=== PATIENT | female | born 1945 | race Hispanic/Latino ===

== ENCOUNTER 2018-03-10 10:43 | Emergency (ER) | payer OTHER ==
[2018-03-10] MEDS ORDERED: LEVALBUTEROL 1.25 MG/3 ML NEB ONE (11:30)
[2018-03-10] MEDS ORDERED: OSELTAMIVIR 75 MG CAP ONE (11:30)
[2018-03-10] MEDS ORDERED: IPRATROPIUM BROM 0.5MG/2.5ML ONE (11:30)
[2018-03-10] MEDS ORDERED: NA CHLORIDE 0.9% 1,000 ML ONE (11:30)
[2018-03-10] MEDS ORDERED: CEFTRIAXONE/SWI 1gm 1 GM/10 ML SYR ONE (11:30)
[2018-03-10] MEDS ORDERED: AZITHROMYCIN IV 500 MG in NA CHLORIDE 0.9% 250 ML IVPB ONE (12:00)
[2018-03-10 12:09] LABS: Absolute Lymphocytes (CBC) 0.9 K/uL (0.7-4.9); Absolute Monocytes 0.3 K/uL (0.1-1.3); Basophils % 0.4 % (0-1.3); Eosinophils % 5.6 % (0-4.4); Hematocrit 38.5 % (36.0-45.0); Lymphocytes % 26.4 % (15.3-44.8); MCH 29.8 pg (27.0-35.0); MCV 87.9 fL (80-100); MPV 8.7 fL (7.6-11.3); RBC Red Blood Cell Count 4.38 M/uL (3.86-4.86)
--- NOTE | 2018-03-10 12:24 | ER ---
Nurse's Notes [facility] Name: Eliane Flores Age: 72 yrs Sex: Female : 1945 Arrival Date: 03/10/2018 Time: 10:45 Bed 16 Private MD: Diagnosis: Acute upper respiratory infection, unspecified;Cough;Cystitis Presentation: 03/10 10:50 Presenting complaint: Patient states: Cough, congestion, SOB since sunday. Transition la1 of care: patient was not received from another setting of care. Onset of symptoms was March 10, 2018. Initial Sepsis Screen: Does the patient meet any 2 criteria? No. Patient's initial sepsis screen is negative. Does the patient have a suspected source of infection? No. Patient's initial sepsis screen is negative. Care prior to arrival: None. 10:50 Method Of Arrival: Ambulatory la1 10:50 Acuity: CRISTINA 3 la1 Historical: - Allergies: 10:51 PENICILLINS; la1 - PMHx: 10:51 BRADYCARDIA; Hypertension; Hypothyroidism; problem with heart-unknown; la1 - Immunization history:: Adult Immunizations up to date. - Social history:: Smoking status: Patient/guardian denies using tobacco. - Family history:: not pertinent. Screenin:21 Abuse screen: Denies threats or abuse. Denies injuries from another. Nutritional ph screening: No deficits noted. Tuberculosis screening: No symptoms or risk factors identified. Fall Risk None identified. Assessment: 11:30 General: Appears in no apparent distress. uncomfortable, well groomed, Behavior is ph calm, cooperative, appropriate for age, Reports chills for fever for. Pain: Denies pain. Neuro: Level of Consciousness is awake, alert, obeys commands, Oriented to person, place, time, situation. Cardiovascular: Capillary refill < 3 seconds in bilateral fingers Patient's skin is warm and dry. Respiratory: Reports shortness of breath on exertion cough that is productive, Airway is patent Respiratory effort is even, unlabored, Respiratory pattern is regular, symmetrical, Breath sounds are coarse in left posterior lower lobe, right posterior middle lobe and right posterior lower lobe Denies pain with respiration, pain with cough. GI: Patient currently denies diarrhea, nausea, vomiting. EENT: Reports nasal congestion nasal discharge. Derm: Skin is intact, is healthy with good turgor, Skin is pink, warm \T\ dry. Musculoskeletal: Circulation, motion, and sensation intact. Range of motion: intact in all extremities. 12:45 Reassessment: Discharge pending due to antibiotics infusing. rb1 14:00 Reassessment: Patient appears in no apparent distress at this time. Patient and/or ph family updated on plan of care and expected duration. Pain level reassessed. Patient is alert, oriented x 3, equal unlabored respirations, skin warm/dry/pink. Pt discharged home with family. Vital Signs: 10:51 BP 162 / 75; Pulse 67; Resp 19; Temp 97.8; Pulse Ox 100% on R/A; Weight 67.59 kg; la1 12:25 BP 178 / 69; Pulse 61; Resp 20; Pulse Ox 100% ; ph 13:45 BP 167 / 72; Pulse 64; Resp 18; Temp 97.8; Pulse Ox 98% on R/A; ph ED Course: 10:45 Patient arrived in ED. as 10:50 Triage completed. la1 10:51 Arm band placed on left wrist. la1 11:02 Caden Palencia MD is Attending Physician. svetlana 11:04 Babita Phoenix, JEREMY is Primary Nurse. ph 11:20 Initial lab(s) drawn, by me, sent to lab. Inserted saline lock: 20 gauge in left ph antecubital area, using aseptic technique. Blood collected. 11:42 Urine collected: clean catch specimen, cloudy, carissa colored, EKG done, by ED staff, jb1 reviewed by Caden Palencia MD. 12:05 XRAY Chest (1 view) In Process Unspecified. EDMS 12:21 Patient has correct armband on for positive identification. Placed in gown. Bed in low ph position. Call light in reach. Side rails up X 1. Pulse ox on. NIBP on. Warm blanket given. 14:01 No provider procedures requiring assistance completed. IV discontinued, bleeding ph controlled, No redness/swelling at site. Pressure dressing applied. Administered Medications: 11:50 Drug: Tamiflu 75 mg Route: PO; ph 13:00 Follow up: Response: No adverse reaction ph 11:55 Drug: NS 0.9% 500 ml Route: IV; Rate: bolus; Site: left antecubital; ph 12:30 Follow up: Response: No adverse reaction; IV Status: Completed infusion ph 11:55 Drug: Rocephin - (cefTRIAXone) 1 grams Route: IVPB; Infused Over: 30 mins; Site: left ph antecubital; 13:00 Follow up: Response: No adverse reaction; IV Status: Completed infusion ph 11:55 Drug: Xopenex 1.25 mg Route: Inhalation; ph 13:00 Follow up: Response: No adverse reaction ph 11:55 Drug: AtroVENT Aerosol 0.5 mg Route: Inhalation; ph 13:00 Follow up: Response: No adverse reaction ph 12:44 Drug: NS 0.9% 1000 ml Route: IV; Rate: 125 ml/hr; Site: left antecubital; rb1 13:30 Follow up: Response: No adverse reaction; IV Status: Completed infusion ph 12:44 Drug: Zithromax 500 mg Route: IVPB; Infused Over: 1 hrs; Site: left antecubital; rb1 14:00 Follow up: Response: No adverse reaction; IV Status: Completed infusion ph Outcome: 12:24 Discharge ordered by . svetlana 14:01 Patient left the ED. ph 14:01 Discharged to home ambulatory, with family. ph 14:01 Condition: good 14:01 Discharge instructions given to patient, Instructed on discharge instructions, follow up and referral plans. medication usage, Demonstrated understanding of instructions, follow-up care, medications, Prescriptions given X 5 Signatures: Dispatcher [employer] EDEliazar Duff jb1 Caden Palencia MD MD cha Martinez, Amelia as Attema, Lee, RN RN la1 Babita Phoenix RN RN Amrita Mistry, JEREMY RN rb1 Corrections: (The following items were deleted from the chart) 10:52 10:51 Pulse 67bpm; Resp 19bpm; Pulse Ox 100% RA; Temp 97.8F; 67.59 kg; la1 la1
--- NOTE | 2018-03-10 12:25 | EDPHYS ---
Physician Documentation [facility] Name: Eliane Flores Age: 72 yrs Sex: Female : 1945 Arrival Date: 03/10/2018 Time: 10:45 Bed 16 Private MD: ED Physician Caden Palencia HPI: 03/10 11:22 This 72 yrs old Female presents to ER via Ambulatory with complaints of Cold svetlana Symptoms. 11:22 fever , cough, congestion, malaie. The patient or guardian reports airway noise, cough. svetlana Onset: The symptoms/episode began/occurred 2 day(s) ago. Severity of symptoms: At their worst the symptoms were mild, in the emergency department the symptoms are unchanged. The patient reports fever, that was measured at 100 degrees Fahrenheit. Historical: - Allergies: 10:51 PENICILLINS; la1 - PMHx: 10:51 BRADYCARDIA; Hypertension; Hypothyroidism; problem with heart-unknown; la1 - Immunization history:: Adult Immunizations up to date. - Social history:: Smoking status: Patient/guardian denies using tobacco. - Family history:: not pertinent. ROS: 11:22 Constitutional: Negative for fever, chills, and weight loss, Eyes: Negative for injury, svetlana pain, redness, and discharge, ENT: Negative for injury, pain, and discharge, Neck: Negative for injury, pain, and swelling, Cardiovascular: Negative for chest pain, palpitations, and edema, Abdomen/GI: Negative for abdominal pain, nausea, vomiting, diarrhea, and constipation, Back: Negative for injury and pain, : Negative for injury, bleeding, discharge, and swelling, MS/Extremity: Negative for injury and deformity, Skin: Negative for injury, rash, and discoloration, Neuro: Negative for headache, weakness, numbness, tingling, and seizure, Psych: Negative for depression, anxiety, suicide ideation, homicidal ideation, and hallucinations, Allergy/Immunology: Negative for hives, rash, and allergies, Endocrine: Negative for neck swelling, polydipsia, polyuria, polyphagia, and marked weight changes, Hematologic/Lymphatic: Negative for swollen nodes, abnormal bleeding, and unusual bruising. 11:22 Respiratory: Positive for cough, shortness of breath, on exertion. Exam: 11:22 Constitutional: This is a well developed, well nourished patient who is awake, alert, svetlana and in no acute distress. Head/Face: Normocephalic, atraumatic. Eyes: Pupils equal round and reactive to light, extra-ocular motions intact. Lids and lashes normal. Conjunctiva and sclera are non-icteric and not injected. Cornea within normal limits. Periorbital areas with no swelling, redness, or edema. ENT: Nares patent. No nasal discharge, no septal abnormalities noted. Tympanic membranes are normal and external auditory canals are clear. Oropharynx with no redness, swelling, or masses, exudates, or evidence of obstruction, uvula midline. Mucous membranes moist. Neck: Trachea midline, no thyromegaly or masses palpated, and no cervical lymphadenopathy. Supple, full range of motion without nuchal rigidity, or vertebral point tenderness. No Meningismus. Chest/axilla: Normal chest wall appearance and motion. Nontender with no deformity. No lesions are appreciated. Cardiovascular: Regular rate and rhythm with a normal S1 and S2. No gallops, murmurs, or rubs. Normal PMI, no JVD. No pulse deficits. Abdomen/GI: Soft, non-tender, with normal bowel sounds. No distension or tympany. No guarding or rebound. No evidence of tenderness throughout. Back: No spinal tenderness. No costovertebral tenderness. Full range of motion. Female : Normal external genitalia. Skin: Warm, dry with normal turgor. Normal color with no rashes, no lesions, and no evidence of cellulitis. MS/ Extremity: Pulses equal, no cyanosis. Neurovascular intact. Full, normal range of motion. Neuro: Awake and alert, GCS 15, oriented to person, place, time, and situation. Cranial nerves II-XII grossly intact. Motor strength 5/5 in all extremities. Sensory grossly intact. Cerebellar exam normal. Normal gait. Psych: Awake, alert, with orientation to person, place and time. Behavior, mood, and affect are within normal limits. 11:22 Respiratory: the patient does not display signs of respiratory distress, Respirations: normal, Breath sounds: decreased breath sounds, rhonchi, that are mild, are located in both bases. Vital Signs: 10:51 BP 162 / 75; Pulse 67; Resp 19; Temp 97.8; Pulse Ox 100% on R/A; Weight 67.59 kg; la1 12:25 BP 178 / 69; Pulse 61; Resp 20; Pulse Ox 100% ; ph 13:45 BP 167 / 72; Pulse 64; Resp 18; Temp 97.8; Pulse Ox 98% on R/A; ph MDM: 11:02 Patient medically screened. [facility] 11:24 Data reviewed: vital signs, nurses notes, lab test result(s), EKG, radiologic studies, svetlana plain films. 03/10 11:22 Order name: Basic Metabolic Panel; Complete Time: 12:41 [facility] 03/10 11:22 Order name: BNP [facility] 03/10 11:22 Order name: CBC with Diff; Complete Time: 12:22 [facility] 03/10 11:22 Order name: Ckmb; Complete Time: 12:41 [facility] 03/10 11:22 Order name: CPK; Complete Time: 12:41 [facility] 03/10 11:22 Order name: LFT's; Complete Time: 12:41 [facility] 03/10 11:22 Order name: Magnesium; Complete Time: 12:41 [facility] 03/10 11:22 Order name: Troponin (emerg Dept Use Only); Complete Time: 12:41 [facility] 03/10 11:22 Order name: XRAY Chest (1 view); Complete Time: 12:41 [facility] 03/10 11:22 Order name: Blood Culture Adult (2) [facility] 03/10 11:22 Order name: Influenza Screen (a \T\ B); Complete Time: 12:22 [facility] 03/10 11:45 Order name: Urine Culture jb1 03/10 11:48 Order name: Urine Dipstick--Ancillary (enter results); Complete Time: 12:30 03/10 11:22 Order name: EKG; Complete Time: 11:22 [facility] 03/10 11:22 Order name: Cardiac monitoring; Complete Time: 11:27 [facility] 03/10 11:22 Order name: EKG - Nurse/Tech; Complete Time: 11:43 [facility] 03/10 11:22 Order name: IV Saline Lock; Complete Time: 12:20 [facility] 03/10 11:22 Order name: Labs collected and sent; Complete Time: 12:20 [facility] 03/10 11:22 Order name: O2 Per Protocol; Complete Time: 11:27 [facility] 03/10 11:22 Order name: O2 Sat Monitoring; Complete Time: 11:27 [facility] 03/10 11:22 Order name: Urine Dipstick-Ancillary (obtain specimen); Complete Time: 11:43 svetlana Administered Medications: 11:50 Drug: Tamiflu 75 mg Route: PO; ph 13:00 Follow up: Response: No adverse reaction ph 11:55 Drug: NS 0.9% 500 ml Route: IV; Rate: bolus; Site: left antecubital; ph 12:30 Follow up: Response: No adverse reaction; IV Status: Completed infusion ph 11:55 Drug: Rocephin - (cefTRIAXone) 1 grams Route: IVPB; Infused Over: 30 mins; Site: left ph antecubital; 13:00 Follow up: Response: No adverse reaction; IV Status: Completed infusion ph 11:55 Drug: Xopenex 1.25 mg Route: Inhalation; ph 13:00 Follow up: Response: No adverse reaction ph 11:55 Drug: AtroVENT Aerosol 0.5 mg Route: Inhalation; ph 13:00 Follow up: Response: No adverse reaction ph 12:44 Drug: NS 0.9% 1000 ml Route: IV; Rate: 125 ml/hr; Site: left antecubital; rb1 13:30 Follow up: Response: No adverse reaction; IV Status: Completed infusion ph 12:44 Drug: Zithromax 500 mg Route: IVPB; Infused Over: 1 hrs; Site: left antecubital; rb1 14:00 Follow up: Response: No adverse reaction; IV Status: Completed infusion ph Disposition: 03/10/18 12:24 Discharged to Home. Impression: Acute upper respiratory infection, unspecified, Cough, Cystitis. - Condition is Stable. - Discharge Instructions: Dysuria, Upper Respiratory Infection, Adult, Cool Mist Vaporizers, Cough, Adult, [id number], Cough, Adult. - Prescriptions for Cheratussin AC 10- 100 mg/5 mL Oral liquid - take 5 milliliter by ORAL route every 4 hours; 120 milliliter. Albuterol Sulfate 90 mcg/actuation - inhale 1-2 puff by INHALATION route every 4-6 hours; 1 Inhaler. Tamiflu 75 mg Oral Capsule - take 1 tablet by ORAL route every 12 hours for 5 days; 10 tablet. Zithromax 500 mg Oral Tablet - take 1 tablet by ORAL route once daily for 5 days; 5 tablet. Bactrim DS 800- 160 mg Oral Tablet - take 1 tablet by ORAL route every 12 hours for 5 days; 10 tablet. - Medication Reconciliation Form, Thank You Letter, Antibiotic Education, Prescription Opioid Use form. - SBAR form (03/10/18 18:34). ph - Follow up: Private Physician; When: 2 - 3 days; Reason: Recheck today's complaints, Continuance of care, Re-evaluation by your physician. - Problem is new. - Symptoms have improved. Signatures: Dispatcher [employer] EDCaden Weems MD MD cha Attema, Lee, RN RN la1 Babita Phoenix, RN RN ph Amrita Mistry, RN RN rb1
[2018-03-10 12:26] LABS: Bicarbonate 30 mEq/L (21-31); Glucose Level 98 mg/dL (65-120); Potassium 3.7 mEq/L (3.6-5.0); Sodium Level 137 mEq/L (135-145)
[2018-03-10 12:28] LABS: Urine Blood NEGATIVE (NEG); Urine Glucose NEGATIVE (NEG); Urine Protein NEGATIVE (NEG); Urine Specific Gravity 1.015 (1.005-1.030); Urine pH 7.5 (5.0-7.0)
[2018-03-10 12:33] LABS: ALT/SGPT 18 IU/L (10-60); AST/SGOT 24 IU/L (10-42); Albumin 4.1 g/dL (3.2-5.5); Alkaline Phosphatase 88 IU/L (42-121); BUN Blood Urea Nitrogen 14 mg/dL (6-20); Bilirubin Direct < 0.1 mg/dL (0-0.2); Bilirubin Total 0.7 mg/dL (0.3-1.2); Creatine Phosphokinase 233 IU/L (22-269); Magnesium 1.9 mg/dL (1.8-2.5); Protein, Total 7.5 g/dL (6.0-8.3)
--- NOTE | 2018-03-10 12:33 | RAD REPORT ---
EXAM DESCRIPTION: RAD - Chest Single View - 03/10/2018 12:05 pm CLINICAL HISTORY: Cough and congestion COMPARISON: 08/22/2017 FINDINGS: Portable technique limits examination quality. The lungs are grossly clear. The heart is normal in size. No displaced fractures. IMPRESSION: No acute intrathoracic process suspected.
[2018-03-10 12:37] LABS: CKMB Creatine Kinase MB 3.7 ng/ml (0.3-4.0)
[2018-03-10 14:06] VITALS: TEMP 97.8; O2SAT 100
[2018-03-10 14:07] VITALS: BP 178/69
--- NOTE | 2018-03-11 07:06 | EKG ---
Test Date: 2018-03-10 Test Time: 11:36:49 Audiometric Technician: INGA MEASUREMENT RESULTS: Intervals: Rate: 50 OK: 172 QRSD: 90 QT: 442 QTc: 402 [place]: P: 49 OK: 172 QRS: 11 T: 33 INTERPRETIVE STATEMENTS: Sinus bradycardia Otherwise normal ECG Compared to ECG 08/22/2017 10:12:26 No significant changes Electronically Signed On 03-11-18 07:05:46 CDT by Robert Bustaamnte
== END 2018-03-10 14:01 | disposition home or self-care (01) ==
LOC: ER 10:43
DX: J06.9 Acute upper respiratory infection, unspecified (principal); N30.90 Cystitis, unspecified without hematuria; I10 Essential (primary) hypertension; Z88.0 Allergy status to penicillin
CPT/HCPCS: 36415; 71045; 80048; 80076; 81003; 82550; 82553; 83735; 83880; 84484; 85025; 87040 ×2; 87086; 87088; 87804 ×2; 93005; 96365; 99284; J0456; J0696; J7030; 96361; 96368

== ENCOUNTER 2023-04-27 08:57 | Observation (INO) | payer OTHER ==
--- OUTSIDE RECORDS SUMMARY | 2023-04-27 09:10 | XMS REPORT | Continuity of Care Document ---
:1945 Author Organization [facility] t Address [address] 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 [id number] 2021 NON-CONTRACT 00:00:00 GENERIC Problems Condition Condition Condition Status Onset Resolution Last Treating Co mments Source Name Details Category Date Date Treatment Clinician Date Well adult Well adult Disease Active K kindra exam exam 03-21 Seybold 00:00: - 00 Externa l Prediabete Prediabete Disease Active K kindra s s 03-21 Seybold 00:00: - 00 Externa l Hypertensi Hypertensi Disease Active K kindra on on 02-21 Seybold 00:00: - 00 Externa l Hypothyroi Hypothyroi Disease Active K kindra dism dism 02-21 Seybold (acquired) (acquired) 00:00: - 00 Externa l 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 Allergies, Adverse Reactions, Alerts Allergy Allergy Status Severity Reaction(s) Onset Inactive Treating Comm ents Source Name Type Date Date Clinician Penicill Propensi Active Kita ins ty to 4-04 Seybold adverse 00:00: - reaction 00 Externa s l Penicill Propensi Active ins - ty to 8-16 CLASS adverse 00:00: reaction 00 to drug Codeine Propensi Active Kita ty to 8-16 Seybold adverse 00:00: - reaction 00 Externa s l Penicill Propensi Active ins ty to 3-18 adverse 00:00: reaction 00 to drug Penicill Propensi Active Hives Univer s ins ty to 8-14 ity of adverse 00:00: [place] reaction [facility] PENICILL Drug Active Hives Univers INS Class 8-14 ity of 00:00: [place] [facility] Social History Social Habit Start Date Stop Date Quantity Comments Source Gender identity Kita poole - External Sexual orientation Kita Montes - External Alcohol intake 2023-03-21 2023-03-21 Lifetime Kita rocha - 00:00:00 00:00:00 non-drinker External (finding) Education 2023-02-21 2023-02-21 3 Kita Montes - 00:00:00 00:00:00 External Tobacco use and 2023-02-20 2023-02-20 Smokeless Kita poole - exposure 00:00:00 00:00:00 tobacco non-user External History of Social 2023-02-20 2023-02-20 Kita Montes - function 00:00:00 00:00:00 External Exposure to 2022-08-12 2022-08-22 Not sure [facility]-CoV-2 (event) 00:00:00 12:07:00 [facility] Sex Assigned At [birth year] Kita Velez ybold - 00:00:00 00:00:00 External Smoking Status Start Date Stop Date Source Never smoked tobacco Kita Seyb old - External Medications Ordered Filled Start Stop Current Ordering Indication Dosage Frequency Signature Comments Components Source Medication Medication Date Date Medication? Clinician (SIG) Name Name Cholecalcif Yes 400U Take 1 Courtney ey sandhya 5-03 tablet Seybold (VITAMIN 14:22: (400 units - D-3) 10 MCG 23 total) by Ext abigail (400 UNIT) mouth l oral Tablet daily [place]-3 Yes 1{capsu Take 1 Kelse y Fatty Acids 5-03 le} capsule by joeykvng (Fish Oil) 14:22: mouth - 1200 MG 23 daily Externa oral l Capsule Levothyroxi Yes [id number] 50ug Take 1 Kita ne Sodium 4-27 tablet (50 Seyb old 50 MCG oral 00:00: mcg total) - Tablet 00 by mouth Externa daily l Lisinopril 2022- No 10mg Take 1 Courtney ey 10 MG oral 4-05 04-05 tablet (10 Se ybold Tablet 14:17: 00:00 mg total) - 57 :00 by mouth Externa daily l Levothyroxi 0 2022- No 50ug Take 1 Joseluis sey ne Sodium 4-05 04-05 tablet (50 Sey bold 50 MCG oral 14:17: 00:00 mcg total) - Tablet 57 :00 by mouth Externa daily l Pantoprazol 2022- No 20mg Take 1 Joseluis sey e Sodium 20 4-05 04-05 tablet (20 S eybold MG oral 14:17: 00:00 mg total) - Tablet 57 :00 by mouth Externa Delayed daily l Response Zinc 2022- No Take by Kita Sulfate 4-05 04-05 mouth Seybold (ZINC 15 14:17: 00:00 - OR) 57 :00 Externa l [place]-3 Yes 1{capsu Take 1 Kelse y Fatty Acids 4-05 le} capsule by Se ybold (Fish Oil) 14:05: mouth - 1200 MG 49 daily Externa oral l Capsule Cholecalcif 0 Yes 400U Take 1 Courtney ey sandhya 4-05 tablet Seybold (VITAMIN 13:58: (400 units - D-3) 10 MCG 27 total) by Ext abigail (400 UNIT) mouth l oral Tablet daily Pantoprazol 2022-0 Yes [id number] 20mg QD Take 1 Kita e Sodium 20 4-05 tablet (20 Se ybold MG oral 00:00: mg total) - Tablet 00 by mouth Externa Delayed daily as l Response needed Lisinopril 0 Yes [id number] 10mg Take 1 K elsey 10 MG oral 4-05 tablet (10 Sey bold Tablet 00:00: mg total) - 00 by mouth Externa daily l Levothyroxi 0 Yes [id number] 50ug Take 1 Kita ne Sodium 4-05 tablet (50 Seyb old 50 MCG oral 00:00: mcg total) - Tablet 00 by mouth Externa daily l Zinc 2022-0 Yes 1{tbl} Take 1 Kita Sulfate 4-05 tablet by Seybold (Zinc 15) 00:00: mouth - 66 MG oral 00 daily Externa Tablet l Pantoprazol 0 Yes [id number] 20mg QD Take 1 Kita e Sodium 20 4-05 tablet (20 Se ybold MG oral 00:00: mg total) - Tablet 00 by mouth Externa Delayed daily as l Response needed Lisinopril 0 Yes [id number] 10mg Take 1 K elsey 10 MG oral 4-05 tablet (10 Sey bold Tablet 00:00: mg total) - 00 by mouth Externa daily l Zinc 2022-0 Yes 1{tbl} Take 1 Kita Sulfate 4-05 tablet by Seybold (Zinc 15) 00:00: mouth - 66 MG oral 00 daily Externa Tablet l ibuprofen 2021-11- No 400mg 400 mg, Uni vers (IBU) 0-04 10-04 Oral, ity of tablet 400 17:00: 16:51 ONCE, 1 Matt as mg 00 :00 dose, On [employer] [facility] 08/22/22 at 1200, JUANCARLOS Dose 2021-0 No Unknown 6- 00:00: 00 Dose 2022-0 No Unknown 6- 00:00: 00 Dose 2022-0 No Unknown 6- 00:00: 00 Dose 2022-0 No Unknown 6 00:00: 00 Dose 2022-0 No Unknown 6 00:00: 00 Dose 2022-0 No Unknown 6 00:00: 00 Zoloft 50 2022-0 No 1mg mg tablet 05-11 00:00: 00 Dose 2022-0 No Unknown 6 00:00: 00 Zoloft 50 2022-0 No 1mg mg tablet 05-11 00:00: 00 Dose 2022-0 No Unknown 6 00:00: 00 Zoloft 50 2022-0 No 1mg mg tablet 05-11 00:00: 00 Dose 2022-0 No Unknown 05-11 00:00: 00 Zoloft 50 2022-0 No 1mg mg tablet 05-11 00:00: 00 Dose 2022-0 No Unknown 6 00:00: 00 Zoloft 50 2022-0 No 1mg mg tablet 05-11 00:00: 00 Dose 2022-0 No Unknown 6 00:00: 00 Zoloft 50 2022-0 No 1mg mg tablet 05-11 00:00: 00 Dose 2022-0 No Unknown 6 00:00: 00 Dose 2022-0 No Unknown 5-30 00:00: 00 Dose 2022-0 No Unknown 5-30 00:00: 00 Dose 2022-0 No Unknown 5-30 00:00: 00 Dose 2022-0 No Unknown 5-30 00:00: 00 Dose 2022-0 No Unknown 5-30 00:00: 00 Dose 2022-0 No Unknown 5-30 00:00: 00 Dose 2022-0 No Unknown 5-30 00:00: 00 Dose 2022-0 No Unknown 5-30 00:00: 00 Dose 2022-0 No Unknown 5-30 00:00: 00 Dose 2022-0 No Unknown 5-30 00:00: 00 Dose 2022-0 No Unknown 5-30 00:00: 00 Dose 2022-0 No Unknown 5-30 00:00: 00 mupirocin 2 2022-0 No 1% % topical 5-28 ointment 00:00: 00 terbinafine 2022-0 No 1mg HCl 250 mg 5-28 tablet 00:00: 00 ibuprofen 2022-0 No 1mg 800 mg 5-28 tablet 00:00: 00 doxycycline 2022-0 No 1mg monohydrate 5-28 50 mg 00:00: capsule 00 Dose 2022-0 No Unknown 5-28 00:00: 00 mupirocin 2 2022-0 No 1% % topical 5-28 ointment 00:00: 00 terbinafine 2022-0 No 1mg HCl 250 mg 5-28 tablet 00:00: 00 ibuprofen 2022-0 No 1mg 800 mg 5-28 tablet 00:00: 00 doxycycline 2022-0 No 1mg monohydrate 5-28 50 mg 00:00: capsule 00 Dose 2022-0 No Unknown 5-28 00:00: 00 mupirocin 2 2022-0 No 1% % topical 5-28 ointment 00:00: 00 terbinafine 2022-0 No 1mg HCl 250 mg 5-28 tablet 00:00: 00 ibuprofen 2022-0 No 1mg 800 mg 5-28 tablet 00:00: 00 doxycycline 2022-0 No 1mg monohydrate 5-28 50 mg 00:00: capsule 00 Dose 2022-0 No Unknown 5-28 00:00: 00 mupirocin 2 2022-0 No 1% % topical 5-28 ointment 00:00: 00 terbinafine 2022-0 No 1mg HCl 250 mg 5-28 tablet 00:00: 00 ibuprofen 2022-0 No 1mg 800 mg 5-28 tablet 00:00: 00 doxycycline 2022-0 No 1mg monohydrate 5-28 50 mg 00:00: capsule 00 Dose 2022-0 No Unknown 5-28 00:00: 00 mupirocin 2 2022-0 No 1% % topical 5-28 ointment 00:00: 00 terbinafine 2022-0 No 1mg HCl 250 mg 5-28 tablet 00:00: 00 ibuprofen 2022-0 No 1mg 800 mg 5-28 tablet 00:00: 00 doxycycline 2022-0 No 1mg monohydrate 5-28 50 mg 00:00: capsule 00 Dose 2022-0 No Unknown 5-28 00:00: 00 mupirocin 2 2022-0 No 1% % topical 5-28 ointment 00:00: 00 terbinafine 2022-0 No 1mg HCl 250 mg 5-28 tablet 00:00: 00 ibuprofen 2022-0 No 1mg 800 mg 5-28 tablet 00:00: 00 doxycycline 2022-0 No 1mg monohydrate 5-28 50 mg 00:00: capsule 00 Dose 2022-0 No Unknown 5-28 00:00: 00 sulfamethox 2022-0 No 1mg azole 800 5-24 mg-trimetho 00:00: prim 160 mg 00 tablet diclofenac 2022-0 No 1mg sodium 75 5-24 mg 00:00: tablet,yolis 00 yed release gabapentin 2022-0 No 1mg 300 mg 5-24 capsule 00:00: 00 sulfamethox 2022-0 No 1mg azole 800 5-24 mg-trimetho 00:00: prim 160 mg 00 tablet diclofenac 2-0 No 1mg sodium 75 5-24 mg 00:00: tablet,yolis 00 yed release gabapentin 2022-0 No 1mg 300 mg 5-24 capsule 00:00: 00 sulfamethox 2022-0 No 1mg azole 800 5-24 mg-trimetho 00:00: prim 160 mg 00 tablet diclofenac 2-0 No 1mg sodium 75 5-24 mg 00:00: tablet,yolis 00 yed release gabapentin 2022-0 No 1mg 300 mg 5-24 capsule 00:00: 00 sulfamethox 2022-0 No 1mg azole 800 5-24 mg-trimetho 00:00: prim 160 mg 00 tablet diclofenac 2-0 No 1mg sodium 75 5-24 mg 00:00: tablet,yolis 00 yed release gabapentin 2022-0 No 1mg 300 mg 5-24 capsule 00:00: 00 sulfamethox 2022-0 No 1mg azole 800 5-24 mg-trimetho 00:00: prim 160 mg 00 tablet diclofenac 2022-0 No 1mg sodium 75 5-24 mg 00:00: tablet,yolis 00 yed release gabapentin 2022-0 No 1mg 300 mg 5-24 capsule 00:00: 00 sulfamethox 2022-0 No 1mg azole 800 5-24 mg-trimetho 00:00: prim 160 mg 00 tablet diclofenac 2-0 No 1mg sodium 75 5-24 mg 00:00: tablet,yolis 00 yed release gabapentin 2-0 No 1mg 300 mg 5-24 capsule 00:00: 00 Dose 2022-0 No Unknown 5-10 00:00: 00 Dose 2022-0 No Unknown 5-10 00:00: 00 lisinopril 2022-0 No 1mg 10 mg 5-10 tablet 00:00: 00 Dose 2022-0 No Unknown 5-10 00:00: 00 Dose 2022-0 No Unknown 5-10 00:00: 00 lisinopril 2022-0 No 1mg 10 mg 5-10 tablet 00:00: 00 Dose 2022-0 No Unknown 3-27 00:00: 00 Dose 2022-0 No Unknown 3-27 00:00: 00 Dose 2022-0 No Unknown 3-27 00:00: 00 Dose 2022-0 No Unknown 3-27 00:00: 00 Dose 2022-0 No Unknown 3-27 00:00: 00 Dose 2022-0 No Unknown 3-27 00:00: 00 Dose 2022-0 No Unknown 3-27 00:00: 00 Dose 2022-0 No Unknown 3-27 00:00: 00 Dose 2022-0 No Unknown 3-27 00:00: 00 Dose 2022-0 No Unknown 3-27 00:00: 00 Dose 2022-0 No Unknown 3-27 00:00: 00 Dose 2022-0 No Unknown 3-27 00:00: 00 Dose 2022-0 No Unknown 3-27 00:00: 00 Dose 2022-0 No Unknown 3-27 00:00: 00 Dose 2022-0 No Unknown 3-27 00:00: 00 Dose 2022-0 No Unknown 3-27 00:00: 00 Dose 2022-0 No Unknown 3-27 00:00: 00 Dose 2022-0 No Unknown 3-27 00:00: 00 Dose 2022-0 No Unknown 3-27 00:00: 00 Dose 2022-0 No Unknown 3-27 00:00: 00 Dose 2022-0 No Unknown 3-27 00:00: 00 Dose 2022-0 No Unknown 3-27 00:00: 00 Dose 2022-0 No Unknown 3-27 00:00: 00 Dose 2022-0 No Unknown 3-27 00:00: 00 Dose 2022-0 No Unknown 3-27 00:00: 00 Dose 2022-0 No Unknown 3-27 00:00: 00 Dose 2022-0 No Unknown 3-27 00:00: 00 Dose 2022-0 No Unknown 3-27 00:00: 00 Dose 2022-0 No Unknown 3-27 00:00: 00 Dose 2-0 No Unknown 3-27 00:00: 00 Dose 2022-0 No Unknown 3-27 00:00: 00 Dose 2-0 No Unknown 3-27 00:00: 00 Dose 2022-0 No Unknown 3- 00:00: 00 Dose 2-0 No Unknown 3- 00:00: 00 Dose 2-0 No Unknown 3- 00:00: 00 Dose 2-0 No Unknown 3- 00:00: 00 sertraline 2-0 No 1mg 25 mg 3-23 tablet 00:00: 00 azithromyci 2-0 No mg n 250 mg 3-23 tablet 00:00: 00 Dose 2-0 No Unknown 3-23 00:00: 00 Dose 2-0 No Unknown 3-23 00:00: 00 Dose 2-0 No Unknown 3-23 00:00: 00 Dose 2-0 No Unknown 3-23 00:00: 00 Dose 2-0 No Unknown 3-23 00:00: 00 Restasis 2-0 No 1% MultiDose 3-23 0.05 % eye 00:00: drops 00 diclofenac 2-0 No 1% 3 % topical 3-23 gel 00:00: 00 Dose 2-0 No Unknown 3-23 00:00: 00 pentoxifyll 2-0 No 1mg ine ER 400 3-23 mg 00:00: tablet,exte 00 nded release sertraline 2-0 No 1mg 25 mg 3-23 tablet 00:00: 00 azithromyci 2-0 No mg n 250 mg 3-23 tablet 00:00: 00 Dose 2-0 No Unknown 3-23 00:00: 00 Dose 2022-0 No Unknown 3-23 00:00: 00 Dose 2-0 No Unknown 3-23 00:00: 00 Dose 2022-0 No Unknown 3-23 00:00: 00 Dose 2022-0 No Unknown 3-23 00:00: 00 Restasis 2022-0 No 1% MultiDose 3-23 0.05 % eye 00:00: drops 00 diclofenac 2022-0 No 1% 3 % topical 3-23 gel 00:00: 00 lisinopril 2022-0 No 1mg 20 mg 3-23 tablet 00:00: 00 pentoxifyll 2022-0 No 1mg ine ER 400 3-23 mg 00:00: tablet,exte 00 nded release sertraline 2-0 No 1mg 25 mg 3-23 tablet 00:00: 00 azithromyci 2022-0 No mg n 250 mg 3-23 tablet 00:00: 00 levothyroxi 2022-0 No 1mcg ne 50 mcg 3-23 tablet 00:00: 00 Dose 2022-0 No Unknown 3-23 00:00: 00 Dose 2022-0 No Unknown 3-23 00:00: 00 Dose 2022-0 No Unknown 3-23 00:00: 00 Dose 2022-0 No Unknown 3-23 00:00: 00 Restasis 2022-0 No 1% MultiDose 3-23 0.05 % eye 00:00: drops 00 diclofenac 2-0 No 1% 3 % topical 3-23 gel 00:00: 00 Dose 2022-0 No Unknown 3-23 00:00: 00 pentoxifyll 2022-0 No 1mg ine ER 400 3-23 mg 00:00: tablet,exte 00 nded release sertraline 2-0 No 1mg 25 mg 3-23 tablet 00:00: 00 azithromyci 2022-0 No mg n 250 mg 3-23 tablet 00:00: 00 Dose 2022-0 No Unknown 3-23 00:00: 00 Dose 2022-0 No Unknown 3-23 00:00: 00 Dose 2022-0 No Unknown 3-23 00:00: 00 Dose 2022-0 No Unknown 3-23 00:00: 00 Dose 2022-0 No Unknown 3-23 00:00: 00 Restasis 2022-0 No 1% MultiDose 3-23 0.05 % eye 00:00: drops 00 diclofenac 2022-0 No 1% 3 % topical 3-23 gel 00:00: 00 lisinopril 2022-0 No 1mg 20 mg 3-23 tablet 00:00: 00 pentoxifyll 2022-0 No 1mg ine ER 400 3-23 mg 00:00: tablet,exte 00 nded release sertraline 2-0 No 1mg 25 mg 3-23 tablet 00:00: 00 azithromyci 2022-0 No mg n 250 mg 3-23 tablet 00:00: 00 levothyroxi 2-0 No 1mcg ne 50 mcg 3-23 tablet 00:00: 00 Dose 2022-0 No Unknown 3-23 00:00: 00 Dose 2022-0 No Unknown 3-23 00:00: 00 Dose 2022-0 No Unknown 3-23 00:00: 00 Dose 2022-0 No Unknown 3-23 00:00: 00 Restasis 2-0 No 1% MultiDose 3-23 0.05 % eye 00:00: drops 00 diclofenac 2-0 No 1% 3 % topical 3-23 gel 00:00: 00 Dose 2022-0 No Unknown 3-23 00:00: 00 pentoxifyll 2-0 No 1mg ine ER 400 3-23 mg 00:00: tablet,exte 00 nded release sertraline 2-0 No 1mg 25 mg 3-23 tablet 00:00: 00 azithromyci 2-0 No mg n 250 mg 3-23 tablet 00:00: 00 Dose 2-0 No Unknown 3-23 00:00: 00 Dose 2022-0 No Unknown 3-23 00:00: 00 Dose 2-0 No Unknown 3-23 00:00: 00 Dose 2022-0 No Unknown 3-23 00:00: 00 Dose 2022-0 No Unknown 3-23 00:00: 00 Restasis 2-0 No 1% MultiDose 3-23 0.05 % eye 00:00: drops 00 diclofenac 2-0 No 1% 3 % topical 3-23 gel 00:00: 00 Dose 2022-0 No Unknown 3-23 00:00: 00 pentoxifyll 2022-0 No 1mg ine ER 400 3-23 mg 00:00: tablet,exte 00 nded release Dose 2-0 No Unknown 3-17 00:00: 00 Dose 2022-0 No Unknown 3-17 00:00: 00 Dose 2022-0 No Unknown 3-17 00:00: 00 Dose 2022-0 No Unknown 3-17 00:00: 00 Dose 2022-0 No Unknown 3-17 00:00: 00 Dose 2022-0 No Unknown 3-17 00:00: 00 Dose 2022-0 No Unknown 3-17 00:00: 00 Dose 2022-0 No Unknown 3-17 00:00: 00 Dose 2022-0 No Unknown 3-17 00:00: 00 Dose 2022-0 No Unknown 3-17 00:00: 00 Dose 2022-0 No Unknown 3-17 00:00: 00 Dose 2022-0 No Unknown 3-17 00:00: 00 Dose 2022-0 No Unknown 3-17 00:00: 00 Dose 2022-0 No Unknown 3-17 00:00: 00 Dose 2022-0 No Unknown 3-17 00:00: 00 Dose 2022-0 No Unknown 3-17 00:00: 00 Dose 2022-0 No Unknown 3-17 00:00: 00 Dose 2022-0 No Unknown 3-17 00:00: 00 Dose 2022-0 No Unknown 3-17 00:00: 00 Dose 2022-0 No Unknown 3-17 00:00: 00 Dose 2022-0 No Unknown 3-17 00:00: 00 Dose 2022-0 No Unknown 3-17 00:00: 00 Dose 2022-0 No Unknown 3-17 00:00: 00 Dose 2022-0 No Unknown 3-17 00:00: 00 Dose 2022-0 No Unknown 3-17 00:00: 00 Dose 2022-0 No Unknown 3-17 00:00: 00 Dose 2022-0 No Unknown 3-17 00:00: 00 Dose 2022-0 No Unknown 3-17 00:00: 00 Dose 2022-0 No Unknown 3-17 00:00: 00 Dose 2022-0 No Unknown 3-17 00:00: 00 Dose 2022-0 No Unknown 3-17 00:00: 00 Dose 2022-0 No Unknown 3-17 00:00: 00 Dose 2022-0 No Unknown 3-17 00:00: 00 Dose 2022-0 No Unknown 3-17 00:00: 00 Dose 2022-0 No Unknown 3-17 00:00: 00 Dose 2022-0 No Unknown 3-17 00:00: 00 Dose 2022-0 No Unknown 3-17 00:00: 00 Dose 2022-0 No Unknown 3-17 00:00: 00 Dose 2022-0 No Unknown 3-17 00:00: 00 Dose 2022-0 No Unknown 3-17 00:00: 00 Dose 2022-0 No Unknown 3-17 00:00: 00 Dose 2022-0 No Unknown 3-17 00:00: 00 Dose 2022-0 No Unknown 3-17 00:00: 00 Dose 2022-0 No Unknown 3-17 00:00: 00 Dose 2022-0 No Unknown 3-17 00:00: 00 Dose 2022-0 No Unknown 3-17 00:00: 00 Dose 2022-0 No Unknown 3-17 00:00: 00 Dose 2022-0 No Unknown 3-17 00:00: 00 Dose 2022-0 No Unknown 3-17 00:00: 00 Dose 2022-0 No Unknown 3-17 00:00: 00 Dose 2022-0 No Unknown 3-17 00:00: 00 Dose 2022-0 No Unknown 3-17 00:00: 00 Dose 2022-0 No Unknown 3-17 00:00: 00 Dose 2022-0 No Unknown 3-17 00:00: 00 Dose 2022-0 No Unknown 3-17 00:00: 00 Dose 2022-0 No Unknown 3-17 00:00: 00 Dose 2022-0 No Unknown 3-17 00:00: 00 Dose 2022-0 No Unknown 3-17 00:00: 00 Dose 2022-0 No Unknown 3-17 00:00: 00 Dose 2022-0 No Unknown 3-17 00:00: 00 Dose 2022-0 No Unknown 3-17 00:00: 00 Dose 2022-0 No Unknown 3-17 00:00: 00 Dose 2022-0 No Unknown 3-17 00:00: 00 Dose 2022-0 No Unknown 3-17 00:00: 00 Dose 2022-0 No Unknown 3-17 00:00: 00 Dose 2022-0 No Unknown 3-17 00:00: 00 Dose 2022-0 No Unknown 3-17 00:00: 00 Dose 2022-0 No Unknown 3-17 00:00: 00 Dose 2022-0 No Unknown 3-17 00:00: 00 Dose 2022-0 No Unknown 3-17 00:00: 00 Dose 2022-0 No Unknown 3-17 00:00: 00 Dose 2022-0 No Unknown 3-17 00:00: 00 Dose 2022-0 No Unknown 3-17 00:00: 00 Dose 2022-0 No Unknown 3-17 00:00: 00 Dose 2022-0 No Unknown 3-17 00:00: 00 Dose 2022-0 No Unknown 3-17 00:00: 00 Dose 2022-0 No Unknown 3-17 00:00: 00 Dose 2022-0 No Unknown 3-17 00:00: 00 Dose 2022-0 No Unknown 3-17 00:00: 00 Dose 2022-0 No Unknown 3-17 00:00: 00 Dose 2022-0 No Unknown 3-17 00:00: 00 Dose 2022-0 No Unknown 3-17 00:00: 00 Dose 2022-0 No Unknown 3-17 00:00: 00 Dose 2022-0 No Unknown 3-17 00:00: 00 Dose 2022-0 No Unknown 3-17 00:00: 00 Dose 2022-0 No Unknown 3-17 00:00: 00 Dose 2022-0 No Unknown 3-17 00:00: 00 Dose 2022-0 No Unknown 3-17 00:00: 00 Dose 2022-0 No Unknown 3-17 00:00: 00 Dose 2022-0 No Unknown 3-17 00:00: 00 Dose 2022-0 No Unknown 3-17 00:00: 00 Dose 2022-0 No Unknown 3-17 00:00: 00 Dose 2022-0 No Unknown 3-17 00:00: 00 Dose 2022-0 No Unknown 3-17 00:00: 00 Dose 2022-0 No Unknown 3-17 00:00: 00 Dose 2022-0 No Unknown 3-17 00:00: 00 Dose 2022-0 No Unknown 3-17 00:00: 00 Dose 2022-0 No Unknown 3-17 00:00: 00 Dose 2022-0 No Unknown 3-17 00:00: 00 Dose 2022-0 No Unknown 3-17 00:00: 00 Dose 2022-0 No Unknown 3-17 00:00: 00 Dose 2022-0 No Unknown 3-17 00:00: 00 Dose 2022-0 No Unknown 3-17 00:00: 00 Dose 2022-0 No Unknown 3-17 00:00: 00 Dose 2022-0 No Unknown 3-17 00:00: 00 Dose 2022-0 No Unknown 3-17 00:00: 00 Dose 2022-0 No Unknown 3-17 00:00: 00 Dose 2022-0 No Unknown 3-17 00:00: 00 Dose 2022-0 No Unknown 3-17 00:00: 00 Dose 2022-0 No Unknown 3-17 00:00: 00 Dose 2022-0 No Unknown 3-17 00:00: 00 Dose 2022-0 No Unknown 3-17 00:00: 00 Dose 2022-0 No Unknown 3-17 00:00: 00 Dose 2022-0 No Unknown 3-17 00:00: 00 Dose 2022-0 No Unknown 3-17 00:00: 00 Dose 2022-0 No Unknown 3-17 00:00: 00 Dose 2022-0 No Unknown 3-17 00:00: 00 Dose 2022-0 No Unknown 3-17 00:00: 00 Dose 2022-0 No Unknown 3-17 00:00: 00 Dose 2022-0 No Unknown 3-17 00:00: 00 Dose 2022-0 No Unknown 3-08 00:00: 00 Dose 2022-0 No Unknown 3-08 00:00: 00 Dose 2022-0 No Unknown 3-08 00:00: 00 Dose 2022-0 No Unknown 3-08 00:00: 00 Dose 2022-0 No Unknown 3-08 00:00: 00 Dose 2022-0 No Unknown 3-08 00:00: 00 Dose 2022-0 No Unknown 3-08 00:00: 00 Dose 2022-0 No Unknown 3-08 00:00: 00 Dose 2022-0 No Unknown 3-08 00:00: 00 Dose 2022-0 No Unknown 3-08 00:00: 00 Dose 2022-0 No Unknown 3-08 00:00: 00 Dose 2022-0 No Unknown 3-08 00:00: 00 Dose 2022-0 No Unknown 3-08 00:00: 00 Dose 2022-0 No Unknown 3-08 00:00: 00 Dose 2022-0 No Unknown 3-08 00:00: 00 Dose 2022-0 No Unknown 3-08 00:00: 00 Dose 2-0 No Unknown 3-08 00:00: 00 Dose 2-0 No Unknown 3-08 00:00: 00 Dose 2-0 No Unknown 2-22 00:00: 00 pentoxifyll 2022-0 No 1mg ine ER 400 2-22 mg 00:00: tablet,exte 00 nded release Dose 2-0 No Unknown 2-22 00:00: 00 lisinopril 2022-0 No 1mg 20 mg 2-22 tablet 00:00: 00 pentoxifyll 2022-0 No 1mg ine ER 400 2-22 mg 00:00: tablet,exte 00 nded release levothyroxi 2-0 No 1mcg ne 50 mcg 2-22 tablet 00:00: 00 lisinopril 2-0 No 1mg 20 mg 2-22 tablet 00:00: 00 pentoxifyll 2-0 No 1mg ine ER 400 2-22 mg 00:00: tablet,exte 00 nded release levothyroxi 2-0 No 1mcg ne 50 mcg 2-22 tablet 00:00: 00 Dose 2-0 No Unknown 2-22 00:00: 00 pentoxifyll 2-0 No 1mg ine ER 400 2-22 mg 00:00: tablet,exte 00 nded release Dose 2-0 No Unknown 2-22 00:00: 00 Dose 2-0 No Unknown 2-22 00:00: 00 pentoxifyll 2-0 No 1mg ine ER 400 2-22 mg 00:00: tablet,exte 00 nded release Dose 2-0 No Unknown 2-22 00:00: 00 Dose 2-0 No Unknown 2-22 00:00: 00 pentoxifyll 2-0 No 1mg ine ER 400 2-22 mg 00:00: tablet,exte 00 nded release Dose 2-0 No Unknown 2-22 00:00: 00 Dose 1-1 No Unknown 2-02 00:00: 00 Dose 2020-1 No Unknown 2-02 00:00: 00 Dose 1-1 No Unknown 2-02 00:00: 00 levothyroxi 1-1 No 1mcg ne 50 mcg 2-02 tablet 00:00: 00 Dose 2020-1 No Unknown 2-02 00:00: 00 levothyroxi 2020- No 1mcg ne 50 mcg 2-02 tablet 00:00: 00 Dose 2020- No Unknown 2-02 00:00: 00 Dose 2020- No Unknown 2-02 00:00: 00 Dose 2020- No Unknown 2-02 00:00: 00 Dose 2020- No Unknown 2-02 00:00: 00 Dose 2020- No Unknown 2-02 00:00: 00 Dose 2020- No Unknown 2-02 00:00: 00 Dose 2020-11 No Unknown 1-09 00:00: 00 levothyroxi 2020-11 No 1mcg ne 50 mcg 1-09 tablet 00:00: 00 levothyroxi 2020-11 No 1mcg ne 50 mcg -09 tablet 00:00: 00 Dose 2020-11 No Unknown 1- 00:00: 00 Dose 2020-11 No Unknown 1- 00:00: 00 Dose 2020-11 No Unknown 1- 00:00: 00 sulfamethox 1-0 No 1mg azole 800 8-10 mg-trimetho 00:00: prim 160 mg 00 tablet Dose 2020-0 No Unknown 8-10 00:00: 00 sulfamethox 1-0 No 1mg azole 800 8-10 mg-trimetho 00:00: prim 160 mg 00 tablet Dose 2020-0 No Unknown 8-10 00:00: 00 sulfamethox 1-0 No 1mg azole 800 8-10 mg-trimetho 00:00: prim 160 mg 00 tablet Dose 2020-0 No Unknown 8-10 00:00: 00 sulfamethox 1-0 No 1mg azole 800 8-10 mg-trimetho 00:00: prim 160 mg 00 tablet Dose 2020-0 No Unknown 8-10 00:00: 00 sulfamethox 1-0 No 1mg azole 800 8-10 mg-trimetho 00:00: prim 160 mg 00 tablet Dose 2020-0 No Unknown 8-10 00:00: 00 sulfamethox 1-0 No 1mg azole 800 8-10 mg-trimetho 00:00: prim 160 mg 00 tablet Dose 2020-0 No Unknown 8-10 00:00: 00 Dose 2020-0 No Unknown 8-06 00:00: 00 Dose 2021-0 No Unknown 8 00:00: 00 Dose 2021-0 No Unknown 06-24 00:00: 00 levothyroxi 2021-0 No 1mcg ne 50 mcg 8-06 tablet 00:00: 00 Dose 2021-0 No Unknown 06-24 00:00: 00 levothyroxi 2021-0 No 1mcg ne 50 mcg 8-06 tablet 00:00: 00 Dose 2021-0 No Unknown 06-24 00:00: 00 Dose 2021-0 No Unknown 8 00:00: 00 Dose 2021-0 No Unknown 06-24 00:00: 00 Dose 2021-0 No Unknown 06-24 00:00: 00 Dose 2021-0 No Unknown 06-24 00:00: 00 Dose 2021-0 No Unknown 06-24 00:00: 00 lisinopril 2021-0 No 1mg 10 mg 5-06 tablet 00:00: 00 levothyroxi 2021-0 No 1mcg ne 50 mcg 5-06 tablet 00:00: 00 lisinopril 2021-0 No 1mg 10 mg 5-06 tablet 00:00: 00 levothyroxi 2021-0 No 1mcg ne 50 mcg 5-06 tablet 00:00: 00 lisinopril 2021-0 No 1mg 10 mg 5-06 tablet 00:00: 00 levothyroxi 2021-0 No 1mcg ne 50 mcg 5-06 tablet 00:00: 00 lisinopril 2021-0 No 1mg 10 mg 5-06 tablet 00:00: 00 levothyroxi 2021-0 No 1mcg ne 50 mcg 5-06 tablet 00:00: 00 lisinopril 2021-0 No 1mg 10 mg 5-06 tablet 00:00: 00 levothyroxi 2021-0 No 1mcg ne 50 mcg 5-06 tablet 00:00: 00 lisinopril 2021-0 No 1mg 10 mg 5-06 tablet 00:00: 00 levothyroxi 2021-0 No 1mcg ne 50 mcg 5-06 tablet 00:00: 00 triamcinolo 2021-0 No 1% ne 4-06 acetonide 00:00: 0.1 % 00 topical cream triamcinolo 1-0 No 1% ne 4-06 acetonide 00:00: 0.1 % 00 topical cream triamcinolo 1-0 No 1% ne 4-06 acetonide 00:00: 0.1 % 00 topical cream triamcinolo 1-0 No 1% ne 4-06 acetonide 00:00: 0.1 % 00 topical cream triamcinolo 1-0 No 1% ne 4-06 acetonide 00:00: 0.1 % 00 topical cream triamcinolo 1-0 No 1% ne 4-06 acetonide 00:00: 0.1 % 00 topical cream triamcinolo 1-0 No 1% ne 3-30 acetonide 00:00: 0.025 % 00 topical cream triamcinolo 1-0 No 1% ne 3-30 acetonide 00:00: 0.025 % 00 topical cream triamcinolo 1-0 No 1% ne 3-30 acetonide 00:00: 0.025 % 00 topical cream triamcinolo 1-0 No 1% ne 3-30 acetonide 00:00: 0.025 % 00 topical cream triamcinolo 1-0 No 1% ne 3-30 acetonide 00:00: 0.025 % 00 topical cream triamcinolo 1-0 No 1% ne 3-30 acetonide 00:00: 0.025 % 00 topical cream lisinopril 2021-0 No 1mg 10 mg 1-20 tablet 00:00: 00 levothyroxi 2021-0 No 1mcg ne 50 mcg 1-20 tablet 00:00: 00 lisinopril 2021-0 No 1mg 10 mg 1-20 tablet 00:00: 00 levothyroxi 2021-0 No 1mcg ne 50 mcg 1-20 tablet 00:00: 00 lisinopril 2021-0 No 1mg 10 mg 1-20 tablet 00:00: 00 levothyroxi 2021-0 No 1mcg ne 50 mcg 1-20 tablet 00:00: 00 lisinopril 2021-0 No 1mg 10 mg 1-20 tablet 00:00: 00 levothyroxi 2021-0 No 1mcg ne 50 mcg 1-20 tablet 00:00: 00 lisinopril 2021-0 No 1mg 10 mg 1-20 tablet 00:00: 00 levothyroxi 1-0 No 1mcg ne 50 mcg 1-20 tablet 00:00: 00 lisinopril 1-0 No 1mg 10 mg 1-20 tablet 00:00: 00 levothyroxi 1-0 No 1mcg ne 50 mcg 1-20 tablet 00:00: 00 lisinopril 2020-1 No 1mg 10 mg 1-04 tablet 00:00: 00 ondansetron 2019-1 No 1mg 4 mg 1-04 disintegrat 00:00: ing tablet 00 levothyroxi 2019-1 No 1mcg ne 50 mcg 1-04 tablet 00:00: 00 omeprazole 2019-1 No 1mg 40 mg 1-04 capsule,del 00:00: ayed 00 release lisinopril 2019-1 No 1mg 10 mg 1-04 tablet 00:00: 00 ondansetron 2019-1 No 1mg 4 mg 1-04 disintegrat 00:00: ing tablet 00 levothyroxi 2019-1 No 1mcg ne 50 mcg 1-04 tablet 00:00: 00 omeprazole 2019-1 No 1mg 40 mg 1-04 capsule,del 00:00: ayed 00 release lisinopril 2020-1 No 1mg 10 mg 1-04 tablet 00:00: 00 ondansetron 2020-1 No 1mg 4 mg 1-04 disintegrat 00:00: ing tablet 00 levothyroxi 2019-1 No 1mcg ne 50 mcg 1-04 tablet 00:00: 00 omeprazole 2020-1 No 1mg 40 mg 1-04 capsule,del 00:00: ayed 00 release lisinopril 2019-1 No 1mg 10 mg 1-04 tablet 00:00: 00 ondansetron 2020-1 No 1mg 4 mg 1-04 disintegrat 00:00: ing tablet 00 levothyroxi 2020-1 No 1mcg ne 50 mcg 1-04 tablet 00:00: 00 omeprazole 2020-1 No 1mg 40 mg 1-04 capsule,del 00:00: ayed 00 release lisinopril 2020-1 No 1mg 10 mg 1-04 tablet 00:00: 00 ondansetron 2020-1 No 1mg 4 mg 1-04 disintegrat 00:00: ing tablet 00 levothyroxi 2020-1 No 1mcg ne 50 mcg 1-04 tablet 00:00: 00 omeprazole 2020-1 No 1mg 40 mg 1-04 capsule,del 00:00: ayed 00 release lisinopril 2020-1 No 1mg 10 mg 1-04 tablet 00:00: 00 ondansetron 2020-1 No 1mg 4 mg 1-04 disintegrat 00:00: ing tablet 00 levothyroxi 2020-1 No 1mcg ne 50 mcg 1-04 tablet 00:00: 00 omeprazole 2020-1 No 1mg 40 mg 1-04 capsule,del 00:00: ayed 00 release levothyroxi 2020-0 No 1mcg ne 50 mcg 7-27 tablet 00:00: 00 levothyroxi 2020-0 No 1mcg ne 50 mcg 7-27 tablet 00:00: 00 levothyroxi 2020-0 No 1mcg ne 50 mcg 7-27 tablet 00:00: 00 levothyroxi 2020-0 No 1mcg ne 50 mcg 7-27 tablet 00:00: 00 levothyroxi 2020-0 No 1mcg ne 50 mcg 7-27 tablet 00:00: 00 levothyroxi 2020-0 No 1mcg ne 50 mcg 7-27 tablet 00:00: 00 lisinopril 2020-0 No 1mg 10 mg 7-24 tablet 00:00: 00 lisinopril 2020-0 No 1mg 10 mg 7-24 tablet 00:00: 00 lisinopril 2020-0 No 1mg 10 mg 7-24 tablet 00:00: 00 lisinopril 2020-0 No 1mg 10 mg 7-24 tablet 00:00: 00 lisinopril 2020-0 No 1mg 10 mg 7-24 tablet 00:00: 00 lisinopril 2020-0 No 1mg 10 mg 7-24 tablet 00:00: 00 levothyroxi 2020-0 No 1mcg ne 50 mcg 7-14 tablet 00:00: 00 levothyroxi 2020-0 No 1mcg ne 50 mcg 7-14 tablet 00:00: 00 levothyroxi 2020-0 No 1mcg ne 50 mcg 7-14 tablet 00:00: 00 levothyroxi 2020-0 No 1mcg ne 50 mcg 7-14 tablet 00:00: 00 levothyroxi 2020-0 No 1mcg ne 50 mcg 7-14 tablet 00:00: 00 levothyroxi 2020-0 No 1mcg ne 50 mcg 7-14 tablet 00:00: 00 lisinopril 2020-0 No 1mg 10 mg 4-14 tablet 00:00: 00 levothyroxi 2020-0 No 1mcg ne 50 mcg 4-14 tablet 00:00: 00 omeprazole 2020-0 No 1mg 40 mg 4-14 capsule,del 00:00: ayed 00 release lisinopril 2020-0 No 1mg 10 mg 4-14 tablet 00:00: 00 levothyroxi 2020-0 No 1mcg ne 50 mcg 4-14 tablet 00:00: 00 omeprazole 2020-0 No 1mg 40 mg 4-14 capsule,del 00:00: ayed 00 release lisinopril 2020-0 No 1mg 10 mg 4-14 tablet 00:00: 00 levothyroxi 2020-0 No 1mcg ne 50 mcg 4-14 tablet 00:00: 00 omeprazole 2020-0 No 1mg 40 mg 4-14 capsule,del 00:00: ayed 00 release lisinopril 2020-0 No 1mg 10 mg 4-14 tablet 00:00: 00 levothyroxi 2020-0 No 1mcg ne 50 mcg 4-14 tablet 00:00: 00 omeprazole 2020-0 No 1mg 40 mg 4-14 capsule,del 00:00: ayed 00 release lisinopril 2020-0 No 1mg 10 mg 4-14 tablet 00:00: 00 levothyroxi 2020-0 No 1mcg ne 50 mcg 4-14 tablet 00:00: 00 omeprazole 2020-0 No 1mg 40 mg 4-14 capsule,del 00:00: ayed 00 release lisinopril 2020-0 No 1mg 10 mg 4-14 tablet 00:00: 00 levothyroxi 2020-0 No 1mcg ne 50 mcg 4-14 tablet 00:00: 00 omeprazole 2020-0 No 1mg 40 mg 4-14 capsule,del 00:00: ayed 00 release Restasis 2020-0 No 1% MultiDose 3-24 0.05 % eye 00:00: drops 00 lisinopril 2020-0 No 1mg 10 mg 3-24 tablet 00:00: 00 levothyroxi 2020-0 No 1mcg ne 50 mcg 3-24 tablet 00:00: 00 levothyroxi 2020-0 No 1mcg ne 50 mcg 3-24 tablet 00:00: 00 omeprazole 2020-0 No 1mg 40 mg 3-24 capsule,del 00:00: ayed 00 release Restasis 2020-0 No 1% MultiDose 3-24 0.05 % eye 00:00: drops 00 lisinopril 2020-0 No 1mg 10 mg 3-24 tablet 00:00: 00 levothyroxi 2020-0 No 1mcg ne 50 mcg 3-24 tablet 00:00: 00 levothyroxi 2020-0 No 1mcg ne 50 mcg 3-24 tablet 00:00: 00 omeprazole 2020-0 No 1mg 40 mg 3-24 capsule,del 00:00: ayed 00 release Restasis 2020-0 No 1% MultiDose 3-24 0.05 % eye 00:00: drops 00 lisinopril 2020-0 No 1mg 10 mg 3-24 tablet 00:00: 00 levothyroxi 2020-0 No 1mcg ne 50 mcg 3-24 tablet 00:00: 00 levothyroxi 2020-0 No 1mcg ne 50 mcg 3-24 tablet 00:00: 00 omeprazole 2020-0 No 1mg 40 mg 3-24 capsule,del 00:00: ayed 00 release Restasis 2020-0 No 1% MultiDose 3-24 0.05 % eye 00:00: drops 00 lisinopril 2020-0 No 1mg 10 mg 3-24 tablet 00:00: 00 levothyroxi 2020-0 No 1mcg ne 50 mcg 3-24 tablet 00:00: 00 levothyroxi 2020-0 No 1mcg ne 50 mcg 3-24 tablet 00:00: 00 omeprazole 2020-0 No 1mg 40 mg 3-24 capsule,del 00:00: ayed 00 release Restasis 2020-0 No 1% MultiDose 3-24 0.05 % eye 00:00: drops 00 lisinopril 2020-0 No 1mg 10 mg 3-24 tablet 00:00: 00 levothyroxi 2020-0 No 1mcg ne 50 mcg 3-24 tablet 00:00: 00 levothyroxi 2020-0 No 1mcg ne 50 mcg 3-24 tablet 00:00: 00 omeprazole 2020-0 No 1mg 40 mg 3-24 capsule,del 00:00: ayed 00 release Restasis 2020-0 No 1% MultiDose 3-24 0.05 % eye 00:00: drops 00 lisinopril 2020-0 No 1mg 10 mg 3-24 tablet 00:00: 00 levothyroxi 2020-0 No 1mcg ne 50 mcg 3-24 tablet 00:00: 00 levothyroxi 2020-0 No 1mcg ne 50 mcg 3-24 tablet 00:00: 00 omeprazole 2020-0 No 1mg 40 mg 3-24 capsule,del 00:00: ayed 00 release lisinopril 2019-1 No 1mg 10 mg 1-12 tablet 00:00: 00 lisinopril 2019-1 No 1mg 10 mg 1-12 tablet 00:00: 00 lisinopril 2019-1 No 1mg 10 mg 1-12 tablet 00:00: 00 lisinopril 2019-1 No 1mg 10 mg 1-12 tablet 00:00: 00 lisinopril 2019-1 No 1mg 10 mg 1-12 tablet 00:00: 00 lisinopril 2019-1 No 1mg 10 mg 1-12 tablet 00:00: 00 Restasis 2019-1 No 1% MultiDose 0-03 0.05 % eye 00:00: drops 00 Restasis 2019-1 No 1% MultiDose 0-03 0.05 % eye 00:00: drops 00 Restasis 2019-1 No 1% MultiDose 0-03 0.05 % eye 00:00: drops 00 Restasis 2019-1 No 1% MultiDose 0-03 0.05 % eye 00:00: drops 00 Restasis 2019-1 No 1% MultiDose 0-03 0.05 % eye 00:00: drops 00 Restasis 2019-1 No 1% MultiDose 0-03 0.05 % eye 00:00: drops 00 levothyroxi 2019-1 No 1mcg ne 50 mcg 0-01 tablet 00:00: 00 omeprazole 2019-1 No 1mg 40 mg 0-01 capsule,del 00:00: ayed 00 release pravastatin 2019-1 No 1mg 20 mg 0-01 tablet 00:00: 00 lisinopril 2019-1 No 1mg 10 mg 0-01 tablet 00:00: 00 levothyroxi 2019-1 No 1mcg ne 50 mcg 0-01 tablet 00:00: 00 omeprazole 2019-1 No 1mg 40 mg 0-01 capsule,del 00:00: ayed 00 release pravastatin 2019-1 No 1mg 20 mg 0-01 tablet 00:00: 00 lisinopril 2019-1 No 1mg 10 mg 0-01 tablet 00:00: 00 levothyroxi 2019-1 No 1mcg ne 50 mcg 0-01 tablet 00:00: 00 omeprazole 2019-1 No 1mg 40 mg 0-01 capsule,del 00:00: ayed 00 release pravastatin 2019-1 No 1mg 20 mg 0-01 tablet 00:00: 00 lisinopril 2019-1 No 1mg 10 mg 0-01 tablet 00:00: 00 levothyroxi 2019-1 No 1mcg ne 50 mcg 0-01 tablet 00:00: 00 omeprazole 2019-1 No 1mg 40 mg 0-01 capsule,del 00:00: ayed 00 release pravastatin 2019-1 No 1mg 20 mg 0-01 tablet 00:00: 00 lisinopril 2019-1 No 1mg 10 mg 0-01 tablet 00:00: 00 levothyroxi 2019-1 No 1mcg ne 50 mcg 0-01 tablet 00:00: 00 omeprazole 2019-1 No 1mg 40 mg 0-01 capsule,del 00:00: ayed 00 release pravastatin 2019-1 No 1mg 20 mg 0-01 tablet 00:00: 00 lisinopril 2019-1 No 1mg 10 mg 0-01 tablet 00:00: 00 pravastatin 2019-1 No 1mg 20 mg 0-01 tablet 00:00: 00 lisinopril 2019-1 No 1mg 10 mg 0-01 tablet 00:00: 00 levothyroxi 2019-1 No 1mcg ne 50 mcg 0-01 tablet 00:00: 00 omeprazole 2019-1 No 1mg 40 mg 0-01 capsule,del 00:00: ayed 00 release lisinopril 2019-0 No 1mg 10 mg 3-09 tablet 00:00: 00 levothyroxi 2019-0 No 1mcg ne 50 mcg 3-09 tablet 00:00: 00 lisinopril 2019-0 No 1mg 10 mg 3-09 tablet 00:00: 00 levothyroxi 2019-0 No 1mcg ne 50 mcg 3-09 tablet 00:00: 00 lisinopril 2019-0 No 1mg 10 mg 3-09 tablet 00:00: 00 levothyroxi 2018-0 No 1mcg ne 50 mcg 3-09 tablet 00:00: 00 lisinopril 2019-0 No 1mg 10 mg 3-09 tablet 00:00: 00 levothyroxi 2018-0 No 1mcg ne 50 mcg 3-09 tablet 00:00: 00 lisinopril 2019-0 No 1mg 10 mg 3-09 tablet 00:00: 00 levothyroxi 2018-0 No 1mcg ne 50 mcg 3-09 tablet 00:00: 00 lisinopril 2019-0 No 1mg 10 mg 3-09 tablet 00:00: 00 levothyroxi 2018-0 No 1mcg ne 50 mcg 3-09 tablet 00:00: 00 Restasis 2017-0 No 1% 0.05 % eye 8-11 drops in a 00:00: dropperette 00 Restasis 2017-0 No 1% 0.05 % eye 8-11 drops in a 00:00: dropperette 00 Restasis 2017-0 No 1% 0.05 % eye 8-11 drops in a 00:00: dropperette 00 Restasis 2017-0 No 1% 0.05 % eye 8-11 drops in a 00:00: dropperette 00 Restasis 2017-0 No 1% 0.05 % eye 8-11 drops in a 00:00: dropperette 00 Restasis 2017-0 No 1% 0.05 % eye 8-11 drops in a 00:00: dropperette 00 levothyroxi Yes [id number] Un debbie ne 8-09 ity of (SYNTHROID) 00:00: [place] 50 mcg 00 Medical tablet Branch amitriptyli Yes Univer s ne (ELAVIL) 7-25 ity of 10 mg 00:00: [place] tablet 00 Medical Branch lisinopril Yes [id number] Uni vers (PRINIVIL,Z 7-25 ity of ESTRIL) 20 00:00: [place] mg tablet 00 Medical Branch pravastatin Yes Univer s (PRAVACHOL) 7-25 ity of 20 mg 00:00: [place] tablet 00 Medical Branch SERTraline Yes [id number] Uni vers (ZOLOFT) 25 7-25 ity of mg tablet 00:00: [place] 00 Medical Branch HYDROcodone 0 Yes Univer s -acetaminop 7-21 ity of hen (NORCO) 00:00: [place] 7.5-325 mg 00 Medical per tablet Branch Immunizations Ordered Immunization Filled Immunization Date Status Commen ts Source Name Name Influenza Virus 2022-12-26 Completed Kita poole - Vaccine, High Dose, 00:00:00 Exter nal Age 65 And Up Pneumococcal Vaccine, 2022-12-26 Completed Joseluis Montes - Polysaccharide 00:00:00 External Shingles IM 2022-12-26 Completed Kita Em d - (Shingrix) 00:00:00 External Influenza Virus 2022-12-26 Completed Kita poole - Vaccine, 00:00:00 External Quadrivalent, High Dose, Age 65 And Up Pneumococcal Vaccine, 2022-12-26 Completed Joseluis Montes - Conjugate 20 00:00:00 External Influenza Virus 2021-10-20 Completed Kita poole - Vaccine, No Preserv, 00:00:00 Exte rnal age 6 months and up Covid-19 Vaccine 2021-10-20 Completed Kita cruz - Moderna (Spikevax), 00:00:00 Exter nal Mrna-lnp, Laurent Protein, Pf Influenza Virus 2021-10-20 Completed Kita poole - Vaccine, No Preserv, 00:00:00 Exte rnal age 6 months and up Covid-19 Vaccine 2021-10-20 Completed Kita cruz - Moderna (Spikevax), 00:00:00 Exter nal Mrna-lnp, Laurent Protein, Pf influenza, injectable 2021-10-20 Completed 00:00:00 Moderna COVID-19 2021-10-20 Completed Vaccine 00:00:00 influenza, injectable 2021-10-20 Completed 00:00:00 Moderna COVID-19 2021-10-20 Completed Vaccine 00:00:00 influenza, injectable 2021-10-20 Completed 00:00:00 Moderna COVID-19 2021-10-20 Completed Vaccine 00:00:00 influenza, injectable 2021-10-20 Completed 00:00:00 Moderna COVID-19 2021-10-20 Completed Vaccine 00:00:00 influenza, injectable 2021-10-20 Completed 00:00:00 Moderna COVID-19 2021-10-20 Completed Vaccine 00:00:00 influenza, injectable 2021-10-20 Completed 00:00:00 Moderna COVID-19 2021-10-20 Completed Vaccine 00:00:00 SARS-COV-2 COVID-19 2021-03-23 Completed Unive rsity of MODERNA 12+ YRS 00:00:00 [facility] VACCINE Branch SARS-COV-2 COVID-19 2021-02-23 Completed Unive rsity of MODERNA 12+ YRS 00:00:00 [facility] VACCINE Branch Hep A/ Hep B Combo 2018-08-06 Completed Kita Montes - 00:00:00 External Influenza Virus 2018-07-06 Completed Kita poole - Vaccine, High Dose, 00:00:00 Exter nal Age 65 And Up Hep A/ Hep B Combo 2018-07-06 Completed Kita Montes - 00:00:00 External Tdap- (Boostrix, 2017-09-08 Completed Kita cruz - Adacel) 00:00:00 External Influenza Virus 2017-08-02 Completed Kita poole - Vaccine, High Dose, 00:00:00 Exter nal Age 65 And Up Pneumococcal Vaccine, 2017-08-02 Completed Joseluis Montes - Conjugate 13 00:00:00 External Influenza Virus 2016-08-15 Completed Kita poole - Vaccine, High Dose, 00:00:00 Exter nal Age 65 And Up Shingles SQ 2016-08-15 Completed Kita Em d - (Zostavax) 00:00:00 External Influenza Virus 2015-10-25 Completed Kita poole - Vaccine, No Preserv, 00:00:00 Exte rnal age 6 months and up Influenza Virus 2015-10-25 Completed Kita poole - Vaccine, No Preserv, 00:00:00 Exte rnal age 6 months and up influenza, injectable 2015-10-25 Completed 00:00:00 influenza, injectable 2015-10-25 Completed 00:00:00 influenza, injectable 2015-10-25 Completed 00:00:00 influenza, injectable 2015-10-25 Completed 00:00:00 influenza, injectable 2015-10-25 Completed 00:00:00 influenza, injectable 2015-10-25 Completed 00:00:00 Tdap- (Boostrix, 2006-05-19 Completed Kita Danielle eybold - Adacel) 00:00:00 External Tdap- (Boostrix, 2006-05-19 Completed Kita Danielle eybold - Adacel) 00:00:00 External Td 2006-05-19 Completed [facility] 00:00:00 [facility] Vital Signs Vital Name Observation Time Observation Value Comments Source Systolic blood 2023-03-21 19:22:00 134 mm[Hg] Kita Seybold - pressure External Diastolic blood 2023-03-21 19:22:00 69 mm[Hg] Joseluisse y Seybold - pressure External Heart rate 2023-03-21 19:22:00 57 /min Kitaagatha aguilerabold - External Body temperature 2023-03-21 19:22:00 36.61 Nanda Courtney ey Seybold - External Respiratory rate 2023-03-21 19:22:00 14 /min Courtney aguilera Seybold - External Body height 2023-03-21 19:22:00 157.5 cm Kita S eybold - External Body weight 2023-03-21 19:22:00 62.687 kg Kita Lolis aguilerabold - External BMI 2023-03-21 19:22:00 25.28 kg/m2 Kitaagatha aguilerabold - External Oxygen saturation in 2023-03-21 19:22:00 97 /min Kita Montes - Arterial blood by External Pulse oximetry Systolic blood 2023-02-21 18:55:00 140 mm[Hg] Kita Seybold - pressure External Diastolic blood 2023-02-21 18:55:00 83 mm[Hg] Joseluisse y Seybold - pressure External Heart rate 2023-02-21 18:55:00 66 /min Kita Lolis eybold - External Body temperature 2023-02-21 18:55:00 36.89 Nanda Courtney ey Seybold - External Respiratory rate 2023-02-21 18:55:00 14 /min Courtney ey Seybold - External Body height 2023-02-21 18:55:00 157.5 cm Kita cruz - External Body weight 2023-02-21 18:55:00 63.504 kg Kita aguilerabohi - External BMI 2023-02-21 18:55:00 25.61 kg/m2 Kita cruz - External Oxygen saturation in 2023-02-21 18:55:00 99 /min Kita Montes - Arterial blood by External Pulse oximetry Systolic blood 2022-08-22 16:07:00 166 mm[Hg] Univer sity of pressure [facility] Diastolic blood 2022-08-22 16:07:00 73 mm[Hg] Unive rsity of [facility] Heart rate 2022-08-22 16:07:00 68 /min [facility] Body temperature 2022-08-22 16:07:00 36.44 Nanda Univ ersity of [facility] Respiratory rate 2022-08-22 16:07:00 20 /min Univ ersity [facility] Body weight 2022-08-22 16:07:00 58.968 kg Universi ty [facility] BMI 2022-08-22 16:07:00 23.03 kg/m2 Universi ty [facility] Oxygen saturation in 2022-08-22 16:07:00 99 /min [facility] of Arterial blood by [facility] Pulse oximetry Branch BP Systolic 2022-09-20 12:03:00 170 mm[Hg] BP Diastolic 2022-09-20 12:03:00 80 mm[Hg] Weight Measured 2022-09-20 12:03:00 134.00 pounds Height Measured 2022-09-20 12:03:00 63.00 inches Body Temperature 2022-09-20 12:03:00 98.10 degrees Heart Rate 2022-09-20 12:03:00 87.00 /min Respiratory Rate 2022-09-20 12:03:00 BP Systolic 2022-09-20 10:01:00 149 mm[Hg] BP Diastolic 2022-09-20 10:01:00 85 mm[Hg] Weight Measured 2022-09-20 10:01:00 Height Measured 2022-09-20 10:01:00 Body Temperature 2022-09-20 10:01:00 Heart Rate 2022-09-20 10:01:00 Respiratory Rate 2022-09-20 10:01:00 BP Systolic 2022-07-17 10:25:00 124 mm[Hg] BP Diastolic 2022-07-17 10:25:00 64 mm[Hg] Weight Measured 2022-07-17 10:25:00 136.60 pounds Height Measured 2022-07-17 10:25:00 63.00 inches Body Temperature 2022-07-17 10:25:00 97.20 degrees Heart Rate 2022-07-17 10:25:00 58.00 /min Respiratory Rate 2022-07-17 10:25:00 BP Systolic 2022-05-11 09:34:00 120 mm[Hg] BP Diastolic 2022-05-11 09:34:00 67 mm[Hg] Weight Measured 2022-05-11 09:34:00 137.20 pounds Height Measured 2022-05-11 09:34:00 63.00 inches Body Temperature 2022-05-11 09:34:00 98.30 degrees Heart Rate 2022-05-11 09:34:00 54.00 /min Respiratory Rate 2022-05-11 09:34:00 18.00 /min BP Systolic 2022-04-25 08:10:00 160 mm[Hg] BP Diastolic 2022-04-25 08:10:00 82 mm[Hg] Weight Measured 2022-04-25 08:10:00 138.60 pounds Height Measured 2022-04-25 08:10:00 63.00 inches Body Temperature 2022-04-25 08:10:00 98.00 degrees Heart Rate 2022-04-25 08:10:00 56.00 /min Respiratory Rate 2022-04-25 08:10:00 16.00 /min BP Systolic 2022-04-15 13:13:00 179 mm[Hg] BP Diastolic 2022-04-15 13:13:00 77 mm[Hg] Weight Measured 2022-04-15 13:13:00 137.60 pounds Height Measured 2022-04-15 13:13:00 63.00 inches Body Temperature 2022-04-15 13:13:00 98.00 degrees Heart Rate 2022-04-15 13:13:00 54.00 /min Respiratory Rate 2022-04-15 13:13:00 16.00 /min BP Systolic 2022-04-11 11:45:00 162 mm[Hg] BP Diastolic 2022-04-11 11:45:00 73 mm[Hg] Weight Measured 2022-04-11 11:45:00 137.60 pounds Height Measured 2022-04-11 11:45:00 63.00 inches Body Temperature 2022-04-11 11:45:00 98.40 degrees Heart Rate 2022-04-11 11:45:00 63.00 /min Respiratory Rate 2022-04-11 11:45:00 17.00 /min BP Systolic 2022-02-08 14:53:00 155 mm[Hg] BP Diastolic 2022-02-08 14:53:00 72 mm[Hg] Weight Measured 2022-02-08 14:53:00 138.60 pounds Height Measured 2022-02-08 14:53:00 63.00 inches Body Temperature 2022-02-08 14:53:00 97.40 degrees Heart Rate 2022-02-08 14:53:00 52.00 /min Respiratory Rate 2022-02-08 14:53:00 BP Systolic 2022-01-24 08:35:00 187 mm[Hg] BP Diastolic 2022-01-24 08:35:00 92 mm[Hg] Weight Measured 2022-01-24 08:35:00 139.40 pounds Height Measured 2022-01-24 08:35:00 63.00 inches Body Temperature 2022-01-24 08:35:00 98.00 degrees Heart Rate 2022-01-24 08:35:00 59.00 /min Respiratory Rate 2022-01-24 08:35:00 16.00 /min BP Systolic 2022-01-11 08:07:00 171 mm[Hg] BP Diastolic 2022-01-11 08:07:00 84 mm[Hg] Weight Measured 2022-01-11 08:07:00 138.50 pounds Height Measured 2022-01-11 08:07:00 63.00 inches Body Temperature 2022-01-11 08:07:00 99.10 degrees Heart Rate 2022-01-11 08:07:00 53.00 /min Respiratory Rate 2022-01-11 08:07:00 17.00 /min BP Systolic 2022-01-10 17:05:00 180 mm[Hg] BP Diastolic 2022-01-10 17:05:00 80 mm[Hg] Weight Measured 2022-01-10 17:05:00 138.80 pounds Height Measured 2022-01-10 17:05:00 63.00 inches Body Temperature 2022-01-10 17:05:00 98.40 degrees Heart Rate 2022-01-10 17:05:00 60.00 /min Respiratory Rate 2022-01-10 17:05:00 16.00 /min BP Systolic 2021-10-20 15:43:00 181 mm[Hg] BP Diastolic 2021-10-20 15:43:00 80 mm[Hg] Weight Measured 2021-10-20 15:43:00 137.60 pounds Height Measured 2021-10-20 15:43:00 63.00 inches Body Temperature 2021-10-20 15:43:00 98.10 degrees Heart Rate 2021-10-20 15:43:00 55.00 /min Respiratory Rate 2021-10-20 15:43:00 17.00 /min BP Systolic 2021-06-28 08:19:00 133 mm[Hg] BP Diastolic 2021-06-28 08:19:00 67 mm[Hg] Weight Measured 2021-06-28 08:19:00 134.40 pounds Height Measured 2021-06-28 08:19:00 63.00 inches Body Temperature 2021-06-28 08:19:00 98.40 degrees Heart Rate 2021-06-28 08:19:00 72.00 /min Respiratory Rate 2021-06-28 08:19:00 17.00 /min Procedures Procedure Date / Time Performed Performing Clinician Sourc e XR CHEST 1 VW 2022-08-22 17:17:00 Sandra Sanchez [facility] XR PELVIS <3 VW 2022-08-22 17:17:00 Sandra Sanchez [facility] CONSENT/REFUSAL FOR 2022-08-22 16:05:16 Doctor Unassigned, No Un [facility] DIAGNOSIS AND Name Medical Branch TREATMENT [id number] Avulsion Nail 2022-04-15 00:00:00 Plate Partial/complete Simple 1 Plan of Care Planned Activity Planned Date Details Comments Source Goal Plan of Care Note [code = 26397-7] Goal Plan of Care Note [code = 68127-0] Goal Plan of Care Note [code = 60492-5] Goal Plan of Care Note [code = 13125-7] Goal Plan of Care Note [code = 90752-5] Goal Plan of Care Note [code = 46897-0] Goal Plan of Care Note [code = 48722-5] Goal Plan of Care Note [code = 14944-4] Goal Plan of Care Note [code = 44193-0] Goal Plan of Care Note [code = 24320-5] Goal Plan of Care Note [code = 15508-9] Goal Plan of Care Note [code = 95687-0] Goal Plan of Care Note [code = 33328-2] Goal Plan of Care Note [code = 58945-2] Goal Plan of Care Note [code = 81151-8] Goal Plan of Care Note [code = 65767-2] Goal Plan of Care Note [code = 40566-3] Goal Plan of Care Note [code = 82879-3] Goal Plan of Care Note [code = 37098-2] Goal Plan of Care Note [code = 67445-8] Goal Plan of Care Note [code = 60501-7] Goal Plan of Care Note [code = 74930-0] Goal Plan of Care Note [code = 48209-9] Goal Plan of Care Note [code = 86960-4] Goal Plan of Care Note [code = 93324-7] Goal Plan of Care Note [code = 00644-0] Goal Plan of Care Note [code = 63169-8] Goal Plan of Care Note [code = 80183-2] Goal Plan of Care Note [code = 56606-9] Goal Plan of Care Note [code = 24043-8] Goal Plan of Care Note [code = 09749-3] Goal Plan of Care Note [code = 78285-1] Goal Plan of Care Note [code = 86761-1] Goal Plan of Care Note [code = 95500-1] Goal Plan of Care Note [code = 22561-2] Goal Plan of Care Note [code = 71978-9] Goal Plan of Care Note [code = 99143-7] Goal Plan of Care Note [code = 99425-1] Goal Plan of Care Note [code = 56883-9] Goal Plan of Care Note [code = 79217-7] Goal Plan of Care Note [code = 15619-0] Goal Plan of Care Note [code = 53569-1] Goal Plan of Care Note [code = 87216-7] Goal Plan of Care Note [code = 48445-4] Goal Plan of Care Note [code = 99261-7] Goal Plan of Care Note [code = 69166-3] Goal Plan of Care Note [code = 76269-4] Goal Plan of Care Note [code = 11425-2] Goal Plan of Care Note [code = 92915-6] Goal Plan of Care Note [code = 20758-2] Goal Plan of Care Note [code = 39573-9] Goal Plan of Care Note [code = 97154-2] Goal Plan of Care Note [code = 79290-7] Goal Plan of Care Note [code = 08841-8] Goal Plan of Care Note [code = 48830-8] Goal Plan of Care Note [code = 09144-1] Goal Plan of Care Note [code = 78623-1] Goal Plan of Care Note [code = 28026-3] Goal Plan of Care Note [code = 15479-2] Goal Plan of Care Note [code = 47944-6] Goal Plan of Care Note [code = 80892-7] Goal Plan of Care Note [code = 51199-3] Goal Plan of Care Note [code = 99314-6] Goal Plan of Care Note [code = 48948-7] Goal Plan of Care Note [code = 98359-0] Goal Plan of Care Note [code = 01810-7] Goal Plan of Care Note [code = 15140-8] Goal Plan of Care Note [code = 47558-0] Goal Plan of Care Note [code = 40749-8] Goal Plan of Care Note [code = 82738-0] Goal Plan of Care Note [code = 03321-2] Goal Plan of Care Note [code = 86153-4] Goal Plan of Care Note [code = 41779-2] Goal Plan of Care Note [code = 34815-2] Goal Plan of Care Note [code = 43314-4] Goal Plan of Care Note [code = 81511-2] Goal Plan of Care Note [code = 58677-0] Goal Plan of Care Note [code = 15562-1] Goal Plan of Care Note [code = 54084-3] Goal Plan of Care Note [code = 20933-0] Goal Plan of Care Note [code = 46415-5] Goal Plan of Care Note [code = 38096-7] Goal Plan of Care Note [code = 42037-9] Goal Plan of Care Note [code = 07012-9] Goal Plan of Care Note [code = 58948-3] Goal Plan of Care Note [code = 13990-5] Goal Plan of Care Note [code = 05657-2] Goal Plan of Care Note [code = 55065-8] Goal Plan of Care Note [code = 00957-2] Goal Plan of Care Note [code = 06078-5] Goal Plan of Care Note [code = 98577-7] Goal Plan of Care Note [code = 87990-6] Goal Plan of Care Note [code = 89775-6] Goal Plan of Care Note [code = 05675-0] Goal Plan of Care Note [code = 90649-1] Goal Plan of Care Note [code = 00195-2] Goal Plan of Care Note [code = 86983-8] Goal Plan of Care Note [code = 04053-8] Goal Plan of Care Note [code = 57099-4] Goal Plan of Care Note [code = 74728-3] Goal Plan of Care Note [code = 39610-9] Goal Plan of Care Note [code = 80639-4] Goal Plan of Care Note [code = 69275-8] Goal Plan of Care Note [code = 61974-6] Goal Plan of Care Note [code = 79151-0] Goal Plan of Care Note [code = 23628-7] Goal Plan of Care Note [code = 98641-2] Goal Plan of Care Note [code = 46535-4] Goal Plan of Care Note [code = 11562-4] Goal Plan of Care Note [code = 04529-8] Goal Plan of Care Note [code = 77870-4] Goal Plan of Care Note [code = 17151-8] Goal Plan of Care Note [code = 40047-3] Goal Plan of Care Note [code = 48653-8] Goal Plan of Care Note [code = 13054-7] Goal Plan of Care Note [code = 27553-0] Goal Plan of Care Note [code = 54237-3] Goal Plan of Care Note [code = 15469-1] Goal Plan of Care Note [code = 24950-6] Goal Plan of Care Note [code = 86930-3] Goal Plan of Care Note [code = 56655-8] Goal Plan of Care Note [code = 95958-5] Goal Plan of Care Note [code = 68572-6] Goal Plan of Care Note [code = 22726-6] Goal Plan of Care Note [code = 54066-8] Goal Plan of Care Note [code = 97581-8] Goal Plan of Care Note [code = 49112-5] Goal Plan of Care Note [code = 35306-2] Goal Plan of Care Note [code = 30444-5] Goal Plan of Care Note [code = 97973-5] Goal Plan of Care Note [code = 53393-3] Goal Plan of Care Note [code = 31049-4] Goal Plan of Care Note [code = 55406-6] Goal Plan of Care Note [code = 02247-2] Goal Plan of Care Note [code = 86118-7] Goal Plan of Care Note [code = 51092-6] Goal Plan of Care Note [code = 19499-2] Goal Plan of Care Note [code = 26050-2] Goal Plan of Care Note [code = 77868-7] Goal Plan of Care Note [code = 07659-3] Goal Plan of Care Note [code = 01923-5] Goal Plan of Care Note [code = 48017-2] Goal Plan of Care Note [code = 24357-9] Goal Plan of Care Note [code = 26552-7] Goal Plan of Care Note [code = 29024-4] Goal Plan of Care Note [code = 68404-6] Goal Plan of Care Note [code = 71859-0] Goal Plan of Care Note [code = 86189-0] Goal Plan of Care Note [code = 68728-0] Goal Plan of Care Note [code = 44070-2] Goal Plan of Care Note [code = 35169-7] Goal Plan of Care Note [code = 93056-9] Goal Plan of Care Note [code = 28501-2] Goal Plan of Care Note [code = 89257-5] Goal Plan of Care Note [code = 67781-8] Goal Plan of Care Note [code = 46187-7] Goal Plan of Care Note [code = 72273-4] Goal Plan of Care Note [code = 50819-9] Goal Plan of Care Note [code = 19203-8] Goal Plan of Care Note [code = 88144-5] Goal Plan of Care Note [code = 19539-2] Goal Plan of Care Note [code = 58550-6] Goal Plan of Care Note [code = 64487-4] Goal Plan of Care Note [code = 99326-5] Goal Plan of Care Note [code = 33992-4] Goal Plan of Care Note [code = 62329-4] Goal Plan of Care Note [code = 04449-4] Goal Plan of Care Note [code = 22911-0] Goal Plan of Care Note [code = 53752-3] Goal Plan of Care Note [code = 00440-2] Goal Plan of Care Note [code = 47321-8] Goal Plan of Care Note [code = 37888-2] Goal Plan of Care Note [code = 80156-2] Goal Plan of Care Note [code = 48334-6] Goal Plan of Care Note [code = 56255-1] Goal Plan of Care Note [code = 57174-7] Goal Plan of Care Note [code = 92933-7] Goal Plan of Care Note [code = 17894-6] Goal Plan of Care Note [code = 56154-7] Goal Plan of Care Note [code = 18048-0] Goal Plan of Care Note [code = 90775-9] Goal Plan of Care Note [code = 08366-9] Goal Plan of Care Note [code = 04332-0] Goal Plan of Care Note [code = 07590-8] Goal Plan of Care Note [code = 00136-6] Goal Plan of Care Note [code = 88464-1] Goal Plan of Care Note [code = 95287-5] Goal Plan of Care Note [code = 57970-9] Goal Plan of Care Note [code = 13290-7] Goal Plan of Care Note [code = 48725-0] Goal Plan of Care Note [code = 98608-0] Goal Plan of Care Note [code = 20673-9] Goal Plan of Care Note [code = 04167-9] Goal Plan of Care Note [code = 06398-1] Goal Plan of Care Note [code = 60007-5] Goal Plan of Care Note [code = 50215-2] Goal Plan of Care Note [code = 89890-6] Goal Plan of Care Note [code = 29038-0] Goal Plan of Care Note [code = 24863-9] Goal Plan of Care Note [code = 62006-3] Goal Plan of Care Note [code = 18385-8] Goal Plan of Care Note [code = 70260-7] Goal Plan of Care Note [code = 21101-6] Goal Plan of Care Note [code = 37279-5] Goal Plan of Care Note [code = 80807-7] Goal Plan of Care Note [code = 87025-8] Goal Plan of Care Note [code = 04029-8] Goal Plan of Care Note [code = 23380-4] Goal Plan of Care Note [code = 83161-7] Goal Plan of Care Note [code = 51406-4] Goal Plan of Care Note [code = 67978-9] Goal Plan of Care Note [code = 06029-5] Goal Plan of Care Note [code = 83110-7] Goal Plan of Care Note [code = 12890-9] Goal Plan of Care Note [code = 85980-6] Goal Plan of Care Note [code = 57398-8] Goal Plan of Care Note [code = 26048-7] Goal Plan of Care Note [code = 32697-6] Goal Plan of Care Note [code = 41144-0] Goal Plan of Care Note [code = 90313-6] Goal Plan of Care Note [code = 35061-5] Goal Plan of Care Note [code = 08251-0] Goal Plan of Care Note [code = 96380-4] Goal Plan of Care Note [code = 83405-6] Goal Plan of Care Note [code = 57893-4] Goal Plan of Care Note [code = 06216-0] Goal Plan of Care Note [code = 57251-4] Encounters Start End Encounter Admission Attending Care Care Encounter Source Date/Time Date/Time Type Type Clinicians Facility Department ID 2022-02-21 Outpatient [facility] [id number] [place] 10:51:39 [id number] [facility] 2023-06-21 2023-06-21 Outpatient PREZALolis KITA BURTON [id number] Kita 14:00:00 14:00:00 CHELSEY Seybol d 2023-04-27 2023-04-27 Outpatient ADILENE, KITA BURTON [id number] Kita 09:00:00 09:00:00 ATASU Seybol d 2023-04-27 2023-04-27 Outpatient TERESSA COOPER KITA [place] [id number] Kita 08:30:00 08:30:00 Seybol d 2023-04-23 2023-04-23 Outpatient PREZAS, KITA BURTON [id number] Kita 00:00:00 00:00:00 CHELSEY Seybol d 2023-03-23 2023-03-23 Outpatient PREZAS, KITA BURTON [id number] Kita 00:00:00 00:00:00 CHELSEY Seybol d 2023-03-21 2023-03-21 Outpatient LAB90 KITA BURTON [id number] Kita 15:45:00 15:45:00 Seybol d 2023-03-21 2023-03-21 Outpatient PREZAS, KITA BURTON [id number] Kita 14:45:00 14:45:00 CHELSEY Seybol d 2023-03-15 2023-03-15 Outpatient PREZAS, KITA BURTON [id number] Kita 00:00:00 00:00:00 CHELSEY Seybol d 2023-02-23 2023-02-23 Outpatient PREZAS, KITA BURTON [id number] Kita 00:00:00 00:00:00 CHELSEY Seybol d 2023-02-22 2023-02-22 Outpatient LAB90 KITA BURTON [id number] Kita 08:35:00 08:35:00 Seybol d 2023-02-21 2023-02-21 Outpatient PREZAS, KITA BURTON [id number] Kita 14:15:00 14:15:00 CHELSEY Seybol d 2022-10-19 2022-10-19 Outpatient [facility] [id number] Evgeny 13:51:15 13:51:15 12[address] Ashwin 2022-09-20 2022-09-20 Outpatient [facility] [id number] Evgeny 11:45:57 11:45:57 1102 F Ashwin 2022-09-20 2022-09-20 Outpatient [id number] [id number] 00:00:00 00:00:00 Visit 1916-4df3 916-4df3-a -m099-b49 [id number]-d70263 [id number] [id number] 2022-08-22 2022-08-22 Emergency [facility] [id number] [facility] 11:08:00 13:26:00 SANDRA lopez [facility] 2022-08-22 2022-08-22 [facility] [id number] [facility] 11:08:00 13:26:00 Sandra RAND [id number] john [facility] [id number] [facility] [id number] [address] 2022-08-16 2022-08-16 Outpatient [id number]- [id number] e3 [id number]-s 00:00:00 00:00:00 Visit bbc9-48d0 bc9-48d0-9 -3o83-94c j65-85f289 [id number] 5012e0 2022-08-14 2022-08-14 Outpatient [id number] [id number] 00:00:00 00:00:00 Visit 69z5-005q 5a9-816x-7 -7q28-s5d u24-l0lii8 hz358h2p3 86a4c9 2022-08-10 2022-08-10 Outpatient ok3k1hq5- [id number] ca 5n0qq1-z 00:00:00 00:00:00 Visit d2n9-0001 7y5-4159-2 -8398-061 398-97572a 54w6qz833 4du180 2022-07-17 2022-07-17 Outpatient [id number]- [id number] e4 475le1-l 00:00:00 00:00:00 Visit r8d9-095q 3d4-199r-2 -80ae-dd8 0ae-hj4769 [id number] h87682 2022-07-04 2022-07-04 Outpatient [id number]- [id number] 9d 28679c-s 00:00:00 00:00:00 Visit f354-9z98 484-4f82-9 -971d-ac8 71d-ac8a93 m127o8e22 7b0f06 Results Test Description Test Time Test Comments Results Result Comments Source TSH, THIRD GENERATION 2022 06:54:22 Test Item Value Reference Range Interpretation Comme nts TSH, THIRD GENERATION (test code = 2821) 1.670 UIU/ML 0.400-4.100 CBC W/AUTO DIFF WITH [id number] 06:13:08 Test Item Value Reference Range Interpretation Comments WBC (test code = 3.2 K/UL 3.5-11.0 L 1001) RBC (test code = 4.38 M/UL 3.80-5.40 1002) HEMOGLOBIN (test code 12.6 G/DL 11.5-15.5 = 1003) HEMATOCRIT (test code 37.9 % 34.0-45.0 = 1004) MCV (test code = 86.5 fL 80.0-99.0 1005) MCH (test code = 28.8 PG 25.0-33.0 1006) MCHC (test code = 33.2 G/DL 31.0-36.0 1007) RDW (test code = 13.5 % 11.5-15.0 1038) NEUTROPHILS (test 53.2 % code = 1008) LYMPHOCYTES (test 35.8 % code = 1010) MONOCYTES (test code 7.6 % = 1011) EOSINOPHILS (test 2.5 % code = 1012) BASOPHILS (test code 0.6 % = 1013) IMMATURE GRANULOCYTES 0.3 % (test code = 1036) NUCLEATED RBCS (test 0.0 /100 WBC'S See_Comment [Aut omated code = 1065) message] The sy stem which generated this result transmitted reference range : 0.0. The refere nce range was not u sed to interpret th is result as normal/abnormal . PLATELET COUNT (test 173 K/UL 130-400 code = 1015) ABSOLUTE NEUTROPHILS 1.68 K/UL 1.50-7.50 (test code = 1066) ABSOLUTE LYMPHOCYTES 1.13 K/UL 1.00-4.00 (test code = 1067) ABSOLUTE MONOCYTES 0.24 K/UL 0.20-1.00 (test code = 1068) ABSOLUTE EOSINOPHILS 0.08 K/UL 0.00-0.50 (test code = 1040) ABSOLUTE BASOPHILS 0.02 K/UL 0.00-0.20 (test code = 1069) ABS IMMATURE 0.01 K/UL 0.00-0.10 GRANULOCYTES (test code = 1020) ABS NUCLEATED RBCS 0.00 K/UL 0.00-0.11 (test code = 45780) HEMOGLOBIN [id number] 05:56:01 Test Item Value Reference Range Interpretation Comments HEMOGLOBIN A1c (test code = 27135) 5.7 % 4.2-5.6 H COMPREHENSIVE METABOLIC [id number] 03:02:06 Test Item Value Reference Range Interpretation Comments GLUCOSE (test code = 94 MG/DL 70-99 2216) BUN (test code = 17 MG/DL 8-23 2207) CREATININE (test 0.73 MG/DL 0.60-1.30 code = 2214) eGFR (2020 CKD-EPI) 84 >60 (test code = 88419) ML/MIN/1.73 CALC BUN/CREAT (test 23 RATIO 6-28 code = 2235) SODIUM (test code = 142 MEQ/L 591-512 2699) POTASSIUM (test code 4.5 MEQ/L 3.5-5.4 = 2227) CHLORIDE (test code 105 MEQ/L 95-107 = 221) CARBON DIOXIDE (test 28 MEQ/L 19-31 code = 2206) CALCIUM (test code = 9.2 MG/DL 8.5-10.5 2208) PROTEIN, TOTAL (test 7.3 G/DL 6.1-8.3 code = 2228) ALBUMIN (test code = 4.6 G/DL 3.5-5.2 2200) CALC GLOBULIN (test 2.7 G/DL 1.9-3.7 code = 2240) CALC A/G RATIO (test 1.7 RATIO 1.0-2.6 code = 2234) BILIRUBIN, TOTAL 0.5 MG/DL See_Comment [Automated message] (test code = 2207) The syste m which generated this result transmitted ref erence range: <=1.2. T he reference range was not used to int erpret this result as normal/abnormal . ALKALINE PHOSPHATASE 84 U/L 40-142 (test code = 2204) AST (test code = 27 U/L 9-40 2218) ALT (test code = 19 U/L 5-40 UNLESS OTH ERWISE 9) INDICATED, ALL TESTING PERFORM [facility], [address] [place] [address] [facility] DIRECTOR: BEN FARFAN M.D. CLIA NUMBER [id number] [facility] ACCREDITATION N O. [id number] 00:00:00 Test Item Value Reference Range Interpretation Comments TSH, THIRD GENERATION (test code 1.670 UIU/ML = 2821) [id number] 00:00:00 Test Item Value Reference Range Interpretation Comments TSH, THIRD GENERATION (test code 1.670 UIU/ML = 2821) [id number] 00:00:00 Test Item Value Reference Range Interpretation Comments TSH, THIRD GENERATION (test code 1.670 UIU/ML = 2821) [id number] 00:00:00 Test Item Value Reference Range Interpretation Comments TSH, THIRD GENERATION (test code 1.670 UIU/ML = 2821) HEMOGLOBIN [id number] 00:00:00 Test Item Value Reference Range Interpretation Comments HEMOGLOBIN A1c (test code = 50438) 5.7 % HEMOGLOBIN [id number] 00:00:00 Test Item Value Reference Range Interpretation Comments HEMOGLOBIN A1c (test code = 90861) 5.7 % HEMOGLOBIN [id number] 00:00:00 Test Item Value Reference Range Interpretation Comments HEMOGLOBIN A1c (test code = 10772) 5.7 % CBC W/AUTO [id number] 00:00:00 Test Item Value Reference Range Interpretation Comments WBC (test code = 1001) 3.2 K/UL RBC (test code = 1002) 4.38 M/UL HEMOGLOBIN (test code = 1003) 12.6 G/DL HEMATOCRIT (test code = 1004) 37.9 % MCV (test code = 1005) 86.5 fL MCH (test code = 1006) 28.8 PG MCHC (test code = 1007) 33.2 G/DL RDW (test code = 1038) 13.5 % NEUTROPHILS (test code = 1008) 53.2 % LYMPHOCYTES (test code = 1010) 35.8 % MONOCYTES (test code = 1011) 7.6 % EOSINOPHILS (test code = 1012) 2.5 % BASOPHILS (test code = 1013) 0.6 % IMMATURE GRANULOCYTES (test 0.3 % code = 1036) NUCLEATED RBCS (test code = 0.0 /100WBC'S 1065) PLATELET COUNT (test code = 173 K/UL 1015) ABSOLUTE NEUTROPHILS (test code 1.68 K/UL = 1066) ABSOLUTE LYMPHOCYTES (test code 1.13 K/UL = 1067) ABSOLUTE MONOCYTES (test code = 0.24 K/UL 1068) ABSOLUTE EOSINOPHILS (test code 0.08 K/UL = 1040) ABSOLUTE BASOPHILS (test code = 0.02 K/UL 1069) ABS IMMATURE GRANULOCYTES (test 0.01 K/UL code = 1020) ABS NUCLEATED RBCS (test code = 0.00 K/UL 21766) CBC W/AUTO [id number] 00:00:00 Test Item Value Reference Range Interpretation Comments WBC (test code = 1001) 3.2 K/UL RBC (test code = 1002) 4.38 M/UL HEMOGLOBIN (test code = 1003) 12.6 G/DL HEMATOCRIT (test code = 1004) 37.9 % MCV (test code = 1005) 86.5 fL MCH (test code = 1006) 28.8 PG MCHC (test code = 1007) 33.2 G/DL RDW (test code = 1038) 13.5 % NEUTROPHILS (test code = 1008) 53.2 % LYMPHOCYTES (test code = 1010) 35.8 % MONOCYTES (test code = 1011) 7.6 % EOSINOPHILS (test code = 1012) 2.5 % BASOPHILS (test code = 1013) 0.6 % IMMATURE GRANULOCYTES (test 0.3 % code = 1036) NUCLEATED RBCS (test code = 0.0 /100WBC'S 1065) PLATELET COUNT (test code = 173 K/UL 1015) ABSOLUTE NEUTROPHILS (test code 1.68 K/UL = 1066) ABSOLUTE LYMPHOCYTES (test code 1.13 K/UL = 1067) ABSOLUTE MONOCYTES (test code = 0.24 K/UL 1068) ABSOLUTE EOSINOPHILS (test code 0.08 K/UL = 1040) ABSOLUTE BASOPHILS (test code = 0.02 K/UL 1069) ABS IMMATURE GRANULOCYTES (test 0.01 K/UL code = 1020) ABS NUCLEATED RBCS (test code = 0.00 K/UL 72770) CBC W/AUTO [id number] 00:00:00 Test Item Value Reference Range Interpretation Comments WBC (test code = 1001) 3.2 K/UL RBC (test code = 1002) 4.38 M/UL HEMOGLOBIN (test code = 1003) 12.6 G/DL HEMATOCRIT (test code = 1004) 37.9 % MCV (test code = 1005) 86.5 fL MCH (test code = 1006) 28.8 PG MCHC (test code = 1007) 33.2 G/DL RDW (test code = 1038) 13.5 % NEUTROPHILS (test code = 1008) 53.2 % LYMPHOCYTES (test code = 1010) 35.8 % MONOCYTES (test code = 1011) 7.6 % EOSINOPHILS (test code = 1012) 2.5 % BASOPHILS (test code = 1013) 0.6 % IMMATURE GRANULOCYTES (test 0.3 % code = 1036) NUCLEATED RBCS (test code = 0.0 /100WBC'S 1065) PLATELET COUNT (test code = 173 K/UL 1015) ABSOLUTE NEUTROPHILS (test code 1.68 K/UL = 1066) ABSOLUTE LYMPHOCYTES (test code 1.13 K/UL = 1067) ABSOLUTE MONOCYTES (test code = 0.24 K/UL 1068) ABSOLUTE EOSINOPHILS (test code 0.08 K/UL = 1040) ABSOLUTE BASOPHILS (test code = 0.02 K/UL 1069) ABS IMMATURE GRANULOCYTES (test 0.01 K/UL code = 1020) ABS NUCLEATED RBCS (test code = 0.00 K/UL 98860) COMPREHENSIVE METABOLIC [id number] 00:00:00 Test Item Value Reference Range Interpretation Comments GLUCOSE (test code = 2217) 94 MG/DL BUN (test code = 2208) 17 MG/DL CREATININE (test code = 2214) 0.73 MG/DL eGFR (2020 CKD-EPI) (test code 84 ML/MIN/1.73 = 59866) CALC BUN/CREAT (test code = 23 RATIO 2235) SODIUM (test code = 2231) 142 MEQ/L POTASSIUM (test code = 2228) 4.5 MEQ/L CHLORIDE (test code = 2215) 105 MEQ/L CARBON DIOXIDE (test code = 28 MEQ/L 2206) CALCIUM (test code = 2209) 9.2 MG/DL PROTEIN, TOTAL (test code = 7.3 G/DL 2228) ALBUMIN (test code = 2201) 4.6 G/DL CALC GLOBULIN (test code = 2.7 G/DL 2240) CALC A/G RATIO (test code = 1.7 RATIO 2234) BILIRUBIN, TOTAL (test code = 0.5 MG/DL 2206) ALKALINE PHOSPHATASE (test 84 U/L code = 2204) AST (test code = 2218) 27 U/L ALT (test code = 2219) 19 U/L COMPREHENSIVE METABOLIC [id number] 00:00:00 Test Item Value Reference Range Interpretation Comments GLUCOSE (test code = 2217) 94 MG/DL BUN (test code = 2208) 17 MG/DL CREATININE (test code = 2214) 0.73 MG/DL eGFR (2020 CKD-EPI) (test code 84 ML/MIN/1.73 = 02783) CALC BUN/CREAT (test code = 23 RATIO 2235) SODIUM (test code = 2231) 142 MEQ/L POTASSIUM (test code = 2228) 4.5 MEQ/L CHLORIDE (test code = 2215) 105 MEQ/L CARBON DIOXIDE (test code = 28 MEQ/L 2205) CALCIUM (test code = 2209) 9.2 MG/DL PROTEIN, TOTAL (test code = 7.3 G/DL 2228) ALBUMIN (test code = 2201) 4.6 G/DL CALC GLOBULIN (test code = 2.7 G/DL 2240) CALC A/G RATIO (test code = 1.7 RATIO 2234) BILIRUBIN, TOTAL (test code = 0.5 MG/DL 2206) ALKALINE PHOSPHATASE (test 84 U/L code = 2204) AST (test code = 2218) 27 U/L ALT (test code = 2219) 19 U/L [id number] 00:00:00 Test Item Value Reference Range Interpretation Comments TSH, THIRD GENERATION (test code 1.670 UIU/ML = 2821) [id number] 00:00:00 Test Item Value Reference Range Interpretation Comments TSH, THIRD GENERATION (test code 1.670 UIU/ML = 2821) HEMOGLOBIN [id number] 00:00:00 Test Item Value Reference Range Interpretation Comments HEMOGLOBIN A1c (test code = 44473) 5.7 % [id number] 00:00:00 Test Item Value Reference Range Interpretation Comments TSH, THIRD GENERATION (test code 1.670 UIU/ML = 2821) [id number] 00:00:00 Test Item Value Reference Range Interpretation Comments TSH, THIRD GENERATION (test code 1.670 UIU/ML = 2821) [id number] 00:00:00 Test Item Value Reference Range Interpretation Comments TSH, THIRD GENERATION (test code 1.670 UIU/ML = 2821) HEMOGLOBIN [id number] 00:00:00 Test Item Value Reference Range Interpretation Comments HEMOGLOBIN A1c (test code = 84304) 5.7 % HEMOGLOBIN [id number] 00:00:00 Test Item Value Reference Range Interpretation Comments HEMOGLOBIN A1c (test code = 45581) 5.7 % HEMOGLOBIN [id number] 00:00:00 Test Item Value Reference Range Interpretation Comments HEMOGLOBIN A1c (test code = 46647) 5.7 % CBC W/AUTO [id number] 00:00:00 Test Item Value Reference Range Interpretation Comments WBC (test code = 1001) 3.2 K/UL RBC (test code = 1002) 4.38 M/UL HEMOGLOBIN (test code = 1003) 12.6 G/DL HEMATOCRIT (test code = 1004) 37.9 % MCV (test code = 1005) 86.5 fL MCH (test code = 1006) 28.8 PG MCHC (test code = 1007) 33.2 G/DL RDW (test code = 1038) 13.5 % NEUTROPHILS (test code = 1008) 53.2 % LYMPHOCYTES (test code = 1010) 35.8 % MONOCYTES (test code = 1011) 7.6 % EOSINOPHILS (test code = 1012) 2.5 % BASOPHILS (test code = 1013) 0.6 % IMMATURE GRANULOCYTES (test 0.3 % code = 1036) NUCLEATED RBCS (test code = 0.0 /100WBC'S 1065) PLATELET COUNT (test code = 173 K/UL 1015) ABSOLUTE NEUTROPHILS (test code 1.68 K/UL = 1066) ABSOLUTE LYMPHOCYTES (test code 1.13 K/UL = 1067) ABSOLUTE MONOCYTES (test code = 0.24 K/UL 1068) ABSOLUTE EOSINOPHILS (test code 0.08 K/UL = 1040) ABSOLUTE BASOPHILS (test code = 0.02 K/UL 1069) ABS IMMATURE GRANULOCYTES (test 0.01 K/UL code = 1020) ABS NUCLEATED RBCS (test code = 0.00 K/UL 67399) CBC W/AUTO [id number] 00:00:00 Test Item Value Reference Range Interpretation Comments WBC (test code = 1001) 3.2 K/UL RBC (test code = 1002) 4.38 M/UL HEMOGLOBIN (test code = 1003) 12.6 G/DL HEMATOCRIT (test code = 1004) 37.9 % MCV (test code = 1005) 86.5 fL MCH (test code = 1006) 28.8 PG MCHC (test code = 1007) 33.2 G/DL RDW (test code = 1038) 13.5 % NEUTROPHILS (test code = 1008) 53.2 % LYMPHOCYTES (test code = 1010) 35.8 % MONOCYTES (test code = 1011) 7.6 % EOSINOPHILS (test code = 1012) 2.5 % BASOPHILS (test code = 1013) 0.6 % IMMATURE GRANULOCYTES (test 0.3 % code = 1036) NUCLEATED RBCS (test code = 0.0 /100WBC'S 1065) PLATELET COUNT (test code = 173 K/UL 1015) ABSOLUTE NEUTROPHILS (test code 1.68 K/UL = 1066) ABSOLUTE LYMPHOCYTES (test code 1.13 K/UL = 1067) ABSOLUTE MONOCYTES (test code = 0.24 K/UL 1068) ABSOLUTE EOSINOPHILS (test code 0.08 K/UL = 1040) ABSOLUTE BASOPHILS (test code = 0.02 K/UL 1069) ABS IMMATURE GRANULOCYTES (test 0.01 K/UL code = 1020) ABS NUCLEATED RBCS (test code = 0.00 K/UL 45336) CBC W/AUTO [id number] 00:00:00 Test Item Value Reference Range Interpretation Comments WBC (test code = 1001) 3.2 K/UL RBC (test code = 1002) 4.38 M/UL HEMOGLOBIN (test code = 1003) 12.6 G/DL HEMATOCRIT (test code = 1004) 37.9 % MCV (test code = 1005) 86.5 fL MCH (test code = 1006) 28.8 PG MCHC (test code = 1007) 33.2 G/DL RDW (test code = 1038) 13.5 % NEUTROPHILS (test code = 1008) 53.2 % LYMPHOCYTES (test code = 1010) 35.8 % MONOCYTES (test code = 1011) 7.6 % EOSINOPHILS (test code = 1012) 2.5 % BASOPHILS (test code = 1013) 0.6 % IMMATURE GRANULOCYTES (test 0.3 % code = 1036) NUCLEATED RBCS (test code = 0.0 /100WBC'S 1065) PLATELET COUNT (test code = 173 K/UL 1015) ABSOLUTE NEUTROPHILS (test code 1.68 K/UL = 1066) ABSOLUTE LYMPHOCYTES (test code 1.13 K/UL = 1067) ABSOLUTE MONOCYTES (test code = 0.24 K/UL 1068) ABSOLUTE EOSINOPHILS (test code 0.08 K/UL = 1040) ABSOLUTE BASOPHILS (test code = 0.02 K/UL 1069) ABS IMMATURE GRANULOCYTES (test 0.01 K/UL code = 1020) ABS NUCLEATED RBCS (test code = 0.00 K/UL 39259) HEMOGLOBIN [id number] 00:00:00 Test Item Value Reference Range Interpretation Comments HEMOGLOBIN A1c (test code = 25329) 5.7 % COMPREHENSIVE METABOLIC [id number] 00:00:00 Test Item Value Reference Range Interpretation Comments GLUCOSE (test code = 2217) 94 MG/DL BUN (test code = 2208) 17 MG/DL CREATININE (test code = 2214) 0.73 MG/DL eGFR (2020 CKD-EPI) (test code 84 ML/MIN/1.73 = 20168) CALC BUN/CREAT (test code = 23 RATIO 2235) SODIUM (test code = 2231) 142 MEQ/L POTASSIUM (test code = 2228) 4.5 MEQ/L CHLORIDE (test code = 2215) 105 MEQ/L CARBON DIOXIDE (test code = 28 MEQ/L 2205) CALCIUM (test code = 2209) 9.2 MG/DL PROTEIN, TOTAL (test code = 7.3 G/DL 2228) ALBUMIN (test code = 2201) 4.6 G/DL CALC GLOBULIN (test code = 2.7 G/DL 2240) CALC A/G RATIO (test code = 1.7 RATIO 2234) BILIRUBIN, TOTAL (test code = 0.5 MG/DL 2206) ALKALINE PHOSPHATASE (test 84 U/L code = 2204) AST (test code = 2218) 27 U/L ALT (test code = 2219) 19 U/L COMPREHENSIVE METABOLIC [id number] 00:00:00 Test Item Value Reference Range Interpretation Comments GLUCOSE (test code = 2217) 94 MG/DL BUN (test code = 2208) 17 MG/DL CREATININE (test code = 2214) 0.73 MG/DL eGFR (2020 CKD-EPI) (test code 84 ML/MIN/1.73 = 42120) CALC BUN/CREAT (test code = 23 RATIO 2235) SODIUM (test code = 2231) 142 MEQ/L POTASSIUM (test code = 2228) 4.5 MEQ/L CHLORIDE (test code = 2215) 105 MEQ/L CARBON DIOXIDE (test code = 28 MEQ/L 2205) CALCIUM (test code = 2209) 9.2 MG/DL PROTEIN, TOTAL (test code = 7.3 G/DL 2228) ALBUMIN (test code = 2201) 4.6 G/DL CALC GLOBULIN (test code = 2.7 G/DL 2240) CALC A/G RATIO (test code = 1.7 RATIO 2234) BILIRUBIN, TOTAL (test code = 0.5 MG/DL 2206) ALKALINE PHOSPHATASE (test 84 U/L code = 2204) AST (test code = 2218) 27 U/L ALT (test code = 2219) 19 U/L HEMOGLOBIN [id number] 00:00:00 Test Item Value Reference Range Interpretation Comments HEMOGLOBIN A1c (test code = 85369) 5.7 % CBC W/AUTO [id number] 00:00:00 Test Item Value Reference Range Interpretation Comments WBC (test code = 1001) 3.2 K/UL RBC (test code = 1002) 4.38 M/UL HEMOGLOBIN (test code = 1003) 12.6 G/DL HEMATOCRIT (test code = 1004) 37.9 % MCV (test code = 1005) 86.5 fL MCH (test code = 1006) 28.8 PG MCHC (test code = 1007) 33.2 G/DL RDW (test code = 1038) 13.5 % NEUTROPHILS (test code = 1008) 53.2 % LYMPHOCYTES (test code = 1010) 35.8 % MONOCYTES (test code = 1011) 7.6 % EOSINOPHILS (test code = 1012) 2.5 % BASOPHILS (test code = 1013) 0.6 % IMMATURE GRANULOCYTES (test 0.3 % code = 1036) NUCLEATED RBCS (test code = 0.0 /100WBC'S 1065) PLATELET COUNT (test code = 173 K/UL 1015) ABSOLUTE NEUTROPHILS (test code 1.68 K/UL = 1066) ABSOLUTE LYMPHOCYTES (test code 1.13 K/UL = 1067) ABSOLUTE MONOCYTES (test code = 0.24 K/UL 1068) ABSOLUTE EOSINOPHILS (test code 0.08 K/UL = 1040) ABSOLUTE BASOPHILS (test code = 0.02 K/UL 1069) ABS IMMATURE GRANULOCYTES (test 0.01 K/UL code = 1020) ABS NUCLEATED RBCS (test code = 0.00 K/UL 07816) CBC W/AUTO [id number] 00:00:00 Test Item Value Reference Range Interpretation Comments WBC (test code = 1001) 3.2 K/UL RBC (test code = 1002) 4.38 M/UL HEMOGLOBIN (test code = 1003) 12.6 G/DL HEMATOCRIT (test code = 1004) 37.9 % MCV (test code = 1005) 86.5 fL MCH (test code = 1006) 28.8 PG MCHC (test code = 1007) 33.2 G/DL RDW (test code = 1038) 13.5 % NEUTROPHILS (test code = 1008) 53.2 % LYMPHOCYTES (test code = 1010) 35.8 % MONOCYTES (test code = 1011) 7.6 % EOSINOPHILS (test code = 1012) 2.5 % BASOPHILS (test code = 1013) 0.6 % IMMATURE GRANULOCYTES (test 0.3 % code = 1036) NUCLEATED RBCS (test code = 0.0 /100WBC'S 1065) PLATELET COUNT (test code = 173 K/UL 1015) ABSOLUTE NEUTROPHILS (test code 1.68 K/UL = 1066) ABSOLUTE LYMPHOCYTES (test code 1.13 K/UL = 1067) ABSOLUTE MONOCYTES (test code = 0.24 K/UL 1068) ABSOLUTE EOSINOPHILS (test code 0.08 K/UL = 1040) ABSOLUTE BASOPHILS (test code = 0.02 K/UL 1069) ABS IMMATURE GRANULOCYTES (test 0.01 K/UL code = 1020) ABS NUCLEATED RBCS (test code = 0.00 K/UL 42672) CBC W/AUTO [id number] 00:00:00 Test Item Value Reference Range Interpretation Comments WBC (test code = 1001) 3.2 K/UL RBC (test code = 1002) 4.38 M/UL HEMOGLOBIN (test code = 1003) 12.6 G/DL HEMATOCRIT (test code = 1004) 37.9 % MCV (test code = 1005) 86.5 fL MCH (test code = 1006) 28.8 PG MCHC (test code = 1007) 33.2 G/DL RDW (test code = 1038) 13.5 % NEUTROPHILS (test code = 1008) 53.2 % LYMPHOCYTES (test code = 1010) 35.8 % MONOCYTES (test code = 1011) 7.6 % EOSINOPHILS (test code = 1012) 2.5 % BASOPHILS (test code = 1013) 0.6 % IMMATURE GRANULOCYTES (test 0.3 % code = 1036) NUCLEATED RBCS (test code = 0.0 /100WBC'S 1065) PLATELET COUNT (test code = 173 K/UL 1015) ABSOLUTE NEUTROPHILS (test code 1.68 K/UL = 1066) ABSOLUTE LYMPHOCYTES (test code 1.13 K/UL = 1067) ABSOLUTE MONOCYTES (test code = 0.24 K/UL 1068) ABSOLUTE EOSINOPHILS (test code 0.08 K/UL = 1040) ABSOLUTE BASOPHILS (test code = 0.02 K/UL 1069) ABS IMMATURE GRANULOCYTES (test 0.01 K/UL code = 1020) ABS NUCLEATED RBCS (test code = 0.00 K/UL 17533) COMPREHENSIVE METABOLIC [id number] 00:00:00 Test Item Value Reference Range Interpretation Comments GLUCOSE (test code = 2217) 94 MG/DL BUN (test code = 2208) 17 MG/DL CREATININE (test code = 2214) 0.73 MG/DL eGFR (2020 CKD-EPI) (test code 84 ML/MIN/1.73 = 31152) CALC BUN/CREAT (test code = 23 RATIO 2235) SODIUM (test code = 2231) 142 MEQ/L POTASSIUM (test code = 2228) 4.5 MEQ/L CHLORIDE (test code = 2215) 105 MEQ/L CARBON DIOXIDE (test code = 28 MEQ/L 220) CALCIUM (test code = 2209) 9.2 MG/DL PROTEIN, TOTAL (test code = 7.3 G/DL 2228) ALBUMIN (test code = 2201) 4.6 G/DL CALC GLOBULIN (test code = 2.7 G/DL 2240) CALC A/G RATIO (test code = 1.7 RATIO 2234) BILIRUBIN, TOTAL (test code = 0.5 MG/DL 2206) ALKALINE PHOSPHATASE (test 84 U/L code = 2204) AST (test code = 2218) 27 U/L ALT (test code = 2219) 19 U/L COMPREHENSIVE METABOLIC [id number] 00:00:00 Test Item Value Reference Range Interpretation Comments GLUCOSE (test code = 2217) 94 MG/DL BUN (test code = 2208) 17 MG/DL CREATININE (test code = 2214) 0.73 MG/DL eGFR (2020 CKD-EPI) (test code 84 ML/MIN/1.73 = 64131) CALC BUN/CREAT (test code = 23 RATIO 2235) SODIUM (test code = 2231) 142 MEQ/L POTASSIUM (test code = 2228) 4.5 MEQ/L CHLORIDE (test code = 2215) 105 MEQ/L CARBON DIOXIDE (test code = 28 MEQ/L 2205) CALCIUM (test code = 2209) 9.2 MG/DL PROTEIN, TOTAL (test code = 7.3 G/DL 2228) ALBUMIN (test code = 2201) 4.6 G/DL CALC GLOBULIN (test code = 2.7 G/DL 2240) CALC A/G RATIO (test code = 1.7 RATIO 2234) BILIRUBIN, TOTAL (test code = 0.5 MG/DL 2206) ALKALINE PHOSPHATASE (test 84 U/L code = 2204) AST (test code = 2218) 27 U/L ALT (test code = 2219) 19 U/L [id number] 00:00:00 Test Item Value Reference Range Interpretation Comments TSH, THIRD GENERATION (test code 1.670 UIU/ML = 2821) [id number] 00:00:00 Test Item Value Reference Range Interpretation Comments TSH, THIRD GENERATION (test code 1.670 UIU/ML = 2821) [id number] 00:00:00 Test Item Value Reference Range Interpretation Comments TSH, THIRD GENERATION (test code 1.670 UIU/ML = 2821) HEMOGLOBIN [id number] 00:00:00 Test Item Value Reference Range Interpretation Comments HEMOGLOBIN A1c (test code = 82601) 5.7 % HEMOGLOBIN [id number] 00:00:00 Test Item Value Reference Range Interpretation Comments HEMOGLOBIN A1c (test code = 44824) 5.7 % HEMOGLOBIN [id number] 00:00:00 Test Item Value Reference Range Interpretation Comments HEMOGLOBIN A1c (test code = 97581) 5.7 % CBC W/AUTO [id number] 00:00:00 Test Item Value Reference Range Interpretation Comments WBC (test code = 1001) 3.2 K/UL RBC (test code = 1002) 4.38 M/UL HEMOGLOBIN (test code = 1003) 12.6 G/DL HEMATOCRIT (test code = 1004) 37.9 % MCV (test code = 1005) 86.5 fL MCH (test code = 1006) 28.8 PG MCHC (test code = 1007) 33.2 G/DL RDW (test code = 1038) 13.5 % NEUTROPHILS (test code = 1008) 53.2 % LYMPHOCYTES (test code = 1010) 35.8 % MONOCYTES (test code = 1011) 7.6 % EOSINOPHILS (test code = 1012) 2.5 % BASOPHILS (test code = 1013) 0.6 % IMMATURE GRANULOCYTES (test 0.3 % code = 1036) NUCLEATED RBCS (test code = 0.0 /100WBC'S 1065) PLATELET COUNT (test code = 173 K/UL 1015) ABSOLUTE NEUTROPHILS (test code 1.68 K/UL = 1066) ABSOLUTE LYMPHOCYTES (test code 1.13 K/UL = 1067) ABSOLUTE MONOCYTES (test code = 0.24 K/UL 1068) ABSOLUTE EOSINOPHILS (test code 0.08 K/UL = 1040) ABSOLUTE BASOPHILS (test code = 0.02 K/UL 1069) ABS IMMATURE GRANULOCYTES (test 0.01 K/UL code = 1020) ABS NUCLEATED RBCS (test code = 0.00 K/UL 32967) CBC W/AUTO [id number] 00:00:00 Test Item Value Reference Range Interpretation Comments WBC (test code = 1001) 3.2 K/UL RBC (test code = 1002) 4.38 M/UL HEMOGLOBIN (test code = 1003) 12.6 G/DL HEMATOCRIT (test code = 1004) 37.9 % MCV (test code = 1005) 86.5 fL MCH (test code = 1006) 28.8 PG MCHC (test code = 1007) 33.2 G/DL RDW (test code = 1038) 13.5 % NEUTROPHILS (test code = 1008) 53.2 % LYMPHOCYTES (test code = 1010) 35.8 % MONOCYTES (test code = 1011) 7.6 % EOSINOPHILS (test code = 1012) 2.5 % BASOPHILS (test code = 1013) 0.6 % IMMATURE GRANULOCYTES (test 0.3 % code = 1036) NUCLEATED RBCS (test code = 0.0 /100WBC'S 1065) PLATELET COUNT (test code = 173 K/UL 1015) ABSOLUTE NEUTROPHILS (test code 1.68 K/UL = 1066) ABSOLUTE LYMPHOCYTES (test code 1.13 K/UL = 1067) ABSOLUTE MONOCYTES (test code = 0.24 K/UL 1068) ABSOLUTE EOSINOPHILS (test code 0.08 K/UL = 1040) ABSOLUTE BASOPHILS (test code = 0.02 K/UL 1069) ABS IMMATURE GRANULOCYTES (test 0.01 K/UL code = 1020) ABS NUCLEATED RBCS (test code = 0.00 K/UL 07099) CBC W/AUTO [id number] 00:00:00 Test Item Value Reference Range Interpretation Comments WBC (test code = 1001) 3.2 K/UL RBC (test code = 1002) 4.38 M/UL HEMOGLOBIN (test code = 1003) 12.6 G/DL HEMATOCRIT (test code = 1004) 37.9 % MCV (test code = 1005) 86.5 fL MCH (test code = 1006) 28.8 PG MCHC (test code = 1007) 33.2 G/DL RDW (test code = 1038) 13.5 % NEUTROPHILS (test code = 1008) 53.2 % LYMPHOCYTES (test code = 1010) 35.8 % MONOCYTES (test code = 1011) 7.6 % EOSINOPHILS (test code = 1012) 2.5 % BASOPHILS (test code = 1013) 0.6 % IMMATURE GRANULOCYTES (test 0.3 % code = 1036) NUCLEATED RBCS (test code = 0.0 /100WBC'S 1065) PLATELET COUNT (test code = 173 K/UL 1015) ABSOLUTE NEUTROPHILS (test code 1.68 K/UL = 1066) ABSOLUTE LYMPHOCYTES (test code 1.13 K/UL = 1067) ABSOLUTE MONOCYTES (test code = 0.24 K/UL 1068) ABSOLUTE EOSINOPHILS (test code 0.08 K/UL = 1040) ABSOLUTE BASOPHILS (test code = 0.02 K/UL 1069) ABS IMMATURE GRANULOCYTES (test 0.01 K/UL code = 1020) ABS NUCLEATED RBCS (test code = 0.00 K/UL 74001) COMPREHENSIVE METABOLIC [id number] 00:00:00 Test Item Value Reference Range Interpretation Comments GLUCOSE (test code = 2217) 94 MG/DL BUN (test code = 2208) 17 MG/DL CREATININE (test code = 2214) 0.73 MG/DL eGFR (2020 CKD-EPI) (test code 84 ML/MIN/1.73 = 17752) CALC BUN/CREAT (test code = 23 RATIO 2235) SODIUM (test code = 2231) 142 MEQ/L POTASSIUM (test code = 2228) 4.5 MEQ/L CHLORIDE (test code = 2215) 105 MEQ/L CARBON DIOXIDE (test code = 28 MEQ/L 2206) CALCIUM (test code = 2209) 9.2 MG/DL PROTEIN, TOTAL (test code = 7.3 G/DL 2229) ALBUMIN (test code = 2201) 4.6 G/DL CALC GLOBULIN (test code = 2.7 G/DL 2240) CALC A/G RATIO (test code = 1.7 RATIO 2234) BILIRUBIN, TOTAL (test code = 0.5 MG/DL 2207) ALKALINE PHOSPHATASE (test 84 U/L code = 2204) AST (test code = 2218) 27 U/L ALT (test code = 2219) 19 U/L COMPREHENSIVE METABOLIC [id number] 00:00:00 Test Item Value Reference Range Interpretation Comments GLUCOSE (test code = 2217) 94 MG/DL BUN (test code = 2208) 17 MG/DL CREATININE (test code = 2214) 0.73 MG/DL eGFR (2020 CKD-EPI) (test code 84 ML/MIN/1.73 = 40819) CALC BUN/CREAT (test code = 23 RATIO 2235) SODIUM (test code = 2231) 142 MEQ/L POTASSIUM (test code = 2228) 4.5 MEQ/L CHLORIDE (test code = 2215) 105 MEQ/L CARBON DIOXIDE (test code = 28 MEQ/L 2205) CALCIUM (test code = 2209) 9.2 MG/DL PROTEIN, TOTAL (test code = 7.3 G/DL 2228) ALBUMIN (test code = 2201) 4.6 G/DL CALC GLOBULIN (test code = 2.7 G/DL 2239) CALC A/G RATIO (test code = 1.7 RATIO 2233) BILIRUBIN, TOTAL (test code = 0.5 MG/DL 2206) ALKALINE PHOSPHATASE (test 84 U/L code = 2204) AST (test code = 2218) 27 U/L ALT (test code = 2219) 19 U/L [id number] 00:00:00 Test Item Value Reference Range Interpretation Comments TSH, THIRD GENERATION (test code 1.670 UIU/ML = 2821) [id number] 00:00:00 Test Item Value Reference Range Interpretation Comments TSH, THIRD GENERATION (test code 1.670 UIU/ML = 2821) [id number] 00:00:00 Test Item Value Reference Range Interpretation Comments TSH, THIRD GENERATION (test code 1.670 UIU/ML = 2821) HEMOGLOBIN [id number] 00:00:00 Test Item Value Reference Range Interpretation Comments HEMOGLOBIN A1c (test code = 79978) 5.7 % HEMOGLOBIN [id number] 00:00:00 Test Item Value Reference Range Interpretation Comments HEMOGLOBIN A1c (test code = 10003) 5.7 % HEMOGLOBIN [id number] 00:00:00 Test Item Value Reference Range Interpretation Comments HEMOGLOBIN A1c (test code = 34401) 5.7 % CBC W/AUTO [id number] 00:00:00 Test Item Value Reference Range Interpretation Comments WBC (test code = 1001) 3.2 K/UL RBC (test code = 1002) 4.38 M/UL HEMOGLOBIN (test code = 1003) 12.6 G/DL HEMATOCRIT (test code = 1004) 37.9 % MCV (test code = 1005) 86.5 fL MCH (test code = 1006) 28.8 PG MCHC (test code = 1007) 33.2 G/DL RDW (test code = 1038) 13.5 % NEUTROPHILS (test code = 1008) 53.2 % LYMPHOCYTES (test code = 1010) 35.8 % MONOCYTES (test code = 1011) 7.6 % EOSINOPHILS (test code = 1012) 2.5 % BASOPHILS (test code = 1013) 0.6 % IMMATURE GRANULOCYTES (test 0.3 % code = 1036) NUCLEATED RBCS (test code = 0.0 /100WBC'S 1065) PLATELET COUNT (test code = 173 K/UL 1015) ABSOLUTE NEUTROPHILS (test code 1.68 K/UL = 1066) ABSOLUTE LYMPHOCYTES (test code 1.13 K/UL = 1067) ABSOLUTE MONOCYTES (test code = 0.24 K/UL 1068) ABSOLUTE EOSINOPHILS (test code 0.08 K/UL = 1040) ABSOLUTE BASOPHILS (test code = 0.02 K/UL 1069) ABS IMMATURE GRANULOCYTES (test 0.01 K/UL code = 1020) ABS NUCLEATED RBCS (test code = 0.00 K/UL 22622) CBC W/AUTO [id number] 00:00:00 Test Item Value Reference Range Interpretation Comments WBC (test code = 1001) 3.2 K/UL RBC (test code = 1002) 4.38 M/UL HEMOGLOBIN (test code = 1003) 12.6 G/DL HEMATOCRIT (test code = 1004) 37.9 % MCV (test code = 1005) 86.5 fL MCH (test code = 1006) 28.8 PG MCHC (test code = 1007) 33.2 G/DL RDW (test code = 1038) 13.5 % NEUTROPHILS (test code = 1008) 53.2 % LYMPHOCYTES (test code = 1010) 35.8 % MONOCYTES (test code = 1011) 7.6 % EOSINOPHILS (test code = 1012) 2.5 % BASOPHILS (test code = 1013) 0.6 % IMMATURE GRANULOCYTES (test 0.3 % code = 1036) NUCLEATED RBCS (test code = 0.0 /100WBC'S 1065) PLATELET COUNT (test code = 173 K/UL 1015) ABSOLUTE NEUTROPHILS (test code 1.68 K/UL = 1066) ABSOLUTE LYMPHOCYTES (test code 1.13 K/UL = 1067) ABSOLUTE MONOCYTES (test code = 0.24 K/UL 1068) ABSOLUTE EOSINOPHILS (test code 0.08 K/UL = 1040) ABSOLUTE BASOPHILS (test code = 0.02 K/UL 1069) ABS IMMATURE GRANULOCYTES (test 0.01 K/UL code = 1020) ABS NUCLEATED RBCS (test code = 0.00 K/UL 74022) CBC W/AUTO [id number] 00:00:00 Test Item Value Reference Range Interpretation Comments WBC (test code = 1001) 3.2 K/UL RBC (test code = 1002) 4.38 M/UL HEMOGLOBIN (test code = 1003) 12.6 G/DL HEMATOCRIT (test code = 1004) 37.9 % MCV (test code = 1005) 86.5 fL MCH (test code = 1006) 28.8 PG MCHC (test code = 1007) 33.2 G/DL RDW (test code = 1038) 13.5 % NEUTROPHILS (test code = 1008) 53.2 % LYMPHOCYTES (test code = 1010) 35.8 % MONOCYTES (test code = 1011) 7.6 % EOSINOPHILS (test code = 1012) 2.5 % BASOPHILS (test code = 1013) 0.6 % IMMATURE GRANULOCYTES (test 0.3 % code = 1036) NUCLEATED RBCS (test code = 0.0 /100WBC'S 1065) PLATELET COUNT (test code = 173 K/UL 1015) ABSOLUTE NEUTROPHILS (test code 1.68 K/UL = 1066) ABSOLUTE LYMPHOCYTES (test code 1.13 K/UL = 1067) ABSOLUTE MONOCYTES (test code = 0.24 K/UL 1068) ABSOLUTE EOSINOPHILS (test code 0.08 K/UL = 1040) ABSOLUTE BASOPHILS (test code = 0.02 K/UL 1069) ABS IMMATURE GRANULOCYTES (test 0.01 K/UL code = 1020) ABS NUCLEATED RBCS (test code = 0.00 K/UL 41749) COMPREHENSIVE METABOLIC [id number] 00:00:00 Test Item Value Reference Range Interpretation Comments GLUCOSE (test code = 2217) 94 MG/DL BUN (test code = 2208) 17 MG/DL CREATININE (test code = 2214) 0.73 MG/DL eGFR (2020 CKD-EPI) (test code 84 ML/MIN/1.73 = 39155) CALC BUN/CREAT (test code = 23 RATIO 2235) SODIUM (test code = 2231) 142 MEQ/L POTASSIUM (test code = 2228) 4.5 MEQ/L CHLORIDE (test code = 2215) 105 MEQ/L CARBON DIOXIDE (test code = 28 MEQ/L 2206) CALCIUM (test code = 2209) 9.2 MG/DL PROTEIN, TOTAL (test code = 7.3 G/DL 2228) ALBUMIN (test code = 2201) 4.6 G/DL CALC GLOBULIN (test code = 2.7 G/DL 2240) CALC A/G RATIO (test code = 1.7 RATIO 2234) BILIRUBIN, TOTAL (test code = 0.5 MG/DL 2206) ALKALINE PHOSPHATASE (test 84 U/L code = 2204) AST (test code = 2218) 27 U/L ALT (test code = 2219) 19 U/L COMPREHENSIVE METABOLIC [id number] 00:00:00 Test Item Value Reference Range Interpretation Comments GLUCOSE (test code = 2217) 94 MG/DL BUN (test code = 2208) 17 MG/DL CREATININE (test code = 2214) 0.73 MG/DL eGFR (2020 CKD-EPI) (test code 84 ML/MIN/1.73 = 21773) CALC BUN/CREAT (test code = 23 RATIO 2235) SODIUM (test code = 2231) 142 MEQ/L POTASSIUM (test code = 2228) 4.5 MEQ/L CHLORIDE (test code = 2215) 105 MEQ/L CARBON DIOXIDE (test code = 28 MEQ/L 2206) CALCIUM (test code = 2209) 9.2 MG/DL PROTEIN, TOTAL (test code = 7.3 G/DL 2228) ALBUMIN (test code = 2201) 4.6 G/DL CALC GLOBULIN (test code = 2.7 G/DL 2240) CALC A/G RATIO (test code = 1.7 RATIO 2234) BILIRUBIN, TOTAL (test code = 0.5 MG/DL 7) ALKALINE PHOSPHATASE (test 84 U/L code = 2204) AST (test code = 2218) 27 U/L ALT (test code = 2219) 19 U/L [id number] 00:00:00 Test Item Value Reference Range Interpretation Comments TSH, THIRD GENERATION (test code 1.670 UIU/ML = 2821) [id number] 00:00:00 Test Item Value Reference Range Interpretation Comments TSH, THIRD GENERATION (test code 1.670 UIU/ML = 2821) [id number] 00:00:00 Test Item Value Reference Range Interpretation Comments TSH, THIRD GENERATION (test code 1.670 UIU/ML = 2821) HEMOGLOBIN [id number] 00:00:00 Test Item Value Reference Range Interpretation Comments HEMOGLOBIN A1c (test code = 98514) 5.7 % HEMOGLOBIN [id number] 00:00:00 Test Item Value Reference Range Interpretation Comments HEMOGLOBIN A1c (test code = 11584) 5.7 % HEMOGLOBIN [id number] 00:00:00 Test Item Value Reference Range Interpretation Comments HEMOGLOBIN A1c (test code = 71676) 5.7 % CBC W/AUTO [id number] 00:00:00 Test Item Value Reference Range Interpretation Comments WBC (test code = 1001) 3.2 K/UL RBC (test code = 1002) 4.38 M/UL HEMOGLOBIN (test code = 1003) 12.6 G/DL HEMATOCRIT (test code = 1004) 37.9 % MCV (test code = 1005) 86.5 fL MCH (test code = 1006) 28.8 PG MCHC (test code = 1007) 33.2 G/DL RDW (test code = 1038) 13.5 % NEUTROPHILS (test code = 1008) 53.2 % LYMPHOCYTES (test code = 1010) 35.8 % MONOCYTES (test code = 1011) 7.6 % EOSINOPHILS (test code = 1012) 2.5 % BASOPHILS (test code = 1013) 0.6 % IMMATURE GRANULOCYTES (test 0.3 % code = 1036) NUCLEATED RBCS (test code = 0.0 /100WBC'S 1065) PLATELET COUNT (test code = 173 K/UL 1015) ABSOLUTE NEUTROPHILS (test code 1.68 K/UL = 1066) ABSOLUTE LYMPHOCYTES (test code 1.13 K/UL = 1067) ABSOLUTE MONOCYTES (test code = 0.24 K/UL 1068) ABSOLUTE EOSINOPHILS (test code 0.08 K/UL = 1040) ABSOLUTE BASOPHILS (test code = 0.02 K/UL 1069) ABS IMMATURE GRANULOCYTES (test 0.01 K/UL code = 1020) ABS NUCLEATED RBCS (test code = 0.00 K/UL 64904) CBC W/AUTO [id number] 00:00:00 Test Item Value Reference Range Interpretation Comments WBC (test code = 1001) 3.2 K/UL RBC (test code = 1002) 4.38 M/UL HEMOGLOBIN (test code = 1003) 12.6 G/DL HEMATOCRIT (test code = 1004) 37.9 % MCV (test code = 1005) 86.5 fL MCH (test code = 1006) 28.8 PG MCHC (test code = 1007) 33.2 G/DL RDW (test code = 1038) 13.5 % NEUTROPHILS (test code = 1008) 53.2 % LYMPHOCYTES (test code = 1010) 35.8 % MONOCYTES (test code = 1011) 7.6 % EOSINOPHILS (test code = 1012) 2.5 % BASOPHILS (test code = 1013) 0.6 % IMMATURE GRANULOCYTES (test 0.3 % code = 1036) NUCLEATED RBCS (test code = 0.0 /100WBC'S 1065) PLATELET COUNT (test code = 173 K/UL 1015) ABSOLUTE NEUTROPHILS (test code 1.68 K/UL = 1066) ABSOLUTE LYMPHOCYTES (test code 1.13 K/UL = 1067) ABSOLUTE MONOCYTES (test code = 0.24 K/UL 1068) ABSOLUTE EOSINOPHILS (test code 0.08 K/UL = 1040) ABSOLUTE BASOPHILS (test code = 0.02 K/UL 1069) ABS IMMATURE GRANULOCYTES (test 0.01 K/UL code = 1020) ABS NUCLEATED RBCS (test code = 0.00 K/UL 21699) CBC W/AUTO [id number] 00:00:00 Test Item Value Reference Range Interpretation Comments WBC (test code = 1001) 3.2 K/UL RBC (test code = 1002) 4.38 M/UL HEMOGLOBIN (test code = 1003) 12.6 G/DL HEMATOCRIT (test code = 1004) 37.9 % MCV (test code = 1005) 86.5 fL MCH (test code = 1006) 28.8 PG MCHC (test code = 1007) 33.2 G/DL RDW (test code = 1038) 13.5 % NEUTROPHILS (test code = 1008) 53.2 % LYMPHOCYTES (test code = 1010) 35.8 % MONOCYTES (test code = 1011) 7.6 % EOSINOPHILS (test code = 1012) 2.5 % BASOPHILS (test code = 1013) 0.6 % IMMATURE GRANULOCYTES (test 0.3 % code = 1036) NUCLEATED RBCS (test code = 0.0 /100WBC'S 1065) PLATELET COUNT (test code = 173 K/UL 1015) ABSOLUTE NEUTROPHILS (test code 1.68 K/UL = 1066) ABSOLUTE LYMPHOCYTES (test code 1.13 K/UL = 1067) ABSOLUTE MONOCYTES (test code = 0.24 K/UL 1068) ABSOLUTE EOSINOPHILS (test code 0.08 K/UL = 1040) ABSOLUTE BASOPHILS (test code = 0.02 K/UL 1069) ABS IMMATURE GRANULOCYTES (test 0.01 K/UL code = 1020) ABS NUCLEATED RBCS (test code = 0.00 K/UL 16160) COMPREHENSIVE METABOLIC [id number] 00:00:00 Test Item Value Reference Range Interpretation Comments GLUCOSE (test code = 2217) 94 MG/DL BUN (test code = 2208) 17 MG/DL CREATININE (test code = 2214) 0.73 MG/DL eGFR (2020 CKD-EPI) (test code 84 ML/MIN/1.73 = 86517) CALC BUN/CREAT (test code = 23 RATIO 2235) SODIUM (test code = 2231) 142 MEQ/L POTASSIUM (test code = 2228) 4.5 MEQ/L CHLORIDE (test code = 2215) 105 MEQ/L CARBON DIOXIDE (test code = 28 MEQ/L 2206) CALCIUM (test code = 2209) 9.2 MG/DL PROTEIN, TOTAL (test code = 7.3 G/DL 2228) ALBUMIN (test code = 2201) 4.6 G/DL CALC GLOBULIN (test code = 2.7 G/DL 2240) CALC A/G RATIO (test code = 1.7 RATIO 2234) BILIRUBIN, TOTAL (test code = 0.5 MG/DL 2206) ALKALINE PHOSPHATASE (test 84 U/L code = 2204) AST (test code = 2218) 27 U/L ALT (test code = 2219) 19 U/L COMPREHENSIVE METABOLIC [id number] 00:00:00 Test Item Value Reference Range Interpretation Comments GLUCOSE (test code = 2217) 94 MG/DL BUN (test code = 2208) 17 MG/DL CREATININE (test code = 2214) 0.73 MG/DL eGFR (2020 CKD-EPI) (test code 84 ML/MIN/1.73 = 46206) CALC BUN/CREAT (test code = 23 RATIO 2235) SODIUM (test code = 2231) 142 MEQ/L POTASSIUM (test code = 2228) 4.5 MEQ/L CHLORIDE (test code = 2215) 105 MEQ/L CARBON DIOXIDE (test code = 28 MEQ/L 2205) CALCIUM (test code = 2209) 9.2 MG/DL PROTEIN, TOTAL (test code = 7.3 G/DL 2228) ALBUMIN (test code = 2201) 4.6 G/DL CALC GLOBULIN (test code = 2.7 G/DL 0) CALC A/G RATIO (test code = 1.7 RATIO 2234) BILIRUBIN, TOTAL (test code = 0.5 MG/DL 2206) ALKALINE PHOSPHATASE (test 84 U/L code = 2204) AST (test code = 2218) 27 U/L ALT (test code = 2219) 19 U/L TSH, THIRD [id number] 06:51:27 Test Item Value Reference Range Interpretation Comments TSH, THIRD 1.930 UIU/ML 0.400-4.100 UNLESS OTHERWI SE GENERATION (test INDICATED, ALL TESTING code = 2821) PERFORMED [facility], [address] [place] [address] [facility] DIRECTOR: BEN FARFAN M.D. CLIA NUMBER [id number] CAP ACCREDITATION N O. [id number] COMPREHENSIVE METABOLIC [id number] 04:35:19 Test Item Value Reference Range Interpretation Comments GLUCOSE (test code = 93 MG/DL 70-99 2216) BUN (test code = 17 MG/DL -2207) CREATININE (test 0.67 MG/DL 0.60-1.30 code = 2214) eGFR (2020 CKD-EPI) 89 ML/MIN/1.73 >60 (test code = 25385) CALC BUN/CREAT (test 25 RATIO 6-28 code = 223) SODIUM (test code = 141 MEQ/L 373-267 9971) POTASSIUM (test code 4.2 MEQ/L 3.5-5.4 = 2227) CHLORIDE (test code 104 MEQ/L 95-107 = 2214) CARBON DIOXIDE (test 25 MEQ/L 19-31 code = 220) CALCIUM (test code = 9.2 MG/DL 8.5-10.5 2208) PROTEIN, TOTAL (test 7.5 G/DL 6.1-8.3 code = 222) ALBUMIN (test code = 4.6 G/DL 3.5-5.2 2200) CALC GLOBULIN (test 2.9 G/DL 1.9-3.7 code = 2239) CALC A/G RATIO (test 1.6 RATIO 1.0-2.6 code = 2233) BILIRUBIN, TOTAL 0.5 MG/DL See_Comment [Automated message] (test code = 2206) The [employer] which generated this result transmit sj reference range : <=1.2. The refe rence range was not u sed to interpret th is result as normal/abnormal . ALKALINE PHOSPHATASE 84 U/L 40-142 (test code = 2203) AST (test code = 22 U/L 9-40 2217) ALT (test code = 13 U/L 5-40 2218) COMPREHENSIVE METABOLIC [id number] 00:00:00 Test Item Value Reference Range Interpretation Comments GLUCOSE (test code = 2217) 93 MG/DL BUN (test code = 2208) 17 MG/DL CREATININE (test code = 2214) 0.67 MG/DL eGFR (2020 CKD-EPI) (test code 89 ML/MIN/1.73 = 31756) CALC BUN/CREAT (test code = 25 RATIO 2234) SODIUM (test code = 223) 141 MEQ/L POTASSIUM (test code = 2228) 4.2 MEQ/L CHLORIDE (test code = 2215) 104 MEQ/L CARBON DIOXIDE (test code = 25 MEQ/L 2205) CALCIUM (test code = 220) 9.2 MG/DL PROTEIN, TOTAL (test code = 7.5 G/DL 2228) ALBUMIN (test code = 2201) 4.6 G/DL CALC GLOBULIN (test code = 2.9 G/DL 2240) CALC A/G RATIO (test code = 1.6 RATIO 2234) BILIRUBIN, TOTAL (test code = 0.5 MG/DL 2206) ALKALINE PHOSPHATASE (test 84 U/L code = 2204) AST (test code = 2218) 22 U/L ALT (test code = 2219) 13 U/L COMPREHENSIVE METABOLIC [id number] 00:00:00 Test Item Value Reference Range Interpretation Comments GLUCOSE (test code = 2217) 93 MG/DL BUN (test code = 2208) 17 MG/DL CREATININE (test code = 2214) 0.67 MG/DL eGFR (2020 CKD-EPI) (test code 89 ML/MIN/1.73 = 37713) CALC BUN/CREAT (test code = 25 RATIO 2235) SODIUM (test code = 2231) 141 MEQ/L POTASSIUM (test code = 2228) 4.2 MEQ/L CHLORIDE (test code = 2215) 104 MEQ/L CARBON DIOXIDE (test code = 25 MEQ/L 2205) CALCIUM (test code = 2209) 9.2 MG/DL PROTEIN, TOTAL (test code = 7.5 G/DL 2228) ALBUMIN (test code = 2201) 4.6 G/DL CALC GLOBULIN (test code = 2.9 G/DL 2240) CALC A/G RATIO (test code = 1.6 RATIO 2234) BILIRUBIN, TOTAL (test code = 0.5 MG/DL 2206) ALKALINE PHOSPHATASE (test 84 U/L code = 2204) AST (test code = 2218) 22 U/L ALT (test code = 2219) 13 U/L [id number] 00:00:00 Test Item Value Reference Range Interpretation Comments TSH, THIRD GENERATION (test code 1.930 UIU/ML = 2821) COMPREHENSIVE METABOLIC [id number] 00:00:00 Test Item Value Reference Range Interpretation Comments GLUCOSE (test code = 2217) 93 MG/DL BUN (test code = 2208) 17 MG/DL CREATININE (test code = 2214) 0.67 MG/DL eGFR (2020 CKD-EPI) (test code 89 ML/MIN/1.73 = 68044) CALC BUN/CREAT (test code = 25 RATIO 2235) SODIUM (test code = 2231) 141 MEQ/L POTASSIUM (test code = 2228) 4.2 MEQ/L CHLORIDE (test code = 2215) 104 MEQ/L CARBON DIOXIDE (test code = 25 MEQ/L 2205) CALCIUM (test code = 2209) 9.2 MG/DL PROTEIN, TOTAL (test code = 7.5 G/DL 2228) ALBUMIN (test code = 2201) 4.6 G/DL CALC GLOBULIN (test code = 2.9 G/DL 2240) CALC A/G RATIO (test code = 1.6 RATIO 2234) BILIRUBIN, TOTAL (test code = 0.5 MG/DL 2206) ALKALINE PHOSPHATASE (test 84 U/L code = 2204) AST (test code = 2218) 22 U/L ALT (test code = 2219) 13 U/L [id number] 00:00:00 Test Item Value Reference Range Interpretation Comments TSH, THIRD GENERATION (test code 1.930 UIU/ML = 2821) [id number] 00:00:00 Test Item Value Reference Range Interpretation Comments TSH, THIRD GENERATION (test code 1.930 UIU/ML = 2821) COMPREHENSIVE METABOLIC [id number] 00:00:00 Test Item Value Reference Range Interpretation Comments GLUCOSE (test code = 2217) 93 MG/DL BUN (test code = 2208) 17 MG/DL CREATININE (test code = 2214) 0.67 MG/DL eGFR (2020 CKD-EPI) (test code 89 ML/MIN/1.73 = 53540) CALC BUN/CREAT (test code = 25 RATIO 2235) SODIUM (test code = 2231) 141 MEQ/L POTASSIUM (test code = 2228) 4.2 MEQ/L CHLORIDE (test code = 2215) 104 MEQ/L CARBON DIOXIDE (test code = 25 MEQ/L 2205) CALCIUM (test code = 2209) 9.2 MG/DL PROTEIN, TOTAL (test code = 7.5 G/DL 2228) ALBUMIN (test code = 2201) 4.6 G/DL CALC GLOBULIN (test code = 2.9 G/DL 2240) CALC A/G RATIO (test code = 1.6 RATIO 2234) BILIRUBIN, TOTAL (test code = 0.5 MG/DL 2206) ALKALINE PHOSPHATASE (test 84 U/L code = 2204) AST (test code = 2218) 22 U/L ALT (test code = 2219) 13 U/L [id number] 00:00:00 Test Item Value Reference Range Interpretation Comments TSH, THIRD GENERATION (test code 1.930 UIU/ML = 2821) [id number] 00:00:00 Test Item Value Reference Range Interpretation Comments TSH, THIRD GENERATION (test code 1.930 UIU/ML = 2821) COMPREHENSIVE METABOLIC [id number] 00:00:00 Test Item Value Reference Range Interpretation Comments GLUCOSE (test code = 2217) 93 MG/DL BUN (test code = 2208) 17 MG/DL CREATININE (test code = 2214) 0.67 MG/DL eGFR (2020 CKD-EPI) (test code 89 ML/MIN/1.73 = 77957) CALC BUN/CREAT (test code = 25 RATIO 2235) SODIUM (test code = 2231) 141 MEQ/L POTASSIUM (test code = 2228) 4.2 MEQ/L CHLORIDE (test code = 2215) 104 MEQ/L CARBON DIOXIDE (test code = 25 MEQ/L 6) CALCIUM (test code = 2209) 9.2 MG/DL PROTEIN, TOTAL (test code = 7.5 G/DL 2228) ALBUMIN (test code = 2201) 4.6 G/DL CALC GLOBULIN (test code = 2.9 G/DL 2240) CALC A/G RATIO (test code = 1.6 RATIO 2234) BILIRUBIN, TOTAL (test code = 0.5 MG/DL 2206) ALKALINE PHOSPHATASE (test 84 U/L code = 2204) AST (test code = 2218) 22 U/L ALT (test code = 2219) 13 U/L COMPREHENSIVE METABOLIC [id number] 00:00:00 Test Item Value Reference Range Interpretation Comments GLUCOSE (test code = 2217) 93 MG/DL BUN (test code = 2208) 17 MG/DL CREATININE (test code = 2214) 0.67 MG/DL eGFR (2020 CKD-EPI) (test code 89 ML/MIN/1.73 = 84989) CALC BUN/CREAT (test code = 25 RATIO 2235) SODIUM (test code = 2231) 141 MEQ/L POTASSIUM (test code = 2228) 4.2 MEQ/L CHLORIDE (test code = 2215) 104 MEQ/L CARBON DIOXIDE (test code = 25 MEQ/L 2205) CALCIUM (test code = 2209) 9.2 MG/DL PROTEIN, TOTAL (test code = 7.5 G/DL 2228) ALBUMIN (test code = 2201) 4.6 G/DL CALC GLOBULIN (test code = 2.9 G/DL 2239) CALC A/G RATIO (test code = 1.6 RATIO 2233) BILIRUBIN, TOTAL (test code = 0.5 MG/DL 2206) ALKALINE PHOSPHATASE (test 84 U/L code = 2204) AST (test code = 2218) 22 U/L ALT (test code = 2219) 13 U/L [id number] 00:00:00 Test Item Value Reference Range Interpretation Comments TSH, THIRD GENERATION (test code 1.930 UIU/ML = 2821) [id number] 00:00:00 Test Item Value Reference Range Interpretation Comments TSH, THIRD GENERATION (test code 1.930 UIU/ML = 2821) [id number] 00:00:00 Test Item Value Reference Range Interpretation Comments TSH, THIRD GENERATION (test code 1.930 UIU/ML = 2821) [id number] 00:00:00 Test Item Value Reference Range Interpretation Comments TSH, THIRD GENERATION (test code 1.930 UIU/ML = 2821) COMPREHENSIVE METABOLIC [id number] 00:00:00 Test Item Value Reference Range Interpretation Comments GLUCOSE (test code = 2217) 93 MG/DL BUN (test code = 2208) 17 MG/DL CREATININE (test code = 2214) 0.67 MG/DL eGFR (2020 CKD-EPI) (test code 89 ML/MIN/1.73 = 90780) CALC BUN/CREAT (test code = 25 RATIO 2234) SODIUM (test code = 2231) 141 MEQ/L POTASSIUM (test code = 2228) 4.2 MEQ/L CHLORIDE (test code = 2215) 104 MEQ/L CARBON DIOXIDE (test code = 25 MEQ/L 2205) CALCIUM (test code = 2209) 9.2 MG/DL PROTEIN, TOTAL (test code = 7.5 G/DL 2229) ALBUMIN (test code = 2201) 4.6 G/DL CALC GLOBULIN (test code = 2.9 G/DL 2240) CALC A/G RATIO (test code = 1.6 RATIO 2234) BILIRUBIN, TOTAL (test code = 0.5 MG/DL 2206) ALKALINE PHOSPHATASE (test 84 U/L code = 2204) AST (test code = 2218) 22 U/L ALT (test code = 2219) 13 U/L COMPREHENSIVE METABOLIC [id number] 00:00:00 Test Item Value Reference Range Interpretation Comments GLUCOSE (test code = 2217) 93 MG/DL BUN (test code = 2208) 17 MG/DL CREATININE (test code = 2214) 0.67 MG/DL eGFR (2020 CKD-EPI) (test code 89 ML/MIN/1.73 = 28595) CALC BUN/CREAT (test code = 25 RATIO 2235) SODIUM (test code = 2231) 141 MEQ/L POTASSIUM (test code = 2228) 4.2 MEQ/L CHLORIDE (test code = 2215) 104 MEQ/L CARBON DIOXIDE (test code = 25 MEQ/L 2205) CALCIUM (test code = 2209) 9.2 MG/DL PROTEIN, TOTAL (test code = 7.5 G/DL 2228) ALBUMIN (test code = 2201) 4.6 G/DL CALC GLOBULIN (test code = 2.9 G/DL 2240) CALC A/G RATIO (test code = 1.6 RATIO 2234) BILIRUBIN, TOTAL (test code = 0.5 MG/DL 2206) ALKALINE PHOSPHATASE (test 84 U/L code = 2204) AST (test code = 2218) 22 U/L ALT (test code = 2219) 13 U/L [id number] 00:00:00 Test Item Value Reference Range Interpretation Comments TSH, THIRD GENERATION (test code 1.930 UIU/ML = 2821) [id number] 00:00:00 Test Item Value Reference Range Interpretation Comments TSH, THIRD GENERATION (test code 1.930 UIU/ML = 2821) [id number] 00:00:00 Test Item Value Reference Range Interpretation Comments TSH, THIRD GENERATION (test code 1.930 UIU/ML = 2821) COMPREHENSIVE METABOLIC [id number] 00:00:00 Test Item Value Reference Range Interpretation Comments GLUCOSE (test code = 2217) 93 MG/DL BUN (test code = 2208) 17 MG/DL CREATININE (test code = 2214) 0.67 MG/DL eGFR (2020 CKD-EPI) (test code 89 ML/MIN/1.73 = 51581) CALC BUN/CREAT (test code = 25 RATIO 2235) SODIUM (test code = 2231) 141 MEQ/L POTASSIUM (test code = 2228) 4.2 MEQ/L CHLORIDE (test code = 2215) 104 MEQ/L CARBON DIOXIDE (test code = 25 MEQ/L 2205) CALCIUM (test code = 2209) 9.2 MG/DL PROTEIN, TOTAL (test code = 7.5 G/DL 2228) ALBUMIN (test code = 2201) 4.6 G/DL CALC GLOBULIN (test code = 2.9 G/DL 2240) CALC A/G RATIO (test code = 1.6 RATIO 2234) BILIRUBIN, TOTAL (test code = 0.5 MG/DL 2206) ALKALINE PHOSPHATASE (test 84 U/L code = 2204) AST (test code = 2218) 22 U/L ALT (test code = 2219) 13 U/L COMPREHENSIVE METABOLIC [id number] 00:00:00 Test Item Value Reference Range Interpretation Comments GLUCOSE (test code = 2217) 93 MG/DL BUN (test code = 2208) 17 MG/DL CREATININE (test code = 2214) 0.67 MG/DL eGFR (2020 CKD-EPI) (test code 89 ML/MIN/1.73 = 48982) CALC BUN/CREAT (test code = 25 RATIO 2235) SODIUM (test code = 2231) 141 MEQ/L POTASSIUM (test code = 2228) 4.2 MEQ/L CHLORIDE (test code = 2215) 104 MEQ/L CARBON DIOXIDE (test code = 25 MEQ/L 2205) CALCIUM (test code = 2209) 9.2 MG/DL PROTEIN, TOTAL (test code = 7.5 G/DL 2228) ALBUMIN (test code = 2201) 4.6 G/DL CALC GLOBULIN (test code = 2.9 G/DL 2240) CALC A/G RATIO (test code = 1.6 RATIO 2234) BILIRUBIN, TOTAL (test code = 0.5 MG/DL 2207) ALKALINE PHOSPHATASE (test 84 U/L code = 2204) AST (test code = 2218) 22 U/L ALT (test code = 2219) 13 U/L [id number] 00:00:00 Test Item Value Reference Range Interpretation Comments TSH, THIRD GENERATION (test code 1.930 UIU/ML = 2821) [id number] 00:00:00 Test Item Value Reference Range Interpretation Comments TSH, THIRD GENERATION (test code 1.930 UIU/ML = 2821) [id number] 00:00:00 Test Item Value Reference Range Interpretation Comments TSH, THIRD GENERATION (test code 1.930 UIU/ML = 2821) COMPREHENSIVE METABOLIC [id number] 00:00:00 Test Item Value Reference Range Interpretation Comments GLUCOSE (test code = 2217) 93 MG/DL BUN (test code = 2208) 17 MG/DL CREATININE (test code = 2214) 0.67 MG/DL eGFR (2020 CKD-EPI) (test code 89 ML/MIN/1.73 = 78649) CALC BUN/CREAT (test code = 25 RATIO 2235) SODIUM (test code = 2231) 141 MEQ/L POTASSIUM (test code = 2228) 4.2 MEQ/L CHLORIDE (test code = 2215) 104 MEQ/L CARBON DIOXIDE (test code = 25 MEQ/L 2205) CALCIUM (test code = 2209) 9.2 MG/DL PROTEIN, TOTAL (test code = 7.5 G/DL 222) ALBUMIN (test code = 2201) 4.6 G/DL CALC GLOBULIN (test code = 2.9 G/DL 2240) CALC A/G RATIO (test code = 1.6 RATIO 2234) BILIRUBIN, TOTAL (test code = 0.5 MG/DL 220) ALKALINE PHOSPHATASE (test 84 U/L code = 2204) AST (test code = 2218) 22 U/L ALT (test code = 2219) 13 U/L COMPREHENSIVE METABOLIC [id number] 00:00:00 Test Item Value Reference Range Interpretation Comments GLUCOSE (test code = 2217) 93 MG/DL BUN (test code = 2208) 17 MG/DL CREATININE (test code = 2214) 0.67 MG/DL eGFR (2020 CKD-EPI) (test code 89 ML/MIN/1.73 = 63057) CALC BUN/CREAT (test code = 25 RATIO 2235) SODIUM (test code = 2231) 141 MEQ/L POTASSIUM (test code = 2228) 4.2 MEQ/L CHLORIDE (test code = 2215) 104 MEQ/L CARBON DIOXIDE (test code = 25 MEQ/L 2205) CALCIUM (test code = 2209) 9.2 MG/DL PROTEIN, TOTAL (test code = 7.5 G/DL 2228) ALBUMIN (test code = 2201) 4.6 G/DL CALC GLOBULIN (test code = 2.9 G/DL 2239) CALC A/G RATIO (test code = 1.6 RATIO 4) BILIRUBIN, TOTAL (test code = 0.5 MG/DL 2206) ALKALINE PHOSPHATASE (test 84 U/L code = 2204) AST (test code = 2218) 22 U/L ALT (test code = 2219) 13 U/L [id number] 00:00:00 Test Item Value Reference Range Interpretation Comments TSH, THIRD GENERATION (test code 1.930 UIU/ML = 2821) [id number] 00:00:00 Test Item Value Reference Range Interpretation Comments TSH, THIRD GENERATION (test code 1.930 UIU/ML = 2821) [id number] 00:00:00 Test Item Value Reference Range Interpretation Comments TSH, THIRD GENERATION (test code 1.930 UIU/ML = 2821) LIPID [id number] 00:00:00 Test Item Value Reference Range Interpretation Comments CHOLESTEROL (test code = 2210) 178 MG/DL TRIGLYCERIDES (test code = 2232) 81 MG/DL HDL CHOLESTEROL (test code = 2220) 65 MG/DL CALC LDL CHOL (test code = 2237) 96 MG/DL RISK RATIO LDL/HDL (test code = 1.48 RATIO 2238) LIPID [id number] 00:00:00 Test Item Value Reference Range Interpretation Comments CHOLESTEROL (test code = 2210) 178 MG/DL TRIGLYCERIDES (test code = 2232) 81 MG/DL HDL CHOLESTEROL (test code = 2220) 65 MG/DL CALC LDL CHOL (test code = 2237) 96 MG/DL RISK RATIO LDL/HDL (test code = 1.48 RATIO 2238) LIPID [id number] 00:00:00 Test Item Value Reference Range Interpretation Comments CHOLESTEROL (test code = 2210) 178 MG/DL TRIGLYCERIDES (test code = 2232) 81 MG/DL HDL CHOLESTEROL (test code = 2220) 65 MG/DL CALC LDL CHOL (test code = 2237) 96 MG/DL RISK RATIO LDL/HDL (test code = 1.48 RATIO 2238) LIPID [id number] 00:00:00 Test Item Value Reference Range Interpretation Comments CHOLESTEROL (test code = 2210) 178 MG/DL TRIGLYCERIDES (test code = 2232) 81 MG/DL HDL CHOLESTEROL (test code = 2220) 65 MG/DL CALC LDL CHOL (test code = 2237) 96 MG/DL RISK RATIO LDL/HDL (test code = 1.48 RATIO 2238) LIPID [id number] 00:00:00 Test Item Value Reference Range Interpretation Comments CHOLESTEROL (test code = 2210) 178 MG/DL TRIGLYCERIDES (test code = 2232) 81 MG/DL HDL CHOLESTEROL (test code = 2220) 65 MG/DL CALC LDL CHOL (test code = 2237) 96 MG/DL RISK RATIO LDL/HDL (test code = 1.48 RATIO 2238) LIPID [id number] 00:00:00 Test Item Value Reference Range Interpretation Comments CHOLESTEROL (test code = 2210) 178 MG/DL TRIGLYCERIDES (test code = 2232) 81 MG/DL HDL CHOLESTEROL (test code = 2220) 65 MG/DL CALC LDL CHOL (test code = 2237) 96 MG/DL RISK RATIO LDL/HDL (test code = 1.48 RATIO 2238) LIPID [id number] 00:00:00 Test Item Value Reference Range Interpretation Comments CHOLESTEROL (test code = 2210) 178 MG/DL TRIGLYCERIDES (test code = 2232) 81 MG/DL HDL CHOLESTEROL (test code = 2220) 65 MG/DL CALC LDL CHOL (test code = 2237) 96 MG/DL RISK RATIO LDL/HDL (test code = 1.48 RATIO 2238) LIPID [id number] 00:00:00 Test Item Value Reference Range Interpretation Comments CHOLESTEROL (test code = 2210) 178 MG/DL TRIGLYCERIDES (test code = 2232) 81 MG/DL HDL CHOLESTEROL (test code = 2220) 65 MG/DL CALC LDL CHOL (test code = 2237) 96 MG/DL RISK RATIO LDL/HDL (test code = 1.48 RATIO 2238) LIPID [id number] 00:00:00 Test Item Value Reference Range Interpretation Comments CHOLESTEROL (test code = 2210) 178 MG/DL TRIGLYCERIDES (test code = 2232) 81 MG/DL HDL CHOLESTEROL (test code = 2220) 65 MG/DL CALC LDL CHOL (test code = 2237) 96 MG/DL RISK RATIO LDL/HDL (test code = 1.48 RATIO 2238) LIPID [id number] 00:00:00 Test Item Value Reference Range Interpretation Comments CHOLESTEROL (test code = 2210) 178 MG/DL TRIGLYCERIDES (test code = 2232) 81 MG/DL HDL CHOLESTEROL (test code = 2220) 65 MG/DL CALC LDL CHOL (test code = 2237) 96 MG/DL RISK RATIO LDL/HDL (test code = 1.48 RATIO 2238) LIPID [id number] 00:00:00 Test Item Value Reference Range Interpretation Comments CHOLESTEROL (test code = 2210) 178 MG/DL TRIGLYCERIDES (test code = 2232) 81 MG/DL HDL CHOLESTEROL (test code = 2220) 65 MG/DL CALC LDL CHOL (test code = 2237) 96 MG/DL RISK RATIO LDL/HDL (test code = 1.48 RATIO 2238) LIPID [id number] 00:00:00 Test Item Value Reference Range Interpretation Comments CHOLESTEROL (test code = 2210) 178 MG/DL TRIGLYCERIDES (test code = 2232) 81 MG/DL HDL CHOLESTEROL (test code = 2220) 65 MG/DL CALC LDL CHOL (test code = 2237) 96 MG/DL RISK RATIO LDL/HDL (test code = 1.48 RATIO 2238) HEMOGLOBIN [id number] 00:00:00 Test Item Value Reference Range Interpretation Comments HEMOGLOBIN A1c (test code = 48909) 5.6 % HEMOGLOBIN [id number] 00:00:00 Test Item Value Reference Range Interpretation Comments HEMOGLOBIN A1c (test code = 35536) 5.6 % HEMOGLOBIN [id number] 00:00:00 Test Item Value Reference Range Interpretation Comments HEMOGLOBIN A1c (test code = 39323) 5.6 % HEMOGLOBIN [id number] 00:00:00 Test Item Value Reference Range Interpretation Comments HEMOGLOBIN A1c (test code = 77475) 5.6 % [id number] 00:00:00 Test Item Value Reference Range Interpretation Comments TSH, THIRD GENERATION (test code 1.460 UIU/ML = 2821) [id number] 00:00:00 Test Item Value Reference Range Interpretation Comments TSH, THIRD GENERATION (test code 1.460 UIU/ML = 2821) [id number] 00:00:00 Test Item Value Reference Range Interpretation Comments TSH, THIRD GENERATION (test code 1.460 UIU/ML = 2821) HEMOGLOBIN [id number] 00:00:00 Test Item Value Reference Range Interpretation Comments HEMOGLOBIN A1c (test code = 60704) 5.6 % LIPID [id number] 00:00:00 Test Item Value Reference Range Interpretation Comments CHOLESTEROL (test code = 2210) 160 MG/DL TRIGLYCERIDES (test code = 2232) 49 MG/DL HDL CHOLESTEROL (test code = 2220) 65 MG/DL CALC LDL CHOL (test code = 2237) 81 MG/DL RISK RATIO LDL/HDL (test code = 1.25 RATIO 2238) LIPID [id number] 00:00:00 Test Item Value Reference Range Interpretation Comments CHOLESTEROL (test code = 2210) 160 MG/DL TRIGLYCERIDES (test code = 2232) 49 MG/DL HDL CHOLESTEROL (test code = 2220) 65 MG/DL CALC LDL CHOL (test code = 2237) 81 MG/DL RISK RATIO LDL/HDL (test code = 1.25 RATIO 2238) CBC W/AUTO [id number] 00:00:00 Test Item Value Reference Range Interpretation Comments WBC (test code = 1001) 2.5 K/UL RBC (test code = 1002) 4.18 M/UL HEMOGLOBIN (test code = 1003) 12.6 G/DL HEMATOCRIT (test code = 1004) 36.9 % MCV (test code = 1005) 88.3 fL MCH (test code = 1006) 30.1 PG MCHC (test code = 1007) 34.1 G/DL RDW (test code = 1038) 12.9 % NEUTROPHILS (test code = 1008) 53.5 % LYMPHOCYTES (test code = 1010) 35.2 % MONOCYTES (test code = 1011) 8.5 % EOSINOPHILS (test code = 1012) 2.0 % BASOPHILS (test code = 1013) 0.8 % PLATELET COUNT (test code = 1015) 168 K/UL CBC W/AUTO [id number] 00:00:00 Test Item Value Reference Range Interpretation Comments WBC (test code = 1001) 2.5 K/UL RBC (test code = 1002) 4.18 M/UL HEMOGLOBIN (test code = 1003) 12.6 G/DL HEMATOCRIT (test code = 1004) 36.9 % MCV (test code = 1005) 88.3 fL MCH (test code = 1006) 30.1 PG MCHC (test code = 1007) 34.1 G/DL RDW (test code = 1038) 12.9 % NEUTROPHILS (test code = 1008) 53.5 % LYMPHOCYTES (test code = 1010) 35.2 % MONOCYTES (test code = 1011) 8.5 % EOSINOPHILS (test code = 1012) 2.0 % BASOPHILS (test code = 1013) 0.8 % PLATELET COUNT (test code = 1015) 168 K/UL CBC W/AUTO [id number] 00:00:00 Test Item Value Reference Range Interpretation Comments WBC (test code = 1001) 2.5 K/UL RBC (test code = 1002) 4.18 M/UL HEMOGLOBIN (test code = 1003) 12.6 G/DL HEMATOCRIT (test code = 1004) 36.9 % MCV (test code = 1005) 88.3 fL MCH (test code = 1006) 30.1 PG MCHC (test code = 1007) 34.1 G/DL RDW (test code = 1038) 12.9 % NEUTROPHILS (test code = 1008) 53.5 % LYMPHOCYTES (test code = 1010) 35.2 % MONOCYTES (test code = 1011) 8.5 % EOSINOPHILS (test code = 1012) 2.0 % BASOPHILS (test code = 1013) 0.8 % PLATELET COUNT (test code = 1015) 168 K/UL COMPREHENSIVE METABOLIC [id number] 00:00:00 Test Item Value Reference Range Interpretation Comments GLUCOSE (test code = 2217) 93 MG/DL BUN (test code = 2208) 18 MG/DL CREATININE (test code = 2214) 0.75 MG/DL eGFR AMER. (test code 89 ML/MIN/1.73 = 74180) eGFR NON- AMER. (test 77 ML/MIN/1.73 code = 04605) CALC BUN/CREAT (test code = 24 RATIO 2235) SODIUM (test code = 2231) 144 MEQ/L POTASSIUM (test code = 2228) 4.4 MEQ/L CHLORIDE (test code = 2215) 105 MEQ/L CARBON DIOXIDE (test code = 29 MEQ/L 2206) CALCIUM (test code = 2209) 9.7 MG/DL PROTEIN, TOTAL (test code = 7.3 G/DL 222) ALBUMIN (test code = 2201) 4.3 G/DL CALC GLOBULIN (test code = 3.0 G/DL 2240) CALC A/G RATIO (test code = 1.4 RATIO 2234) BILIRUBIN, TOTAL (test code = 0.7 MG/DL 2206) ALKALINE PHOSPHATASE (test 70 U/L code = 220) AST (test code = 2218) 19 U/L ALT (test code = 2219) 14 U/L COMPREHENSIVE METABOLIC [id number] 00:00:00 Test Item Value Reference Range Interpretation Comments GLUCOSE (test code = 2217) 93 MG/DL BUN (test code = 2208) 18 MG/DL CREATININE (test code = 2214) 0.75 MG/DL eGFR AMER. (test code 89 ML/MIN/1.73 = 71331) eGFR NON- AMER. (test 77 ML/MIN/1.73 code = 11538) CALC BUN/CREAT (test code = 24 RATIO 2235) SODIUM (test code = 2231) 144 MEQ/L POTASSIUM (test code = 2228) 4.4 MEQ/L CHLORIDE (test code = 2215) 105 MEQ/L CARBON DIOXIDE (test code = 29 MEQ/L 2205) CALCIUM (test code = 2209) 9.7 MG/DL PROTEIN, TOTAL (test code = 7.3 G/DL 2228) ALBUMIN (test code = 2201) 4.3 G/DL CALC GLOBULIN (test code = 3.0 G/DL 2240) CALC A/G RATIO (test code = 1.4 RATIO 2234) BILIRUBIN, TOTAL (test code = 0.7 MG/DL 2206) ALKALINE PHOSPHATASE (test 70 U/L code = 2204) AST (test code = 2218) 19 U/L ALT (test code = 2219) 14 U/L HEMOGLOBIN [id number] 00:00:00 Test Item Value Reference Range Interpretation Comments HEMOGLOBIN A1c (test code = 96862) 5.6 % HEMOGLOBIN [id number] 00:00:00 Test Item Value Reference Range Interpretation Comments HEMOGLOBIN A1c (test code = 26729) 5.6 % HEMOGLOBIN [id number] 00:00:00 Test Item Value Reference Range Interpretation Comments HEMOGLOBIN A1c (test code = 61616) 5.6 % HEMOGLOBIN [id number] 00:00:00 Test Item Value Reference Range Interpretation Comments HEMOGLOBIN A1c (test code = 59665) 5.6 % [id number] 00:00:00 Test Item Value Reference Range Interpretation Comments TSH, THIRD GENERATION (test code 1.460 UIU/ML = 2821) [id number] 00:00:00 Test Item Value Reference Range Interpretation Comments TSH, THIRD GENERATION (test code 1.460 UIU/ML = 2821) [id number] 00:00:00 Test Item Value Reference Range Interpretation Comments TSH, THIRD GENERATION (test code 1.460 UIU/ML = 2821) [id number] 00:00:00 Test Item Value Reference Range Interpretation Comments TSH, THIRD GENERATION (test code 1.460 UIU/ML = 2821) LIPID [id number] 00:00:00 Test Item Value Reference Range Interpretation Comments CHOLESTEROL (test code = 2210) 160 MG/DL TRIGLYCERIDES (test code = 2232) 49 MG/DL HDL CHOLESTEROL (test code = 2220) 65 MG/DL CALC LDL CHOL (test code = 2237) 81 MG/DL RISK RATIO LDL/HDL (test code = 1.25 RATIO 2238) LIPID [id number] 00:00:00 Test Item Value Reference Range Interpretation Comments CHOLESTEROL (test code = 2210) 160 MG/DL TRIGLYCERIDES (test code = 2232) 49 MG/DL HDL CHOLESTEROL (test code = 2220) 65 MG/DL CALC LDL CHOL (test code = 2237) 81 MG/DL RISK RATIO LDL/HDL (test code = 1.25 RATIO 2238) CBC W/AUTO [id number] 00:00:00 Test Item Value Reference Range Interpretation Comments WBC (test code = 1001) 2.5 K/UL RBC (test code = 1002) 4.18 M/UL HEMOGLOBIN (test code = 1003) 12.6 G/DL HEMATOCRIT (test code = 1004) 36.9 % MCV (test code = 1005) 88.3 fL MCH (test code = 1006) 30.1 PG MCHC (test code = 1007) 34.1 G/DL RDW (test code = 1038) 12.9 % NEUTROPHILS (test code = 1008) 53.5 % LYMPHOCYTES (test code = 1010) 35.2 % MONOCYTES (test code = 1011) 8.5 % EOSINOPHILS (test code = 1012) 2.0 % BASOPHILS (test code = 1013) 0.8 % PLATELET COUNT (test code = 1015) 168 K/UL CBC W/AUTO [id number] 00:00:00 Test Item Value Reference Range Interpretation Comments WBC (test code = 1001) 2.5 K/UL RBC (test code = 1002) 4.18 M/UL HEMOGLOBIN (test code = 1003) 12.6 G/DL HEMATOCRIT (test code = 1004) 36.9 % MCV (test code = 1005) 88.3 fL MCH (test code = 1006) 30.1 PG MCHC (test code = 1007) 34.1 G/DL RDW (test code = 1038) 12.9 % NEUTROPHILS (test code = 1008) 53.5 % LYMPHOCYTES (test code = 1010) 35.2 % MONOCYTES (test code = 1011) 8.5 % EOSINOPHILS (test code = 1012) 2.0 % BASOPHILS (test code = 1013) 0.8 % PLATELET COUNT (test code = 1015) 168 K/UL CBC W/AUTO [id number] 00:00:00 Test Item Value Reference Range Interpretation Comments WBC (test code = 1001) 2.5 K/UL RBC (test code = 1002) 4.18 M/UL HEMOGLOBIN (test code = 1003) 12.6 G/DL HEMATOCRIT (test code = 1004) 36.9 % MCV (test code = 1005) 88.3 fL MCH (test code = 1006) 30.1 PG MCHC (test code = 1007) 34.1 G/DL RDW (test code = 1038) 12.9 % NEUTROPHILS (test code = 1008) 53.5 % LYMPHOCYTES (test code = 1010) 35.2 % MONOCYTES (test code = 1011) 8.5 % EOSINOPHILS (test code = 1012) 2.0 % BASOPHILS (test code = 1013) 0.8 % PLATELET COUNT (test code = 1015) 168 K/UL COMPREHENSIVE METABOLIC [id number] 00:00:00 Test Item Value Reference Range Interpretation Comments GLUCOSE (test code = 2217) 93 MG/DL BUN (test code = 2208) 18 MG/DL CREATININE (test code = 2214) 0.75 MG/DL eGFR AMER. (test code 89 ML/MIN/1.73 = 83037) eGFR NON- AMER. (test 77 ML/MIN/1.73 code = 67569) CALC BUN/CREAT (test code = 24 RATIO 2235) SODIUM (test code = 2231) 144 MEQ/L POTASSIUM (test code = 2228) 4.4 MEQ/L CHLORIDE (test code = 2215) 105 MEQ/L CARBON DIOXIDE (test code = 29 MEQ/L 220) CALCIUM (test code = 2209) 9.7 MG/DL PROTEIN, TOTAL (test code = 7.3 G/DL 2228) ALBUMIN (test code = 2201) 4.3 G/DL CALC GLOBULIN (test code = 3.0 G/DL 0) CALC A/G RATIO (test code = 1.4 RATIO 4) BILIRUBIN, TOTAL (test code = 0.7 MG/DL 2206) ALKALINE PHOSPHATASE (test 70 U/L code = 2204) AST (test code = 2218) 19 U/L ALT (test code = 2219) 14 U/L COMPREHENSIVE METABOLIC [id number] 00:00:00 Test Item Value Reference Range Interpretation Comments GLUCOSE (test code = 2217) 93 MG/DL BUN (test code = 2208) 18 MG/DL CREATININE (test code = 2214) 0.75 MG/DL eGFR AMER. (test code 89 ML/MIN/1.73 = 62712) eGFR NON- AMER. (test 77 ML/MIN/1.73 code = 56538) CALC BUN/CREAT (test code = 24 RATIO 2235) SODIUM (test code = 2231) 144 MEQ/L POTASSIUM (test code = 2228) 4.4 MEQ/L CHLORIDE (test code = 2215) 105 MEQ/L CARBON DIOXIDE (test code = 29 MEQ/L 2206) CALCIUM (test code = 2209) 9.7 MG/DL PROTEIN, TOTAL (test code = 7.3 G/DL 2228) ALBUMIN (test code = 2201) 4.3 G/DL CALC GLOBULIN (test code = 3.0 G/DL 0) CALC A/G RATIO (test code = 1.4 RATIO 2234) BILIRUBIN, TOTAL (test code = 0.7 MG/DL 2206) ALKALINE PHOSPHATASE (test 70 U/L code = 2204) AST (test code = 2218) 19 U/L ALT (test code = 2219) 14 U/L [id number] 00:00:00 Test Item Value Reference Range Interpretation Comments TSH, THIRD GENERATION (test code 1.460 UIU/ML = 2821) [id number] 00:00:00 Test Item Value Reference Range Interpretation Comments TSH, THIRD GENERATION (test code 1.460 UIU/ML = 2821) LIPID [id number] 00:00:00 Test Item Value Reference Range Interpretation Comments CHOLESTEROL (test code = 2210) 160 MG/DL TRIGLYCERIDES (test code = 2232) 49 MG/DL HDL CHOLESTEROL (test code = 2220) 65 MG/DL CALC LDL CHOL (test code = 2237) 81 MG/DL RISK RATIO LDL/HDL (test code = 1.25 RATIO 2238) LIPID [id number] 00:00:00 Test Item Value Reference Range Interpretation Comments CHOLESTEROL (test code = 2210) 160 MG/DL TRIGLYCERIDES (test code = 2232) 49 MG/DL HDL CHOLESTEROL (test code = 2220) 65 MG/DL CALC LDL CHOL (test code = 2237) 81 MG/DL RISK RATIO LDL/HDL (test code = 1.25 RATIO 2238) CBC W/AUTO [id number] 00:00:00 Test Item Value Reference Range Interpretation Comments WBC (test code = 1001) 2.5 K/UL RBC (test code = 1002) 4.18 M/UL HEMOGLOBIN (test code = 1003) 12.6 G/DL HEMATOCRIT (test code = 1004) 36.9 % MCV (test code = 1005) 88.3 fL MCH (test code = 1006) 30.1 PG MCHC (test code = 1007) 34.1 G/DL RDW (test code = 1038) 12.9 % NEUTROPHILS (test code = 1008) 53.5 % LYMPHOCYTES (test code = 1010) 35.2 % MONOCYTES (test code = 1011) 8.5 % EOSINOPHILS (test code = 1012) 2.0 % BASOPHILS (test code = 1013) 0.8 % PLATELET COUNT (test code = 1015) 168 K/UL CBC W/AUTO [id number] 00:00:00 Test Item Value Reference Range Interpretation Comments WBC (test code = 1001) 2.5 K/UL RBC (test code = 1002) 4.18 M/UL HEMOGLOBIN (test code = 1003) 12.6 G/DL HEMATOCRIT (test code = 1004) 36.9 % MCV (test code = 1005) 88.3 fL MCH (test code = 1006) 30.1 PG MCHC (test code = 1007) 34.1 G/DL RDW (test code = 1038) 12.9 % NEUTROPHILS (test code = 1008) 53.5 % LYMPHOCYTES (test code = 1010) 35.2 % MONOCYTES (test code = 1011) 8.5 % EOSINOPHILS (test code = 1012) 2.0 % BASOPHILS (test code = 1013) 0.8 % PLATELET COUNT (test code = 1015) 168 K/UL CBC W/AUTO [id number] 00:00:00 Test Item Value Reference Range Interpretation Comments WBC (test code = 1001) 2.5 K/UL RBC (test code = 1002) 4.18 M/UL HEMOGLOBIN (test code = 1003) 12.6 G/DL HEMATOCRIT (test code = 1004) 36.9 % MCV (test code = 1005) 88.3 fL MCH (test code = 1006) 30.1 PG MCHC (test code = 1007) 34.1 G/DL RDW (test code = 1038) 12.9 % NEUTROPHILS (test code = 1008) 53.5 % LYMPHOCYTES (test code = 1010) 35.2 % MONOCYTES (test code = 1011) 8.5 % EOSINOPHILS (test code = 1012) 2.0 % BASOPHILS (test code = 1013) 0.8 % PLATELET COUNT (test code = 1015) 168 K/UL COMPREHENSIVE METABOLIC [id number] 00:00:00 Test Item Value Reference Range Interpretation Comments GLUCOSE (test code = 2217) 93 MG/DL BUN (test code = 2208) 18 MG/DL CREATININE (test code = 2214) 0.75 MG/DL eGFR AMER. (test code 89 ML/MIN/1.73 = 47125) eGFR NON- AMER. (test 77 ML/MIN/1.73 code = 51593) CALC BUN/CREAT (test code = 24 RATIO 2235) SODIUM (test code = 2231) 144 MEQ/L POTASSIUM (test code = 2228) 4.4 MEQ/L CHLORIDE (test code = 2215) 105 MEQ/L CARBON DIOXIDE (test code = 29 MEQ/L 220) CALCIUM (test code = 2209) 9.7 MG/DL PROTEIN, TOTAL (test code = 7.3 G/DL 2228) ALBUMIN (test code = 2201) 4.3 G/DL CALC GLOBULIN (test code = 3.0 G/DL 2240) CALC A/G RATIO (test code = 1.4 RATIO 2234) BILIRUBIN, TOTAL (test code = 0.7 MG/DL 2206) ALKALINE PHOSPHATASE (test 70 U/L code = 2204) AST (test code = 2218) 19 U/L ALT (test code = 2219) 14 U/L COMPREHENSIVE METABOLIC [id number] 00:00:00 Test Item Value Reference Range Interpretation Comments GLUCOSE (test code = 2217) 93 MG/DL BUN (test code = 2208) 18 MG/DL CREATININE (test code = 2214) 0.75 MG/DL eGFR AMER. (test code 89 ML/MIN/1.73 = 57792) eGFR NON- AMER. (test 77 ML/MIN/1.73 code = 87894) CALC BUN/CREAT (test code = 24 RATIO 2235) SODIUM (test code = 2231) 144 MEQ/L POTASSIUM (test code = 2228) 4.4 MEQ/L CHLORIDE (test code = 2215) 105 MEQ/L CARBON DIOXIDE (test code = 29 MEQ/L 2206) CALCIUM (test code = 2209) 9.7 MG/DL PROTEIN, TOTAL (test code = 7.3 G/DL 2228) ALBUMIN (test code = 2201) 4.3 G/DL CALC GLOBULIN (test code = 3.0 G/DL 2240) CALC A/G RATIO (test code = 1.4 RATIO 2234) BILIRUBIN, TOTAL (test code = 0.7 MG/DL 2206) ALKALINE PHOSPHATASE (test 70 U/L code = 2204) AST (test code = 2218) 19 U/L ALT (test code = 2219) 14 U/L HEMOGLOBIN [id number] 00:00:00 Test Item Value Reference Range Interpretation Comments HEMOGLOBIN A1c (test code = 95084) 5.6 % HEMOGLOBIN [id number] 00:00:00 Test Item Value Reference Range Interpretation Comments HEMOGLOBIN A1c (test code = 73600) 5.6 % HEMOGLOBIN [id number] 00:00:00 Test Item Value Reference Range Interpretation Comments HEMOGLOBIN A1c (test code = 50079) 5.6 % [id number] 00:00:00 Test Item Value Reference Range Interpretation Comments TSH, THIRD GENERATION (test code 1.460 UIU/ML = 2821) [id number] 00:00:00 Test Item Value Reference Range Interpretation Comments TSH, THIRD GENERATION (test code 1.460 UIU/ML = 2821) [id number] 00:00:00 Test Item Value Reference Range Interpretation Comments TSH, THIRD GENERATION (test code 1.460 UIU/ML = 2821) LIPID [id number] 00:00:00 Test Item Value Reference Range Interpretation Comments CHOLESTEROL (test code = 2210) 160 MG/DL TRIGLYCERIDES (test code = 2232) 49 MG/DL HDL CHOLESTEROL (test code = 2220) 65 MG/DL CALC LDL CHOL (test code = 2237) 81 MG/DL RISK RATIO LDL/HDL (test code = 1.25 RATIO 2238) LIPID [id number] 00:00:00 Test Item Value Reference Range Interpretation Comments CHOLESTEROL (test code = 2210) 160 MG/DL TRIGLYCERIDES (test code = 2232) 49 MG/DL HDL CHOLESTEROL (test code = 2220) 65 MG/DL CALC LDL CHOL (test code = 2237) 81 MG/DL RISK RATIO LDL/HDL (test code = 1.25 RATIO 2238) CBC W/AUTO [id number] 00:00:00 Test Item Value Reference Range Interpretation Comments WBC (test code = 1001) 2.5 K/UL RBC (test code = 1002) 4.18 M/UL HEMOGLOBIN (test code = 1003) 12.6 G/DL HEMATOCRIT (test code = 1004) 36.9 % MCV (test code = 1005) 88.3 fL MCH (test code = 1006) 30.1 PG MCHC (test code = 1007) 34.1 G/DL RDW (test code = 1038) 12.9 % NEUTROPHILS (test code = 1008) 53.5 % LYMPHOCYTES (test code = 1010) 35.2 % MONOCYTES (test code = 1011) 8.5 % EOSINOPHILS (test code = 1012) 2.0 % BASOPHILS (test code = 1013) 0.8 % PLATELET COUNT (test code = 1015) 168 K/UL CBC W/AUTO [id number] 00:00:00 Test Item Value Reference Range Interpretation Comments WBC (test code = 1001) 2.5 K/UL RBC (test code = 1002) 4.18 M/UL HEMOGLOBIN (test code = 1003) 12.6 G/DL HEMATOCRIT (test code = 1004) 36.9 % MCV (test code = 1005) 88.3 fL MCH (test code = 1006) 30.1 PG MCHC (test code = 1007) 34.1 G/DL RDW (test code = 1038) 12.9 % NEUTROPHILS (test code = 1008) 53.5 % LYMPHOCYTES (test code = 1010) 35.2 % MONOCYTES (test code = 1011) 8.5 % EOSINOPHILS (test code = 1012) 2.0 % BASOPHILS (test code = 1013) 0.8 % PLATELET COUNT (test code = 1015) 168 K/UL CBC W/AUTO [id number] 00:00:00 Test Item Value Reference Range Interpretation Comments WBC (test code = 1001) 2.5 K/UL RBC (test code = 1002) 4.18 M/UL HEMOGLOBIN (test code = 1003) 12.6 G/DL HEMATOCRIT (test code = 1004) 36.9 % MCV (test code = 1005) 88.3 fL MCH (test code = 1006) 30.1 PG MCHC (test code = 1007) 34.1 G/DL RDW (test code = 1038) 12.9 % NEUTROPHILS (test code = 1008) 53.5 % LYMPHOCYTES (test code = 1010) 35.2 % MONOCYTES (test code = 1011) 8.5 % EOSINOPHILS (test code = 1012) 2.0 % BASOPHILS (test code = 1013) 0.8 % PLATELET COUNT (test code = 1015) 168 K/UL COMPREHENSIVE METABOLIC [id number] 00:00:00 Test Item Value Reference Range Interpretation Comments GLUCOSE (test code = 2217) 93 MG/DL BUN (test code = 2208) 18 MG/DL CREATININE (test code = 2214) 0.75 MG/DL eGFR AMER. (test code 89 ML/MIN/1.73 = 44634) eGFR NON- AMER. (test 77 ML/MIN/1.73 code = 89038) CALC BUN/CREAT (test code = 24 RATIO 2235) SODIUM (test code = 2231) 144 MEQ/L POTASSIUM (test code = 2228) 4.4 MEQ/L CHLORIDE (test code = 2215) 105 MEQ/L CARBON DIOXIDE (test code = 29 MEQ/L 2206) CALCIUM (test code = 2209) 9.7 MG/DL PROTEIN, TOTAL (test code = 7.3 G/DL 2228) ALBUMIN (test code = 2201) 4.3 G/DL CALC GLOBULIN (test code = 3.0 G/DL 2240) CALC A/G RATIO (test code = 1.4 RATIO 4) BILIRUBIN, TOTAL (test code = 0.7 MG/DL 2206) ALKALINE PHOSPHATASE (test 70 U/L code = 2204) AST (test code = 2218) 19 U/L ALT (test code = 2219) 14 U/L COMPREHENSIVE METABOLIC [id number] 00:00:00 Test Item Value Reference Range Interpretation Comments GLUCOSE (test code = 2217) 93 MG/DL BUN (test code = 2208) 18 MG/DL CREATININE (test code = 2214) 0.75 MG/DL eGFR AMER. (test code 89 ML/MIN/1.73 = 12414) eGFR NON- AMER. (test 77 ML/MIN/1.73 code = 48620) CALC BUN/CREAT (test code = 24 RATIO 2235) SODIUM (test code = 2231) 144 MEQ/L POTASSIUM (test code = 2228) 4.4 MEQ/L CHLORIDE (test code = 2215) 105 MEQ/L CARBON DIOXIDE (test code = 29 MEQ/L 2206) CALCIUM (test code = 2209) 9.7 MG/DL PROTEIN, TOTAL (test code = 7.3 G/DL 2228) ALBUMIN (test code = 2201) 4.3 G/DL CALC GLOBULIN (test code = 3.0 G/DL 2239) CALC A/G RATIO (test code = 1.4 RATIO 2234) BILIRUBIN, TOTAL (test code = 0.7 MG/DL 2206) ALKALINE PHOSPHATASE (test 70 U/L code = 2204) AST (test code = 2218) 19 U/L ALT (test code = 2219) 14 U/L HEMOGLOBIN [id number] 00:00:00 Test Item Value Reference Range Interpretation Comments HEMOGLOBIN A1c (test code = 55575) 5.6 % HEMOGLOBIN [id number] 00:00:00 Test Item Value Reference Range Interpretation Comments HEMOGLOBIN A1c (test code = 53059) 5.6 % HEMOGLOBIN [id number] 00:00:00 Test Item Value Reference Range Interpretation Comments HEMOGLOBIN A1c (test code = 45388) 5.6 % [id number] 00:00:00 Test Item Value Reference Range Interpretation Comments TSH, THIRD GENERATION (test code 1.460 UIU/ML = 2821) [id number] 00:00:00 Test Item Value Reference Range Interpretation Comments TSH, THIRD GENERATION (test code 1.460 UIU/ML = 2821) [id number] 00:00:00 Test Item Value Reference Range Interpretation Comments TSH, THIRD GENERATION (test code 1.460 UIU/ML = 2821) LIPID [id number] 00:00:00 Test Item Value Reference Range Interpretation Comments CHOLESTEROL (test code = 2210) 160 MG/DL TRIGLYCERIDES (test code = 2232) 49 MG/DL HDL CHOLESTEROL (test code = 2220) 65 MG/DL CALC LDL CHOL (test code = 2237) 81 MG/DL RISK RATIO LDL/HDL (test code = 1.25 RATIO 2238) LIPID [id number] 00:00:00 Test Item Value Reference Range Interpretation Comments CHOLESTEROL (test code = 2210) 160 MG/DL TRIGLYCERIDES (test code = 2232) 49 MG/DL HDL CHOLESTEROL (test code = 2220) 65 MG/DL CALC LDL CHOL (test code = 2237) 81 MG/DL RISK RATIO LDL/HDL (test code = 1.25 RATIO 2238) CBC W/AUTO [id number] 00:00:00 Test Item Value Reference Range Interpretation Comments WBC (test code = 1001) 2.5 K/UL RBC (test code = 1002) 4.18 M/UL HEMOGLOBIN (test code = 1003) 12.6 G/DL HEMATOCRIT (test code = 1004) 36.9 % MCV (test code = 1005) 88.3 fL MCH (test code = 1006) 30.1 PG MCHC (test code = 1007) 34.1 G/DL RDW (test code = 1038) 12.9 % NEUTROPHILS (test code = 1008) 53.5 % LYMPHOCYTES (test code = 1010) 35.2 % MONOCYTES (test code = 1011) 8.5 % EOSINOPHILS (test code = 1012) 2.0 % BASOPHILS (test code = 1013) 0.8 % PLATELET COUNT (test code = 1015) 168 K/UL CBC W/AUTO [id number] 00:00:00 Test Item Value Reference Range Interpretation Comments WBC (test code = 1001) 2.5 K/UL RBC (test code = 1002) 4.18 M/UL HEMOGLOBIN (test code = 1003) 12.6 G/DL HEMATOCRIT (test code = 1004) 36.9 % MCV (test code = 1005) 88.3 fL MCH (test code = 1006) 30.1 PG MCHC (test code = 1007) 34.1 G/DL RDW (test code = 1038) 12.9 % NEUTROPHILS (test code = 1008) 53.5 % LYMPHOCYTES (test code = 1010) 35.2 % MONOCYTES (test code = 1011) 8.5 % EOSINOPHILS (test code = 1012) 2.0 % BASOPHILS (test code = 1013) 0.8 % PLATELET COUNT (test code = 1015) 168 K/UL CBC W/AUTO [id number] 00:00:00 Test Item Value Reference Range Interpretation Comments WBC (test code = 1001) 2.5 K/UL RBC (test code = 1002) 4.18 M/UL HEMOGLOBIN (test code = 1003) 12.6 G/DL HEMATOCRIT (test code = 1004) 36.9 % MCV (test code = 1005) 88.3 fL MCH (test code = 1006) 30.1 PG MCHC (test code = 1007) 34.1 G/DL RDW (test code = 1038) 12.9 % NEUTROPHILS (test code = 1008) 53.5 % LYMPHOCYTES (test code = 1010) 35.2 % MONOCYTES (test code = 1011) 8.5 % EOSINOPHILS (test code = 1012) 2.0 % BASOPHILS (test code = 1013) 0.8 % PLATELET COUNT (test code = 1015) 168 K/UL COMPREHENSIVE METABOLIC [id number] 00:00:00 Test Item Value Reference Range Interpretation Comments GLUCOSE (test code = 2217) 93 MG/DL BUN (test code = 2208) 18 MG/DL CREATININE (test code = 2214) 0.75 MG/DL eGFR AMER. (test code 89 ML/MIN/1.73 = 45177) eGFR NON- AMER. (test 77 ML/MIN/1.73 code = 95689) CALC BUN/CREAT (test code = 24 RATIO 2235) SODIUM (test code = 2231) 144 MEQ/L POTASSIUM (test code = 2228) 4.4 MEQ/L CHLORIDE (test code = 2215) 105 MEQ/L CARBON DIOXIDE (test code = 29 MEQ/L 2206) CALCIUM (test code = 2209) 9.7 MG/DL PROTEIN, TOTAL (test code = 7.3 G/DL 222) ALBUMIN (test code = 2201) 4.3 G/DL CALC GLOBULIN (test code = 3.0 G/DL 2240) CALC A/G RATIO (test code = 1.4 RATIO 2234) BILIRUBIN, TOTAL (test code = 0.7 MG/DL 220) ALKALINE PHOSPHATASE (test 70 U/L code = 2204) AST (test code = 2218) 19 U/L ALT (test code = 2219) 14 U/L COMPREHENSIVE METABOLIC [id number] 00:00:00 Test Item Value Reference Range Interpretation Comments GLUCOSE (test code = 2217) 93 MG/DL BUN (test code = 2208) 18 MG/DL CREATININE (test code = 2214) 0.75 MG/DL eGFR AMER. (test code 89 ML/MIN/1.73 = 41836) eGFR NON- AMER. (test 77 ML/MIN/1.73 code = 93389) CALC BUN/CREAT (test code = 24 RATIO 2235) SODIUM (test code = 2231) 144 MEQ/L POTASSIUM (test code = 2228) 4.4 MEQ/L CHLORIDE (test code = 2215) 105 MEQ/L CARBON DIOXIDE (test code = 29 MEQ/L 2205) CALCIUM (test code = 2209) 9.7 MG/DL PROTEIN, TOTAL (test code = 7.3 G/DL 2228) ALBUMIN (test code = 2201) 4.3 G/DL CALC GLOBULIN (test code = 3.0 G/DL 2239) CALC A/G RATIO (test code = 1.4 RATIO 2233) BILIRUBIN, TOTAL (test code = 0.7 MG/DL 2206) ALKALINE PHOSPHATASE (test 70 U/L code = 2204) AST (test code = 2218) 19 U/L ALT (test code = 2219) 14 U/L HEMOGLOBIN [id number] 00:00:00 Test Item Value Reference Range Interpretation Comments HEMOGLOBIN A1c (test code = 85409) 5.6 % HEMOGLOBIN [id number] 00:00:00 Test Item Value Reference Range Interpretation Comments HEMOGLOBIN A1c (test code = 64631) 5.6 % HEMOGLOBIN [id number] 00:00:00 Test Item Value Reference Range Interpretation Comments HEMOGLOBIN A1c (test code = 64628) 5.6 % [id number] 00:00:00 Test Item Value Reference Range Interpretation Comments TSH, THIRD GENERATION (test code 1.460 UIU/ML = 2821) [id number] 00:00:00 Test Item Value Reference Range Interpretation Comments TSH, THIRD GENERATION (test code 1.460 UIU/ML = 2821) [id number] 00:00:00 Test Item Value Reference Range Interpretation Comments TSH, THIRD GENERATION (test code 1.460 UIU/ML = 2821) LIPID [id number] 00:00:00 Test Item Value Reference Range Interpretation Comments CHOLESTEROL (test code = 2210) 160 MG/DL TRIGLYCERIDES (test code = 2232) 49 MG/DL HDL CHOLESTEROL (test code = 2220) 65 MG/DL CALC LDL CHOL (test code = 2237) 81 MG/DL RISK RATIO LDL/HDL (test code = 1.25 RATIO 2238) LIPID [id number] 00:00:00 Test Item Value Reference Range Interpretation Comments CHOLESTEROL (test code = 2210) 160 MG/DL TRIGLYCERIDES (test code = 2232) 49 MG/DL HDL CHOLESTEROL (test code = 2220) 65 MG/DL CALC LDL CHOL (test code = 2237) 81 MG/DL RISK RATIO LDL/HDL (test code = 1.25 RATIO 2238) CBC W/AUTO [id number] 00:00:00 Test Item Value Reference Range Interpretation Comments WBC (test code = 1001) 2.5 K/UL RBC (test code = 1002) 4.18 M/UL HEMOGLOBIN (test code = 1003) 12.6 G/DL HEMATOCRIT (test code = 1004) 36.9 % MCV (test code = 1005) 88.3 fL MCH (test code = 1006) 30.1 PG MCHC (test code = 1007) 34.1 G/DL RDW (test code = 1038) 12.9 % NEUTROPHILS (test code = 1008) 53.5 % LYMPHOCYTES (test code = 1010) 35.2 % MONOCYTES (test code = 1011) 8.5 % EOSINOPHILS (test code = 1012) 2.0 % BASOPHILS (test code = 1013) 0.8 % PLATELET COUNT (test code = 1015) 168 K/UL CBC W/AUTO [id number] 00:00:00 Test Item Value Reference Range Interpretation Comments WBC (test code = 1001) 2.5 K/UL RBC (test code = 1002) 4.18 M/UL HEMOGLOBIN (test code = 1003) 12.6 G/DL HEMATOCRIT (test code = 1004) 36.9 % MCV (test code = 1005) 88.3 fL MCH (test code = 1006) 30.1 PG MCHC (test code = 1007) 34.1 G/DL RDW (test code = 1038) 12.9 % NEUTROPHILS (test code = 1008) 53.5 % LYMPHOCYTES (test code = 1010) 35.2 % MONOCYTES (test code = 1011) 8.5 % EOSINOPHILS (test code = 1012) 2.0 % BASOPHILS (test code = 1013) 0.8 % PLATELET COUNT (test code = 1015) 168 K/UL CBC W/AUTO [id number] 00:00:00 Test Item Value Reference Range Interpretation Comments WBC (test code = 1001) 2.5 K/UL RBC (test code = 1002) 4.18 M/UL HEMOGLOBIN (test code = 1003) 12.6 G/DL HEMATOCRIT (test code = 1004) 36.9 % MCV (test code = 1005) 88.3 fL MCH (test code = 1006) 30.1 PG MCHC (test code = 1007) 34.1 G/DL RDW (test code = 1038) 12.9 % NEUTROPHILS (test code = 1008) 53.5 % LYMPHOCYTES (test code = 1010) 35.2 % MONOCYTES (test code = 1011) 8.5 % EOSINOPHILS (test code = 1012) 2.0 % BASOPHILS (test code = 1013) 0.8 % PLATELET COUNT (test code = 1015) 168 K/UL COMPREHENSIVE METABOLIC [id number] 00:00:00 Test Item Value Reference Range Interpretation Comments GLUCOSE (test code = 2217) 93 MG/DL BUN (test code = 2208) 18 MG/DL CREATININE (test code = 2214) 0.75 MG/DL eGFR AMER. (test code 89 ML/MIN/1.73 = 30321) eGFR NON- AMER. (test 77 ML/MIN/1.73 code = 53997) CALC BUN/CREAT (test code = 24 RATIO 2235) SODIUM (test code = 2231) 144 MEQ/L POTASSIUM (test code = 2228) 4.4 MEQ/L CHLORIDE (test code = 2215) 105 MEQ/L CARBON DIOXIDE (test code = 29 MEQ/L 2205) CALCIUM (test code = 2209) 9.7 MG/DL PROTEIN, TOTAL (test code = 7.3 G/DL 2228) ALBUMIN (test code = 2201) 4.3 G/DL CALC GLOBULIN (test code = 3.0 G/DL 2240) CALC A/G RATIO (test code = 1.4 RATIO 2234) BILIRUBIN, TOTAL (test code = 0.7 MG/DL 2206) ALKALINE PHOSPHATASE (test 70 U/L code = 2204) AST (test code = 2218) 19 U/L ALT (test code = 2219) 14 U/L COMPREHENSIVE METABOLIC [id number] 00:00:00 Test Item Value Reference Range Interpretation Comments GLUCOSE (test code = 2217) 93 MG/DL BUN (test code = 2208) 18 MG/DL CREATININE (test code = 2214) 0.75 MG/DL eGFR AMER. (test code 89 ML/MIN/1.73 = 98436) eGFR NON- AMER. (test 77 ML/MIN/1.73 code = 35269) CALC BUN/CREAT (test code = 24 RATIO 2235) SODIUM (test code = 2231) 144 MEQ/L POTASSIUM (test code = 2228) 4.4 MEQ/L CHLORIDE (test code = 2215) 105 MEQ/L CARBON DIOXIDE (test code = 29 MEQ/L 2205) CALCIUM (test code = 2209) 9.7 MG/DL PROTEIN, TOTAL (test code = 7.3 G/DL 2228) ALBUMIN (test code = 2201) 4.3 G/DL CALC GLOBULIN (test code = 3.0 G/DL 2239) CALC A/G RATIO (test code = 1.4 RATIO 2233) BILIRUBIN, TOTAL (test code = 0.7 MG/DL 2206) ALKALINE PHOSPHATASE (test 70 U/L code = 2204) AST (test code = 2218) 19 U/L ALT (test code = 2219) 14 U/L SCR MAMM BILATERAL NICHOLAS CAD [id number] 16:13:38 Name: Dorothy : 1945 Sex: F - SCR MAMM BILATERAL NICHOLAS CAD DIGITALBILATERAL DIGITAL SCREENING MAMMOGRAM 3D/2D WITH CAD: 02/11/2021LINICAL: Asymptomatic. Digital breast tomosynthesis was performed in addition to routine CC and MLO views. Current mammographic images were evaluated by [employer] CAD (computed aided detection) software. Comparison is made to exams dated 05/08/2019 mammogram - [facility], 04/19/2018 mammogram, and 04/02/2017 mammogram - [facility]. The tissue of both breasts is predominantly fatty. There are benign vascular calcifications in both breasts. No suspicious mass, architectural distortion, malignant type calcification, or lymph node abnormality detected. Breast architecture is stable compared to prior exams.IMPRESSION: BENIGNThere is no mammographic evidence of malignancy. Resume annual screening mammography in one year. Hanna wyman/penrad:02/16/2021 16:13:38 Physical Fitness Teacher: Carla Arce MM, [facility]: BIRADS 1-2 Normal Mammogram BI-RADS: 2 [id number] (COVID-19) by RT-PCR (HIGH RISK)2020-12-16 00:00:00 Test Item Value Reference Range Interpretation Comments SARS-CoV-2 INTERPRETATION (test NEGATIVE code = 90682) SOURCE (test code = 82685) NOT SPECIFIED SARS-CoV-2 (COVID-19) by RT-PCR (HIGH RISK)2020-12-16 00:00:00 Test Item Value Reference Range Interpretation Comments SARS-CoV-2 INTERPRETATION (test NEGATIVE code = 25052) SOURCE (test code = 91217) NOT SPECIFIED SARS-CoV-2 (COVID-19) by RT-PCR (HIGH RISK)2020-12-16 00:00:00 Test Item Value Reference Range Interpretation Comments SARS-CoV-2 INTERPRETATION (test NEGATIVE code = 37446) SOURCE (test code = 89113) NOT SPECIFIED SARS-CoV-2 (COVID-19) by RT-PCR (HIGH RISK)2020-12-16 00:00:00 Test Item Value Reference Range Interpretation Comments SARS-CoV-2 INTERPRETATION (test NEGATIVE code = 31972) SOURCE (test code = 19976) NOT SPECIFIED SARS-CoV-2 (COVID-19) by RT-PCR (HIGH RISK)2020-12-16 00:00:00 Test Item Value Reference Range Interpretation Comments SARS-CoV-2 INTERPRETATION (test NEGATIVE code = 22040) SOURCE (test code = 13120) NOT SPECIFIED SARS-CoV-2 (COVID-19) by RT-PCR (HIGH RISK)2020-12-16 00:00:00 Test Item Value Reference Range Interpretation Comments SARS-CoV-2 INTERPRETATION (test NEGATIVE code = 84802) SOURCE (test code = 37775) NOT SPECIFIED SARS-CoV-2 (COVID-19) by RT-PCR (HIGH RISK)2020-12-16 00:00:00 Test Item Value Reference Range Interpretation Comments SARS-CoV-2 INTERPRETATION (test NEGATIVE code = 24396) SOURCE (test code = 45481) NOT SPECIFIED SARS-CoV-2 (COVID-19) by RT-PCR (HIGH RISK)2020-12-16 00:00:00 Test Item Value Reference Range Interpretation Comments SARS-CoV-2 INTERPRETATION (test NEGATIVE code = 06938) SOURCE (test code = 96935) NOT SPECIFIED SARS-CoV-2 (COVID-19) by RT-PCR (HIGH RISK)2020-12-16 00:00:00 Test Item Value Reference Range Interpretation Comments SARS-CoV-2 INTERPRETATION (test NEGATIVE code = 25196) SOURCE (test code = 79569) NOT SPECIFIED SARS-CoV-2 (COVID-19) by RT-PCR (HIGH RISK)2020-12-16 00:00:00 Test Item Value Reference Range Interpretation Comments SARS-CoV-2 INTERPRETATION (test NEGATIVE code = 84260) SOURCE (test code = 84095) NOT SPECIFIED SARS-CoV-2 (COVID-19) by RT-PCR (HIGH RISK)2020-12-16 00:00:00 Test Item Value Reference Range Interpretation Comments SARS-CoV-2 INTERPRETATION (test NEGATIVE code = 21405) SOURCE (test code = 40008) NOT SPECIFIED SARS-CoV-2 (COVID-19) by RT-PCR (HIGH RISK)2020-12-16 00:00:00 Test Item Value Reference Range Interpretation Comments SARS-CoV-2 INTERPRETATION (test NEGATIVE code = 67630) SOURCE (test code = 77669) NOT SPECIFIED [id number] 00:00:00 Test Item Value Reference Range Interpretation Comments TSH, THIRD GENERATION (test code 2.350 UIU/ML = 2821) [id number] 00:00:00 Test Item Value Reference Range Interpretation Comments TSH, THIRD GENERATION (test code 2.350 UIU/ML = 2821) [id number] 00:00:00 Test Item Value Reference Range Interpretation Comments TSH, THIRD GENERATION (test code 2.350 UIU/ML = 2821) [id number] 00:00:00 Test Item Value Reference Range Interpretation Comments TSH, THIRD GENERATION (test code 2.350 UIU/ML = 2821) [id number] 00:00:00 Test Item Value Reference Range Interpretation Comments TSH, THIRD GENERATION (test code 2.350 UIU/ML = 2821) [id number] 00:00:00 Test Item Value Reference Range Interpretation Comments TSH, THIRD GENERATION (test code 2.350 UIU/ML = 2821) [id number] 00:00:00 Test Item Value Reference Range Interpretation Comments TSH, THIRD GENERATION (test code 2.350 UIU/ML = 2821) [id number] 00:00:00 Test Item Value Reference Range Interpretation Comments TSH, THIRD GENERATION (test code 2.350 UIU/ML = 2821) [id number] 00:00:00 Test Item Value Reference Range Interpretation Comments TSH, THIRD GENERATION (test code 2.350 UIU/ML = 2821) [id number] 00:00:00 Test Item Value Reference Range Interpretation Comments TSH, THIRD GENERATION (test code 2.350 UIU/ML = 2821) [id number] 00:00:00 Test Item Value Reference Range Interpretation Comments TSH, THIRD GENERATION (test code 2.350 UIU/ML = 2821) [id number] 00:00:00 Test Item Value Reference Range Interpretation Comments TSH, THIRD GENERATION (test code 2.350 UIU/ML = 2821) [id number] 00:00:00 Test Item Value Reference Range Interpretation Comments TSH, THIRD GENERATION (test code 2.350 UIU/ML = 2821) [id number] 00:00:00 Test Item Value Reference Range Interpretation Comments TSH, THIRD GENERATION (test code 2.350 UIU/ML = 2821) [id number] 00:00:00 Test Item Value Reference Range Interpretation Comments TSH, THIRD GENERATION (test code 2.350 UIU/ML = 2821) [id number] 00:00:00 Test Item Value Reference Range Interpretation Comments TSH, THIRD GENERATION (test code 2.350 UIU/ML = 2821) [id number] 00:00:00 Test Item Value Reference Range Interpretation Comments TSH, THIRD GENERATION (test code 2.350 UIU/ML = 2821) [id number] 00:00:00 Test Item Value Reference Range Interpretation Comments TSH, THIRD GENERATION (test code 2.350 UIU/ML = 2821) CBC W/AUTO [id number] 00:00:00 Test Item Value Reference Range Interpretation Comments WBC (test code = 1001) 2.9 K/UL RBC (test code = 1002) 4.45 M/UL HEMOGLOBIN (test code = 1003) 13.1 G/DL HEMATOCRIT (test code = 1004) 38.9 % MCV (test code = 1005) 87.4 fL MCH (test code = 1006) 29.4 PG MCHC (test code = 1007) 33.7 G/DL RDW (test code = 1038) 12.9 % NEUTROPHILS (test code = 1008) 56.2 % LYMPHOCYTES (test code = 1010) 33.3 % MONOCYTES (test code = 1011) 7.5 % EOSINOPHILS (test code = 1012) 2.0 % BASOPHILS (test code = 1013) 1.0 % PLATELET COUNT (test code = 1015) 156 K/UL CBC W/AUTO [id number] 00:00:00 Test Item Value Reference Range Interpretation Comments WBC (test code = 1001) 2.9 K/UL RBC (test code = 1002) 4.45 M/UL HEMOGLOBIN (test code = 1003) 13.1 G/DL HEMATOCRIT (test code = 1004) 38.9 % MCV (test code = 1005) 87.4 fL MCH (test code = 1006) 29.4 PG MCHC (test code = 1007) 33.7 G/DL RDW (test code = 1038) 12.9 % NEUTROPHILS (test code = 1008) 56.2 % LYMPHOCYTES (test code = 1010) 33.3 % MONOCYTES (test code = 1011) 7.5 % EOSINOPHILS (test code = 1012) 2.0 % BASOPHILS (test code = 1013) 1.0 % PLATELET COUNT (test code = 1015) 156 K/UL CBC W/AUTO [id number] 00:00:00 Test Item Value Reference Range Interpretation Comments WBC (test code = 1001) 2.9 K/UL RBC (test code = 1002) 4.45 M/UL HEMOGLOBIN (test code = 1003) 13.1 G/DL HEMATOCRIT (test code = 1004) 38.9 % MCV (test code = 1005) 87.4 fL MCH (test code = 1006) 29.4 PG MCHC (test code = 1007) 33.7 G/DL RDW (test code = 1038) 12.9 % NEUTROPHILS (test code = 1008) 56.2 % LYMPHOCYTES (test code = 1010) 33.3 % MONOCYTES (test code = 1011) 7.5 % EOSINOPHILS (test code = 1012) 2.0 % BASOPHILS (test code = 1013) 1.0 % PLATELET COUNT (test code = 1015) 156 K/UL CBC W/AUTO [id number] 00:00:00 Test Item Value Reference Range Interpretation Comments WBC (test code = 1001) 2.9 K/UL RBC (test code = 1002) 4.45 M/UL HEMOGLOBIN (test code = 1003) 13.1 G/DL HEMATOCRIT (test code = 1004) 38.9 % MCV (test code = 1005) 87.4 fL MCH (test code = 1006) 29.4 PG MCHC (test code = 1007) 33.7 G/DL RDW (test code = 1038) 12.9 % NEUTROPHILS (test code = 1008) 56.2 % LYMPHOCYTES (test code = 1010) 33.3 % MONOCYTES (test code = 1011) 7.5 % EOSINOPHILS (test code = 1012) 2.0 % BASOPHILS (test code = 1013) 1.0 % PLATELET COUNT (test code = 1015) 156 K/UL HEMOGLOBIN [id number] 00:00:00 Test Item Value Reference Range Interpretation Comments HEMOGLOBIN A1c (test code = 47573) 5.8 % HEMOGLOBIN [id number] 00:00:00 Test Item Value Reference Range Interpretation Comments HEMOGLOBIN A1c (test code = 05365) 5.8 % HEMOGLOBIN [id number] 00:00:00 Test Item Value Reference Range Interpretation Comments HEMOGLOBIN A1c (test code = 33733) 5.8 % COMPREHENSIVE METABOLIC [id number] 00:00:00 Test Item Value Reference Range Interpretation Comments GLUCOSE (test code = 2217) 92 MG/DL BUN (test code = 2208) 15 MG/DL CREATININE (test code = 2214) 0.66 MG/DL eGFR AMER. (test code 99 ML/MIN/1.73 = 89248) eGFR NON- AMER. (test 85 ML/MIN/1.73 code = 17649) CALC BUN/CREAT (test code = 23 RATIO 2235) SODIUM (test code = 2231) 144 MEQ/L POTASSIUM (test code = 2228) 4.2 MEQ/L CHLORIDE (test code = 2215) 105 MEQ/L CARBON DIOXIDE (test code = 27 MEQ/L 220) CALCIUM (test code = 2209) 9.3 MG/DL PROTEIN, TOTAL (test code = 7.0 G/DL 2228) ALBUMIN (test code = 2201) 4.3 G/DL CALC GLOBULIN (test code = 2.7 G/DL 2240) CALC A/G RATIO (test code = 1.6 RATIO 2234) BILIRUBIN, TOTAL (test code = 0.4 MG/DL 2206) ALKALINE PHOSPHATASE (test 71 U/L code = 2204) AST (test code = 2218) 17 U/L ALT (test code = 2219) 12 U/L COMPREHENSIVE METABOLIC [id number] 00:00:00 Test Item Value Reference Range Interpretation Comments GLUCOSE (test code = 2217) 92 MG/DL BUN (test code = 2208) 15 MG/DL CREATININE (test code = 2214) 0.66 MG/DL eGFR AMER. (test code 99 ML/MIN/1.73 = 79065) eGFR NON- AMER. (test 85 ML/MIN/1.73 code = 08266) CALC BUN/CREAT (test code = 23 RATIO 2235) SODIUM (test code = 2231) 144 MEQ/L POTASSIUM (test code = 2228) 4.2 MEQ/L CHLORIDE (test code = 2215) 105 MEQ/L CARBON DIOXIDE (test code = 27 MEQ/L 220) CALCIUM (test code = 2209) 9.3 MG/DL PROTEIN, TOTAL (test code = 7.0 G/DL 2228) ALBUMIN (test code = 2201) 4.3 G/DL CALC GLOBULIN (test code = 2.7 G/DL 2240) CALC A/G RATIO (test code = 1.6 RATIO 2234) BILIRUBIN, TOTAL (test code = 0.4 MG/DL 2207) ALKALINE PHOSPHATASE (test 71 U/L code = 2204) AST (test code = 2218) 17 U/L ALT (test code = 2219) 12 U/L CBC W/AUTO [id number] 00:00:00 Test Item Value Reference Range Interpretation Comments WBC (test code = 1001) 2.9 K/UL RBC (test code = 1002) 4.45 M/UL HEMOGLOBIN (test code = 1003) 13.1 G/DL HEMATOCRIT (test code = 1004) 38.9 % MCV (test code = 1005) 87.4 fL MCH (test code = 1006) 29.4 PG MCHC (test code = 1007) 33.7 G/DL RDW (test code = 1038) 12.9 % NEUTROPHILS (test code = 1008) 56.2 % LYMPHOCYTES (test code = 1010) 33.3 % MONOCYTES (test code = 1011) 7.5 % EOSINOPHILS (test code = 1012) 2.0 % BASOPHILS (test code = 1013) 1.0 % PLATELET COUNT (test code = 1015) 156 K/UL CBC W/AUTO [id number] 00:00:00 Test Item Value Reference Range Interpretation Comments WBC (test code = 1001) 2.9 K/UL RBC (test code = 1002) 4.45 M/UL HEMOGLOBIN (test code = 1003) 13.1 G/DL HEMATOCRIT (test code = 1004) 38.9 % MCV (test code = 1005) 87.4 fL MCH (test code = 1006) 29.4 PG MCHC (test code = 1007) 33.7 G/DL RDW (test code = 1038) 12.9 % NEUTROPHILS (test code = 1008) 56.2 % LYMPHOCYTES (test code = 1010) 33.3 % MONOCYTES (test code = 1011) 7.5 % EOSINOPHILS (test code = 1012) 2.0 % BASOPHILS (test code = 1013) 1.0 % PLATELET COUNT (test code = 1015) 156 K/UL CBC W/AUTO [id number] 00:00:00 Test Item Value Reference Range Interpretation Comments WBC (test code = 1001) 2.9 K/UL RBC (test code = 1002) 4.45 M/UL HEMOGLOBIN (test code = 1003) 13.1 G/DL HEMATOCRIT (test code = 1004) 38.9 % MCV (test code = 1005) 87.4 fL MCH (test code = 1006) 29.4 PG MCHC (test code = 1007) 33.7 G/DL RDW (test code = 1038) 12.9 % NEUTROPHILS (test code = 1008) 56.2 % LYMPHOCYTES (test code = 1010) 33.3 % MONOCYTES (test code = 1011) 7.5 % EOSINOPHILS (test code = 1012) 2.0 % BASOPHILS (test code = 1013) 1.0 % PLATELET COUNT (test code = 1015) 156 K/UL CBC W/AUTO [id number] 00:00:00 Test Item Value Reference Range Interpretation Comments WBC (test code = 1001) 2.9 K/UL RBC (test code = 1002) 4.45 M/UL HEMOGLOBIN (test code = 1003) 13.1 G/DL HEMATOCRIT (test code = 1004) 38.9 % MCV (test code = 1005) 87.4 fL MCH (test code = 1006) 29.4 PG MCHC (test code = 1007) 33.7 G/DL RDW (test code = 1038) 12.9 % NEUTROPHILS (test code = 1008) 56.2 % LYMPHOCYTES (test code = 1010) 33.3 % MONOCYTES (test code = 1011) 7.5 % EOSINOPHILS (test code = 1012) 2.0 % BASOPHILS (test code = 1013) 1.0 % PLATELET COUNT (test code = 1015) 156 K/UL CBC W/AUTO [id number] 00:00:00 Test Item Value Reference Range Interpretation Comments WBC (test code = 1001) 2.9 K/UL RBC (test code = 1002) 4.45 M/UL HEMOGLOBIN (test code = 1003) 13.1 G/DL HEMATOCRIT (test code = 1004) 38.9 % MCV (test code = 1005) 87.4 fL MCH (test code = 1006) 29.4 PG MCHC (test code = 1007) 33.7 G/DL RDW (test code = 1038) 12.9 % NEUTROPHILS (test code = 1008) 56.2 % LYMPHOCYTES (test code = 1010) 33.3 % MONOCYTES (test code = 1011) 7.5 % EOSINOPHILS (test code = 1012) 2.0 % BASOPHILS (test code = 1013) 1.0 % PLATELET COUNT (test code = 1015) 156 K/UL HEMOGLOBIN [id number] 00:00:00 Test Item Value Reference Range Interpretation Comments HEMOGLOBIN A1c (test code = 90723) 5.8 % HEMOGLOBIN [id number] 00:00:00 Test Item Value Reference Range Interpretation Comments HEMOGLOBIN A1c (test code = 67051) 5.8 % HEMOGLOBIN [id number] 00:00:00 Test Item Value Reference Range Interpretation Comments HEMOGLOBIN A1c (test code = 16212) 5.8 % HEMOGLOBIN [id number] 00:00:00 Test Item Value Reference Range Interpretation Comments HEMOGLOBIN A1c (test code = 38545) 5.8 % COMPREHENSIVE METABOLIC [id number] 00:00:00 Test Item Value Reference Range Interpretation Comments GLUCOSE (test code = 2217) 92 MG/DL BUN (test code = 2208) 15 MG/DL CREATININE (test code = 2214) 0.66 MG/DL eGFR AMER. (test code 99 ML/MIN/1.73 = 60171) eGFR NON- AMER. (test 85 ML/MIN/1.73 code = 53544) CALC BUN/CREAT (test code = 23 RATIO 2235) SODIUM (test code = 2231) 144 MEQ/L POTASSIUM (test code = 2228) 4.2 MEQ/L CHLORIDE (test code = 2215) 105 MEQ/L CARBON DIOXIDE (test code = 27 MEQ/L 2205) CALCIUM (test code = 2209) 9.3 MG/DL PROTEIN, TOTAL (test code = 7.0 G/DL 2228) ALBUMIN (test code = 2201) 4.3 G/DL CALC GLOBULIN (test code = 2.7 G/DL 0) CALC A/G RATIO (test code = 1.6 RATIO 2234) BILIRUBIN, TOTAL (test code = 0.4 MG/DL 2206) ALKALINE PHOSPHATASE (test 71 U/L code = 2204) AST (test code = 2218) 17 U/L ALT (test code = 2219) 12 U/L COMPREHENSIVE METABOLIC [id number] 00:00:00 Test Item Value Reference Range Interpretation Comments GLUCOSE (test code = 2217) 92 MG/DL BUN (test code = 2208) 15 MG/DL CREATININE (test code = 2214) 0.66 MG/DL eGFR AMER. (test code 99 ML/MIN/1.73 = 26138) eGFR NON- AMER. (test 85 ML/MIN/1.73 code = 61826) CALC BUN/CREAT (test code = 23 RATIO 2235) SODIUM (test code = 2231) 144 MEQ/L POTASSIUM (test code = 2228) 4.2 MEQ/L CHLORIDE (test code = 2215) 105 MEQ/L CARBON DIOXIDE (test code = 27 MEQ/L 2205) CALCIUM (test code = 2209) 9.3 MG/DL PROTEIN, TOTAL (test code = 7.0 G/DL 2228) ALBUMIN (test code = 220) 4.3 G/DL CALC GLOBULIN (test code = 2.7 G/DL 2239) CALC A/G RATIO (test code = 1.6 RATIO 2233) BILIRUBIN, TOTAL (test code = 0.4 MG/DL 2206) ALKALINE PHOSPHATASE (test 71 U/L code = 2204) AST (test code = 2218) 17 U/L ALT (test code = 2219) 12 U/L HEMOGLOBIN [id number] 00:00:00 Test Item Value Reference Range Interpretation Comments HEMOGLOBIN A1c (test code = 58251) 5.8 % HEMOGLOBIN [id number] 00:00:00 Test Item Value Reference Range Interpretation Comments HEMOGLOBIN A1c (test code = 26422) 5.8 % COMPREHENSIVE METABOLIC [id number] 00:00:00 Test Item Value Reference Range Interpretation Comments GLUCOSE (test code = 2217) 92 MG/DL BUN (test code = 2208) 15 MG/DL CREATININE (test code = 2214) 0.66 MG/DL eGFR AMER. (test code 99 ML/MIN/1.73 = 39746) eGFR NON- AMER. (test 85 ML/MIN/1.73 code = 69330) CALC BUN/CREAT (test code = 23 RATIO 2235) SODIUM (test code = 2231) 144 MEQ/L POTASSIUM (test code = 2228) 4.2 MEQ/L CHLORIDE (test code = 2215) 105 MEQ/L CARBON DIOXIDE (test code = 27 MEQ/L 220) CALCIUM (test code = 2209) 9.3 MG/DL PROTEIN, TOTAL (test code = 7.0 G/DL 222) ALBUMIN (test code = 2201) 4.3 G/DL CALC GLOBULIN (test code = 2.7 G/DL 2240) CALC A/G RATIO (test code = 1.6 RATIO 2234) BILIRUBIN, TOTAL (test code = 0.4 MG/DL 2207) ALKALINE PHOSPHATASE (test 71 U/L code = 2204) AST (test code = 2218) 17 U/L ALT (test code = 2219) 12 U/L COMPREHENSIVE METABOLIC [id number] 00:00:00 Test Item Value Reference Range Interpretation Comments GLUCOSE (test code = 2217) 92 MG/DL BUN (test code = 2208) 15 MG/DL CREATININE (test code = 2214) 0.66 MG/DL eGFR AMER. (test code 99 ML/MIN/1.73 = 41327) eGFR NON- AMER. (test 85 ML/MIN/1.73 code = 21386) CALC BUN/CREAT (test code = 23 RATIO 2235) SODIUM (test code = 2231) 144 MEQ/L POTASSIUM (test code = 2228) 4.2 MEQ/L CHLORIDE (test code = 2215) 105 MEQ/L CARBON DIOXIDE (test code = 27 MEQ/L 2205) CALCIUM (test code = 2209) 9.3 MG/DL PROTEIN, TOTAL (test code = 7.0 G/DL 2228) ALBUMIN (test code = 2201) 4.3 G/DL CALC GLOBULIN (test code = 2.7 G/DL 2240) CALC A/G RATIO (test code = 1.6 RATIO 2234) BILIRUBIN, TOTAL (test code = 0.4 MG/DL 2207) ALKALINE PHOSPHATASE (test 71 U/L code = 2204) AST (test code = 2218) 17 U/L ALT (test code = 2219) 12 U/L CBC W/AUTO [id number] 00:00:00 Test Item Value Reference Range Interpretation Comments WBC (test code = 1001) 2.9 K/UL RBC (test code = 1002) 4.45 M/UL HEMOGLOBIN (test code = 1003) 13.1 G/DL HEMATOCRIT (test code = 1004) 38.9 % MCV (test code = 1005) 87.4 fL MCH (test code = 1006) 29.4 PG MCHC (test code = 1007) 33.7 G/DL RDW (test code = 1038) 12.9 % NEUTROPHILS (test code = 1008) 56.2 % LYMPHOCYTES (test code = 1010) 33.3 % MONOCYTES (test code = 1011) 7.5 % EOSINOPHILS (test code = 1012) 2.0 % BASOPHILS (test code = 1013) 1.0 % PLATELET COUNT (test code = 1015) 156 K/UL CBC W/AUTO [id number] 00:00:00 Test Item Value Reference Range Interpretation Comments WBC (test code = 1001) 2.9 K/UL RBC (test code = 1002) 4.45 M/UL HEMOGLOBIN (test code = 1003) 13.1 G/DL HEMATOCRIT (test code = 1004) 38.9 % MCV (test code = 1005) 87.4 fL MCH (test code = 1006) 29.4 PG MCHC (test code = 1007) 33.7 G/DL RDW (test code = 1038) 12.9 % NEUTROPHILS (test code = 1008) 56.2 % LYMPHOCYTES (test code = 1010) 33.3 % MONOCYTES (test code = 1011) 7.5 % EOSINOPHILS (test code = 1012) 2.0 % BASOPHILS (test code = 1013) 1.0 % PLATELET COUNT (test code = 1015) 156 K/UL CBC W/AUTO [id number] 00:00:00 Test Item Value Reference Range Interpretation Comments WBC (test code = 1001) 2.9 K/UL RBC (test code = 1002) 4.45 M/UL HEMOGLOBIN (test code = 1003) 13.1 G/DL HEMATOCRIT (test code = 1004) 38.9 % MCV (test code = 1005) 87.4 fL MCH (test code = 1006) 29.4 PG MCHC (test code = 1007) 33.7 G/DL RDW (test code = 1038) 12.9 % NEUTROPHILS (test code = 1008) 56.2 % LYMPHOCYTES (test code = 1010) 33.3 % MONOCYTES (test code = 1011) 7.5 % EOSINOPHILS (test code = 1012) 2.0 % BASOPHILS (test code = 1013) 1.0 % PLATELET COUNT (test code = 1015) 156 K/UL HEMOGLOBIN [id number] 00:00:00 Test Item Value Reference Range Interpretation Comments HEMOGLOBIN A1c (test code = 41177) 5.8 % HEMOGLOBIN [id number] 00:00:00 Test Item Value Reference Range Interpretation Comments HEMOGLOBIN A1c (test code = 50019) 5.8 % HEMOGLOBIN [id number] 00:00:00 Test Item Value Reference Range Interpretation Comments HEMOGLOBIN A1c (test code = 30687) 5.8 % COMPREHENSIVE METABOLIC [id number] 00:00:00 Test Item Value Reference Range Interpretation Comments GLUCOSE (test code = 2217) 92 MG/DL BUN (test code = 2208) 15 MG/DL CREATININE (test code = 2214) 0.66 MG/DL eGFR AMER. (test code 99 ML/MIN/1.73 = 70610) eGFR NON- AMER. (test 85 ML/MIN/1.73 code = 04384) CALC BUN/CREAT (test code = 23 RATIO 2235) SODIUM (test code = 2231) 144 MEQ/L POTASSIUM (test code = 2228) 4.2 MEQ/L CHLORIDE (test code = 2215) 105 MEQ/L CARBON DIOXIDE (test code = 27 MEQ/L 2205) CALCIUM (test code = 2209) 9.3 MG/DL PROTEIN, TOTAL (test code = 7.0 G/DL 2228) ALBUMIN (test code = 2201) 4.3 G/DL CALC GLOBULIN (test code = 2.7 G/DL 2240) CALC A/G RATIO (test code = 1.6 RATIO 2233) BILIRUBIN, TOTAL (test code = 0.4 MG/DL 2206) ALKALINE PHOSPHATASE (test 71 U/L code = 2204) AST (test code = 2218) 17 U/L ALT (test code = 2219) 12 U/L COMPREHENSIVE METABOLIC [id number] 00:00:00 Test Item Value Reference Range Interpretation Comments GLUCOSE (test code = 2217) 92 MG/DL BUN (test code = 2208) 15 MG/DL CREATININE (test code = 2214) 0.66 MG/DL eGFR AMER. (test code 99 ML/MIN/1.73 = 97437) eGFR NON- AMER. (test 85 ML/MIN/1.73 code = 95134) CALC BUN/CREAT (test code = 23 RATIO 2235) SODIUM (test code = 2231) 144 MEQ/L POTASSIUM (test code = 2228) 4.2 MEQ/L CHLORIDE (test code = 2215) 105 MEQ/L CARBON DIOXIDE (test code = 27 MEQ/L 2205) CALCIUM (test code = 2209) 9.3 MG/DL PROTEIN, TOTAL (test code = 7.0 G/DL 2228) ALBUMIN (test code = 2201) 4.3 G/DL CALC GLOBULIN (test code = 2.7 G/DL 2239) CALC A/G RATIO (test code = 1.6 RATIO 2233) BILIRUBIN, TOTAL (test code = 0.4 MG/DL 2206) ALKALINE PHOSPHATASE (test 71 U/L code = 2204) AST (test code = 2218) 17 U/L ALT (test code = 2219) 12 U/L CBC W/AUTO [id number] 00:00:00 Test Item Value Reference Range Interpretation Comments WBC (test code = 1001) 2.9 K/UL RBC (test code = 1002) 4.45 M/UL HEMOGLOBIN (test code = 1003) 13.1 G/DL HEMATOCRIT (test code = 1004) 38.9 % MCV (test code = 1005) 87.4 fL MCH (test code = 1006) 29.4 PG MCHC (test code = 1007) 33.7 G/DL RDW (test code = 1038) 12.9 % NEUTROPHILS (test code = 1008) 56.2 % LYMPHOCYTES (test code = 1010) 33.3 % MONOCYTES (test code = 1011) 7.5 % EOSINOPHILS (test code = 1012) 2.0 % BASOPHILS (test code = 1013) 1.0 % PLATELET COUNT (test code = 1015) 156 K/UL CBC W/AUTO [id number] 00:00:00 Test Item Value Reference Range Interpretation Comments WBC (test code = 1001) 2.9 K/UL RBC (test code = 1002) 4.45 M/UL HEMOGLOBIN (test code = 1003) 13.1 G/DL HEMATOCRIT (test code = 1004) 38.9 % MCV (test code = 1005) 87.4 fL MCH (test code = 1006) 29.4 PG MCHC (test code = 1007) 33.7 G/DL RDW (test code = 1038) 12.9 % NEUTROPHILS (test code = 1008) 56.2 % LYMPHOCYTES (test code = 1010) 33.3 % MONOCYTES (test code = 1011) 7.5 % EOSINOPHILS (test code = 1012) 2.0 % BASOPHILS (test code = 1013) 1.0 % PLATELET COUNT (test code = 1015) 156 K/UL CBC W/AUTO [id number] 00:00:00 Test Item Value Reference Range Interpretation Comments WBC (test code = 1001) 2.9 K/UL RBC (test code = 1002) 4.45 M/UL HEMOGLOBIN (test code = 1003) 13.1 G/DL HEMATOCRIT (test code = 1004) 38.9 % MCV (test code = 1005) 87.4 fL MCH (test code = 1006) 29.4 PG MCHC (test code = 1007) 33.7 G/DL RDW (test code = 1038) 12.9 % NEUTROPHILS (test code = 1008) 56.2 % LYMPHOCYTES (test code = 1010) 33.3 % MONOCYTES (test code = 1011) 7.5 % EOSINOPHILS (test code = 1012) 2.0 % BASOPHILS (test code = 1013) 1.0 % PLATELET COUNT (test code = 1015) 156 K/UL HEMOGLOBIN [id number] 00:00:00 Test Item Value Reference Range Interpretation Comments HEMOGLOBIN A1c (test code = 88123) 5.8 % HEMOGLOBIN [id number] 00:00:00 Test Item Value Reference Range Interpretation Comments HEMOGLOBIN A1c (test code = 36411) 5.8 % HEMOGLOBIN [id number] 00:00:00 Test Item Value Reference Range Interpretation Comments HEMOGLOBIN A1c (test code = 02030) 5.8 % COMPREHENSIVE METABOLIC [id number] 00:00:00 Test Item Value Reference Range Interpretation Comments GLUCOSE (test code = 2217) 92 MG/DL BUN (test code = 2208) 15 MG/DL CREATININE (test code = 2214) 0.66 MG/DL eGFR AMER. (test code 99 ML/MIN/1.73 = 68791) eGFR NON- AMER. (test 85 ML/MIN/1.73 code = 71279) CALC BUN/CREAT (test code = 23 RATIO 2235) SODIUM (test code = 2231) 144 MEQ/L POTASSIUM (test code = 2228) 4.2 MEQ/L CHLORIDE (test code = 2215) 105 MEQ/L CARBON DIOXIDE (test code = 27 MEQ/L 220) CALCIUM (test code = 2209) 9.3 MG/DL PROTEIN, TOTAL (test code = 7.0 G/DL 222) ALBUMIN (test code = 2201) 4.3 G/DL CALC GLOBULIN (test code = 2.7 G/DL 2240) CALC A/G RATIO (test code = 1.6 RATIO 2234) BILIRUBIN, TOTAL (test code = 0.4 MG/DL 2206) ALKALINE PHOSPHATASE (test 71 U/L code = 2204) AST (test code = 2218) 17 U/L ALT (test code = 2219) 12 U/L COMPREHENSIVE METABOLIC [id number] 00:00:00 Test Item Value Reference Range Interpretation Comments GLUCOSE (test code = 2217) 92 MG/DL BUN (test code = 2208) 15 MG/DL CREATININE (test code = 2214) 0.66 MG/DL eGFR AMER. (test code 99 ML/MIN/1.73 = 82809) eGFR NON- AMER. (test 85 ML/MIN/1.73 code = 16904) CALC BUN/CREAT (test code = 23 RATIO 2235) SODIUM (test code = 2231) 144 MEQ/L POTASSIUM (test code = 2228) 4.2 MEQ/L CHLORIDE (test code = 2215) 105 MEQ/L CARBON DIOXIDE (test code = 27 MEQ/L 2205) CALCIUM (test code = 2209) 9.3 MG/DL PROTEIN, TOTAL (test code = 7.0 G/DL 2228) ALBUMIN (test code = 2201) 4.3 G/DL CALC GLOBULIN (test code = 2.7 G/DL 2240) CALC A/G RATIO (test code = 1.6 RATIO 2234) BILIRUBIN, TOTAL (test code = 0.4 MG/DL 2206) ALKALINE PHOSPHATASE (test 71 U/L code = 2204) AST (test code = 2218) 17 U/L ALT (test code = 2219) 12 U/L CBC W/AUTO [id number] 00:00:00 Test Item Value Reference Range Interpretation Comments WBC (test code = 1001) 2.9 K/UL RBC (test code = 1002) 4.45 M/UL HEMOGLOBIN (test code = 1003) 13.1 G/DL HEMATOCRIT (test code = 1004) 38.9 % MCV (test code = 1005) 87.4 fL MCH (test code = 1006) 29.4 PG MCHC (test code = 1007) 33.7 G/DL RDW (test code = 1038) 12.9 % NEUTROPHILS (test code = 1008) 56.2 % LYMPHOCYTES (test code = 1010) 33.3 % MONOCYTES (test code = 1011) 7.5 % EOSINOPHILS (test code = 1012) 2.0 % BASOPHILS (test code = 1013) 1.0 % PLATELET COUNT (test code = 1015) 156 K/UL CBC W/AUTO [id number] 00:00:00 Test Item Value Reference Range Interpretation Comments WBC (test code = 1001) 2.9 K/UL RBC (test code = 1002) 4.45 M/UL HEMOGLOBIN (test code = 1003) 13.1 G/DL HEMATOCRIT (test code = 1004) 38.9 % MCV (test code = 1005) 87.4 fL MCH (test code = 1006) 29.4 PG MCHC (test code = 1007) 33.7 G/DL RDW (test code = 1038) 12.9 % NEUTROPHILS (test code = 1008) 56.2 % LYMPHOCYTES (test code = 1010) 33.3 % MONOCYTES (test code = 1011) 7.5 % EOSINOPHILS (test code = 1012) 2.0 % BASOPHILS (test code = 1013) 1.0 % PLATELET COUNT (test code = 1015) 156 K/UL CBC W/AUTO [id number] 00:00:00 Test Item Value Reference Range Interpretation Comments WBC (test code = 1001) 2.9 K/UL RBC (test code = 1002) 4.45 M/UL HEMOGLOBIN (test code = 1003) 13.1 G/DL HEMATOCRIT (test code = 1004) 38.9 % MCV (test code = 1005) 87.4 fL MCH (test code = 1006) 29.4 PG MCHC (test code = 1007) 33.7 G/DL RDW (test code = 1038) 12.9 % NEUTROPHILS (test code = 1008) 56.2 % LYMPHOCYTES (test code = 1010) 33.3 % MONOCYTES (test code = 1011) 7.5 % EOSINOPHILS (test code = 1012) 2.0 % BASOPHILS (test code = 1013) 1.0 % PLATELET COUNT (test code = 1015) 156 K/UL HEMOGLOBIN [id number] 00:00:00 Test Item Value Reference Range Interpretation Comments HEMOGLOBIN A1c (test code = 15498) 5.8 % HEMOGLOBIN [id number] 00:00:00 Test Item Value Reference Range Interpretation Comments HEMOGLOBIN A1c (test code = 91888) 5.8 % HEMOGLOBIN [id number] 00:00:00 Test Item Value Reference Range Interpretation Comments HEMOGLOBIN A1c (test code = 53774) 5.8 % COMPREHENSIVE METABOLIC [id number] 00:00:00 Test Item Value Reference Range Interpretation Comments GLUCOSE (test code = 2217) 92 MG/DL BUN (test code = 2208) 15 MG/DL CREATININE (test code = 2214) 0.66 MG/DL eGFR AMER. (test code 99 ML/MIN/1.73 = 90859) eGFR NON- AMER. (test 85 ML/MIN/1.73 code = 17392) CALC BUN/CREAT (test code = 23 RATIO 2235) SODIUM (test code = 2231) 144 MEQ/L POTASSIUM (test code = 2228) 4.2 MEQ/L CHLORIDE (test code = 2215) 105 MEQ/L CARBON DIOXIDE (test code = 27 MEQ/L 2205) CALCIUM (test code = 2209) 9.3 MG/DL PROTEIN, TOTAL (test code = 7.0 G/DL 2228) ALBUMIN (test code = 2201) 4.3 G/DL CALC GLOBULIN (test code = 2.7 G/DL 2240) CALC A/G RATIO (test code = 1.6 RATIO 2234) BILIRUBIN, TOTAL (test code = 0.4 MG/DL 2206) ALKALINE PHOSPHATASE (test 71 U/L code = 2204) AST (test code = 2218) 17 U/L ALT (test code = 2219) 12 U/L COMPREHENSIVE METABOLIC [id number] 00:00:00 Test Item Value Reference Range Interpretation Comments GLUCOSE (test code = 2217) 92 MG/DL BUN (test code = 2208) 15 MG/DL CREATININE (test code = 2214) 0.66 MG/DL eGFR AMER. (test code 99 ML/MIN/1.73 = 35172) eGFR NON- AMER. (test 85 ML/MIN/1.73 code = 16807) CALC BUN/CREAT (test code = 23 RATIO 2235) SODIUM (test code = 2231) 144 MEQ/L POTASSIUM (test code = 2228) 4.2 MEQ/L CHLORIDE (test code = 2215) 105 MEQ/L CARBON DIOXIDE (test code = 27 MEQ/L 220) CALCIUM (test code = 2209) 9.3 MG/DL PROTEIN, TOTAL (test code = 7.0 G/DL 2228) ALBUMIN (test code = 2201) 4.3 G/DL CALC GLOBULIN (test code = 2.7 G/DL 2240) CALC A/G RATIO (test code = 1.6 RATIO 2234) BILIRUBIN, TOTAL (test code = 0.4 MG/DL 2206) ALKALINE PHOSPHATASE (test 71 U/L code = 2204) AST (test code = 2218) 17 U/L ALT (test code = 2219) 12 U/L COMPREHENSIVE METABOLIC [id number] 00:00:00 Test Item Value Reference Range Interpretation Comments GLUCOSE (test code = 2217) 98 MG/DL BUN (test code = 2208) 12 MG/DL CREATININE (test code = 2214) 0.63 MG/DL eGFR AMER. (test code 100 ML/MIN/1.73 = 41137) eGFR NON- AMER. (test 87 ML/MIN/1.73 code = 32557) CALC BUN/CREAT (test code = 19 RATIO 2235) SODIUM (test code = 2231) 140 MEQ/L POTASSIUM (test code = 2228) 4.5 MEQ/L CHLORIDE (test code = 2215) 103 MEQ/L CARBON DIOXIDE (test code = 29 MEQ/L 2205) CALCIUM (test code = 2209) 9.6 MG/DL PROTEIN, TOTAL (test code = 7.5 G/DL 2228) ALBUMIN (test code = 2201) 4.4 G/DL CALC GLOBULIN (test code = 3.1 G/DL 2240) CALC A/G RATIO (test code = 1.4 RATIO 2234) BILIRUBIN, TOTAL (test code = 0.6 MG/DL 2207) ALKALINE PHOSPHATASE (test 78 U/L code = 2204) AST (test code = 2218) 16 U/L ALT (test code = 2219) 12 U/L COMPREHENSIVE METABOLIC [id number] 00:00:00 Test Item Value Reference Range Interpretation Comments GLUCOSE (test code = 2217) 98 MG/DL BUN (test code = 2208) 12 MG/DL CREATININE (test code = 2214) 0.63 MG/DL eGFR AMER. (test code 100 ML/MIN/1.73 = 24867) eGFR NON- AMER. (test 87 ML/MIN/1.73 code = 84210) CALC BUN/CREAT (test code = 19 RATIO 2235) SODIUM (test code = 2231) 140 MEQ/L POTASSIUM (test code = 2228) 4.5 MEQ/L CHLORIDE (test code = 2215) 103 MEQ/L CARBON DIOXIDE (test code = 29 MEQ/L 2205) CALCIUM (test code = 2209) 9.6 MG/DL PROTEIN, TOTAL (test code = 7.5 G/DL 2228) ALBUMIN (test code = 2201) 4.4 G/DL CALC GLOBULIN (test code = 3.1 G/DL 2240) CALC A/G RATIO (test code = 1.4 RATIO 2234) BILIRUBIN, TOTAL (test code = 0.6 MG/DL 7) ALKALINE PHOSPHATASE (test 78 U/L code = 2204) AST (test code = 2218) 16 U/L ALT (test code = 2219) 12 U/L LIPID [id number] 00:00:00 Test Item Value Reference Range Interpretation Comments CHOLESTEROL (test code = 2210) 156 MG/DL TRIGLYCERIDES (test code = 2232) 70 MG/DL HDL CHOLESTEROL (test code = 2220) 61 MG/DL CALC LDL CHOL (test code = 2237) 80 MG/DL RISK RATIO LDL/HDL (test code = 1.31 RATIO 2238) LIPID [id number] 00:00:00 Test Item Value Reference Range Interpretation Comments CHOLESTEROL (test code = 2210) 156 MG/DL TRIGLYCERIDES (test code = 2232) 70 MG/DL HDL CHOLESTEROL (test code = 2220) 61 MG/DL CALC LDL CHOL (test code = 2237) 80 MG/DL RISK RATIO LDL/HDL (test code = 1.31 RATIO 2238) HEMOGLOBIN [id number] 00:00:00 Test Item Value Reference Range Interpretation Comments HEMOGLOBIN A1c (test code = 38071) 5.9 % HEMOGLOBIN [id number] 00:00:00 Test Item Value Reference Range Interpretation Comments HEMOGLOBIN A1c (test code = 41831) 5.9 % HEMOGLOBIN [id number] 00:00:00 Test Item Value Reference Range Interpretation Comments HEMOGLOBIN A1c (test code = 37234) 5.9 % [id number] 00:00:00 Test Item Value Reference Range Interpretation Comments TSH, THIRD GENERATION (test code 2.420 UIU/ML = 2821) [id number] 00:00:00 Test Item Value Reference Range Interpretation Comments TSH, THIRD GENERATION (test code 2.420 UIU/ML = 2821) [id number] 00:00:00 Test Item Value Reference Range Interpretation Comments TSH, THIRD GENERATION (test code 2.420 UIU/ML = 2821) COMPREHENSIVE METABOLIC [id number] 00:00:00 Test Item Value Reference Range Interpretation Comments GLUCOSE (test code = 2217) 98 MG/DL BUN (test code = 2208) 12 MG/DL CREATININE (test code = 2214) 0.63 MG/DL eGFR AMER. (test code 100 ML/MIN/1.73 = 39719) eGFR NON- AMER. (test 87 ML/MIN/1.73 code = 52971) CALC BUN/CREAT (test code = 19 RATIO 2234) SODIUM (test code = 2231) 140 MEQ/L POTASSIUM (test code = 2228) 4.5 MEQ/L CHLORIDE (test code = 2215) 103 MEQ/L CARBON DIOXIDE (test code = 29 MEQ/L 2205) CALCIUM (test code = 2209) 9.6 MG/DL PROTEIN, TOTAL (test code = 7.5 G/DL 2228) ALBUMIN (test code = 2201) 4.4 G/DL CALC GLOBULIN (test code = 3.1 G/DL 2239) CALC A/G RATIO (test code = 1.4 RATIO 2233) BILIRUBIN, TOTAL (test code = 0.6 MG/DL 2207) ALKALINE PHOSPHATASE (test 78 U/L code = 2204) AST (test code = 2218) 16 U/L ALT (test code = 2219) 12 U/L COMPREHENSIVE METABOLIC [id number] 00:00:00 Test Item Value Reference Range Interpretation Comments GLUCOSE (test code = 2217) 98 MG/DL BUN (test code = 2208) 12 MG/DL CREATININE (test code = 2214) 0.63 MG/DL eGFR AMER. (test code 100 ML/MIN/1.73 = 63395) eGFR NON- AMER. (test 87 ML/MIN/1.73 code = 90655) CALC BUN/CREAT (test code = 19 RATIO 2235) SODIUM (test code = 2231) 140 MEQ/L POTASSIUM (test code = 2228) 4.5 MEQ/L CHLORIDE (test code = 2215) 103 MEQ/L CARBON DIOXIDE (test code = 29 MEQ/L 2206) CALCIUM (test code = 2209) 9.6 MG/DL PROTEIN, TOTAL (test code = 7.5 G/DL 2228) ALBUMIN (test code = 2201) 4.4 G/DL CALC GLOBULIN (test code = 3.1 G/DL 2240) CALC A/G RATIO (test code = 1.4 RATIO 2234) BILIRUBIN, TOTAL (test code = 0.6 MG/DL 2206) ALKALINE PHOSPHATASE (test 78 U/L code = 2204) AST (test code = 2218) 16 U/L ALT (test code = 2219) 12 U/L COMPREHENSIVE METABOLIC [id number] 00:00:00 Test Item Value Reference Range Interpretation Comments GLUCOSE (test code = 2217) 98 MG/DL BUN (test code = 2208) 12 MG/DL CREATININE (test code = 2214) 0.63 MG/DL eGFR AMER. (test code 100 ML/MIN/1.73 = 84668) eGFR NON- AMER. (test 87 ML/MIN/1.73 code = 13240) CALC BUN/CREAT (test code = 19 RATIO 2235) SODIUM (test code = 2231) 140 MEQ/L POTASSIUM (test code = 2228) 4.5 MEQ/L CHLORIDE (test code = 2215) 103 MEQ/L CARBON DIOXIDE (test code = 29 MEQ/L 2206) CALCIUM (test code = 2209) 9.6 MG/DL PROTEIN, TOTAL (test code = 7.5 G/DL 222) ALBUMIN (test code = 2201) 4.4 G/DL CALC GLOBULIN (test code = 3.1 G/DL 2240) CALC A/G RATIO (test code = 1.4 RATIO 2234) BILIRUBIN, TOTAL (test code = 0.6 MG/DL 220) ALKALINE PHOSPHATASE (test 78 U/L code = 2204) AST (test code = 2218) 16 U/L ALT (test code = 2219) 12 U/L COMPREHENSIVE METABOLIC [id number] 00:00:00 Test Item Value Reference Range Interpretation Comments GLUCOSE (test code = 2217) 98 MG/DL BUN (test code = 2208) 12 MG/DL CREATININE (test code = 2214) 0.63 MG/DL eGFR AMER. (test code 100 ML/MIN/1.73 = 36544) eGFR NON- AMER. (test 87 ML/MIN/1.73 code = 99069) CALC BUN/CREAT (test code = 19 RATIO 2235) SODIUM (test code = 2231) 140 MEQ/L POTASSIUM (test code = 2228) 4.5 MEQ/L CHLORIDE (test code = 2215) 103 MEQ/L CARBON DIOXIDE (test code = 29 MEQ/L 2205) CALCIUM (test code = 2209) 9.6 MG/DL PROTEIN, TOTAL (test code = 7.5 G/DL 2228) ALBUMIN (test code = 2201) 4.4 G/DL CALC GLOBULIN (test code = 3.1 G/DL 2240) CALC A/G RATIO (test code = 1.4 RATIO 2234) BILIRUBIN, TOTAL (test code = 0.6 MG/DL 2206) ALKALINE PHOSPHATASE (test 78 U/L code = 2204) AST (test code = 2218) 16 U/L ALT (test code = 2219) 12 U/L LIPID [id number] 00:00:00 Test Item Value Reference Range Interpretation Comments CHOLESTEROL (test code = 2210) 156 MG/DL TRIGLYCERIDES (test code = 2232) 70 MG/DL HDL CHOLESTEROL (test code = 2220) 61 MG/DL CALC LDL CHOL (test code = 2237) 80 MG/DL RISK RATIO LDL/HDL (test code = 1.31 RATIO 2238) LIPID [id number] 00:00:00 Test Item Value Reference Range Interpretation Comments CHOLESTEROL (test code = 2210) 156 MG/DL TRIGLYCERIDES (test code = 2232) 70 MG/DL HDL CHOLESTEROL (test code = 2220) 61 MG/DL CALC LDL CHOL (test code = 2237) 80 MG/DL RISK RATIO LDL/HDL (test code = 1.31 RATIO 2238) HEMOGLOBIN [id number] 00:00:00 Test Item Value Reference Range Interpretation Comments HEMOGLOBIN A1c (test code = 35653) 5.9 % HEMOGLOBIN [id number] 00:00:00 Test Item Value Reference Range Interpretation Comments HEMOGLOBIN A1c (test code = 93824) 5.9 % HEMOGLOBIN [id number] 00:00:00 Test Item Value Reference Range Interpretation Comments HEMOGLOBIN A1c (test code = 43794) 5.9 % [id number] 00:00:00 Test Item Value Reference Range Interpretation Comments TSH, THIRD GENERATION (test code 2.420 UIU/ML = 2821) LIPID [id number] 00:00:00 Test Item Value Reference Range Interpretation Comments CHOLESTEROL (test code = 2210) 156 MG/DL TRIGLYCERIDES (test code = 2232) 70 MG/DL HDL CHOLESTEROL (test code = 2220) 61 MG/DL CALC LDL CHOL (test code = 2237) 80 MG/DL RISK RATIO LDL/HDL (test code = 1.31 RATIO 2238) [id number] 00:00:00 Test Item Value Reference Range Interpretation Comments TSH, THIRD GENERATION (test code 2.420 UIU/ML = 2821) [id number] 00:00:00 Test Item Value Reference Range Interpretation Comments TSH, THIRD GENERATION (test code 2.420 UIU/ML = 2821) LIPID [id number] 00:00:00 Test Item Value Reference Range Interpretation Comments CHOLESTEROL (test code = 2210) 156 MG/DL TRIGLYCERIDES (test code = 2232) 70 MG/DL HDL CHOLESTEROL (test code = 2220) 61 MG/DL CALC LDL CHOL (test code = 2237) 80 MG/DL RISK RATIO LDL/HDL (test code = 1.31 RATIO 2238) HEMOGLOBIN [id number] 00:00:00 Test Item Value Reference Range Interpretation Comments HEMOGLOBIN A1c (test code = 92286) 5.9 % HEMOGLOBIN [id number] 00:00:00 Test Item Value Reference Range Interpretation Comments HEMOGLOBIN A1c (test code = 24079) 5.9 % HEMOGLOBIN [id number] 00:00:00 Test Item Value Reference Range Interpretation Comments HEMOGLOBIN A1c (test code = 91455) 5.9 % [id number] 00:00:00 Test Item Value Reference Range Interpretation Comments TSH, THIRD GENERATION (test code 2.420 UIU/ML = 2821) [id number] 00:00:00 Test Item Value Reference Range Interpretation Comments TSH, THIRD GENERATION (test code 2.420 UIU/ML = 2821) [id number] 00:00:00 Test Item Value Reference Range Interpretation Comments TSH, THIRD GENERATION (test code 2.420 UIU/ML = 2821) COMPREHENSIVE METABOLIC [id number] 00:00:00 Test Item Value Reference Range Interpretation Comments GLUCOSE (test code = 2217) 98 MG/DL BUN (test code = 2208) 12 MG/DL CREATININE (test code = 2214) 0.63 MG/DL eGFR AMER. (test code 100 ML/MIN/1.73 = 24101) eGFR NON- AMER. (test 87 ML/MIN/1.73 code = 51554) CALC BUN/CREAT (test code = 19 RATIO 5) SODIUM (test code = 2231) 140 MEQ/L POTASSIUM (test code = 2228) 4.5 MEQ/L CHLORIDE (test code = 2215) 103 MEQ/L CARBON DIOXIDE (test code = 29 MEQ/L 2205) CALCIUM (test code = 2209) 9.6 MG/DL PROTEIN, TOTAL (test code = 7.5 G/DL 2228) ALBUMIN (test code = 2201) 4.4 G/DL CALC GLOBULIN (test code = 3.1 G/DL 2239) CALC A/G RATIO (test code = 1.4 RATIO 2233) BILIRUBIN, TOTAL (test code = 0.6 MG/DL 2206) ALKALINE PHOSPHATASE (test 78 U/L code = 2204) AST (test code = 2218) 16 U/L ALT (test code = 2219) 12 U/L COMPREHENSIVE METABOLIC [id number] 00:00:00 Test Item Value Reference Range Interpretation Comments GLUCOSE (test code = 2217) 98 MG/DL BUN (test code = 2208) 12 MG/DL CREATININE (test code = 2214) 0.63 MG/DL eGFR AMER. (test code 100 ML/MIN/1.73 = 22890) eGFR NON- AMER. (test 87 ML/MIN/1.73 code = 56191) CALC BUN/CREAT (test code = 19 RATIO 2235) SODIUM (test code = 2231) 140 MEQ/L POTASSIUM (test code = 2228) 4.5 MEQ/L CHLORIDE (test code = 2215) 103 MEQ/L CARBON DIOXIDE (test code = 29 MEQ/L 2205) CALCIUM (test code = 2209) 9.6 MG/DL PROTEIN, TOTAL (test code = 7.5 G/DL 2228) ALBUMIN (test code = 220) 4.4 G/DL CALC GLOBULIN (test code = 3.1 G/DL 2239) CALC A/G RATIO (test code = 1.4 RATIO 2233) BILIRUBIN, TOTAL (test code = 0.6 MG/DL 2206) ALKALINE PHOSPHATASE (test 78 U/L code = 2204) AST (test code = 2218) 16 U/L ALT (test code = 2219) 12 U/L LIPID [id number] 00:00:00 Test Item Value Reference Range Interpretation Comments CHOLESTEROL (test code = 2210) 156 MG/DL TRIGLYCERIDES (test code = 2232) 70 MG/DL HDL CHOLESTEROL (test code = 2220) 61 MG/DL CALC LDL CHOL (test code = 2237) 80 MG/DL RISK RATIO LDL/HDL (test code = 1.31 RATIO 2238) LIPID [id number] 00:00:00 Test Item Value Reference Range Interpretation Comments CHOLESTEROL (test code = 2210) 156 MG/DL TRIGLYCERIDES (test code = 2232) 70 MG/DL HDL CHOLESTEROL (test code = 2220) 61 MG/DL CALC LDL CHOL (test code = 2237) 80 MG/DL RISK RATIO LDL/HDL (test code = 1.31 RATIO 2238) HEMOGLOBIN [id number] 00:00:00 Test Item Value Reference Range Interpretation Comments HEMOGLOBIN A1c (test code = 43655) 5.9 % HEMOGLOBIN [id number] 00:00:00 Test Item Value Reference Range Interpretation Comments HEMOGLOBIN A1c (test code = 02179) 5.9 % HEMOGLOBIN [id number] 00:00:00 Test Item Value Reference Range Interpretation Comments HEMOGLOBIN A1c (test code = 45081) 5.9 % [id number] 00:00:00 Test Item Value Reference Range Interpretation Comments TSH, THIRD GENERATION (test code 2.420 UIU/ML = 2821) [id number] 00:00:00 Test Item Value Reference Range Interpretation Comments TSH, THIRD GENERATION (test code 2.420 UIU/ML = 2821) [id number] 00:00:00 Test Item Value Reference Range Interpretation Comments TSH, THIRD GENERATION (test code 2.420 UIU/ML = 2821) COMPREHENSIVE METABOLIC [id number] 00:00:00 Test Item Value Reference Range Interpretation Comments GLUCOSE (test code = 2217) 98 MG/DL BUN (test code = 2208) 12 MG/DL CREATININE (test code = 2214) 0.63 MG/DL eGFR AMER. (test code 100 ML/MIN/1.73 = 17370) eGFR NON- AMER. (test 87 ML/MIN/1.73 code = 45670) CALC BUN/CREAT (test code = 19 RATIO 2235) SODIUM (test code = 2231) 140 MEQ/L POTASSIUM (test code = 2228) 4.5 MEQ/L CHLORIDE (test code = 2215) 103 MEQ/L CARBON DIOXIDE (test code = 29 MEQ/L 2205) CALCIUM (test code = 2209) 9.6 MG/DL PROTEIN, TOTAL (test code = 7.5 G/DL 2228) ALBUMIN (test code = 2201) 4.4 G/DL CALC GLOBULIN (test code = 3.1 G/DL 0) CALC A/G RATIO (test code = 1.4 RATIO 4) BILIRUBIN, TOTAL (test code = 0.6 MG/DL 2206) ALKALINE PHOSPHATASE (test 78 U/L code = 2204) AST (test code = 2218) 16 U/L ALT (test code = 2219) 12 U/L COMPREHENSIVE METABOLIC [id number] 00:00:00 Test Item Value Reference Range Interpretation Comments GLUCOSE (test code = 2217) 98 MG/DL BUN (test code = 2208) 12 MG/DL CREATININE (test code = 2214) 0.63 MG/DL eGFR AMER. (test code 100 ML/MIN/1.73 = 98491) eGFR NON- AMER. (test 87 ML/MIN/1.73 code = 31252) CALC BUN/CREAT (test code = 19 RATIO 2235) SODIUM (test code = 2231) 140 MEQ/L POTASSIUM (test code = 2228) 4.5 MEQ/L CHLORIDE (test code = 2215) 103 MEQ/L CARBON DIOXIDE (test code = 29 MEQ/L 2205) CALCIUM (test code = 2209) 9.6 MG/DL PROTEIN, TOTAL (test code = 7.5 G/DL 2228) ALBUMIN (test code = 2201) 4.4 G/DL CALC GLOBULIN (test code = 3.1 G/DL 224) CALC A/G RATIO (test code = 1.4 RATIO 2234) BILIRUBIN, TOTAL (test code = 0.6 MG/DL 2206) ALKALINE PHOSPHATASE (test 78 U/L code = 2204) AST (test code = 2218) 16 U/L ALT (test code = 2219) 12 U/L LIPID [id number] 00:00:00 Test Item Value Reference Range Interpretation Comments CHOLESTEROL (test code = 2210) 156 MG/DL TRIGLYCERIDES (test code = 2232) 70 MG/DL HDL CHOLESTEROL (test code = 2220) 61 MG/DL CALC LDL CHOL (test code = 2237) 80 MG/DL RISK RATIO LDL/HDL (test code = 1.31 RATIO 2238) LIPID [id number] 00:00:00 Test Item Value Reference Range Interpretation Comments CHOLESTEROL (test code = 2210) 156 MG/DL TRIGLYCERIDES (test code = 2232) 70 MG/DL HDL CHOLESTEROL (test code = 2220) 61 MG/DL CALC LDL CHOL (test code = 2237) 80 MG/DL RISK RATIO LDL/HDL (test code = 1.31 RATIO 2238) HEMOGLOBIN [id number] 00:00:00 Test Item Value Reference Range Interpretation Comments HEMOGLOBIN A1c (test code = 94185) 5.9 % HEMOGLOBIN [id number] 00:00:00 Test Item Value Reference Range Interpretation Comments HEMOGLOBIN A1c (test code = 72008) 5.9 % HEMOGLOBIN [id number] 00:00:00 Test Item Value Reference Range Interpretation Comments HEMOGLOBIN A1c (test code = 29345) 5.9 % [id number] 00:00:00 Test Item Value Reference Range Interpretation Comments TSH, THIRD GENERATION (test code 2.420 UIU/ML = 2821) [id number] 00:00:00 Test Item Value Reference Range Interpretation Comments TSH, THIRD GENERATION (test code 2.420 UIU/ML = 2821) [id number] 00:00:00 Test Item Value Reference Range Interpretation Comments TSH, THIRD GENERATION (test code 2.420 UIU/ML = 2821) COMPREHENSIVE METABOLIC [id number] 00:00:00 Test Item Value Reference Range Interpretation Comments GLUCOSE (test code = 2217) 98 MG/DL BUN (test code = 2208) 12 MG/DL CREATININE (test code = 2214) 0.63 MG/DL eGFR AMER. (test code 100 ML/MIN/1.73 = 17263) eGFR NON- AMER. (test 87 ML/MIN/1.73 code = 70591) CALC BUN/CREAT (test code = 19 RATIO 2235) SODIUM (test code = 2231) 140 MEQ/L POTASSIUM (test code = 2228) 4.5 MEQ/L CHLORIDE (test code = 2215) 103 MEQ/L CARBON DIOXIDE (test code = 29 MEQ/L 2205) CALCIUM (test code = 2209) 9.6 MG/DL PROTEIN, TOTAL (test code = 7.5 G/DL 2228) ALBUMIN (test code = 2201) 4.4 G/DL CALC GLOBULIN (test code = 3.1 G/DL 0) CALC A/G RATIO (test code = 1.4 RATIO 4) BILIRUBIN, TOTAL (test code = 0.6 MG/DL 2206) ALKALINE PHOSPHATASE (test 78 U/L code = 2204) AST (test code = 2218) 16 U/L ALT (test code = 2219) 12 U/L COMPREHENSIVE METABOLIC [id number] 00:00:00 Test Item Value Reference Range Interpretation Comments GLUCOSE (test code = 2217) 98 MG/DL BUN (test code = 2208) 12 MG/DL CREATININE (test code = 2214) 0.63 MG/DL eGFR AMER. (test code 100 ML/MIN/1.73 = 41366) eGFR NON- AMER. (test 87 ML/MIN/1.73 code = 13502) CALC BUN/CREAT (test code = 19 RATIO 2235) SODIUM (test code = 2231) 140 MEQ/L POTASSIUM (test code = 2228) 4.5 MEQ/L CHLORIDE (test code = 2215) 103 MEQ/L CARBON DIOXIDE (test code = 29 MEQ/L 2205) CALCIUM (test code = 2209) 9.6 MG/DL PROTEIN, TOTAL (test code = 7.5 G/DL 2228) ALBUMIN (test code = 2201) 4.4 G/DL CALC GLOBULIN (test code = 3.1 G/DL 2239) CALC A/G RATIO (test code = 1.4 RATIO 2233) BILIRUBIN, TOTAL (test code = 0.6 MG/DL 2206) ALKALINE PHOSPHATASE (test 78 U/L code = 2204) AST (test code = 2218) 16 U/L ALT (test code = 2219) 12 U/L LIPID [id number] 00:00:00 Test Item Value Reference Range Interpretation Comments CHOLESTEROL (test code = 2210) 156 MG/DL TRIGLYCERIDES (test code = 2232) 70 MG/DL HDL CHOLESTEROL (test code = 2220) 61 MG/DL CALC LDL CHOL (test code = 2237) 80 MG/DL RISK RATIO LDL/HDL (test code = 1.31 RATIO 2238) LIPID [id number] 00:00:00 Test Item Value Reference Range Interpretation Comments CHOLESTEROL (test code = 2210) 156 MG/DL TRIGLYCERIDES (test code = 2232) 70 MG/DL HDL CHOLESTEROL (test code = 2220) 61 MG/DL CALC LDL CHOL (test code = 2237) 80 MG/DL RISK RATIO LDL/HDL (test code = 1.31 RATIO 2238) HEMOGLOBIN [id number] 00:00:00 Test Item Value Reference Range Interpretation Comments HEMOGLOBIN A1c (test code = 18623) 5.9 % HEMOGLOBIN [id number] 00:00:00 Test Item Value Reference Range Interpretation Comments HEMOGLOBIN A1c (test code = 11123) 5.9 % HEMOGLOBIN [id number] 00:00:00 Test Item Value Reference Range Interpretation Comments HEMOGLOBIN A1c (test code = 70362) 5.9 % [id number] 00:00:00 Test Item Value Reference Range Interpretation Comments TSH, THIRD GENERATION (test code 2.420 UIU/ML = 2821) [id number] 00:00:00 Test Item Value Reference Range Interpretation Comments TSH, THIRD GENERATION (test code 2.420 UIU/ML = 2821) [id number] 00:00:00 Test Item Value Reference Range Interpretation Comments TSH, THIRD GENERATION (test code 2.420 UIU/ML = 2821) CBC W/AUTO [id number] 00:00:00 Test Item Value Reference Range Interpretation Comments WBC (test code = 1001) 3.9 K/UL RBC (test code = 1002) 4.34 M/UL HEMOGLOBIN (test code = 1003) 12.7 G/DL HEMATOCRIT (test code = 1004) 37.5 % MCV (test code = 1005) 86.4 fL MCH (test code = 1006) 29.3 PG MCHC (test code = 1007) 33.9 G/DL RDW (test code = 1038) 12.8 % NEUTROPHILS (test code = 1008) 56.6 % LYMPHOCYTES (test code = 1010) 33.1 % MONOCYTES (test code = 1011) 7.7 % EOSINOPHILS (test code = 1012) 2.1 % BASOPHILS (test code = 1013) 0.5 % PLATELET COUNT (test code = 1015) 167 K/UL CBC W/AUTO [id number] 00:00:00 Test Item Value Reference Range Interpretation Comments WBC (test code = 1001) 3.9 K/UL RBC (test code = 1002) 4.34 M/UL HEMOGLOBIN (test code = 1003) 12.7 G/DL HEMATOCRIT (test code = 1004) 37.5 % MCV (test code = 1005) 86.4 fL MCH (test code = 1006) 29.3 PG MCHC (test code = 1007) 33.9 G/DL RDW (test code = 1038) 12.8 % NEUTROPHILS (test code = 1008) 56.6 % LYMPHOCYTES (test code = 1010) 33.1 % MONOCYTES (test code = 1011) 7.7 % EOSINOPHILS (test code = 1012) 2.1 % BASOPHILS (test code = 1013) 0.5 % PLATELET COUNT (test code = 1015) 167 K/UL CBC W/AUTO [id number] 00:00:00 Test Item Value Reference Range Interpretation Comments WBC (test code = 1001) 3.9 K/UL RBC (test code = 1002) 4.34 M/UL HEMOGLOBIN (test code = 1003) 12.7 G/DL HEMATOCRIT (test code = 1004) 37.5 % MCV (test code = 1005) 86.4 fL MCH (test code = 1006) 29.3 PG MCHC (test code = 1007) 33.9 G/DL RDW (test code = 1038) 12.8 % NEUTROPHILS (test code = 1008) 56.6 % LYMPHOCYTES (test code = 1010) 33.1 % MONOCYTES (test code = 1011) 7.7 % EOSINOPHILS (test code = 1012) 2.1 % BASOPHILS (test code = 1013) 0.5 % PLATELET COUNT (test code = 1015) 167 K/UL CBC W/AUTO [id number] 00:00:00 Test Item Value Reference Range Interpretation Comments WBC (test code = 1001) 3.9 K/UL RBC (test code = 1002) 4.34 M/UL HEMOGLOBIN (test code = 1003) 12.7 G/DL HEMATOCRIT (test code = 1004) 37.5 % MCV (test code = 1005) 86.4 fL MCH (test code = 1006) 29.3 PG MCHC (test code = 1007) 33.9 G/DL RDW (test code = 1038) 12.8 % NEUTROPHILS (test code = 1008) 56.6 % LYMPHOCYTES (test code = 1010) 33.1 % MONOCYTES (test code = 1011) 7.7 % EOSINOPHILS (test code = 1012) 2.1 % BASOPHILS (test code = 1013) 0.5 % PLATELET COUNT (test code = 1015) 167 K/UL HEMOGLOBIN [id number] 00:00:00 Test Item Value Reference Range Interpretation Comments HEMOGLOBIN A1c (test code = 53658) 6.1 % HEMOGLOBIN [id number] 00:00:00 Test Item Value Reference Range Interpretation Comments HEMOGLOBIN A1c (test code = 46876) 6.1 % HEMOGLOBIN [id number] 00:00:00 Test Item Value Reference Range Interpretation Comments HEMOGLOBIN A1c (test code = 26509) 6.1 % [id number] 00:00:00 Test Item Value Reference Range Interpretation Comments TSH, THIRD GENERATION (test code 2.000 UIU/ML = 2821) [id number] 00:00:00 Test Item Value Reference Range Interpretation Comments TSH, THIRD GENERATION (test code 2.000 UIU/ML = 2821) [id number] 00:00:00 Test Item Value Reference Range Interpretation Comments TSH, THIRD GENERATION (test code 2.000 UIU/ML = 2821) COMPREHENSIVE METABOLIC [id number] 00:00:00 Test Item Value Reference Range Interpretation Comments GLUCOSE (test code = 2217) 103 MG/DL BUN (test code = 2208) 14 MG/DL CREATININE (test code = 2214) 0.71 MG/DL eGFR AMER. (test code 96 ML/MIN/1.73 = 31981) eGFR NON- AMER. (test 83 ML/MIN/1.73 code = 63872) CALC BUN/CREAT (test code = 20 RATIO 2235) SODIUM (test code = 2231) 142 MEQ/L POTASSIUM (test code = 2228) 4.3 MEQ/L CHLORIDE (test code = 2215) 101 MEQ/L CARBON DIOXIDE (test code = 27 MEQ/L 2206) CALCIUM (test code = 2209) 9.2 MG/DL PROTEIN, TOTAL (test code = 7.5 G/DL 2228) ALBUMIN (test code = 2201) 4.5 G/DL CALC GLOBULIN (test code = 3.0 G/DL 2240) CALC A/G RATIO (test code = 1.5 RATIO 4) BILIRUBIN, TOTAL (test code = 0.4 MG/DL 2206) ALKALINE PHOSPHATASE (test 86 U/L code = 2204) AST (test code = 2218) 20 U/L ALT (test code = 2219) 12 U/L COMPREHENSIVE METABOLIC [id number] 00:00:00 Test Item Value Reference Range Interpretation Comments GLUCOSE (test code = 2217) 103 MG/DL BUN (test code = 2208) 14 MG/DL CREATININE (test code = 2214) 0.71 MG/DL eGFR AMER. (test code 96 ML/MIN/1.73 = 13698) eGFR NON- AMER. (test 83 ML/MIN/1.73 code = 84252) CALC BUN/CREAT (test code = 20 RATIO 2235) SODIUM (test code = 2231) 142 MEQ/L POTASSIUM (test code = 2228) 4.3 MEQ/L CHLORIDE (test code = 2215) 101 MEQ/L CARBON DIOXIDE (test code = 27 MEQ/L 2205) CALCIUM (test code = 2209) 9.2 MG/DL PROTEIN, TOTAL (test code = 7.5 G/DL 2228) ALBUMIN (test code = 2201) 4.5 G/DL CALC GLOBULIN (test code = 3.0 G/DL 224) CALC A/G RATIO (test code = 1.5 RATIO 2234) BILIRUBIN, TOTAL (test code = 0.4 MG/DL 2206) ALKALINE PHOSPHATASE (test 86 U/L code = 2204) AST (test code = 2218) 20 U/L ALT (test code = 2219) 12 U/L LIPID [id number] 00:00:00 Test Item Value Reference Range Interpretation Comments CHOLESTEROL (test code = 2210) 174 MG/DL TRIGLYCERIDES (test code = 2232) 160 MG/DL HDL CHOLESTEROL (test code = 2220) 48 MG/DL CALC LDL CHOL (test code = 2237) 100 MG/DL RISK RATIO LDL/HDL (test code = 2.08 RATIO 2238) LIPID [id number] 00:00:00 Test Item Value Reference Range Interpretation Comments CHOLESTEROL (test code = 2210) 174 MG/DL TRIGLYCERIDES (test code = 2232) 160 MG/DL HDL CHOLESTEROL (test code = 2220) 48 MG/DL CALC LDL CHOL (test code = 2237) 100 MG/DL RISK RATIO LDL/HDL (test code = 2.08 RATIO 2238) CBC W/AUTO [id number] 00:00:00 Test Item Value Reference Range Interpretation Comments WBC (test code = 1001) 3.9 K/UL RBC (test code = 1002) 4.34 M/UL HEMOGLOBIN (test code = 1003) 12.7 G/DL HEMATOCRIT (test code = 1004) 37.5 % MCV (test code = 1005) 86.4 fL MCH (test code = 1006) 29.3 PG MCHC (test code = 1007) 33.9 G/DL RDW (test code = 1038) 12.8 % NEUTROPHILS (test code = 1008) 56.6 % LYMPHOCYTES (test code = 1010) 33.1 % MONOCYTES (test code = 1011) 7.7 % EOSINOPHILS (test code = 1012) 2.1 % BASOPHILS (test code = 1013) 0.5 % PLATELET COUNT (test code = 1015) 167 K/UL CBC W/AUTO [id number] 00:00:00 Test Item Value Reference Range Interpretation Comments WBC (test code = 1001) 3.9 K/UL RBC (test code = 1002) 4.34 M/UL HEMOGLOBIN (test code = 1003) 12.7 G/DL HEMATOCRIT (test code = 1004) 37.5 % MCV (test code = 1005) 86.4 fL MCH (test code = 1006) 29.3 PG MCHC (test code = 1007) 33.9 G/DL RDW (test code = 1038) 12.8 % NEUTROPHILS (test code = 1008) 56.6 % LYMPHOCYTES (test code = 1010) 33.1 % MONOCYTES (test code = 1011) 7.7 % EOSINOPHILS (test code = 1012) 2.1 % BASOPHILS (test code = 1013) 0.5 % PLATELET COUNT (test code = 1015) 167 K/UL CBC W/AUTO [id number] 00:00:00 Test Item Value Reference Range Interpretation Comments WBC (test code = 1001) 3.9 K/UL RBC (test code = 1002) 4.34 M/UL HEMOGLOBIN (test code = 1003) 12.7 G/DL HEMATOCRIT (test code = 1004) 37.5 % MCV (test code = 1005) 86.4 fL MCH (test code = 1006) 29.3 PG MCHC (test code = 1007) 33.9 G/DL RDW (test code = 1038) 12.8 % NEUTROPHILS (test code = 1008) 56.6 % LYMPHOCYTES (test code = 1010) 33.1 % MONOCYTES (test code = 1011) 7.7 % EOSINOPHILS (test code = 1012) 2.1 % BASOPHILS (test code = 1013) 0.5 % PLATELET COUNT (test code = 1015) 167 K/UL CBC W/AUTO [id number] 00:00:00 Test Item Value Reference Range Interpretation Comments WBC (test code = 1001) 3.9 K/UL RBC (test code = 1002) 4.34 M/UL HEMOGLOBIN (test code = 1003) 12.7 G/DL HEMATOCRIT (test code = 1004) 37.5 % MCV (test code = 1005) 86.4 fL MCH (test code = 1006) 29.3 PG MCHC (test code = 1007) 33.9 G/DL RDW (test code = 1038) 12.8 % NEUTROPHILS (test code = 1008) 56.6 % LYMPHOCYTES (test code = 1010) 33.1 % MONOCYTES (test code = 1011) 7.7 % EOSINOPHILS (test code = 1012) 2.1 % BASOPHILS (test code = 1013) 0.5 % PLATELET COUNT (test code = 1015) 167 K/UL HEMOGLOBIN [id number] 00:00:00 Test Item Value Reference Range Interpretation Comments HEMOGLOBIN A1c (test code = 87807) 6.1 % CBC W/AUTO [id number] 00:00:00 Test Item Value Reference Range Interpretation Comments WBC (test code = 1001) 3.9 K/UL RBC (test code = 1002) 4.34 M/UL HEMOGLOBIN (test code = 1003) 12.7 G/DL HEMATOCRIT (test code = 1004) 37.5 % MCV (test code = 1005) 86.4 fL MCH (test code = 1006) 29.3 PG MCHC (test code = 1007) 33.9 G/DL RDW (test code = 1038) 12.8 % NEUTROPHILS (test code = 1008) 56.6 % LYMPHOCYTES (test code = 1010) 33.1 % MONOCYTES (test code = 1011) 7.7 % EOSINOPHILS (test code = 1012) 2.1 % BASOPHILS (test code = 1013) 0.5 % PLATELET COUNT (test code = 1015) 167 K/UL HEMOGLOBIN [id number] 00:00:00 Test Item Value Reference Range Interpretation Comments HEMOGLOBIN A1c (test code = 49481) 6.1 % HEMOGLOBIN [id number] 00:00:00 Test Item Value Reference Range Interpretation Comments HEMOGLOBIN A1c (test code = 10313) 6.1 % HEMOGLOBIN [id number] 00:00:00 Test Item Value Reference Range Interpretation Comments HEMOGLOBIN A1c (test code = 57426) 6.1 % [id number] 00:00:00 Test Item Value Reference Range Interpretation Comments TSH, THIRD GENERATION (test code 2.000 UIU/ML = 2821) [id number] 00:00:00 Test Item Value Reference Range Interpretation Comments TSH, THIRD GENERATION (test code 2.000 UIU/ML = 2821) [id number] 00:00:00 Test Item Value Reference Range Interpretation Comments TSH, THIRD GENERATION (test code 2.000 UIU/ML = 2821) COMPREHENSIVE METABOLIC [id number] 00:00:00 Test Item Value Reference Range Interpretation Comments GLUCOSE (test code = 2217) 103 MG/DL BUN (test code = 2208) 14 MG/DL CREATININE (test code = 2214) 0.71 MG/DL eGFR AMER. (test code 96 ML/MIN/1.73 = 34351) eGFR NON- AMER. (test 83 ML/MIN/1.73 code = 08456) CALC BUN/CREAT (test code = 20 RATIO 2235) SODIUM (test code = 2231) 142 MEQ/L POTASSIUM (test code = 2228) 4.3 MEQ/L CHLORIDE (test code = 2215) 101 MEQ/L CARBON DIOXIDE (test code = 27 MEQ/L 2206) CALCIUM (test code = 2209) 9.2 MG/DL PROTEIN, TOTAL (test code = 7.5 G/DL 2228) ALBUMIN (test code = 2201) 4.5 G/DL CALC GLOBULIN (test code = 3.0 G/DL 2240) CALC A/G RATIO (test code = 1.5 RATIO 4) BILIRUBIN, TOTAL (test code = 0.4 MG/DL 2206) ALKALINE PHOSPHATASE (test 86 U/L code = 2204) AST (test code = 2218) 20 U/L ALT (test code = 2219) 12 U/L COMPREHENSIVE METABOLIC [id number] 00:00:00 Test Item Value Reference Range Interpretation Comments GLUCOSE (test code = 2217) 103 MG/DL BUN (test code = 2208) 14 MG/DL CREATININE (test code = 2214) 0.71 MG/DL eGFR AMER. (test code 96 ML/MIN/1.73 = 59521) eGFR NON- AMER. (test 83 ML/MIN/1.73 code = 79481) CALC BUN/CREAT (test code = 20 RATIO 2235) SODIUM (test code = 2231) 142 MEQ/L POTASSIUM (test code = 2228) 4.3 MEQ/L CHLORIDE (test code = 2215) 101 MEQ/L CARBON DIOXIDE (test code = 27 MEQ/L 2205) CALCIUM (test code = 2209) 9.2 MG/DL PROTEIN, TOTAL (test code = 7.5 G/DL 2228) ALBUMIN (test code = 2201) 4.5 G/DL CALC GLOBULIN (test code = 3.0 G/DL 224) CALC A/G RATIO (test code = 1.5 RATIO 2234) BILIRUBIN, TOTAL (test code = 0.4 MG/DL 2206) ALKALINE PHOSPHATASE (test 86 U/L code = 2204) AST (test code = 2218) 20 U/L ALT (test code = 2219) 12 U/L LIPID [id number] 00:00:00 Test Item Value Reference Range Interpretation Comments CHOLESTEROL (test code = 2210) 174 MG/DL TRIGLYCERIDES (test code = 2232) 160 MG/DL HDL CHOLESTEROL (test code = 2220) 48 MG/DL CALC LDL CHOL (test code = 2237) 100 MG/DL RISK RATIO LDL/HDL (test code = 2.08 RATIO 2238) LIPID [id number] 00:00:00 Test Item Value Reference Range Interpretation Comments CHOLESTEROL (test code = 2210) 174 MG/DL TRIGLYCERIDES (test code = 2232) 160 MG/DL HDL CHOLESTEROL (test code = 2220) 48 MG/DL CALC LDL CHOL (test code = 2237) 100 MG/DL RISK RATIO LDL/HDL (test code = 2.08 RATIO 2238) HEMOGLOBIN [id number] 00:00:00 Test Item Value Reference Range Interpretation Comments HEMOGLOBIN A1c (test code = 21389) 6.1 % HEMOGLOBIN [id number] 00:00:00 Test Item Value Reference Range Interpretation Comments HEMOGLOBIN A1c (test code = 53511) 6.1 % [id number] 00:00:00 Test Item Value Reference Range Interpretation Comments TSH, THIRD GENERATION (test code 2.000 UIU/ML = 2821) [id number] 00:00:00 Test Item Value Reference Range Interpretation Comments TSH, THIRD GENERATION (test code 2.000 UIU/ML = 2821) [id number] 00:00:00 Test Item Value Reference Range Interpretation Comments TSH, THIRD GENERATION (test code 2.000 UIU/ML = 2821) COMPREHENSIVE METABOLIC [id number] 00:00:00 Test Item Value Reference Range Interpretation Comments GLUCOSE (test code = 2217) 103 MG/DL BUN (test code = 2208) 14 MG/DL CREATININE (test code = 2214) 0.71 MG/DL eGFR AMER. (test code 96 ML/MIN/1.73 = 66728) eGFR NON- AMER. (test 83 ML/MIN/1.73 code = 59182) CALC BUN/CREAT (test code = 20 RATIO 2235) SODIUM (test code = 2231) 142 MEQ/L POTASSIUM (test code = 2228) 4.3 MEQ/L CHLORIDE (test code = 2215) 101 MEQ/L CARBON DIOXIDE (test code = 27 MEQ/L 220) CALCIUM (test code = 2209) 9.2 MG/DL PROTEIN, TOTAL (test code = 7.5 G/DL 2228) ALBUMIN (test code = 2201) 4.5 G/DL CALC GLOBULIN (test code = 3.0 G/DL 2240) CALC A/G RATIO (test code = 1.5 RATIO 4) BILIRUBIN, TOTAL (test code = 0.4 MG/DL 2206) ALKALINE PHOSPHATASE (test 86 U/L code = 2204) AST (test code = 2218) 20 U/L ALT (test code = 2219) 12 U/L COMPREHENSIVE METABOLIC [id number] 00:00:00 Test Item Value Reference Range Interpretation Comments GLUCOSE (test code = 2217) 103 MG/DL BUN (test code = 2208) 14 MG/DL CREATININE (test code = 2214) 0.71 MG/DL eGFR AMER. (test code 96 ML/MIN/1.73 = 10171) eGFR NON- AMER. (test 83 ML/MIN/1.73 code = 60826) CALC BUN/CREAT (test code = 20 RATIO 2235) SODIUM (test code = 2231) 142 MEQ/L POTASSIUM (test code = 2228) 4.3 MEQ/L CHLORIDE (test code = 2215) 101 MEQ/L CARBON DIOXIDE (test code = 27 MEQ/L 2205) CALCIUM (test code = 2209) 9.2 MG/DL PROTEIN, TOTAL (test code = 7.5 G/DL 2228) ALBUMIN (test code = 2201) 4.5 G/DL CALC GLOBULIN (test code = 3.0 G/DL 0) CALC A/G RATIO (test code = 1.5 RATIO 2234) BILIRUBIN, TOTAL (test code = 0.4 MG/DL 2206) ALKALINE PHOSPHATASE (test 86 U/L code = 2204) AST (test code = 2218) 20 U/L ALT (test code = 2219) 12 U/L LIPID [id number] 00:00:00 Test Item Value Reference Range Interpretation Comments CHOLESTEROL (test code = 2210) 174 MG/DL TRIGLYCERIDES (test code = 2232) 160 MG/DL HDL CHOLESTEROL (test code = 2220) 48 MG/DL CALC LDL CHOL (test code = 2237) 100 MG/DL RISK RATIO LDL/HDL (test code = 2.08 RATIO 2238) LIPID [id number] 00:00:00 Test Item Value Reference Range Interpretation Comments CHOLESTEROL (test code = 2210) 174 MG/DL TRIGLYCERIDES (test code = 2232) 160 MG/DL HDL CHOLESTEROL (test code = 2220) 48 MG/DL CALC LDL CHOL (test code = 2237) 100 MG/DL RISK RATIO LDL/HDL (test code = 2.08 RATIO 2238) CBC W/AUTO [id number] 00:00:00 Test Item Value Reference Range Interpretation Comments WBC (test code = 1001) 3.9 K/UL RBC (test code = 1002) 4.34 M/UL HEMOGLOBIN (test code = 1003) 12.7 G/DL HEMATOCRIT (test code = 1004) 37.5 % MCV (test code = 1005) 86.4 fL MCH (test code = 1006) 29.3 PG MCHC (test code = 1007) 33.9 G/DL RDW (test code = 1038) 12.8 % NEUTROPHILS (test code = 1008) 56.6 % LYMPHOCYTES (test code = 1010) 33.1 % MONOCYTES (test code = 1011) 7.7 % EOSINOPHILS (test code = 1012) 2.1 % BASOPHILS (test code = 1013) 0.5 % PLATELET COUNT (test code = 1015) 167 K/UL CBC W/AUTO [id number] 00:00:00 Test Item Value Reference Range Interpretation Comments WBC (test code = 1001) 3.9 K/UL RBC (test code = 1002) 4.34 M/UL HEMOGLOBIN (test code = 1003) 12.7 G/DL HEMATOCRIT (test code = 1004) 37.5 % MCV (test code = 1005) 86.4 fL MCH (test code = 1006) 29.3 PG MCHC (test code = 1007) 33.9 G/DL RDW (test code = 1038) 12.8 % NEUTROPHILS (test code = 1008) 56.6 % LYMPHOCYTES (test code = 1010) 33.1 % MONOCYTES (test code = 1011) 7.7 % EOSINOPHILS (test code = 1012) 2.1 % BASOPHILS (test code = 1013) 0.5 % PLATELET COUNT (test code = 1015) 167 K/UL CBC W/AUTO [id number] 00:00:00 Test Item Value Reference Range Interpretation Comments WBC (test code = 1001) 3.9 K/UL RBC (test code = 1002) 4.34 M/UL HEMOGLOBIN (test code = 1003) 12.7 G/DL HEMATOCRIT (test code = 1004) 37.5 % MCV (test code = 1005) 86.4 fL MCH (test code = 1006) 29.3 PG MCHC (test code = 1007) 33.9 G/DL RDW (test code = 1038) 12.8 % NEUTROPHILS (test code = 1008) 56.6 % LYMPHOCYTES (test code = 1010) 33.1 % MONOCYTES (test code = 1011) 7.7 % EOSINOPHILS (test code = 1012) 2.1 % BASOPHILS (test code = 1013) 0.5 % PLATELET COUNT (test code = 1015) 167 K/UL HEMOGLOBIN [id number] 00:00:00 Test Item Value Reference Range Interpretation Comments HEMOGLOBIN A1c (test code = 26144) 6.1 % HEMOGLOBIN [id number] 00:00:00 Test Item Value Reference Range Interpretation Comments HEMOGLOBIN A1c (test code = 66126) 6.1 % HEMOGLOBIN [id number] 00:00:00 Test Item Value Reference Range Interpretation Comments HEMOGLOBIN A1c (test code = 80129) 6.1 % [id number] 00:00:00 Test Item Value Reference Range Interpretation Comments TSH, THIRD GENERATION (test code 2.000 UIU/ML = 2821) [id number] 00:00:00 Test Item Value Reference Range Interpretation Comments TSH, THIRD GENERATION (test code 2.000 UIU/ML = 2821) [id number] 00:00:00 Test Item Value Reference Range Interpretation Comments TSH, THIRD GENERATION (test code 2.000 UIU/ML = 2821) COMPREHENSIVE METABOLIC [id number] 00:00:00 Test Item Value Reference Range Interpretation Comments GLUCOSE (test code = 2217) 103 MG/DL BUN (test code = 2208) 14 MG/DL CREATININE (test code = 2214) 0.71 MG/DL eGFR AMER. (test code 96 ML/MIN/1.73 = 03553) eGFR NON- AMER. (test 83 ML/MIN/1.73 code = 45338) CALC BUN/CREAT (test code = 20 RATIO 2234) SODIUM (test code = 2231) 142 MEQ/L POTASSIUM (test code = 2228) 4.3 MEQ/L CHLORIDE (test code = 2215) 101 MEQ/L CARBON DIOXIDE (test code = 27 MEQ/L 2205) CALCIUM (test code = 2209) 9.2 MG/DL PROTEIN, TOTAL (test code = 7.5 G/DL 2228) ALBUMIN (test code = 2201) 4.5 G/DL CALC GLOBULIN (test code = 3.0 G/DL 0) CALC A/G RATIO (test code = 1.5 RATIO 2233) BILIRUBIN, TOTAL (test code = 0.4 MG/DL 2206) ALKALINE PHOSPHATASE (test 86 U/L code = 2204) AST (test code = 2218) 20 U/L ALT (test code = 2219) 12 U/L COMPREHENSIVE METABOLIC [id number] 00:00:00 Test Item Value Reference Range Interpretation Comments GLUCOSE (test code = 2217) 103 MG/DL BUN (test code = 2208) 14 MG/DL CREATININE (test code = 2214) 0.71 MG/DL eGFR AMER. (test code 96 ML/MIN/1.73 = 10253) eGFR NON- AMER. (test 83 ML/MIN/1.73 code = 81968) CALC BUN/CREAT (test code = 20 RATIO 2235) SODIUM (test code = 2231) 142 MEQ/L POTASSIUM (test code = 2228) 4.3 MEQ/L CHLORIDE (test code = 2215) 101 MEQ/L CARBON DIOXIDE (test code = 27 MEQ/L 2205) CALCIUM (test code = 2209) 9.2 MG/DL PROTEIN, TOTAL (test code = 7.5 G/DL 2228) ALBUMIN (test code = 2201) 4.5 G/DL CALC GLOBULIN (test code = 3.0 G/DL 224) CALC A/G RATIO (test code = 1.5 RATIO 2234) BILIRUBIN, TOTAL (test code = 0.4 MG/DL 2206) ALKALINE PHOSPHATASE (test 86 U/L code = 2204) AST (test code = 2218) 20 U/L ALT (test code = 2219) 12 U/L LIPID [id number] 00:00:00 Test Item Value Reference Range Interpretation Comments CHOLESTEROL (test code = 2210) 174 MG/DL TRIGLYCERIDES (test code = 2232) 160 MG/DL HDL CHOLESTEROL (test code = 2220) 48 MG/DL CALC LDL CHOL (test code = 2237) 100 MG/DL RISK RATIO LDL/HDL (test code = 2.08 RATIO 2238) LIPID [id number] 00:00:00 Test Item Value Reference Range Interpretation Comments CHOLESTEROL (test code = 2210) 174 MG/DL TRIGLYCERIDES (test code = 2232) 160 MG/DL HDL CHOLESTEROL (test code = 2220) 48 MG/DL CALC LDL CHOL (test code = 2237) 100 MG/DL RISK RATIO LDL/HDL (test code = 2.08 RATIO 2238) CBC W/AUTO [id number] 00:00:00 Test Item Value Reference Range Interpretation Comments WBC (test code = 1001) 3.9 K/UL RBC (test code = 1002) 4.34 M/UL HEMOGLOBIN (test code = 1003) 12.7 G/DL HEMATOCRIT (test code = 1004) 37.5 % MCV (test code = 1005) 86.4 fL MCH (test code = 1006) 29.3 PG MCHC (test code = 1007) 33.9 G/DL RDW (test code = 1038) 12.8 % NEUTROPHILS (test code = 1008) 56.6 % LYMPHOCYTES (test code = 1010) 33.1 % MONOCYTES (test code = 1011) 7.7 % EOSINOPHILS (test code = 1012) 2.1 % BASOPHILS (test code = 1013) 0.5 % PLATELET COUNT (test code = 1015) 167 K/UL CBC W/AUTO [id number] 00:00:00 Test Item Value Reference Range Interpretation Comments WBC (test code = 1001) 3.9 K/UL RBC (test code = 1002) 4.34 M/UL HEMOGLOBIN (test code = 1003) 12.7 G/DL HEMATOCRIT (test code = 1004) 37.5 % MCV (test code = 1005) 86.4 fL MCH (test code = 1006) 29.3 PG MCHC (test code = 1007) 33.9 G/DL RDW (test code = 1038) 12.8 % NEUTROPHILS (test code = 1008) 56.6 % LYMPHOCYTES (test code = 1010) 33.1 % MONOCYTES (test code = 1011) 7.7 % EOSINOPHILS (test code = 1012) 2.1 % BASOPHILS (test code = 1013) 0.5 % PLATELET COUNT (test code = 1015) 167 K/UL CBC W/AUTO [id number] 00:00:00 Test Item Value Reference Range Interpretation Comments WBC (test code = 1001) 3.9 K/UL RBC (test code = 1002) 4.34 M/UL HEMOGLOBIN (test code = 1003) 12.7 G/DL HEMATOCRIT (test code = 1004) 37.5 % MCV (test code = 1005) 86.4 fL MCH (test code = 1006) 29.3 PG MCHC (test code = 1007) 33.9 G/DL RDW (test code = 1038) 12.8 % NEUTROPHILS (test code = 1008) 56.6 % LYMPHOCYTES (test code = 1010) 33.1 % MONOCYTES (test code = 1011) 7.7 % EOSINOPHILS (test code = 1012) 2.1 % BASOPHILS (test code = 1013) 0.5 % PLATELET COUNT (test code = 1015) 167 K/UL HEMOGLOBIN [id number] 00:00:00 Test Item Value Reference Range Interpretation Comments HEMOGLOBIN A1c (test code = 33193) 6.1 % HEMOGLOBIN [id number] 00:00:00 Test Item Value Reference Range Interpretation Comments HEMOGLOBIN A1c (test code = 49061) 6.1 % HEMOGLOBIN [id number] 00:00:00 Test Item Value Reference Range Interpretation Comments HEMOGLOBIN A1c (test code = 81703) 6.1 % [id number] 00:00:00 Test Item Value Reference Range Interpretation Comments TSH, THIRD GENERATION (test code 2.000 UIU/ML = 2821) [id number] 00:00:00 Test Item Value Reference Range Interpretation Comments TSH, THIRD GENERATION (test code 2.000 UIU/ML = 2821) [id number] 00:00:00 Test Item Value Reference Range Interpretation Comments TSH, THIRD GENERATION (test code 2.000 UIU/ML = 2821) COMPREHENSIVE METABOLIC [id number] 00:00:00 Test Item Value Reference Range Interpretation Comments GLUCOSE (test code = 2217) 103 MG/DL BUN (test code = 2208) 14 MG/DL CREATININE (test code = 2214) 0.71 MG/DL eGFR AMER. (test code 96 ML/MIN/1.73 = 86818) eGFR NON- AMER. (test 83 ML/MIN/1.73 code = 24649) CALC BUN/CREAT (test code = 20 RATIO 2235) SODIUM (test code = 2231) 142 MEQ/L POTASSIUM (test code = 2228) 4.3 MEQ/L CHLORIDE (test code = 2215) 101 MEQ/L CARBON DIOXIDE (test code = 27 MEQ/L 2205) CALCIUM (test code = 2209) 9.2 MG/DL PROTEIN, TOTAL (test code = 7.5 G/DL 2228) ALBUMIN (test code = 2201) 4.5 G/DL CALC GLOBULIN (test code = 3.0 G/DL 0) CALC A/G RATIO (test code = 1.5 RATIO 4) BILIRUBIN, TOTAL (test code = 0.4 MG/DL 2206) ALKALINE PHOSPHATASE (test 86 U/L code = 2204) AST (test code = 2218) 20 U/L ALT (test code = 2219) 12 U/L COMPREHENSIVE METABOLIC [id number] 00:00:00 Test Item Value Reference Range Interpretation Comments GLUCOSE (test code = 2217) 103 MG/DL BUN (test code = 2208) 14 MG/DL CREATININE (test code = 2214) 0.71 MG/DL eGFR AMER. (test code 96 ML/MIN/1.73 = 12218) eGFR NON- AMER. (test 83 ML/MIN/1.73 code = 57914) CALC BUN/CREAT (test code = 20 RATIO 2235) SODIUM (test code = 2231) 142 MEQ/L POTASSIUM (test code = 2228) 4.3 MEQ/L CHLORIDE (test code = 2215) 101 MEQ/L CARBON DIOXIDE (test code = 27 MEQ/L 2205) CALCIUM (test code = 2209) 9.2 MG/DL PROTEIN, TOTAL (test code = 7.5 G/DL 2228) ALBUMIN (test code = 220) 4.5 G/DL CALC GLOBULIN (test code = 3.0 G/DL 2239) CALC A/G RATIO (test code = 1.5 RATIO 2233) BILIRUBIN, TOTAL (test code = 0.4 MG/DL 2206) ALKALINE PHOSPHATASE (test 86 U/L code = 2204) AST (test code = 2218) 20 U/L ALT (test code = 2219) 12 U/L LIPID [id number] 00:00:00 Test Item Value Reference Range Interpretation Comments CHOLESTEROL (test code = 2210) 174 MG/DL TRIGLYCERIDES (test code = 2232) 160 MG/DL HDL CHOLESTEROL (test code = 2220) 48 MG/DL CALC LDL CHOL (test code = 2237) 100 MG/DL RISK RATIO LDL/HDL (test code = 2.08 RATIO 2238) LIPID [id number] 00:00:00 Test Item Value Reference Range Interpretation Comments CHOLESTEROL (test code = 2210) 174 MG/DL TRIGLYCERIDES (test code = 2232) 160 MG/DL HDL CHOLESTEROL (test code = 2220) 48 MG/DL CALC LDL CHOL (test code = 2237) 100 MG/DL RISK RATIO LDL/HDL (test code = 2.08 RATIO 2238) CBC W/AUTO [id number] 00:00:00 Test Item Value Reference Range Interpretation Comments WBC (test code = 1001) 3.9 K/UL RBC (test code = 1002) 4.34 M/UL HEMOGLOBIN (test code = 1003) 12.7 G/DL HEMATOCRIT (test code = 1004) 37.5 % MCV (test code = 1005) 86.4 fL MCH (test code = 1006) 29.3 PG MCHC (test code = 1007) 33.9 G/DL RDW (test code = 1038) 12.8 % NEUTROPHILS (test code = 1008) 56.6 % LYMPHOCYTES (test code = 1010) 33.1 % MONOCYTES (test code = 1011) 7.7 % EOSINOPHILS (test code = 1012) 2.1 % BASOPHILS (test code = 1013) 0.5 % PLATELET COUNT (test code = 1015) 167 K/UL CBC W/AUTO [id number] 00:00:00 Test Item Value Reference Range Interpretation Comments WBC (test code = 1001) 3.9 K/UL RBC (test code = 1002) 4.34 M/UL HEMOGLOBIN (test code = 1003) 12.7 G/DL HEMATOCRIT (test code = 1004) 37.5 % MCV (test code = 1005) 86.4 fL MCH (test code = 1006) 29.3 PG MCHC (test code = 1007) 33.9 G/DL RDW (test code = 1038) 12.8 % NEUTROPHILS (test code = 1008) 56.6 % LYMPHOCYTES (test code = 1010) 33.1 % MONOCYTES (test code = 1011) 7.7 % EOSINOPHILS (test code = 1012) 2.1 % BASOPHILS (test code = 1013) 0.5 % PLATELET COUNT (test code = 1015) 167 K/UL CBC W/AUTO [id number] 00:00:00 Test Item Value Reference Range Interpretation Comments WBC (test code = 1001) 3.9 K/UL RBC (test code = 1002) 4.34 M/UL HEMOGLOBIN (test code = 1003) 12.7 G/DL HEMATOCRIT (test code = 1004) 37.5 % MCV (test code = 1005) 86.4 fL MCH (test code = 1006) 29.3 PG MCHC (test code = 1007) 33.9 G/DL RDW (test code = 1038) 12.8 % NEUTROPHILS (test code = 1008) 56.6 % LYMPHOCYTES (test code = 1010) 33.1 % MONOCYTES (test code = 1011) 7.7 % EOSINOPHILS (test code = 1012) 2.1 % BASOPHILS (test code = 1013) 0.5 % PLATELET COUNT (test code = 1015) 167 K/UL HEMOGLOBIN [id number] 00:00:00 Test Item Value Reference Range Interpretation Comments HEMOGLOBIN A1c (test code = 70784) 6.1 % HEMOGLOBIN [id number] 00:00:00 Test Item Value Reference Range Interpretation Comments HEMOGLOBIN A1c (test code = 14781) 6.1 % HEMOGLOBIN [id number] 00:00:00 Test Item Value Reference Range Interpretation Comments HEMOGLOBIN A1c (test code = 60067) 6.1 % [id number] 00:00:00 Test Item Value Reference Range Interpretation Comments TSH, THIRD GENERATION (test code 2.000 UIU/ML = 2821) [id number] 00:00:00 Test Item Value Reference Range Interpretation Comments TSH, THIRD GENERATION (test code 2.000 UIU/ML = 2821) [id number] 00:00:00 Test Item Value Reference Range Interpretation Comments TSH, THIRD GENERATION (test code 2.000 UIU/ML = 2821) COMPREHENSIVE METABOLIC [id number] 00:00:00 Test Item Value Reference Range Interpretation Comments GLUCOSE (test code = 2217) 103 MG/DL BUN (test code = 2208) 14 MG/DL CREATININE (test code = 2214) 0.71 MG/DL eGFR AMER. (test code 96 ML/MIN/1.73 = 73615) eGFR NON- AMER. (test 83 ML/MIN/1.73 code = 92058) CALC BUN/CREAT (test code = 20 RATIO 2235) SODIUM (test code = 2231) 142 MEQ/L POTASSIUM (test code = 2228) 4.3 MEQ/L CHLORIDE (test code = 2215) 101 MEQ/L CARBON DIOXIDE (test code = 27 MEQ/L 2205) CALCIUM (test code = 2209) 9.2 MG/DL PROTEIN, TOTAL (test code = 7.5 G/DL 2228) ALBUMIN (test code = 2201) 4.5 G/DL CALC GLOBULIN (test code = 3.0 G/DL 2239) CALC A/G RATIO (test code = 1.5 RATIO 2234) BILIRUBIN, TOTAL (test code = 0.4 MG/DL 2206) ALKALINE PHOSPHATASE (test 86 U/L code = 2204) AST (test code = 2218) 20 U/L ALT (test code = 2219) 12 U/L COMPREHENSIVE METABOLIC [id number] 00:00:00 Test Item Value Reference Range Interpretation Comments GLUCOSE (test code = 2217) 103 MG/DL BUN (test code = 2208) 14 MG/DL CREATININE (test code = 2214) 0.71 MG/DL eGFR AMER. (test code 96 ML/MIN/1.73 = 82935) eGFR NON- AMER. (test 83 ML/MIN/1.73 code = 06599) CALC BUN/CREAT (test code = 20 RATIO 2235) SODIUM (test code = 2231) 142 MEQ/L POTASSIUM (test code = 2228) 4.3 MEQ/L CHLORIDE (test code = 2215) 101 MEQ/L CARBON DIOXIDE (test code = 27 MEQ/L 2205) CALCIUM (test code = 2209) 9.2 MG/DL PROTEIN, TOTAL (test code = 7.5 G/DL 2228) ALBUMIN (test code = 2201) 4.5 G/DL CALC GLOBULIN (test code = 3.0 G/DL 2240) CALC A/G RATIO (test code = 1.5 RATIO 2234) BILIRUBIN, TOTAL (test code = 0.4 MG/DL 2206) ALKALINE PHOSPHATASE (test 86 U/L code = 2204) AST (test code = 2218) 20 U/L ALT (test code = 2219) 12 U/L LIPID [id number] 00:00:00 Test Item Value Reference Range Interpretation Comments CHOLESTEROL (test code = 2210) 174 MG/DL TRIGLYCERIDES (test code = 2232) 160 MG/DL HDL CHOLESTEROL (test code = 2220) 48 MG/DL CALC LDL CHOL (test code = 2237) 100 MG/DL RISK RATIO LDL/HDL (test code = 2.08 RATIO 2238) LIPID [id number] 00:00:00 Test Item Value Reference Range Interpretation Comments CHOLESTEROL (test code = 2210) 174 MG/DL TRIGLYCERIDES (test code = 2232) 160 MG/DL HDL CHOLESTEROL (test code = 2220) 48 MG/DL CALC LDL CHOL (test code = 2237) 100 MG/DL RISK RATIO LDL/HDL (test code = 2.08 RATIO 2238) COMPREHENSIVE METABOLIC [id number] 00:00:00 Test Item Value Reference Range Interpretation Comments GLUCOSE (test code = 2217) 102 MG/DL BUN (test code = 2208) 19 MG/DL CREATININE (test code = 2214) 0.69 MG/DL eGFR AMER. (test code 98 ML/MIN/1.73 = 72302) eGFR NON- AMER. (test 85 ML/MIN/1.73 code = 52072) CALC BUN/CREAT (test code = 28 RATIO 2235) SODIUM (test code = 2231) 144 MEQ/L POTASSIUM (test code = 2228) 4.5 MEQ/L CHLORIDE (test code = 2215) 104 MEQ/L CARBON DIOXIDE (test code = 28 MEQ/L 220) CALCIUM (test code = 2209) 9.1 MG/DL PROTEIN, TOTAL (test code = 7.5 G/DL 222) ALBUMIN (test code = 2201) 4.5 G/DL CALC GLOBULIN (test code = 3.0 G/DL 2240) CALC A/G RATIO (test code = 1.5 RATIO 2234) BILIRUBIN, TOTAL (test code = 0.4 MG/DL 2206) ALKALINE PHOSPHATASE (test 86 U/L code = 2204) AST (test code = 2218) 20 U/L ALT (test code = 2219) 14 U/L COMPREHENSIVE METABOLIC [id number] 00:00:00 Test Item Value Reference Range Interpretation Comments GLUCOSE (test code = 2217) 102 MG/DL BUN (test code = 2208) 19 MG/DL CREATININE (test code = 2214) 0.69 MG/DL eGFR AMER. (test code 98 ML/MIN/1.73 = 97522) eGFR NON- AMER. (test 85 ML/MIN/1.73 code = 45532) CALC BUN/CREAT (test code = 28 RATIO 2235) SODIUM (test code = 2231) 144 MEQ/L POTASSIUM (test code = 2228) 4.5 MEQ/L CHLORIDE (test code = 2215) 104 MEQ/L CARBON DIOXIDE (test code = 28 MEQ/L 2206) CALCIUM (test code = 2209) 9.1 MG/DL PROTEIN, TOTAL (test code = 7.5 G/DL 2228) ALBUMIN (test code = 2201) 4.5 G/DL CALC GLOBULIN (test code = 3.0 G/DL 2240) CALC A/G RATIO (test code = 1.5 RATIO 2234) BILIRUBIN, TOTAL (test code = 0.4 MG/DL 2206) ALKALINE PHOSPHATASE (test 86 U/L code = 2204) AST (test code = 2218) 20 U/L ALT (test code = 2219) 14 U/L LIPID [id number] 00:00:00 Test Item Value Reference Range Interpretation Comments CHOLESTEROL (test code = 2210) 183 MG/DL TRIGLYCERIDES (test code = 2232) 96 MG/DL HDL CHOLESTEROL (test code = 2220) 50 MG/DL CALC LDL CHOL (test code = 2237) 114 MG/DL RISK RATIO LDL/HDL (test code = 2.28 RATIO 2238) LIPID [id number] 00:00:00 Test Item Value Reference Range Interpretation Comments CHOLESTEROL (test code = 2210) 183 MG/DL TRIGLYCERIDES (test code = 2232) 96 MG/DL HDL CHOLESTEROL (test code = 2220) 50 MG/DL CALC LDL CHOL (test code = 2237) 114 MG/DL RISK RATIO LDL/HDL (test code = 2.28 RATIO 2238) CBC W/AUTO [id number] 00:00:00 Test Item Value Reference Range Interpretation Comments WBC (test code = 1001) 3.0 K/UL RBC (test code = 1002) 4.57 M/UL HEMOGLOBIN (test code = 1003) 13.5 G/DL HEMATOCRIT (test code = 1004) 38.2 % MCV (test code = 1005) 83.6 fL MCH (test code = 1006) 29.5 PG MCHC (test code = 1007) 35.3 G/DL RDW (test code = 1038) 12.7 % NEUTROPHILS (test code = 1008) 57.5 % LYMPHOCYTES (test code = 1010) 31.3 % MONOCYTES (test code = 1011) 8.1 % EOSINOPHILS (test code = 1012) 2.4 % BASOPHILS (test code = 1013) 0.7 % PLATELET COUNT (test code = 1015) 167 K/UL CBC W/AUTO [id number] 00:00:00 Test Item Value Reference Range Interpretation Comments WBC (test code = 1001) 3.0 K/UL RBC (test code = 1002) 4.57 M/UL HEMOGLOBIN (test code = 1003) 13.5 G/DL HEMATOCRIT (test code = 1004) 38.2 % MCV (test code = 1005) 83.6 fL MCH (test code = 1006) 29.5 PG MCHC (test code = 1007) 35.3 G/DL RDW (test code = 1038) 12.7 % NEUTROPHILS (test code = 1008) 57.5 % LYMPHOCYTES (test code = 1010) 31.3 % MONOCYTES (test code = 1011) 8.1 % EOSINOPHILS (test code = 1012) 2.4 % BASOPHILS (test code = 1013) 0.7 % PLATELET COUNT (test code = 1015) 167 K/UL CBC W/AUTO [id number] 00:00:00 Test Item Value Reference Range Interpretation Comments WBC (test code = 1001) 3.0 K/UL RBC (test code = 1002) 4.57 M/UL HEMOGLOBIN (test code = 1003) 13.5 G/DL HEMATOCRIT (test code = 1004) 38.2 % MCV (test code = 1005) 83.6 fL MCH (test code = 1006) 29.5 PG MCHC (test code = 1007) 35.3 G/DL RDW (test code = 1038) 12.7 % NEUTROPHILS (test code = 1008) 57.5 % LYMPHOCYTES (test code = 1010) 31.3 % MONOCYTES (test code = 1011) 8.1 % EOSINOPHILS (test code = 1012) 2.4 % BASOPHILS (test code = 1013) 0.7 % PLATELET COUNT (test code = 1015) 167 K/UL COMPREHENSIVE METABOLIC [id number] 00:00:00 Test Item Value Reference Range Interpretation Comments GLUCOSE (test code = 2217) 102 MG/DL BUN (test code = 2208) 19 MG/DL CREATININE (test code = 2214) 0.69 MG/DL eGFR AMER. (test code 98 ML/MIN/1.73 = 51248) eGFR NON- AMER. (test 85 ML/MIN/1.73 code = 69461) CALC BUN/CREAT (test code = 28 RATIO 2235) SODIUM (test code = 2231) 144 MEQ/L POTASSIUM (test code = 2228) 4.5 MEQ/L CHLORIDE (test code = 2215) 104 MEQ/L CARBON DIOXIDE (test code = 28 MEQ/L 2205) CALCIUM (test code = 2209) 9.1 MG/DL PROTEIN, TOTAL (test code = 7.5 G/DL 2228) ALBUMIN (test code = 220) 4.5 G/DL CALC GLOBULIN (test code = 3.0 G/DL 2239) CALC A/G RATIO (test code = 1.5 RATIO 2233) BILIRUBIN, TOTAL (test code = 0.4 MG/DL 2206) ALKALINE PHOSPHATASE (test 86 U/L code = 220) AST (test code = 2218) 20 U/L ALT (test code = 2219) 14 U/L HEMOGLOBIN [id number] 00:00:00 Test Item Value Reference Range Interpretation Comments HEMOGLOBIN A1c (test code = 42106) 5.9 % HEMOGLOBIN [id number] 00:00:00 Test Item Value Reference Range Interpretation Comments HEMOGLOBIN A1c (test code = 74372) 5.9 % HEMOGLOBIN [id number] 00:00:00 Test Item Value Reference Range Interpretation Comments HEMOGLOBIN A1c (test code = 38889) 5.9 % [id number] 00:00:00 Test Item Value Reference Range Interpretation Comments TSH, THIRD GENERATION (test code 2.680 UIU/ML = 2821) [id number] 00:00:00 Test Item Value Reference Range Interpretation Comments TSH, THIRD GENERATION (test code 2.680 UIU/ML = 2821) [id number] 00:00:00 Test Item Value Reference Range Interpretation Comments TSH, THIRD GENERATION (test code 2.680 UIU/ML = 2821) COMPREHENSIVE METABOLIC [id number] 00:00:00 Test Item Value Reference Range Interpretation Comments GLUCOSE (test code = 2217) 102 MG/DL BUN (test code = 2208) 19 MG/DL CREATININE (test code = 2214) 0.69 MG/DL eGFR AMER. (test code 98 ML/MIN/1.73 = 83854) eGFR NON- AMER. (test 85 ML/MIN/1.73 code = 75058) CALC BUN/CREAT (test code = 28 RATIO 2235) SODIUM (test code = 2231) 144 MEQ/L POTASSIUM (test code = 2228) 4.5 MEQ/L CHLORIDE (test code = 2215) 104 MEQ/L CARBON DIOXIDE (test code = 28 MEQ/L 220) CALCIUM (test code = 2209) 9.1 MG/DL PROTEIN, TOTAL (test code = 7.5 G/DL 222) ALBUMIN (test code = 2201) 4.5 G/DL CALC GLOBULIN (test code = 3.0 G/DL 2240) CALC A/G RATIO (test code = 1.5 RATIO 2234) BILIRUBIN, TOTAL (test code = 0.4 MG/DL 2206) ALKALINE PHOSPHATASE (test 86 U/L code = 2204) AST (test code = 2218) 20 U/L ALT (test code = 2219) 14 U/L COMPREHENSIVE METABOLIC [id number] 00:00:00 Test Item Value Reference Range Interpretation Comments GLUCOSE (test code = 2217) 102 MG/DL BUN (test code = 2208) 19 MG/DL CREATININE (test code = 2214) 0.69 MG/DL eGFR AMER. (test code 98 ML/MIN/1.73 = 11109) eGFR NON- AMER. (test 85 ML/MIN/1.73 code = 88897) CALC BUN/CREAT (test code = 28 RATIO 2235) SODIUM (test code = 2231) 144 MEQ/L POTASSIUM (test code = 2228) 4.5 MEQ/L CHLORIDE (test code = 2215) 104 MEQ/L CARBON DIOXIDE (test code = 28 MEQ/L 2205) CALCIUM (test code = 2209) 9.1 MG/DL PROTEIN, TOTAL (test code = 7.5 G/DL 222) ALBUMIN (test code = 2201) 4.5 G/DL CALC GLOBULIN (test code = 3.0 G/DL 2240) CALC A/G RATIO (test code = 1.5 RATIO 2234) BILIRUBIN, TOTAL (test code = 0.4 MG/DL 2206) ALKALINE PHOSPHATASE (test 86 U/L code = 2204) AST (test code = 2218) 20 U/L ALT (test code = 2219) 14 U/L COMPREHENSIVE METABOLIC [id number] 00:00:00 Test Item Value Reference Range Interpretation Comments GLUCOSE (test code = 2217) 102 MG/DL BUN (test code = 2208) 19 MG/DL CREATININE (test code = 2214) 0.69 MG/DL eGFR AMER. (test code 98 ML/MIN/1.73 = 31531) eGFR NON- AMER. (test 85 ML/MIN/1.73 code = 65816) CALC BUN/CREAT (test code = 28 RATIO 2235) SODIUM (test code = 2231) 144 MEQ/L POTASSIUM (test code = 2228) 4.5 MEQ/L CHLORIDE (test code = 2215) 104 MEQ/L CARBON DIOXIDE (test code = 28 MEQ/L 2205) CALCIUM (test code = 2209) 9.1 MG/DL PROTEIN, TOTAL (test code = 7.5 G/DL 2228) ALBUMIN (test code = 2201) 4.5 G/DL CALC GLOBULIN (test code = 3.0 G/DL 2239) CALC A/G RATIO (test code = 1.5 RATIO 2233) BILIRUBIN, TOTAL (test code = 0.4 MG/DL 2206) ALKALINE PHOSPHATASE (test 86 U/L code = 2204) AST (test code = 2218) 20 U/L ALT (test code = 2219) 14 U/L LIPID [id number] 00:00:00 Test Item Value Reference Range Interpretation Comments CHOLESTEROL (test code = 2210) 183 MG/DL TRIGLYCERIDES (test code = 2232) 96 MG/DL HDL CHOLESTEROL (test code = 2220) 50 MG/DL CALC LDL CHOL (test code = 2237) 114 MG/DL RISK RATIO LDL/HDL (test code = 2.28 RATIO 2238) LIPID [id number] 00:00:00 Test Item Value Reference Range Interpretation Comments CHOLESTEROL (test code = 2210) 183 MG/DL TRIGLYCERIDES (test code = 2232) 96 MG/DL HDL CHOLESTEROL (test code = 2220) 50 MG/DL CALC LDL CHOL (test code = 2237) 114 MG/DL RISK RATIO LDL/HDL (test code = 2.28 RATIO 2238) CBC W/AUTO [id number] 00:00:00 Test Item Value Reference Range Interpretation Comments WBC (test code = 1001) 3.0 K/UL RBC (test code = 1002) 4.57 M/UL HEMOGLOBIN (test code = 1003) 13.5 G/DL HEMATOCRIT (test code = 1004) 38.2 % MCV (test code = 1005) 83.6 fL MCH (test code = 1006) 29.5 PG MCHC (test code = 1007) 35.3 G/DL RDW (test code = 1038) 12.7 % NEUTROPHILS (test code = 1008) 57.5 % LYMPHOCYTES (test code = 1010) 31.3 % MONOCYTES (test code = 1011) 8.1 % EOSINOPHILS (test code = 1012) 2.4 % BASOPHILS (test code = 1013) 0.7 % PLATELET COUNT (test code = 1015) 167 K/UL LIPID [id number] 00:00:00 Test Item Value Reference Range Interpretation Comments CHOLESTEROL (test code = 2210) 183 MG/DL TRIGLYCERIDES (test code = 2232) 96 MG/DL HDL CHOLESTEROL (test code = 2220) 50 MG/DL CALC LDL CHOL (test code = 2237) 114 MG/DL RISK RATIO LDL/HDL (test code = 2.28 RATIO 2238) CBC W/AUTO [id number] 00:00:00 Test Item Value Reference Range Interpretation Comments WBC (test code = 1001) 3.0 K/UL RBC (test code = 1002) 4.57 M/UL HEMOGLOBIN (test code = 1003) 13.5 G/DL HEMATOCRIT (test code = 1004) 38.2 % MCV (test code = 1005) 83.6 fL MCH (test code = 1006) 29.5 PG MCHC (test code = 1007) 35.3 G/DL RDW (test code = 1038) 12.7 % NEUTROPHILS (test code = 1008) 57.5 % LYMPHOCYTES (test code = 1010) 31.3 % MONOCYTES (test code = 1011) 8.1 % EOSINOPHILS (test code = 1012) 2.4 % BASOPHILS (test code = 1013) 0.7 % PLATELET COUNT (test code = 1015) 167 K/UL CBC W/AUTO [id number] 00:00:00 Test Item Value Reference Range Interpretation Comments WBC (test code = 1001) 3.0 K/UL RBC (test code = 1002) 4.57 M/UL HEMOGLOBIN (test code = 1003) 13.5 G/DL HEMATOCRIT (test code = 1004) 38.2 % MCV (test code = 1005) 83.6 fL MCH (test code = 1006) 29.5 PG MCHC (test code = 1007) 35.3 G/DL RDW (test code = 1038) 12.7 % NEUTROPHILS (test code = 1008) 57.5 % LYMPHOCYTES (test code = 1010) 31.3 % MONOCYTES (test code = 1011) 8.1 % EOSINOPHILS (test code = 1012) 2.4 % BASOPHILS (test code = 1013) 0.7 % PLATELET COUNT (test code = 1015) 167 K/UL HEMOGLOBIN [id number] 00:00:00 Test Item Value Reference Range Interpretation Comments HEMOGLOBIN A1c (test code = 47346) 5.9 % HEMOGLOBIN [id number] 00:00:00 Test Item Value Reference Range Interpretation Comments HEMOGLOBIN A1c (test code = 98338) 5.9 % HEMOGLOBIN [id number] 00:00:00 Test Item Value Reference Range Interpretation Comments HEMOGLOBIN A1c (test code = 64705) 5.9 % [id number] 00:00:00 Test Item Value Reference Range Interpretation Comments TSH, THIRD GENERATION (test code 2.680 UIU/ML = 2821) [id number] 00:00:00 Test Item Value Reference Range Interpretation Comments TSH, THIRD GENERATION (test code 2.680 UIU/ML = 2821) LIPID [id number] 00:00:00 Test Item Value Reference Range Interpretation Comments CHOLESTEROL (test code = 2210) 183 MG/DL TRIGLYCERIDES (test code = 2232) 96 MG/DL HDL CHOLESTEROL (test code = 2220) 50 MG/DL CALC LDL CHOL (test code = 2237) 114 MG/DL RISK RATIO LDL/HDL (test code = 2.28 RATIO 2238) [id number] 00:00:00 Test Item Value Reference Range Interpretation Comments TSH, THIRD GENERATION (test code 2.680 UIU/ML = 2821) CBC W/AUTO [id number] 00:00:00 Test Item Value Reference Range Interpretation Comments WBC (test code = 1001) 3.0 K/UL RBC (test code = 1002) 4.57 M/UL HEMOGLOBIN (test code = 1003) 13.5 G/DL HEMATOCRIT (test code = 1004) 38.2 % MCV (test code = 1005) 83.6 fL MCH (test code = 1006) 29.5 PG MCHC (test code = 1007) 35.3 G/DL RDW (test code = 1038) 12.7 % NEUTROPHILS (test code = 1008) 57.5 % LYMPHOCYTES (test code = 1010) 31.3 % MONOCYTES (test code = 1011) 8.1 % EOSINOPHILS (test code = 1012) 2.4 % BASOPHILS (test code = 1013) 0.7 % PLATELET COUNT (test code = 1015) 167 K/UL CBC W/AUTO [id number] 00:00:00 Test Item Value Reference Range Interpretation Comments WBC (test code = 1001) 3.0 K/UL RBC (test code = 1002) 4.57 M/UL HEMOGLOBIN (test code = 1003) 13.5 G/DL HEMATOCRIT (test code = 1004) 38.2 % MCV (test code = 1005) 83.6 fL MCH (test code = 1006) 29.5 PG MCHC (test code = 1007) 35.3 G/DL RDW (test code = 1038) 12.7 % NEUTROPHILS (test code = 1008) 57.5 % LYMPHOCYTES (test code = 1010) 31.3 % MONOCYTES (test code = 1011) 8.1 % EOSINOPHILS (test code = 1012) 2.4 % BASOPHILS (test code = 1013) 0.7 % PLATELET COUNT (test code = 1015) 167 K/UL CBC W/AUTO [id number] 00:00:00 Test Item Value Reference Range Interpretation Comments WBC (test code = 1001) 3.0 K/UL RBC (test code = 1002) 4.57 M/UL HEMOGLOBIN (test code = 1003) 13.5 G/DL HEMATOCRIT (test code = 1004) 38.2 % MCV (test code = 1005) 83.6 fL MCH (test code = 1006) 29.5 PG MCHC (test code = 1007) 35.3 G/DL RDW (test code = 1038) 12.7 % NEUTROPHILS (test code = 1008) 57.5 % LYMPHOCYTES (test code = 1010) 31.3 % MONOCYTES (test code = 1011) 8.1 % EOSINOPHILS (test code = 1012) 2.4 % BASOPHILS (test code = 1013) 0.7 % PLATELET COUNT (test code = 1015) 167 K/UL HEMOGLOBIN [id number] 00:00:00 Test Item Value Reference Range Interpretation Comments HEMOGLOBIN A1c (test code = 03477) 5.9 % HEMOGLOBIN [id number] 00:00:00 Test Item Value Reference Range Interpretation Comments HEMOGLOBIN A1c (test code = 12908) 5.9 % HEMOGLOBIN [id number] 00:00:00 Test Item Value Reference Range Interpretation Comments HEMOGLOBIN A1c (test code = 12195) 5.9 % [id number] 00:00:00 Test Item Value Reference Range Interpretation Comments TSH, THIRD GENERATION (test code 2.680 UIU/ML = 2821) [id number] 00:00:00 Test Item Value Reference Range Interpretation Comments TSH, THIRD GENERATION (test code 2.680 UIU/ML = 2821) [id number] 00:00:00 Test Item Value Reference Range Interpretation Comments TSH, THIRD GENERATION (test code 2.680 UIU/ML = 2821) COMPREHENSIVE METABOLIC [id number] 00:00:00 Test Item Value Reference Range Interpretation Comments GLUCOSE (test code = 2217) 102 MG/DL BUN (test code = 2208) 19 MG/DL CREATININE (test code = 2214) 0.69 MG/DL eGFR AMER. (test code 98 ML/MIN/1.73 = 23761) eGFR NON- AMER. (test 85 ML/MIN/1.73 code = 52667) CALC BUN/CREAT (test code = 28 RATIO 2235) SODIUM (test code = 2231) 144 MEQ/L POTASSIUM (test code = 2228) 4.5 MEQ/L CHLORIDE (test code = 2215) 104 MEQ/L CARBON DIOXIDE (test code = 28 MEQ/L 2206) CALCIUM (test code = 2209) 9.1 MG/DL PROTEIN, TOTAL (test code = 7.5 G/DL 2228) ALBUMIN (test code = 2201) 4.5 G/DL CALC GLOBULIN (test code = 3.0 G/DL 0) CALC A/G RATIO (test code = 1.5 RATIO 2234) BILIRUBIN, TOTAL (test code = 0.4 MG/DL 2206) ALKALINE PHOSPHATASE (test 86 U/L code = 2204) AST (test code = 2218) 20 U/L ALT (test code = 2219) 14 U/L COMPREHENSIVE METABOLIC [id number] 00:00:00 Test Item Value Reference Range Interpretation Comments GLUCOSE (test code = 2217) 102 MG/DL BUN (test code = 2208) 19 MG/DL CREATININE (test code = 2214) 0.69 MG/DL eGFR AMER. (test code 98 ML/MIN/1.73 = 28699) eGFR NON- AMER. (test 85 ML/MIN/1.73 code = 35733) CALC BUN/CREAT (test code = 28 RATIO 2235) SODIUM (test code = 2231) 144 MEQ/L POTASSIUM (test code = 2228) 4.5 MEQ/L CHLORIDE (test code = 2215) 104 MEQ/L CARBON DIOXIDE (test code = 28 MEQ/L 220) CALCIUM (test code = 2209) 9.1 MG/DL PROTEIN, TOTAL (test code = 7.5 G/DL 222) ALBUMIN (test code = 2201) 4.5 G/DL CALC GLOBULIN (test code = 3.0 G/DL 2240) CALC A/G RATIO (test code = 1.5 RATIO 2234) BILIRUBIN, TOTAL (test code = 0.4 MG/DL 220) ALKALINE PHOSPHATASE (test 86 U/L code = 2204) AST (test code = 2218) 20 U/L ALT (test code = 2219) 14 U/L LIPID [id number] 00:00:00 Test Item Value Reference Range Interpretation Comments CHOLESTEROL (test code = 2210) 183 MG/DL TRIGLYCERIDES (test code = 2232) 96 MG/DL HDL CHOLESTEROL (test code = 2220) 50 MG/DL CALC LDL CHOL (test code = 2237) 114 MG/DL RISK RATIO LDL/HDL (test code = 2.28 RATIO 2238) LIPID [id number] 00:00:00 Test Item Value Reference Range Interpretation Comments CHOLESTEROL (test code = 2210) 183 MG/DL TRIGLYCERIDES (test code = 2232) 96 MG/DL HDL CHOLESTEROL (test code = 2220) 50 MG/DL CALC LDL CHOL (test code = 2237) 114 MG/DL RISK RATIO LDL/HDL (test code = 2.28 RATIO 2238) CBC W/AUTO [id number] 00:00:00 Test Item Value Reference Range Interpretation Comments WBC (test code = 1001) 3.0 K/UL RBC (test code = 1002) 4.57 M/UL HEMOGLOBIN (test code = 1003) 13.5 G/DL HEMATOCRIT (test code = 1004) 38.2 % MCV (test code = 1005) 83.6 fL MCH (test code = 1006) 29.5 PG MCHC (test code = 1007) 35.3 G/DL RDW (test code = 1038) 12.7 % NEUTROPHILS (test code = 1008) 57.5 % LYMPHOCYTES (test code = 1010) 31.3 % MONOCYTES (test code = 1011) 8.1 % EOSINOPHILS (test code = 1012) 2.4 % BASOPHILS (test code = 1013) 0.7 % PLATELET COUNT (test code = 1015) 167 K/UL CBC W/AUTO [id number] 00:00:00 Test Item Value Reference Range Interpretation Comments WBC (test code = 1001) 3.0 K/UL RBC (test code = 1002) 4.57 M/UL HEMOGLOBIN (test code = 1003) 13.5 G/DL HEMATOCRIT (test code = 1004) 38.2 % MCV (test code = 1005) 83.6 fL MCH (test code = 1006) 29.5 PG MCHC (test code = 1007) 35.3 G/DL RDW (test code = 1038) 12.7 % NEUTROPHILS (test code = 1008) 57.5 % LYMPHOCYTES (test code = 1010) 31.3 % MONOCYTES (test code = 1011) 8.1 % EOSINOPHILS (test code = 1012) 2.4 % BASOPHILS (test code = 1013) 0.7 % PLATELET COUNT (test code = 1015) 167 K/UL CBC W/AUTO [id number] 00:00:00 Test Item Value Reference Range Interpretation Comments WBC (test code = 1001) 3.0 K/UL RBC (test code = 1002) 4.57 M/UL HEMOGLOBIN (test code = 1003) 13.5 G/DL HEMATOCRIT (test code = 1004) 38.2 % MCV (test code = 1005) 83.6 fL MCH (test code = 1006) 29.5 PG MCHC (test code = 1007) 35.3 G/DL RDW (test code = 1038) 12.7 % NEUTROPHILS (test code = 1008) 57.5 % LYMPHOCYTES (test code = 1010) 31.3 % MONOCYTES (test code = 1011) 8.1 % EOSINOPHILS (test code = 1012) 2.4 % BASOPHILS (test code = 1013) 0.7 % PLATELET COUNT (test code = 1015) 167 K/UL HEMOGLOBIN [id number] 00:00:00 Test Item Value Reference Range Interpretation Comments HEMOGLOBIN A1c (test code = 16160) 5.9 % HEMOGLOBIN [id number] 00:00:00 Test Item Value Reference Range Interpretation Comments HEMOGLOBIN A1c (test code = 31762) 5.9 % HEMOGLOBIN [id number] 00:00:00 Test Item Value Reference Range Interpretation Comments HEMOGLOBIN A1c (test code = 32195) 5.9 % [id number] 00:00:00 Test Item Value Reference Range Interpretation Comments TSH, THIRD GENERATION (test code 2.680 UIU/ML = 2821) [id number] 00:00:00 Test Item Value Reference Range Interpretation Comments TSH, THIRD GENERATION (test code 2.680 UIU/ML = 2821) [id number] 00:00:00 Test Item Value Reference Range Interpretation Comments TSH, THIRD GENERATION (test code 2.680 UIU/ML = 2821) COMPREHENSIVE METABOLIC [id number] 00:00:00 Test Item Value Reference Range Interpretation Comments GLUCOSE (test code = 2217) 102 MG/DL BUN (test code = 2208) 19 MG/DL CREATININE (test code = 2214) 0.69 MG/DL eGFR AMER. (test code 98 ML/MIN/1.73 = 81692) eGFR NON- AMER. (test 85 ML/MIN/1.73 code = 82019) CALC BUN/CREAT (test code = 28 RATIO 2235) SODIUM (test code = 2231) 144 MEQ/L POTASSIUM (test code = 2228) 4.5 MEQ/L CHLORIDE (test code = 2215) 104 MEQ/L CARBON DIOXIDE (test code = 28 MEQ/L 2206) CALCIUM (test code = 2209) 9.1 MG/DL PROTEIN, TOTAL (test code = 7.5 G/DL 2228) ALBUMIN (test code = 2201) 4.5 G/DL CALC GLOBULIN (test code = 3.0 G/DL 2240) CALC A/G RATIO (test code = 1.5 RATIO 2234) BILIRUBIN, TOTAL (test code = 0.4 MG/DL 220) ALKALINE PHOSPHATASE (test 86 U/L code = 2204) AST (test code = 2218) 20 U/L ALT (test code = 2219) 14 U/L COMPREHENSIVE METABOLIC [id number] 00:00:00 Test Item Value Reference Range Interpretation Comments GLUCOSE (test code = 2217) 102 MG/DL BUN (test code = 2208) 19 MG/DL CREATININE (test code = 2214) 0.69 MG/DL eGFR AMER. (test code 98 ML/MIN/1.73 = 73149) eGFR NON- AMER. (test 85 ML/MIN/1.73 code = 36740) CALC BUN/CREAT (test code = 28 RATIO 2235) SODIUM (test code = 2231) 144 MEQ/L POTASSIUM (test code = 2228) 4.5 MEQ/L CHLORIDE (test code = 2215) 104 MEQ/L CARBON DIOXIDE (test code = 28 MEQ/L 2206) CALCIUM (test code = 2209) 9.1 MG/DL PROTEIN, TOTAL (test code = 7.5 G/DL 2228) ALBUMIN (test code = 2201) 4.5 G/DL CALC GLOBULIN (test code = 3.0 G/DL 2240) CALC A/G RATIO (test code = 1.5 RATIO 2234) BILIRUBIN, TOTAL (test code = 0.4 MG/DL 2207) ALKALINE PHOSPHATASE (test 86 U/L code = 2204) AST (test code = 2218) 20 U/L ALT (test code = 2219) 14 U/L LIPID [id number] 00:00:00 Test Item Value Reference Range Interpretation Comments CHOLESTEROL (test code = 2210) 183 MG/DL TRIGLYCERIDES (test code = 2232) 96 MG/DL HDL CHOLESTEROL (test code = 2220) 50 MG/DL CALC LDL CHOL (test code = 2237) 114 MG/DL RISK RATIO LDL/HDL (test code = 2.28 RATIO 2238) LIPID [id number] 00:00:00 Test Item Value Reference Range Interpretation Comments CHOLESTEROL (test code = 2210) 183 MG/DL TRIGLYCERIDES (test code = 2232) 96 MG/DL HDL CHOLESTEROL (test code = 2220) 50 MG/DL CALC LDL CHOL (test code = 2237) 114 MG/DL RISK RATIO LDL/HDL (test code = 2.28 RATIO 2238) CBC W/AUTO [id number] 00:00:00 Test Item Value Reference Range Interpretation Comments WBC (test code = 1001) 3.0 K/UL RBC (test code = 1002) 4.57 M/UL HEMOGLOBIN (test code = 1003) 13.5 G/DL HEMATOCRIT (test code = 1004) 38.2 % MCV (test code = 1005) 83.6 fL MCH (test code = 1006) 29.5 PG MCHC (test code = 1007) 35.3 G/DL RDW (test code = 1038) 12.7 % NEUTROPHILS (test code = 1008) 57.5 % LYMPHOCYTES (test code = 1010) 31.3 % MONOCYTES (test code = 1011) 8.1 % EOSINOPHILS (test code = 1012) 2.4 % BASOPHILS (test code = 1013) 0.7 % PLATELET COUNT (test code = 1015) 167 K/UL CBC W/AUTO [id number] 00:00:00 Test Item Value Reference Range Interpretation Comments WBC (test code = 1001) 3.0 K/UL RBC (test code = 1002) 4.57 M/UL HEMOGLOBIN (test code = 1003) 13.5 G/DL HEMATOCRIT (test code = 1004) 38.2 % MCV (test code = 1005) 83.6 fL MCH (test code = 1006) 29.5 PG MCHC (test code = 1007) 35.3 G/DL RDW (test code = 1038) 12.7 % NEUTROPHILS (test code = 1008) 57.5 % LYMPHOCYTES (test code = 1010) 31.3 % MONOCYTES (test code = 1011) 8.1 % EOSINOPHILS (test code = 1012) 2.4 % BASOPHILS (test code = 1013) 0.7 % PLATELET COUNT (test code = 1015) 167 K/UL CBC W/AUTO [id number] 00:00:00 Test Item Value Reference Range Interpretation Comments WBC (test code = 1001) 3.0 K/UL RBC (test code = 1002) 4.57 M/UL HEMOGLOBIN (test code = 1003) 13.5 G/DL HEMATOCRIT (test code = 1004) 38.2 % MCV (test code = 1005) 83.6 fL MCH (test code = 1006) 29.5 PG MCHC (test code = 1007) 35.3 G/DL RDW (test code = 1038) 12.7 % NEUTROPHILS (test code = 1008) 57.5 % LYMPHOCYTES (test code = 1010) 31.3 % MONOCYTES (test code = 1011) 8.1 % EOSINOPHILS (test code = 1012) 2.4 % BASOPHILS (test code = 1013) 0.7 % PLATELET COUNT (test code = 1015) 167 K/UL HEMOGLOBIN [id number] 00:00:00 Test Item Value Reference Range Interpretation Comments HEMOGLOBIN A1c (test code = 30366) 5.9 % HEMOGLOBIN [id number] 00:00:00 Test Item Value Reference Range Interpretation Comments HEMOGLOBIN A1c (test code = 02619) 5.9 % HEMOGLOBIN [id number] 00:00:00 Test Item Value Reference Range Interpretation Comments HEMOGLOBIN A1c (test code = 59921) 5.9 % [id number] 00:00:00 Test Item Value Reference Range Interpretation Comments TSH, THIRD GENERATION (test code 2.680 UIU/ML = 2821) [id number] 00:00:00 Test Item Value Reference Range Interpretation Comments TSH, THIRD GENERATION (test code 2.680 UIU/ML = 2821) [id number] 00:00:00 Test Item Value Reference Range Interpretation Comments TSH, THIRD GENERATION (test code 2.680 UIU/ML = 2821) COMPREHENSIVE METABOLIC [id number] 00:00:00 Test Item Value Reference Range Interpretation Comments GLUCOSE (test code = 2217) 102 MG/DL BUN (test code = 2208) 19 MG/DL CREATININE (test code = 2214) 0.69 MG/DL eGFR AMER. (test code 98 ML/MIN/1.73 = 88534) eGFR NON- AMER. (test 85 ML/MIN/1.73 code = 30853) CALC BUN/CREAT (test code = 28 RATIO 2235) SODIUM (test code = 2231) 144 MEQ/L POTASSIUM (test code = 2228) 4.5 MEQ/L CHLORIDE (test code = 2215) 104 MEQ/L CARBON DIOXIDE (test code = 28 MEQ/L 2206) CALCIUM (test code = 2209) 9.1 MG/DL PROTEIN, TOTAL (test code = 7.5 G/DL 222) ALBUMIN (test code = 2201) 4.5 G/DL CALC GLOBULIN (test code = 3.0 G/DL 2240) CALC A/G RATIO (test code = 1.5 RATIO 2234) BILIRUBIN, TOTAL (test code = 0.4 MG/DL 2206) ALKALINE PHOSPHATASE (test 86 U/L code = 2204) AST (test code = 2218) 20 U/L ALT (test code = 2219) 14 U/L COMPREHENSIVE METABOLIC [id number] 00:00:00 Test Item Value Reference Range Interpretation Comments GLUCOSE (test code = 2217) 102 MG/DL BUN (test code = 2208) 19 MG/DL CREATININE (test code = 2214) 0.69 MG/DL eGFR AMER. (test code 98 ML/MIN/1.73 = 44348) eGFR NON- AMER. (test 85 ML/MIN/1.73 code = 37230) CALC BUN/CREAT (test code = 28 RATIO 2235) SODIUM (test code = 2231) 144 MEQ/L POTASSIUM (test code = 2228) 4.5 MEQ/L CHLORIDE (test code = 2215) 104 MEQ/L CARBON DIOXIDE (test code = 28 MEQ/L 2206) CALCIUM (test code = 2209) 9.1 MG/DL PROTEIN, TOTAL (test code = 7.5 G/DL 2228) ALBUMIN (test code = 2201) 4.5 G/DL CALC GLOBULIN (test code = 3.0 G/DL 2240) CALC A/G RATIO (test code = 1.5 RATIO 2234) BILIRUBIN, TOTAL (test code = 0.4 MG/DL 2207) ALKALINE PHOSPHATASE (test 86 U/L code = 2204) AST (test code = 2218) 20 U/L ALT (test code = 2219) 14 U/L LIPID [id number] 00:00:00 Test Item Value Reference Range Interpretation Comments CHOLESTEROL (test code = 2210) 183 MG/DL TRIGLYCERIDES (test code = 2232) 96 MG/DL HDL CHOLESTEROL (test code = 2220) 50 MG/DL CALC LDL CHOL (test code = 2237) 114 MG/DL RISK RATIO LDL/HDL (test code = 2.28 RATIO 2238) LIPID [id number] 00:00:00 Test Item Value Reference Range Interpretation Comments CHOLESTEROL (test code = 2210) 183 MG/DL TRIGLYCERIDES (test code = 2232) 96 MG/DL HDL CHOLESTEROL (test code = 2220) 50 MG/DL CALC LDL CHOL (test code = 2237) 114 MG/DL RISK RATIO LDL/HDL (test code = 2.28 RATIO 2238) CBC W/AUTO [id number] 00:00:00 Test Item Value Reference Range Interpretation Comments WBC (test code = 1001) 3.0 K/UL RBC (test code = 1002) 4.57 M/UL HEMOGLOBIN (test code = 1003) 13.5 G/DL HEMATOCRIT (test code = 1004) 38.2 % MCV (test code = 1005) 83.6 fL MCH (test code = 1006) 29.5 PG MCHC (test code = 1007) 35.3 G/DL RDW (test code = 1038) 12.7 % NEUTROPHILS (test code = 1008) 57.5 % LYMPHOCYTES (test code = 1010) 31.3 % MONOCYTES (test code = 1011) 8.1 % EOSINOPHILS (test code = 1012) 2.4 % BASOPHILS (test code = 1013) 0.7 % PLATELET COUNT (test code = 1015) 167 K/UL CBC W/AUTO [id number] 00:00:00 Test Item Value Reference Range Interpretation Comments WBC (test code = 1001) 3.0 K/UL RBC (test code = 1002) 4.57 M/UL HEMOGLOBIN (test code = 1003) 13.5 G/DL HEMATOCRIT (test code = 1004) 38.2 % MCV (test code = 1005) 83.6 fL MCH (test code = 1006) 29.5 PG MCHC (test code = 1007) 35.3 G/DL RDW (test code = 1038) 12.7 % NEUTROPHILS (test code = 1008) 57.5 % LYMPHOCYTES (test code = 1010) 31.3 % MONOCYTES (test code = 1011) 8.1 % EOSINOPHILS (test code = 1012) 2.4 % BASOPHILS (test code = 1013) 0.7 % PLATELET COUNT (test code = 1015) 167 K/UL CBC W/AUTO [id number] 00:00:00 Test Item Value Reference Range Interpretation Comments WBC (test code = 1001) 3.0 K/UL RBC (test code = 1002) 4.57 M/UL HEMOGLOBIN (test code = 1003) 13.5 G/DL HEMATOCRIT (test code = 1004) 38.2 % MCV (test code = 1005) 83.6 fL MCH (test code = 1006) 29.5 PG MCHC (test code = 1007) 35.3 G/DL RDW (test code = 1038) 12.7 % NEUTROPHILS (test code = 1008) 57.5 % LYMPHOCYTES (test code = 1010) 31.3 % MONOCYTES (test code = 1011) 8.1 % EOSINOPHILS (test code = 1012) 2.4 % BASOPHILS (test code = 1013) 0.7 % PLATELET COUNT (test code = 1015) 167 K/UL HEMOGLOBIN [id number] 00:00:00 Test Item Value Reference Range Interpretation Comments HEMOGLOBIN A1c (test code = 08140) 5.9 % HEMOGLOBIN [id number] 00:00:00 Test Item Value Reference Range Interpretation Comments HEMOGLOBIN A1c (test code = 41855) 5.9 % HEMOGLOBIN [id number] 00:00:00 Test Item Value Reference Range Interpretation Comments HEMOGLOBIN A1c (test code = 94415) 5.9 % [id number] 00:00:00 Test Item Value Reference Range Interpretation Comments TSH, THIRD GENERATION (test code 2.680 UIU/ML = 2821) [id number] 00:00:00 Test Item Value Reference Range Interpretation Comments TSH, THIRD GENERATION (test code 2.680 UIU/ML = 2821) [id number] 00:00:00 Test Item Value Reference Range Interpretation Comments TSH, THIRD GENERATION (test code 2.680 UIU/ML = 2821) SCR MAMM BILATERAL NICHOLAS CAD [id number] 10:15:57 - SCR MAMM BILATERAL NICHOLAS CAD DIGITALBILATERAL DIGITAL SCREENING MAMMOGRAM 3D/2D WITH CAD: 05/08/2019 CLINICAL: Asymptomatic. Digital breast tomosynthesis was performed in addition to routine CC and MLOviews. Current mammographic images were evaluated by either a [employer] M-Vu or a [employer] ImageChecker CAD (computer aided detection system). Comparison is made to exam dated 07/08/2009 mammogram - [facility]. The tissue of both breasts is predominantly fatty. There are benign vascular calcifications in both breasts. No suspicious mass, architectural distortion, malignant type calcification, or lymph node abnormality detected. Breast architecture is stable compared to prior exams.IMPRESSION: BENIGNThere is no mammographic evidence of malignancy. Resume annual screening mammography in one year. Alvin Carter M.D. et/penrad:05/19/2019 10:15:57 Attending Technologist: Marcella Maria MM, [facility] Technologist: Jackie Tsang MM, [facility] Mammographyletter sent: BIRADS 1-2 Normal Mammogram BI-RADS: 2 BenignSCR MAMM BILATERAL NICHOLAS CAD [id number] 10:15:57AMENDMENT: 05/27/2019 Alvin Carter M.D. Prior mammograms obtained and reviewed. No significant interval change.Amended BI-RADS: 2 Benign letter sent: Normal Comparison Completed
[2023-04-27 09:35] LABS: Absolute Lymphocytes (CBC) 0.9 K/uL (0.7-4.9); Hematocrit 35.1 % (36.0-45.0); Lymphocytes % 23.5 % (15.3-44.8); MCV 88.1 fL (80-100); MPV 8.7 fL (7.6-11.3); RBC Red Blood Cell Count 3.99 M/uL (3.86-4.86)
[2023-04-27] MEDS ORDERED: ONDANSETRON 4 MG/2 ML VIAL ONE (09:49)
[2023-04-27] MEDS ORDERED: MORPHINE 4 MG/ML SYR ONE (09:49)
[2023-04-27] MEDS ORDERED: LORazepam 2 MG/ML VIAL ONE (09:49)
[2023-04-27 09:56] LABS: Potassium 3.7 mEq/L (3.5-5.1); Troponin High Sensitivity 5.3 pg/mL (<58.9)
--- NOTE | 2023-04-27 10:02 | RAD REPORT ---
EXAM DESCRIPTION: CT - CTHCSPWOC - 04/27/2023 9:33 am CLINICAL HISTORY: Trauma, head and neck injury. left sided pain, paresthesias COMPARISON: No comparisons TECHNIQUE: Axial 5 mm thick images of the head were obtained. Axial 2 mm thick images of the cervical spine were obtained with sagittal and coronal reconstruction images generated and reviewed. All CT scans are performed using dose optimization technique as appropriate and may include automated exposure control or mA/KV adjustment according to patient size. FINDINGS: CT HEAD WITHOUT CONTRAST: No acute hemorrhage, hydrocephalus or extra-axial collection is identified.Moderate diffuse brain atr ophy.No areas of brain edema or midline shift. The paranasal sinuses and mastoids are clear.The calvarium is intact. CT CERVICAL SPINE WITHOUT CONTRAST: No fracture or subluxation.Moderate lower cervical degenerative change. There is 2-3 mm degenerative anterolisthesis of C4 on 5 and C5 on 6. Disc thinning with large posterior osteophyte is present at C 6-7.No prevertebral soft tissues swelling is identified. Moderate carotid atherosclerosis. IMPRESSION: No acute intracranial or cervical spine findings. Moderate mid and lower cervical degenerative spondylosis.
--- NOTE | 2023-04-27 10:28 | RAD REPORT ---
EXAM DESCRIPTION: RAD - Chest Single View - 04/27/2023 9:39 am CLINICAL HISTORY: CHEST PAIN Chest pain. COMPARISON: Chest Single View dated 03/10/2018; Chest Single View dated 08/22/2017; Chest Single View dated 07/26/2017; Chest Single View dated 08/01/2016 FINDINGS: Portable technique limits examination quality. The lungs are grossly clear. The heart is normal in size. No displaced fractures. IMPRESSION: No acute intrathoracic process suspected.
--- NOTE | 2023-04-27 10:46 | RAD REPORT ---
EXAM DESCRIPTION: CT - Chest For Pe Angio - 04/27/2023 10:22 am CLINICAL HISTORY: Chest pain. chest pain, thoracic back pain COMPARISON: No comparisons TECHNIQUE: CT angiogram of the pulmonary arteries was performed with MIP. All CT scans are performed using dose optimization technique as appropriate and may include automated exposure control or mA/KV adjustment according to patient size. FINDINGS: No evidence of pulmonary thromboembolism. No acute aortic finding demonstrated. Moderate bilateral ground-glass opacities are present likely representing pulmonary edema. No significant pericardial or pleural fluid. No concerning bony finding. IMPRESSION: No evidence of pulmonary thromboembolism. Mild to moderate pulmonary edema.
--- NOTE | 2023-04-27 12:02 | ER ---
Nurse's Notes [facility] Name: Eliane Flores Age: 77 yrs Sex: Female : 1945 Arrival Date: 04/27/2023 Time: 08:57 Bed 5 Private MD: Diagnosis: Chest pain, unspecified Presentation: 04/27 09:04 Chief complaint: Patient states: Patient reports left sided chest pain onset yesterday cm10 morning. Patient states that she woke up with the pain and that the pain is constant. Patient states that the pain radiates to her back and is having neck pain. Patient A\T\Ox4, respirations even and unlabored. Pt received ASA 324mg and Nitro X1 via EMS. Patient was seen at her PCP and was sent to the ED. Coronavirus screen: Client denies travel out of the [place] in the last 14 days. At this time, the client does not indicate any symptoms associated with coronavirus-19. Ebola Screen: No symptoms or risks identified at this time. Initial Sepsis Screen: Does the patient meet any 2 criteria? No. Patient's initial sepsis screen is negative. Does the patient have a suspected source of infection? No. Patient's initial sepsis screen is negative. Risk Assessment: Do you want to hurt yourself or someone else? Patient reports no desire to harm self or others. Onset of symptoms was April 26, 2023. Care prior to arrival: Medication(s) given: ASA, 325 mg, Nitroglycerin, x 1, IV initiated. 20 GA, in the left forearm. 09:04 Method Of Arrival: EMS: [facility] cm10 09:04 Acuity: CRISTINA 2 cm10 Triage Assessment: 09:09 General: Appears in no apparent distress. Behavior is calm, cooperative. Pain: cm10 Complains of pain in chest Pain radiates to back Pain currently is 6 out of 10 on a pain scale. Pain began 1 day ago. Is continuous, Alleviated by rest, Aggravated by movement. Historical: - Allergies: 09:11 PENICILLINS; cm10 - PMHx: 09:11 BRADYCARDIA; Hypertension; Hypothyroidism; problem with heart-unknown; cm10 - Immunization history:: Adult Immunizations up to date. - Social history:: Smoking status: Patient denies any tobacco usage or history of. Screenin:54 [facility] ED Fall Risk Assessment (Adult) History of falling in the last 3 months, cm10 including since admission No falls in past 3 months (0 pts). Abuse screen: Denies threats or abuse. Nutritional screening: No deficits noted. Tuberculosis screening: No symptoms or risk factors identified. Assessment: 10:55 Cardiovascular: No deficits noted. Heart tones present Capillary refill < 3 seconds. cm10 11:28 Reassessment: No changes from previously documented assessment. Amilcar TRIPP at . [facility] 12:56 Reassessment: No changes from previously documented assessment. Patient and/or family cm10 updated on plan of care and expected duration. Pain level reassessed. Patient is alert, oriented x 3, equal unlabored respirations, skin warm/dry/pink. Patient denies pain at this time. Patient states feeling better. Patient states symptoms have improved. Vital Signs: 09:04 BP 185 / 75; Pulse 62; Resp 18; Temp 98.6; Pulse Ox 100% on R/A; Weight 62.14 kg; cm10 Height 5 ft. 0 in. ; Pain 6/10; 09:47 BP 157 / 63; Pulse 51; Resp 16; Pulse Ox 96% on R/A; cm10 10:00 BP 124 / 67; Pulse 47; Resp 16; Pulse Ox 96% on R/A; cm10 10:30 BP 125 / 59; Pulse 52; Resp 16; Pulse Ox 94% on R/A; cm10 13:04 BP 150 / 62; Pulse 52; Resp 15; Pulse Ox 100% on R/A; cm10 16:21 BP 112 / 58; Pulse 57; Resp 18; Pulse Ox 94% ; cm10 09:04 Body Mass Index 26.76 (62.14 kg, 152.4 cm) cm10 09:04 Pain Scale: Adult cm10 ED Course: 09:04 Patient arrived in ED. cm10 09:05 Amilcar Marr PA is PHCP. [facility] 09:05 Malachi Mcclellan DO is Attending Physician. [facility] 09:09 Triage completed. cm10 09:09 Arm band placed on Patient placed in an exam room, on a stretcher. cm10 09:09 EKG done, by ED staff, reviewed by Malachi Mcclellan DO. mm9 09:10 Patient has correct armband on for positive identification. Placed in gown. Bed in low mm9 position. Call light in reach. Side rails up X2. Warm blanket given. Client placed on continuous cardiac and pulse oximetry monitoring. NIBP monitoring applied. lunchroom monitor on. Pulse ox on. 09:22 Concepcion Neal, RN is Primary Nurse. cm10 09:25 Maintain EMS IV. Dressing intact. Site clean \T\ dry. mm9 09:35 CT Head C Spine In Process Unspecified. EDMS 09:40 XRAY Chest (1 view) In Process Unspecified. EDMS 10:23 CT Chest For PE Angio In Process Unspecified. EDMS 10:55 Patient maintains SpO2 saturation greater than 95% on room air. cm10 10:56 No provider procedures requiring assistance completed. cm10 12:02 Michael Huffman MD is Hospitalizing Provider. [facility] 12:35 Admitting physician to see patient. cm10 12:55 No apparent distress. Resting quietly. Pt visited by daughter, son. cm10 15:11 Pt eating at this time. cm10 16:22 Patient admitted, IV remains in place. cm10 Administered Medications: 09:59 Drug: morphine IVP or IV 4 mg {Note: RASS 0, pain 5/10.} Route: IVP; Infused Over: 4 ll1 mins; Site: right antecubital; 10:51 Follow up: Response: No adverse reaction; Pain is decreased cm10 09:59 Drug: Ondansetron IVP 4 mg Route: IVP; Site: right antecubital; ll1 10:50 Follow up: Response: No adverse reaction; Pain is decreased cm10 09:59 Drug: Ativan IVP 0.5 mg {Note: RASS 0.} Route: IVP; Site: right antecubital; ll1 10:50 Follow up: Response: No adverse reaction; Pain is decreased cm10 Medication: 10:55 VIS not applicable for this client. cm10 Outcome: 12:02 Decision to Hospitalize by Provider. [facility] 16:21 Admitted to ER Hold. Please see [facility] for further documentation. cm10 16:21 Condition: good 16:21 Condition: See charting in [facility] 21:23 Patient left the ED. ll3 Signatures: Dispatcher [employer] EDMS Amilcar Marr PA PA jmm Lewis, Lynsay, RN RN 1 Ochoa Castillo RN RN ll3 Alycia Neal 9 Concepcion Neal RN RN cm10 Corrections: (The following items were deleted from the chart) 09:59 09:59 morphine IVP or IV 4 mg IVP in right antecubital over 4 mins ll1 ll1
--- NOTE | 2023-04-27 12:02 | EDPHYS ---
Physician Documentation [facility] Name: Eliane Flores Age: 77 yrs Sex: Female : 1945 Arrival Date: 04/27/2023 Time: 08:57 Bed 5 Private MD: ED Physician Malachi Mcclellan HPI: 04/27 09:05 This 77 yrs old Female presents to ER via EMS with complaints of Chest Pain. jmm 09:05 The patient or guardian reports chest pain that is located primarily in the substernal [facility] area. Onset: 1 day(s) ago. The pain radiates to the left arm, the left shoulder, left neck, the left scapula. Associated signs and symptoms: Pertinent negatives:. This is a 77/f with a history of bradycardia, htn, hypothyroidism that presents to the ED with complaints of substernal chest pain beginning yesterday. Pain radiates to the left shoulder, arm, neck. Complains of increased pain on exertion. Denies previous cath or stress test. . Historical: - Allergies: 09:11 PENICILLINS; cm10 - PMHx: 09:11 BRADYCARDIA; Hypertension; Hypothyroidism; problem with heart-unknown; cm10 - Immunization history:: Adult Immunizations up to date. - Social history:: Smoking status: Patient denies any tobacco usage or history of. ROS: 09:05 Constitutional: Negative for fever, chills, and weight loss. jmm 09:05 Cardiovascular: Positive for chest pain. 09:05 Respiratory: Positive for shortness of breath. 09:05 All other systems are negative. Exam: 09:05 Constitutional: This is a well developed, well nourished patient who is awake, alert, jmm and in no acute distress. Head/Face: atraumatic. Eyes: EOMI, no conjunctival erythema appreciated ENT: Moist Mucus Membranes Neck: Trachea midline, Supple Chest/axilla: Normal chest wall appearance and motion. Cardiovascular: Regular rate and rhythm. No edema appreciated Respiratory: Normal respirations, no respiratory distress appreciated Abdomen/GI: Non distended Back: Normal ROM Skin: General appearance color normal MS/ Extremity: Moves all extremities, no obvious deformities appreciated, no edema noted to the lower extremities Neuro: Awake and alert Psych: Behavior is normal, Mood is normal, Patient is cooperative and pleasant Vital Signs: 09:04 BP 185 / 75; Pulse 62; Resp 18; Temp 98.6; Pulse Ox 100% on R/A; Weight 62.14 kg; cm10 Height 5 ft. 0 in. ; Pain 6/10; 09:47 BP 157 / 63; Pulse 51; Resp 16; Pulse Ox 96% on R/A; cm10 10:00 BP 124 / 67; Pulse 47; Resp 16; Pulse Ox 96% on R/A; cm10 10:30 BP 125 / 59; Pulse 52; Resp 16; Pulse Ox 94% on R/A; cm10 13:04 BP 150 / 62; Pulse 52; Resp 15; Pulse Ox 100% on R/A; cm10 16:21 BP 112 / 58; Pulse 57; Resp 18; Pulse Ox 94% ; cm10 09:04 Body Mass Index 26.76 (62.14 kg, 152.4 cm) cm10 09:04 Pain Scale: Adult cm10 MDM: 09:05 Patient medically screened. [facility] 13:47 Differential diagnosis: gastroesophageal reflux disease (GERD), pancreatitis, [facility] pericarditis, pulmonary embolus, thoracic aortic disection. The patient was not given aspirin in the Emergency Department. Administered by EMS. Data reviewed: vital signs, nurses notes, lab test result(s), EKG, radiologic studies, CT scan, plain films. Consideration of Admission/Observation Escalation of care including admission/observation considered. I considered the following discharge prescriptions or medication management in the emergency department Medications were administered in the Emergency Department. See MAR. Counseling: I had a detailed discussion with the patient and/or guardian regarding: the historical points, exam findings, and any diagnostic results supporting the discharge/admit diagnosis, lab results, radiology results, the need for further work-up and treatment in the hospital. ED course: Discussed the patient with Dr. Huffman whom accepted the patient for admission. . 04/27 09:05 Order name: Basic Metabolic Panel; Complete Time: 10:01 [facility] 04/27 09:05 Order name: CBC with Diff; Complete Time: 09:38 [facility] 04/27 09:05 Order name: Troponin HS; Complete Time: 10:01 [facility] 04/27 12:48 Order name: Lipid Profile [facility] 04/27 12:48 Order name: Lipid Profile; Complete Time: 14:33 [facility] 04/27 12:48 Order name: Troponin High Sensitivity EDMS 04/27 12:48 Order name: Troponin High Sensitivity [facility] 04/27 12:48 Order name: Troponin High Sensitivity [facility] 04/27 12:48 Order name: Troponin High Sensitivity; Complete Time: 14:33 [facility] 04/27 09:05 Order name: XRAY Chest (1 view); Complete Time: 10:44 [facility] 04/27 09:13 Order name: CT Head C Spine; Complete Time: 10:03 [facility] 04/27 10:02 Order name: CT Chest For PE Angio; Complete Time: 10:48 [facility] 04/27 09:05 Order name: EKG; Complete Time: 09:06 [facility] 04/27 12:48 Order name: CONS Physician Consult [facility] 04/27 12:48 Order name: Heart Healthy [facility] 04/27 09:05 Order name: Cardiac monitoring; Complete Time: 09:21 [facility] 04/27 09:05 Order name: EKG - Nurse/Tech; Complete Time: 09:09 [facility] 04/27 09:05 Order name: IV Saline Lock; Complete Time: 09:21 [facility] 04/27 09:05 Order name: Labs collected and sent; Complete Time: 09:21 [facility] 04/27 09:05 Order name: O2 Per Protocol; Complete Time: 09:34 [facility] 04/27 09:05 Order name: O2 Sat Monitoring; Complete Time: 09:22 jmm Administered Medications: 09:59 Drug: morphine IVP or IV 4 mg {Note: RASS 0, pain 5/10.} Route: IVP; Infused Over: 4 ll1 mins; Site: right antecubital; 10:51 Follow up: Response: No adverse reaction; Pain is decreased cm10 09:59 Drug: Ondansetron IVP 4 mg Route: IVP; Site: right antecubital; ll1 10:50 Follow up: Response: No adverse reaction; Pain is decreased cm10 09:59 Drug: Ativan IVP 0.5 mg {Note: RASS 0.} Route: IVP; Site: right antecubital; ll1 10:50 Follow up: Response: No adverse reaction; Pain is decreased cm10 Disposition: 16:18 Co-signature as Attending Physician, Malachi ROTH was immediately available on-site ms3 in the Emergency Department for consultation in the care of the patient. Disposition Summary: 04/27/23 12:02 Hospitalization Ordered Hospitalization Status: Observation [facility] Provider: Michael Huffman Location: Telemetry/MedSurg (observation) [facility] Condition: Stable jmm Problem: new jmm Symptoms: are unchanged jmm Bed/Room Type: Standard [facility] Room Assignment: 410(04/27/23 20:18) Diagnosis - Chest pain, unspecified [facility] Forms: - Medication Reconciliation Form jmm - SBAR form [facility] Signatures: Dispatcher [employer] EDMS Amilcar Marr PA PA jmm Joy Christopher, RN RN cg Abby Trevino RN RN ll1 Malachi Mcclellan DO DO ms3 Concepcion Neal, RN RN cm10 Corrections: (The following items were deleted from the chart) 14:43 12:48 Troponin High Sensitivity ordered. EDSC EDMS 14:43 14:24 Troponin High Sensitivity reviewed. [facility] EDMS 20:18 12:02 jmm cg
[2023-04-27] MEDS ORDERED: MORPHINE 2 MG/ML SYR IV PRN (12:44)
--- NOTE | 2023-04-27 12:51 | P.HP ---
Certification for Inpatient Patient admitted to: Observation With expected LOS: <2 Midnights Practitioner: I am a practitioner with admitting privileges, knowledge of patient current condition, hospital course, and medical plan of care. Services: Services provided to patient in accordance with Admission requirements found in Title 42 Section 412.3 of the Code of Federal Regulations Patient History Date of Service: 04/27/23 Reason for admission: Chest pain History of Present Illness: Patient is 77 years of age Kazakh-speaking only years ago has been complaining of left arm discomfort for the past 2-week associated with some tingling in her fingers today started complaining of left-sided chest pain aggravated with exertion radiating to the left arm no prior history of coronary artery disease patient has history of hypertension and hyperlipidemia currently is pain-free Allergies Penicillins Adverse Reaction (Verified 07/31/16 23:19) Rash Home Medications: Amitriptyline [Elavil*] 10 mg PO DAILY 11/11/14 Levothyroxine Sodium [Unithroid] 50 mcg PO DAILY 11/11/14 Pravastatin Sodium [Pravachol] 20 mg PO DAILY 11/11/14 lisinopriL [Lisinopril] 10 mg PO DAILY #30 tablet 08/02/16 Cyclosporine [Restasis] 1 drop EACH EYE BID 6AM 6PM 07/26/17 Mesalamine 1 tab PO DAILY 07/26/17 Omeprazole 40 mg PO DAILY 07/26/17 - Past Medical/Surgical History Diabetic: No -: bradycardia -: htn -: hypothyrodism -: acid reflux -: hysterectomy -: dinh -: hernia - Family History Mother -: Heart disease - Social History Alcohol use: No CD- Drugs: No Caffeine use: No Review of Systems 10-point ROS is otherwise unremarkable Physical Examination - Vital Signs Temperature: 98.6 F Blood Pressure: 187/75 Pulse: 62 Respirations: 18 Pulse Ox (%): 100 - Physical Exam General: Alert, In no apparent distress, Oriented x3 Neck: Supple Cardiovascular: No edema, Regular rate/rhythm, Normal S1 S2 Gastrointestinal: Normal bowel sounds, Soft and benign, Non-distended Musculoskeletal: No clubbing Integumentary: No rashes, No breakdown Neurological: Normal speech, Normal strength at 5/5 x4 extr - Studies Laboratory Data (last 24 hrs) 04/27/23 09:18: WBC 3.80 L, Hgb 11.8 L, Hct 35.1 L, Plt Count 117 L 04/27/23 09:18: Sodium 139, Potassium 3.7, BUN 13, Creatinine 0.59, Glucose 100 Assessment and Plan - Problems (Diagnosis) (1) Unstable angina Current Visit: Yes Status: Acute Plan: Patient is 77 years of age admitted with chest pain radiating to the left arm and neck suggestive of unstable angina pain started today she has been having tingling and discomfort in the left arm for the past week EKG shows sinus bradycardia no ST-T changes troponin is negative chest x-ray is clear CT scan shows bilateral groundglass changes pressure elevated on admission admit for observation unstable angina continue to monitor troponins resume blood pressure pills patient is also on cholesterol medications at home anticoagulated with Lovenox cardiology consult - Advance Directives Does patient have a Living Will: No Does patient have a Durable POA for Healthcare: No
[2023-04-27] MEDS ORDERED: NITROGLYCERIN 0.4 MG/TAB SL PRN (13:51)
[2023-04-27] MEDS ORDERED: ENOXAPARIN 60 MG/0.6 ML SQ SCH (14:00)
[2023-04-27] MEDS: lisinopriL 10 MG TAB PO SCH ×2 (14:00→22:02)
[2023-04-27 16:08] VITALS: BMI 26.5
[2023-04-27] MEDS ORDERED: ENOXAPARIN 60 MG/0.6 ML SQ ONE (16:44)
[2023-04-27] MEDS ORDERED: MORPHINE 2 MG/ML SYR ONE (19:34)
[2023-04-28] MEDS ORDERED: HYDROCODONE/APAP 5/325 MG TAB PO PRN (04:27)
--- NOTE | 2023-04-28 07:19 | P.PN ---
Date of Service: 04/28/23 Subjective: ROS: 10 point ROS as noted above, otherwise negative Physical Exam: GEN: Alert, oriented, NAD HEENT: Normal conjunctiva, sclera anicteric CV: Regular rate and rhythm, no edema Pulm: Nonlabored respirations on room air ABD: Soft, nontender, nondistended MSK: No joint tenderness Integumentary: No rashes Neuro: Normal speech, normal affect vitals reviewed Problem List: VTE: Code: Dispo:
[2023-04-28] MEDS: lisinopriL 10 MG TAB PO SCH (08:27)
[2023-04-28 08:55] VITALS: O2SAT 95
[2023-04-28] MEDS ORDERED: ENOXAPARIN 60 MG/0.6 ML SQ SCH (09:00)
[2023-04-28] MEDS ORDERED: ASPIRIN EC 81 MG TAB PO SCH (09:00)
--- NOTE | 2023-04-28 10:41 | CON ---
Date of Consultation: 04/28/2023 Reason For Consultation: Atypical chest pain. History Of Present Illness: Ms. Flores is 77. Has a history of hypertension and hypothyroidism and q uestionable cardiac history. Comes in with atypical chest pain, mostly in the right neck and right s houlder radiating to the right chest without any nausea, vomiting, diaphoresis, PND, orthopnea, pedal edema, palpitations, or syncope. SC has ruled out. EKG is normal. Chest x-ray is normal. Troponi n and BNP are negative. She is asymptomatic today, eating her breakfast without any complaint. Past Medical History: As stated above. Allergies: SHE IS ALLERGIC TO PENICILLIN. Review of Systems: Negative. Social History: Negative. Family History: Negative. Medications: At home include Prinivil, Synthroid, and lisinopril. Physical Examination: Vital Signs: Stable, afebrile. HEENT: Negative. Neck: Supple with no bruit. Chest: Clear. Cardiac: Revealed a regular rhythm and rate. No murmurs, gallops, or rubs. Abdomen: Benign. Extremities: Revealed no clubbing, cyanosis, or edema. Diagnostic Data: All within normal limit. Impression And Plan: Atypical chest pain. I think it is most likely cervical spondylosis related. I do not think this is cardiac in nature. She does have some risk factors and questionable cardiac h istory, and I think it would be reasonable to send her home and have her see me in the office in the next week or 2 and we can do an echocardiogram and a stress test on her then. Case was discussed tamia Farias. JUSTO/REMI Voice ID: [id number] Report ID: [id number]
[2023-04-28 11:33] VITALS: BP 118/61; TEMP 98.4
--- NOTE | 2023-04-28 14:05 | P.DS ---
Admission Date: 04/27/23 Discharge Date: 04/28/23 Disposition: ROUTINE DISCHARGE Discharge Condition: GOOD Reason for Admission: Chest pain Consultations: Cardiology - Dr. Johnson Brief History of Present Illness: 77yo F, PMH: Hypertension, Hypothyroidism, GERD, Hernia, Braycardia Patient presented to the ED with left arm discomfort for the past 2-week associated with some tingling in her fingers today started complaining of left- sided chest pain. Pain is aggravated with exertion radiating to the left arm Patient does not have any prior history of coronary artery disease. Currently is pain-free. Hospital Course: Problem List: Cervical spondylosis vs radiculopathy Hypertension Hypothyroidism Hyperlipidemia GERD Patient presented with atypical chest pain, mostly in the left neck and left shoulder radiating to the left chest. Xray of the chest was negative. CT head/neck revealed "Moderate mid and lower cervical degenerative spondylosis." EKG without ST changes. Troponin negative x3. Cardiology was consulted and agreed this was unlikely cardiac origin and more likely related to her cervical spondylosis. He recommended follow up in office in ~1-2 weeks for cardiac stress testing and echocardiogram to more definitively rule out cardiac issue. She had improvement of her symptoms with pain medication. Discussed briefly with Dr. Gopal Schwarz (Orthopedic spine surgeon) who recommended patient follow up in his office, can likely see her this Sunday. Patient will need to call his office to schedule appointment: [phone] Pain control and rest / avoidance of overuse of her neck/upper back muscles. New Prescriptions: [place] for pain Flexeril for muscle spasms caution taking these around the same time, as they both can lead to sedation /ligtheadedness. Also recommend taking 600mg ibuprofen every 8 hours as needed for pain. Do not take more than 5 days / or instructed by your PCP. Follow up: PCP 3-5 days Cardiology within 1-2 weeks for outpatient echocardiogram and stress test Dr. Schwarz (Spine surgeon) in next few days - call office, possibly can be seen this Sunday. Physical Exam: GEN: Alert, oriented, NAD HEENT: Normal conjunctiva, sclera anicteric CV: Regular rate and rhythm, no edema Pulm: Nonlabored respirations on room air MSK: tenderness to palpation of b/l sternocleidomastoids Integumentary: No rashes, no lesions Neuro: Normal speech, normal affect, intact b/l upper extremity strength and sensation, PERRL, EOMI Vital Signs/Physical Exam: Temp Pulse Resp BP Pulse Ox 98.4 F 56 16 118/61 94 04/28/23 11:32 04/28/23 11:32 04/28/23 11:32 04/28/23 11:32 04/28/23 11:32 Laboratory Data at Discharge: WBC 3.80 thou/uL (4.3-10.9) L 04/27/23 09:18 Hgb 11.8 g/dL (12.0-15.0) L 04/27/23 09:18 Hct 35.1 % (36.0-45.0) L 04/27/23 09:18 Plt Count 117 thou/uL (152-406) L 04/27/23 09:18 Sodium 139 mEq/L (136-145) 04/27/23 09:18 Potassium 3.7 mEq/L (3.5-5.1) 04/27/23 09:18 BUN 13 mg/dL (7-18) 04/27/23 09:18 Creatinine 0.59 mg/dL (0.55-1.02) 04/27/23 09:18 Glucose 100 mg/dL (74-106) 04/27/23 09:18 Triglycerides 40 mg/dL (<150) 04/27/23 13:55 Cholesterol 120 mg/dL (<200) 04/27/23 13:55 HDL Cholesterol 58 mg/dL (40-60) 04/27/23 13:55 Cholesterol/HDL Ratio 2.07 04/27/23 13:55 Home Medications: Levothyroxine Sodium [Unithroid] 50 mcg PO DAILY 11/11/14 Omeprazole 40 mg PO DAILY 07/26/17 lisinopriL [Lisinopril] 20 mg PO DAILY 04/27/23 Cyclobenzaprine [Flexeril] 10 mg PO Q8H PRN #15 tab 04/28/23 Hydrocodone 5/APAP 325 [[place] 5/325*] 1 tab PO Q8H PRN #15 tab 04/28/23 New Medications: Cyclobenzaprine [Flexeril] 10 mg PO Q8H PRN #15 tab PRN Reason: Muscle Spasms Hydrocodone 5/APAP 325 [[place] 5/325*] 1 tab PO Q8H PRN #15 tab PRN Reason: Pain Scale 5-7 (Moderate) Physician Discharge Instructions: Patient presented with atypical chest pain, mostly in the left neck and left shoulder radiating to the left chest. Xray of the chest was negative. CT head/neck revealed "Moderate mid and lower cervical degenerative spondylosis." EKG without ST changes. Troponin negative x3. Cardiology was consulted and agreed this was unlikely cardiac origin and more likely related to her cervical spondylosis. He recommended follow up in office in ~1-2 weeks for cardiac stress testing and echocardiogram to more definitively rule out cardiac issue. She had improvement of her symptoms with pain medication. Discussed briefly with Dr. Gopal Schwarz (Orthopedic spine surgeon) who recommended patient follow up in his office, can likely see her this Sunday. Patient will need to call his office to schedule appointment: [phone] Pain control and rest / avoidance of overuse of her neck/upper back muscles. New Prescriptions: [place] for pain Flexeril for muscle spasms caution taking these around the same time, as they both can lead to sedation /ligtheadedness. Also recommend taking 600mg ibuprofen every 8 hours as needed for pain. Do not take more than 5 days / or instructed by your PCP. Follow up: PCP 3-5 days Cardiology within 1-2 weeks for outpatient echocardiogram and stress test Dr. Schwarz (Spine surgeon) in next few days - call office, possibly can be seen this Sunday. Followup: Tom Charlton DO [Primary Care Provider] - Time spent managing pt's care (in minutes): 45
--- NOTE | 2023-04-30 12:12 | EKG ---
Test Date: 2023-04-27 Test Time: 09:20:27 Match Up Person: JOSE EDUARDO MEASUREMENT RESULTS: Intervals: Rate: 51 VA: 156 QRSD: 98 QT: 446 QTc: 411 [place]: P: 9 VA: 156 QRS: 31 T: 41 INTERPRETIVE STATEMENTS: Sinus bradycardia Otherwise normal ECG Compared to ECG 03/10/2018 11:36:49 No significant changes Electronically Signed On 04-30-23 12:01:45 CDT by Adam Johnson
== END 2023-04-28 16:52 | disposition home or self-care (01) ==
LOC: ER 08:57 → ERHOLD 14:58 → 4TH 20:30
PROVIDERS: ADMIT Hospitalist; ATTEND Hospitalist
DX: R07.89 Other chest pain (principal); I25.10 Atherosclerotic heart disease of native coronary artery without angina pectoris; M47.892 Other spondylosis, cervical region; I10 Essential (primary) hypertension; E78.5 Hyperlipidemia, unspecified; R20.2 Paresthesia of skin; E03.9 Hypothyroidism, unspecified; K21.9 Gastro-esophageal reflux disease without esophagitis; R00.1 Bradycardia, unspecified; Z88.0 Allergy status to penicillin
CPT/HCPCS: 93005; 85025; 80048; 36415; 80061; 84484 ×4; 70450; 72125; 71275; 71045; 96375; 96374; 99285; Q9967; J1650 ×2; J2270; J2405; G0378 ×4

== ENCOUNTER 2024-11-04 10:27 | Emergency (ER) | payer OTHER ==
--- OUTSIDE RECORDS SUMMARY | 2024-11-04 10:35 | XMS REPORT | Continuity of Care Document ---
Author Name Unknown Address [address] [facility] [place] [address] [facility] thconnect Address [address] [facility] [address] [place] [address] Care Team Providers Care Wash Mill Operator Name Role Phone PCP, PATIENT DOES NOT HAVE A Primary Care Physic kathryn Unavailable CHELSEY CHAHAL Attending Clinician Unavailable CARLO GOLDSMITH Attending Clinician Unavailab REAGAN Ojeda Attending Clinician TERESSA Jarquin Attending Clinician Unavailabl e LAB90 Attending Clinician Unavailable Venancio Dumont Attending Clinician Unavailable CHETAN PANTOJA Attending Clinician Unavailable LUMA CONDON Attending Clinician Unavail able MAX HEAD Attending Clinician Unavailable SANDRA SANCHEZ Attending Clinician Unavailab Sandra Jimenez DO Attending Clinician [phone] Jona Santana APRN Admitting Clinician SANDRA Coffman Admitting Clinician Unavailab gibbs Payers Payer Name Policy Type Policy Number Effective Date Expirati on Date Source AETMAINOR MARTINEZ [facility] 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 [id number] 2024 00:00:00 COMMERCIAL NON-CONTRACT GENERIC [id number] 2021 00:00:00 Problems Condition Name Condition Details Condition Category Status Onset Date Resolution Date Last Treatment Date Treating Clinician Comments Source URI (upper respirator y infection) URI (upper respirator y infection) Disease Active 2023-11 2-11 00:00: 00 Kita Montes - Externa sukhjinder Grief reaction Grief reaction Disease Active 06-17 00:00: 00 Kita Montes - Externa sukhjinder Low platelet count Low platelet count Disease Active 4 00:00: 00 Kita Montes - Externa sukhjinder Well adult exam Well adult exam Disease Active 03-21 00:00: 00 Kita Montes - Externa sukhjinder Prediabete s Prediabete s Disease Active 03-21 00:00: 00 Kita Montes - Externa sukhjinder Hypertensi on Hypertensi on Disease Active 02-21 00:00: 00 Kita Montes - Externa sukhjinder Hypothyroi dism (acquired) Hypothyroi dism (acquired) Disease Active 02-21 00:00: 00 Kita Montes - Externa sukhjinder 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 veins of both lower extremitie s with pain Disease Active 02-21 00:00: 00 Kita Montes - Externa sukhjinder GERD (gastroeso phageal reflux disease) GERD (gastroeso phageal reflux disease) Disease Active 02-21 00:00: 00 Kita Montes - Externa sukhjinder Chronic back pain Chronic back pain Disease Active 02-21 00:00: 00 Kita Cazares Externa sukhjinder No known active problems No known active problems Disease [facility] Allergies, Adverse Reactions, Alerts Allergy Name Allergy Type Status Severity Reaction(s) Onset Date Inactive Date Treating Clinician Comments Source No Known Allergie s DA Active U 06-13 00:00: 00 [facility] Penicill ins Propensi ty to adverse reaction s Active 02-20 00:00: 00 Kita Montes - Externa sukhjinder Penicill ins - CLASS Propensi ty to adverse reaction to drug Active 07-04 00:00: 00 Codeine Propensi ty to adverse reaction s Active 2022-0 8-16 00:00: 00 Kita Montes - Externa l Penicill ins Propensi ty to adverse reaction to drug Active 18 00:00: 00 PENICILL INS Drug Class Active Hives 814 00:00: 00 [facility] Penicill ins Propensi ty to adverse reaction s Active Hives 8-14 00:00: 00 [facility] Social History Social Habit Start Date Stop Date Quantity Comments Source Gender identity Courtney Montes - External Sexual orientation Jeremiah kindra Montes - External ASSERTION Possible Kita Montes - External History of Occupation Kita Montes - External Alcoholic beverage intake 2024-10-29 00:00:00 2024-10-29 00:00:00 Lifetime non-drinker (finding) Kita Montes - External Alcohol intake 2024-02-18 00:00:00 2024-02-18 00:00:00 Lifetime non-drinker (finding) Kita Montes - External History of Social function 2023-08-06 00:00:00 2023-08-06 00:00:00 Kita Montes - External Education 2023-02-21 00:00:00 2023-02-21 00:00:00 3 Kita Montes - External Tobacco use and exposure 2023-02-20 00:00:00 2023-02-20 00:00:00 Smokeless tobacco non-user Kita Montes - External Sex 2022-11-16 16:00:49 2022-11-16 16:00:49 Female (finding) Kita Montes - External Exposure to SARS-CoV-2 (event) 2022-08-12 00:00:00 2022-08-22 12:07:00 Not sure [facility] Sex assigned at 1945 00:00:00 1945 00:00:00 Kita Montes - External Smoking Status Start Date Stop Date Source Never smoked tobacco Kita Montes - External Medications Ordered Medication Name Filled Medication Name Start Date Stop Date Current Medication? Ordering Clinician Indication Dosage Frequency Signature (SIG) Comments Components Source Cholecalcif sandhya (VITAMIN D-3) 10 MCG (400 UNIT) oral Tablet 2023-11 14:54: 31 Yes 400U QD Take 1 tablet (400 units total) by mouth daily. [facility] [place]-3 Fatty Acids (Fish Oil) 1200 MG oral Capsule 2023-11 14:54: 31 Yes 1{capsu le} QD Take 1 capsule by mouth daily [facility] Cholecalcif sandhya (Vitamin D) 125 MCG (5000 UT) oral Capsule 2023-11 14:54: 31 Yes 1{capsu le} QD Take 1 capsule by mouth daily. [facility] Cyanocobala min (B-12) 500 MCG oral Tablet 2023-11 14:54: 31 Yes 1{tbl} QD Take 1 tablet by mouth daily. [facility] Multiple Vitamins-Mi nerals (Multivitam in Adults 50+) oral Tablet 2023-11 14:54: 31 Yes 1{tbl} QD Take 1 tablet by mouth daily. [facility] Benzonatate (Tessalon Perles) 100 MG oral Capsule 2023-11 00:00: 00 Yes [id number] 100mg [id number] 3D Take 1 capsule (100 mg total) by mouth 3 times daily as needed for cough. [facility] Levothyroxi ne Sodium 50 MCG oral Tablet 2023-11 00:00: 00 Yes [id number] 50ug QD Take 1 tablet (50 mcg total) by mouth daily. [facility] Lisinopril 10 MG oral Tablet 2023-11 00:00: 00 Yes [id number] 10mg QD Take 1 tablet (10 mg total) by mouth daily. [facility] Azithromyci n 250 MG oral Tablet 2023-11 00:00: 00 11-04 05:59 :00 Yes [id number] Take 2 tablets by mouth on day 1 then 1 tablet by mouth daily for 4 days thereafter .. [facility] Cholecalcif sandhya (VITAMIN D-3) 10 MCG (400 UNIT) oral Tablet 08-11 15:28: 52 Yes 400U QD Take 1 tablet (400 units total) by mouth daily. [facility] [place]-3 Fatty Acids (Fish Oil) 1200 MG oral Capsule 08-11 15:28: 52 Yes 1{capsu le} QD Take 1 capsule by mouth daily [facility] Cholecalcif sandhya (Vitamin D) 125 MCG (5000 UT) oral Capsule 08-11 15:28: 52 Yes 1{capsu le} QD Take 1 capsule by mouth daily. [facility] Cyanocobala min (B-12) 500 MCG oral Tablet 08-11 15:28: 52 Yes 1{tbl} QD Take 1 tablet by mouth daily. [facility] Multiple Vitamins-Mi nerals (Multivitam in Adults 50+) oral Tablet 08-11 15:28: 52 Yes 1{tbl} QD Take 1 tablet by mouth daily. [facility] Blood Pressure Monitoring (Blood Pressure Kit) does not apply Device 08-11 00:00: 00 Yes [id number] Check BP daily. [facility] Alprazolam 0.25 MG oral Tablet 05-06 00:00: 00 Yes [id number] .25mg QD Take 1 tablet (0.25 mg total) by mouth daily as needed for anxiety. [facility] Cholecalcif sandhya (VITAMIN D-3) 10 MCG (400 UNIT) oral Tablet 03-18 13:34: 16 Yes 400U QD Take 1 tablet (400 units total) by mouth daily. [facility] [place]-3 Fatty Acids (Fish Oil) 1200 MG oral Capsule 03-18 13:34: 16 Yes 1{capsu le} QD Take 1 capsule by mouth daily [facility] Cholecalcif sandhya (Vitamin D) 125 MCG (5000 UT) oral Capsule 03-18 13:34: 16 Yes 1{capsu le} QD Take 1 capsule by mouth daily. [facility] Cyanocobala min (B-12) 500 MCG oral Tablet 03-18 13:34: 16 Yes 1{tbl} QD Take 1 tablet by mouth daily. [facility] Multiple Vitamins-Mi nerals (Multivitam in Adults 50+) oral Tablet 03-18 13:34: 16 Yes 1{tbl} QD Take 1 tablet by mouth daily. [facility] Multiple Vitamins-Mi nerals (Multivitam in Adults 50+) oral Tablet 02-17 15:12: 43 Yes 1{tbl} Take 1 tablet by mouth daily. [facility] Cyanocobala min (B-12) 500 MCG oral Tablet 02-17 15:12: 13 Yes 1{tbl} Take 1 tablet by mouth daily. [facility] Cholecalcif sandhya (Vitamin D) 125 MCG (5000 UT) oral Capsule 02-17 15:11: 30 Yes 1{capsu le} Take 1 capsule by mouth daily. [facility] Cholecalcif sandhya (VITAMIN D-3) 10 MCG (400 UNIT) oral Tablet 02-17 15:07: 08 Yes 400U Take 1 tablet (400 units total) by mouth daily [facility] [place]-3 Fatty Acids (Fish Oil) 1200 MG oral Capsule 02-17 15:07: 08 Yes 1{capsu le} Take 1 capsule by mouth daily [facility] Levothyroxi ne Sodium 50 MCG oral Tablet 02-17 00:00: 00 10-29 00:00 :00 No [id number] 50ug QD Take 1 tablet (50 mcg total) by mouth daily. [facility] Lisinopril 10 MG oral Tablet 02-17 00:00: 00 10-29 00:00 :00 No [id number] 10mg QD Take 1 tablet (10 mg total) by mouth daily. [facility] Cholecalcif sandhya (VITAMIN D-3) 10 MCG (400 UNIT) oral Tablet 05-21 13:59: 21 Yes 400U Take 1 tablet (400 units total) by mouth daily. [facility] [place]-3 Fatty Acids (Fish Oil) 1200 MG oral Capsule 05-21 13:59: 21 Yes 1{capsu le} Take 1 capsule by mouth daily [facility] Cyclobenzap rine HCl 10 MG oral Tablet 05-01 00:00: 00 06-21 00:00 :00 No 10mg Q.[id number] 3D Take 1 tablet (10 mg total) by mouth every 8 hours as needed [facility] HYDROcodone -Acetaminop hen (NORCO) 5-325 MG oral Tablet 05-01 00:00: 00 06-21 00:00 :00 No TAKE 1 TABLET BY MOUTH EVERY 8 HOURS NEEDED FOR PAIN (SCALE 5-7, MODERATE) [facility] Cholecalcif sandhya (VITAMIN D-3) 10 MCG (400 UNIT) oral Tablet 03-21 14:22: 23 Yes 400U Take 1 tablet (400 units total) by mouth daily [facility] [place]-3 Fatty Acids (Fish Oil) 1200 MG oral Capsule 03-21 14:22: 23 Yes 1{capsu le} Take 1 capsule by mouth daily [facility] Levothyroxi ne Sodium 50 MCG oral Tablet 03-15 00:00: 00 Yes [id number] 50ug Take 1 tablet (50 mcg total) by mouth daily [facility] Lisinopril 10 MG oral Tablet 02-21 14:17: 02-21 00:00 :00 No 10mg Take 1 tablet (10 mg total) by mouth daily [facility] Levothyroxi ne Sodium 50 MCG oral Tablet 02-21 14:17: 57 02-21 00:00 :00 No 50ug Take 1 tablet (50 mcg total) by mouth daily [facility] Pantoprazol e Sodium 20 MG oral Tablet Delayed Response 02-21 14:17: 57 02-21 00:00 :00 No 20mg Take 1 tablet (20 mg total) by mouth daily [facility] Zinc Sulfate (ZINC 15 OR) 02-21 14:17: 57 02-21 00:00 :00 No Take by mouth [facility] [place]-3 Fatty Acids (Fish Oil) 1200 MG oral Capsule 02-21 14:05: 49 Yes 1{capsu le} Take 1 capsule by mouth daily [facility] Cholecalcif sandhya (VITAMIN D-3) 10 MCG (400 UNIT) oral Tablet 02-21 13:58: 27 Yes 400U Take 1 tablet (400 units total) by mouth daily [facility] Lisinopril 10 MG oral Tablet 02-21 00:00: 00 Yes [id number] 10mg Take 1 tablet (10 mg total) by mouth daily [facility] Levothyroxi ne Sodium 50 MCG oral Tablet 02-21 00:00: 00 Yes [id number] 50ug Take 1 tablet (50 mcg total) by mouth daily [facility] Zinc Sulfate (Zinc 15) 66 MG oral Tablet 02-21 00:00: 00 Yes 1{tbl} QD Take 1 tablet by mouth daily [facility] Pantoprazol e Sodium 20 MG oral Tablet Delayed Response 02-21 00:00: 00 06-21 00:00 :00 No [id number] 20mg QD Take 1 tablet (20 mg total) by mouth daily as needed [facility] ibuprofen (IBU) tablet 400 mg 2021-11 17:00: 00 08-22 16:51 :00 No 400mg 400 mg, Oral, ONCE, 1 dose, On Sun08/22/22 at 1200, [facility] Dose Unknown 05-18 00:00: 00 No Dose Unknown 05-18 00:00: 00 No Dose Unknown 05-18 00:00: 00 No Dose Unknown 05-18 00:00: 00 No Dose Unknown 05-18 00:00: 00 No Zoloft 50 mg tablet 2021-0 05-11 00:00: 00 No 1mg Dose Unknown 2021-0 05-11 00:00: 00 No Zoloft 50 mg tablet 2021-0 05-11 00:00: 00 No 1mg Dose Unknown 2021-0 05-11 00:00: 00 No Zoloft 50 mg tablet 2021-0 05-11 00:00: 00 No 1mg Dose Unknown 2021-0 05-11 00:00: 00 No Zoloft 50 mg tablet 2021-0 05-11 00:00: 00 No 1mg Dose Unknown 2021-0 05-11 00:00: 00 No Zoloft 50 mg tablet 2021-0 05-11 00:00: 00 No 1mg Dose Unknown 2021-0 05-11 00:00: 00 No Dose Unknown 2021-0 04-17 00:00: 00 No Dose Unknown 2021-0 04-17 00:00: 00 No Dose Unknown 2021-0 04-17 00:00: 00 No Dose Unknown 2021-0 04-17 00:00: 00 No Dose Unknown 2021-0 04-17 00:00: 00 No mupirocin 2 % topical ointment 2021-0 04-15 00:00: 00 No 1% terbinafine HCl 250 mg tablet 2021-0 04-15 00:00: 00 No 1mg ibuprofen 800 mg tablet 0 04-15 00:00: 00 No 1mg doxycycline monohydrate 50 mg capsule 2021-0 04-15 00:00: 00 No 1mg mupirocin 2 % topical ointment 2021-0 04-15 00:00: 00 No 1% terbinafine HCl 250 mg tablet 2021-0 04-15 00:00: 00 No 1mg ibuprofen 800 mg tablet 2-0 04-15 00:00: 00 No 1mg doxycycline monohydrate 50 mg capsule 2-0 04-15 00:00: 00 No 1mg mupirocin 2 % topical ointment 2-0 04-15 00:00: 00 No 1% terbinafine HCl 250 mg tablet 2021-0 04-15 00:00: 00 No 1mg ibuprofen 800 mg tablet 2021-0 04-15 00:00: 00 No 1mg doxycycline monohydrate 50 mg capsule 04-15 00:00: 00 No 1mg mupirocin 2 % topical ointment 04-15 00:00: 00 No 1% terbinafine HCl 250 mg tablet 04-15 00:00: 00 No 1mg ibuprofen 800 mg tablet 04-15 00:00: 00 No 1mg doxycycline monohydrate 50 mg capsule 04-15 00:00: 00 No 1mg mupirocin 2 % topical ointment 04-15 00:00: 00 No 1% terbinafine HCl 250 mg tablet 04-15 00:00: 00 No 1mg ibuprofen 800 mg tablet 04-15 00:00: 00 No 1mg doxycycline monohydrate 50 mg capsule 04-15 00:00: 00 No 1mg sulfamethox azole 800 mg-trimetho prim 160 mg tablet 04-11 00:00: 00 No 1mg diclofenac sodium 75 mg tablet,yolis yed release 04-11 00:00: 00 No 1mg gabapentin 300 mg capsule 04-11 00:00: 00 No 1mg sulfamethox azole 800 mg-trimetho prim 160 mg tablet 0 04-11 00:00: 00 No 1mg diclofenac sodium 75 mg tablet,yolis yed release 04-11 00:00: 00 No 1mg gabapentin 300 mg capsule 0 04-11 00:00: 00 No 1mg sulfamethox azole 800 mg-trimetho prim 160 mg tablet 0 04-11 00:00: 00 No 1mg diclofenac sodium 75 mg tablet,yolis yed release 04-11 00:00: 00 No 1mg gabapentin 300 mg capsule 0 04-11 00:00: 00 No 1mg sulfamethox azole 800 mg-trimetho prim 160 mg tablet 0 04-11 00:00: 00 No 1mg diclofenac sodium 75 mg tablet,yolis yed release 0 04-11 00:00: 00 No 1mg gabapentin 300 mg capsule 0 04-11 00:00: 00 No 1mg sulfamethox azole 800 mg-trimetho prim 160 mg tablet 0 04-11 00:00: 00 No 1mg diclofenac sodium 75 mg tablet,yolis yed release 0 04-11 00:00: 00 No 1mg gabapentin 300 mg capsule 0 04-11 00:00: 00 No 1mg Dose Unknown 0 5 00:00: 00 No Dose Unknown 0 5 00:00: 00 No lisinopril 10 mg tablet 0 5 00:00: 00 No 1mg Dose Unknown 0 5 00:00: 00 No lisinopril 10 mg tablet 0 5 00:00: 00 No 1mg Dose Unknown 0 02-12 00:00: 00 No Dose Unknown 0 02-12 00:00: 00 No Dose Unknown 0 02-12 00:00: 00 No Dose Unknown 0 02-12 00:00: 00 No Dose Unknown 0 02-12 00:00: 00 No Dose Unknown 0 02-12 00:00: 00 No Dose Unknown 0 02-12 00:00: 00 No Dose Unknown 0 02-12 00:00: 00 No Dose Unknown 0 02-12 00:00: 00 No Dose Unknown 0 02-12 00:00: 00 No Restasis MultiDose 0.05 % eye drops 0 02-08 00:00: 00 No 1% diclofenac 3 % topical gel 0 02-08 00:00: 00 No 1% Dose Unknown 0 02-08 00:00: 00 No pentoxifyll ine ER 400 mg tablet,exte nded release 02-08 00:00: 00 No 1mg sertraline 25 mg tablet 0 02-08 00:00: 00 No 1mg azithromyci n 250 mg tablet 0 02-08 00:00: 00 No mg Dose Unknown 0 02-08 00:00: 00 No Restasis MultiDose 0.05 % eye drops 0 02-08 00:00: 00 No 1% diclofenac 3 % topical gel 0 02-08 00:00: 00 No 1% Dose Unknown 02-08 00:00: 00 No pentoxifyll ine ER 400 mg tablet,exte nded release 02-08 00:00: 00 No 1mg sertraline 25 mg tablet 02-08 00:00: 00 No 1mg azithromyci n 250 mg tablet 02-08 00:00: 00 No mg Dose Unknown 02-08 00:00: 00 No Restasis MultiDose 0.05 % eye drops 02-08 00:00: 00 No 1% diclofenac 3 % topical gel 02-08 00:00: 00 No 1% lisinopril 20 mg tablet 02-08 00:00: 00 No 1mg pentoxifyll ine ER 400 mg tablet,exte nded release 02-08 00:00: 00 No 1mg sertraline 25 mg tablet 02-08 00:00: 00 No 1mg azithromyci n 250 mg tablet 02-08 00:00: 00 No mg levothyroxi ne 50 mcg tablet 02-08 00:00: 00 No 1mcg Restasis MultiDose 0.05 % eye drops 02-08 00:00: 00 No 1% diclofenac 3 % topical gel 02-08 00:00: 00 No 1% Dose Unknown 02-08 00:00: 00 No pentoxifyll ine ER 400 mg tablet,exte nded release 02-08 00:00: 00 No 1mg sertraline 25 mg tablet 02-08 00:00: 00 No 1mg azithromyci n 250 mg tablet 02-08 00:00: 00 No mg Dose Unknown 02-08 00:00: 00 No Restasis MultiDose 0.05 % eye drops 02-08 00:00: 00 No 1% diclofenac 3 % topical gel 02-08 00:00: 00 No 1% lisinopril 20 mg tablet 02-08 00:00: 00 No 1mg pentoxifyll ine ER 400 mg tablet,exte nded release 0 3-23 00:00: 00 No 1mg sertraline 25 mg tablet 2021-0 3-23 00:00: 00 No 1mg azithromyci n 250 mg tablet 0 3-23 00:00: 00 No mg levothyroxi ne 50 mcg tablet 2021-0 3-23 00:00: 00 No 1mcg Dose Unknown 2021-0 3-17 00:00: 00 No Dose Unknown 0 3-17 00:00: 00 No Dose Unknown 0 3-17 00:00: 00 No Dose Unknown 0 3-17 00:00: 00 No Dose Unknown 0 3-17 00:00: 00 No Dose Unknown 0 3-08 00:00: 00 No Dose Unknown 0 3-08 00:00: 00 No Dose Unknown 0 3-08 00:00: 00 No Dose Unknown 0 3-08 00:00: 00 No Dose Unknown 0 3-08 00:00: 00 No Dose Unknown 0 2- 00:00: 00 No pentoxifyll ine ER 400 mg tablet,exte nded release 0 2- 00:00: 00 No 1mg Dose Unknown 0 2-22 00:00: 00 No lisinopril 20 mg tablet 0 2-22 00:00: 00 No 1mg pentoxifyll ine ER 400 mg tablet,exte nded release 0 2- 00:00: 00 No 1mg levothyroxi ne 50 mcg tablet 0 2- 00:00: 00 No 1mcg lisinopril 20 mg tablet 0 2-22 00:00: 00 No 1mg pentoxifyll ine ER 400 mg tablet,exte nded release 0 2- 00:00: 00 No 1mg levothyroxi ne 50 mcg tablet 0 2-22 00:00: 00 No 1mcg Dose Unknown 0 2-22 00:00: 00 No pentoxifyll ine ER 400 mg tablet,exte nded release 0 2-22 00:00: 00 No 1mg Dose Unknown 0 2-22 00:00: 00 No Dose Unknown 01-10 00:00: 00 No pentoxifyll ine ER 400 mg tablet,exte nded release 01-10 00:00: 00 No 1mg Dose Unknown 01-10 00:00: 00 No Dose Unknown 2020-11 2 00:00: 00 No Dose Unknown 2020-11 2 00:00: 00 No Dose Unknown 2020-11 00:00: 00 No levothyroxi ne 50 mcg tablet 2020-11 00:00: 00 No 1mcg Dose Unknown 2020-11 00:00: 00 No levothyroxi ne 50 mcg tablet 2020-11 00:00: 00 No 1mcg Dose Unknown 2020-11 00:00: 00 No Dose Unknown 2020-11 00:00: 00 No Dose Unknown 2020-11 00:00: 00 No Dose Unknown 2020-11 00:00: 00 No Dose Unknown 2020-11 00:00: 00 No levothyroxi ne 50 mcg tablet 2020-11 00:00: 00 No 1mcg levothyroxi ne 50 mcg tablet 2020-11 00:00: 00 No 1mcg Dose Unknown 2020-11 00:00: 00 No Dose Unknown 2020-11 00:00: 00 No sulfamethox azole 800 mg-trimetho prim 160 mg tablet 8- 00:00: 00 No 1mg Dose Unknown 8- 00:00: 00 No sulfamethox azole 800 mg-trimetho prim 160 mg tablet 8- 00:00: 00 No 1mg Dose Unknown 8- 00:00: 00 No sulfamethox azole 800 mg-trimetho prim 160 mg tablet 8- 00:00: 00 No 1mg Dose Unknown 8- 00:00: 00 No sulfamethox azole 800 mg-trimetho prim 160 mg tablet 8- 00:00: 00 No 1mg Dose Unknown 8- 00:00: 00 No sulfamethox azole 800 mg-trimetho prim 160 mg tablet 8 00:00: 00 No 1mg Dose Unknown 06-28 00:00: 00 No Dose Unknown 06-24 00:00: 00 No Dose Unknown 06-24 00:00: 00 No Dose Unknown 06-24 00:00: 00 No levothyroxi ne 50 mcg tablet 06-24 00:00: 00 No 1mcg Dose Unknown 06-24 00:00: 00 No levothyroxi ne 50 mcg tablet 06-24 00:00: 00 No 1mcg Dose Unknown 06-24 00:00: 00 No Dose Unknown 06-24 00:00: 00 No Dose Unknown 06-24 00:00: 00 No Dose Unknown 06-24 00:00: 00 No lisinopril 10 mg tablet 03-24 00:00: 00 No 1mg levothyroxi ne 50 mcg tablet 03-24 00:00: 00 No 1mcg lisinopril 10 mg tablet 06 00:00: 00 No 1mg levothyroxi ne 50 mcg tablet 06 00:00: 00 No 1mcg lisinopril 10 mg tablet 506 00:00: 00 No 1mg levothyroxi ne 50 mcg tablet 06 00:00: 00 No 1mcg lisinopril 10 mg tablet -06 00:00: 00 No 1mg levothyroxi ne 50 mcg tablet -06 00:00: 00 No 1mcg lisinopril 10 mg tablet 5-06 00:00: 00 No 1mg levothyroxi ne 50 mcg tablet -06 00:00: 00 No 1mcg triamcinolo ne acetonide 0.1 % topical cream 0 -06 00:00: 00 No 1% triamcinolo ne acetonide 0.1 % topical cream -06 00:00: 00 No 1% triamcinolo ne acetonide 0.1 % topical cream 02-22 00:00: 00 No 1% triamcinolo ne acetonide 0.1 % topical cream 02-22 00:00: 00 No 1% triamcinolo ne acetonide 0.1 % topical cream 02-22 00:00: 00 No 1% triamcinolo ne acetonide 0.025 % topical cream 02-15 00:00: 00 No 1% triamcinolo ne acetonide 0.025 % topical cream 02-15 00:00: 00 No 1% triamcinolo ne acetonide 0.025 % topical cream 02-15 00:00: 00 No 1% triamcinolo ne acetonide 0.025 % topical cream 02-15 00:00: 00 No 1% triamcinolo ne acetonide 0.025 % topical cream 02-15 00:00: 00 No 1% lisinopril 10 mg tablet 12-08 00:00: 00 No 1mg levothyroxi ne 50 mcg tablet 12-08 00:00: 00 No 1mcg lisinopril 10 mg tablet 12-08 00:00: 00 No 1mg levothyroxi ne 50 mcg tablet 12-08 00:00: 00 No 1mcg lisinopril 10 mg tablet 12-08 00:00: 00 No 1mg levothyroxi ne 50 mcg tablet 12-08 00:00: 00 No 1mcg lisinopril 10 mg tablet 12-08 00:00: 00 No 1mg levothyroxi ne 50 mcg tablet 12-08 00:00: 00 No 1mcg lisinopril 10 mg tablet 12-08 00:00: 00 No 1mg levothyroxi ne 50 mcg tablet 12-08 00:00: 00 No 1mcg lisinopril 10 mg tablet 2019-11 00:00: 00 No 1mg ondansetron 4 mg disintegrat ing tablet 2019-11 00:00: 00 No 1mg levothyroxi ne 50 mcg tablet 2019-11 00:00: 00 No 1mcg omeprazole 40 mg capsule,del ayed release 2019-11 00:00: 00 No 1mg lisinopril 10 mg tablet 2019-11 00:00: 00 No 1mg ondansetron 4 mg disintegrat ing tablet 2019-11 00:00: 00 No 1mg levothyroxi ne 50 mcg tablet 2019-11 00:00: 00 No 1mcg omeprazole 40 mg capsule,del ayed release 2019-11 00:00: 00 No 1mg lisinopril 10 mg tablet 2019-11 00:00: 00 No 1mg ondansetron 4 mg disintegrat ing tablet 2019-11 00:00: 00 No 1mg levothyroxi ne 50 mcg tablet 2019-11 00:00: 00 No 1mcg omeprazole 40 mg capsule,del ayed release 2019-11 00:00: 00 No 1mg lisinopril 10 mg tablet 2019-11 00:00: 00 No 1mg ondansetron 4 mg disintegrat ing tablet 2019-11 00:00: 00 No 1mg levothyroxi ne 50 mcg tablet 2019-11 00:00: 00 No 1mcg omeprazole 40 mg capsule,del ayed release 2019-11 00:00: 00 No 1mg lisinopril 10 mg tablet 2019-11 00:00: 00 No 1mg ondansetron 4 mg disintegrat ing tablet 2019-11 00:00: 00 No 1mg levothyroxi ne 50 mcg tablet 2019-11 00:00: 00 No 1mcg omeprazole 40 mg capsule,del ayed release 2019-11 00:00: 00 No 1mg levothyroxi ne 50 mcg tablet 06-14 00:00: 00 No 1mcg levothyroxi ne 50 mcg tablet 06-14 00:00: 00 No 1mcg levothyroxi ne 50 mcg tablet 06-14 00:00: 00 No 1mcg levothyroxi ne 50 mcg tablet 06-14 00:00: 00 No 1mcg levothyroxi ne 50 mcg tablet 0 06-14 00:00: 00 No 1mcg lisinopril 10 mg tablet 0 06-11 00:00: 00 No 1mg lisinopril 10 mg tablet 0 06-11 00:00: 00 No 1mg lisinopril 10 mg tablet 06-11 00:00: 00 No 1mg lisinopril 10 mg tablet 06-11 00:00: 00 No 1mg lisinopril 10 mg tablet 0 06-11 00:00: 00 No 1mg levothyroxi ne 50 mcg tablet 06-01 00:00: 00 No 1mcg levothyroxi ne 50 mcg tablet 06-01 00:00: 00 No 1mcg levothyroxi ne 50 mcg tablet 06-01 00:00: 00 No 1mcg levothyroxi ne 50 mcg tablet 06-01 00:00: 00 No 1mcg levothyroxi ne 50 mcg tablet 0 06-01 00:00: 00 No 1mcg lisinopril 10 mg tablet 0 03-02 00:00: 00 No 1mg levothyroxi ne 50 mcg tablet 14 00:00: 00 No 1mcg omeprazole 40 mg capsule,del ayed release 03-02 00:00: 00 No 1mg lisinopril 10 mg tablet 03-02 00:00: 00 No 1mg levothyroxi ne 50 mcg tablet 03-02 00:00: 00 No 1mcg omeprazole 40 mg capsule,del ayed release 03-02 00:00: 00 No 1mg lisinopril 10 mg tablet 03-02 00:00: 00 No 1mg levothyroxi ne 50 mcg tablet 14 00:00: 00 No 1mcg omeprazole 40 mg capsule,del ayed release 14 00:00: 00 No 1mg lisinopril 10 mg tablet 14 00:00: 00 No 1mg levothyroxi ne 50 mcg tablet 14 00:00: 00 No 1mcg omeprazole 40 mg capsule,del ayed release 0 14 00:00: 00 No 1mg lisinopril 10 mg tablet 0 14 00:00: 00 No 1mg levothyroxi ne 50 mcg tablet 0 14 00:00: 00 No 1mcg omeprazole 40 mg capsule,del ayed release 0 03-02 00:00: 00 No 1mg Restasis MultiDose 0.05 % eye drops 0 24 00:00: 00 No 1% lisinopril 10 mg tablet 0 24 00:00: 00 No 1mg levothyroxi ne 50 mcg tablet 0 24 00:00: 00 No 1mcg omeprazole 40 mg capsule,del ayed release 0 24 00:00: 00 No 1mg Restasis MultiDose 0.05 % eye drops 0 24 00:00: 00 No 1% lisinopril 10 mg tablet 0 24 00:00: 00 No 1mg levothyroxi ne 50 mcg tablet 0 24 00:00: 00 No 1mcg omeprazole 40 mg capsule,del ayed release 0 02-09 00:00: 00 No 1mg Restasis MultiDose 0.05 % eye drops 0 24 00:00: 00 No 1% lisinopril 10 mg tablet 0 24 00:00: 00 No 1mg levothyroxi ne 50 mcg tablet 0 24 00:00: 00 No 1mcg omeprazole 40 mg capsule,del ayed release 0 24 00:00: 00 No 1mg Restasis MultiDose 0.05 % eye drops 0 24 00:00: 00 No 1% lisinopril 10 mg tablet 0 24 00:00: 00 No 1mg levothyroxi ne 50 mcg tablet 0 24 00:00: 00 No 1mcg omeprazole 40 mg capsule,del ayed release 0 24 00:00: 00 No 1mg Restasis MultiDose 0.05 % eye drops 0 24 00:00: 00 No 1% lisinopril 10 mg tablet 0 24 00:00: 00 No 1mg levothyroxi ne 50 mcg tablet 02-09 00:00: 00 No 1mcg omeprazole 40 mg capsule,del ayed release 02-09 00:00: 00 No 1mg lisinopril 10 mg tablet 2018-11 00:00: 00 No 1mg lisinopril 10 mg tablet 2018-11 00:00: 00 No 1mg lisinopril 10 mg tablet 2018-11 00:00: 00 No 1mg lisinopril 10 mg tablet 2018-11 00:00: 00 No 1mg lisinopril 10 mg tablet 2018-11 00:00: 00 No 1mg Restasis MultiDose 0.05 % eye drops 2018-11 00:00: 00 No 1% Restasis MultiDose 0.05 % eye drops 2018-11 00:00: 00 No 1% Restasis MultiDose 0.05 % eye drops 2018-11 00:00: 00 No 1% Restasis MultiDose 0.05 % eye drops 2018-11 00:00: 00 No 1% Restasis MultiDose 0.05 % eye drops 2018-11 00:00: 00 No 1% levothyroxi ne 50 mcg tablet 2018-11 00:00: 00 No 1mcg omeprazole 40 mg capsule,del ayed release 2018-11 00:00: 00 No 1mg pravastatin 20 mg tablet 2018-11 00:00: 00 No 1mg lisinopril 10 mg tablet 2018-11 00:00: 00 No 1mg levothyroxi ne 50 mcg tablet 2018-11 00:00: 00 No 1mcg omeprazole 40 mg capsule,del ayed release 2018-11 00:00: 00 No 1mg pravastatin 20 mg tablet 2018-11 00:00: 00 No 1mg lisinopril 10 mg tablet 2018-11 00:00: 00 No 1mg levothyroxi ne 50 mcg tablet 2018-11 00:00: 00 No 1mcg omeprazole 40 mg capsule,del ayed release 2018-11 00:00: 00 No 1mg pravastatin 20 mg tablet 2018-11 00:00: 00 No 1mg lisinopril 10 mg tablet 2018-11 00:00: 00 No 1mg levothyroxi ne 50 mcg tablet 2018-11 00:00: 00 No 1mcg omeprazole 40 mg capsule,del ayed release 2018-11 0 00:00: 00 No 1mg pravastatin 20 mg tablet 2018-11 00:00: 00 No 1mg lisinopril 10 mg tablet 2018-11 00:00: 00 No 1mg pravastatin 20 mg tablet 2018-11 00:00: 00 No 1mg lisinopril 10 mg tablet 2018-11 0 00:00: 00 No 1mg levothyroxi ne 50 mcg tablet 2018-11 00:00: 00 No 1mcg omeprazole 40 mg capsule,del ayed release 2018-11 00:00: 00 No 1mg lisinopril 10 mg tablet 01-25 00:00: 00 No 1mg levothyroxi ne 50 mcg tablet 01-25 00:00: 00 No 1mcg lisinopril 10 mg tablet 01-25 00:00: 00 No 1mg levothyroxi ne 50 mcg tablet 01-25 00:00: 00 No 1mcg lisinopril 10 mg tablet 01-25 00:00: 00 No 1mg levothyroxi ne 50 mcg tablet 01-25 00:00: 00 No 1mcg lisinopril 10 mg tablet 01-25 00:00: 00 No 1mg levothyroxi ne 50 mcg tablet 01-25 00:00: 00 No 1mcg lisinopril 10 mg tablet 01-25 00:00: 00 No 1mg levothyroxi ne 50 mcg tablet 01-25 00:00: 00 No 1mcg Restasis 0.05 % eye drops in a dropperette 06-29 00:00: 00 No 1% Restasis 0.05 % eye drops in a dropperette 06-29 00:00: 00 No 1% Restasis 0.05 % eye drops in a dropperette 06-29 00:00: 00 No 1% Restasis 0.05 % eye drops in a dropperette 06-29 00:00: 00 No 1% Restasis 0.05 % eye drops in a dropperette 06-29 00:00: 00 No 1% levothyroxi ne (SYNTHROID) 50 mcg tablet 06-27 00:00: 00 Yes [id number] [facility] amitriptyli ne (ELAVIL) 10 mg tablet 06-12 00:00: 00 Yes [facility] lisinopril (PRINIVIL,Z ESTRIL) 20 mg tablet 06-12 00:00: 00 Yes [id number] [facility] pravastatin (PRAVACHOL) 20 mg tablet 06-12 00:00: 00 Yes [facility] SERTraline (ZOLOFT) 25 mg tablet 06-12 00:00: 00 Yes [id number] [facility] HYDROcodone -acetaminop hen (NORCO) 7.5-325 mg per tablet 06-08 00:00: 00 Yes [facility] Immunizations Ordered Immunization Name Filled Immunization Name Date Status Comments Source Shingles IM (Shingrix) 2023-04-04 00:00:00 Completed Kita Montes - External Influenza Virus Vaccine, High Dose, Age 65 And Up 2022-12-26 00:00:00 Completed Kita Montes - External Pneumococcal Vaccine, Polysaccharide 2022-12-26 00:00:00 Completed Kita Montes - External Shingles IM (Shingrix) 2022-12-26 00:00:00 Completed Kita Montes - External Influenza Virus Vaccine, Quadrivalent, High Dose, Age 65 And Up 2022-12-26 00:00:00 Completed Kita Montes - External Pneumococcal Vaccine, Conjugate 20 2022-12-26 00:00:00 Completed Kita Montes - External Influenza Virus Vaccine, High Dose, Age 65 And Up 2022-12-26 00:00:00 Completed Kita Montes - External Pneumococcal Vaccine, Polysaccharide 2022-12-26 00:00:00 Completed Kita Montes - External Shingles IM (Shingrix) 2022-12-26 00:00:00 Completed Kita Velezybold - External Influenza Virus Vaccine, Quadrivalent, High Dose, Age 65 And Up 2022-12-26 00:00:00 Completed Kita Velezybold - External Pneumococcal Vaccine, Conjugate 20 2022-12-26 00:00:00 Completed Kita Velezybold - External influenza, injectable 2021-10-20 00:00:00 Completed Moderna COVID-19 Vaccine 2021-10-20 00:00:00 Completed influenza, injectable 2021-10-20 00:00:00 Completed Moderna COVID-19 Vaccine 2021-10-20 00:00:00 Completed influenza, injectable 2021-10-20 00:00:00 Completed Moderna COVID-19 Vaccine 2021-10-20 00:00:00 Completed influenza, injectable 2021-10-20 00:00:00 Completed Moderna COVID-19 Vaccine 2021-10-20 00:00:00 Completed influenza, injectable 2021-10-20 00:00:00 Completed Moderna COVID-19 Vaccine 2021-10-20 00:00:00 Completed influenza, injectable 2021-10-20 00:00:00 Completed Moderna COVID-19 Vaccine 2021-10-20 00:00:00 Completed Influenza Virus Vaccine, No Preserv, age 6 months and up 2021-10-20 00:00:00 Completed Kita Velezybold - External Covid-19 Vaccine Moderna (Spikevax), Mrna-lnp, Laurent Protein, Pf 2021-10-20 00:00:00 Completed Kita Mederosold - External Influenza Virus Vaccine, No Preserv, age 6 months and up 2021-10-20 00:00:00 Completed Kita Seybold - External Covid-19 Vaccine Moderna (Spikevax), Mrna-lnp, Laurent Protein, Pf 2021-10-20 00:00:00 Completed Kita Velezybold - External Influenza Virus Vaccine, No Preserv, age 6 months and up 2021-10-20 00:00:00 Completed Kita Seybold - External Covid-19 Vaccine Moderna (Spikevax), Mrna-lnp, Laurent Protein, Pf 2021-10-20 00:00:00 Completed Kita Seybold - External SARS-COV-2 COVID-19 MODERNA 12+ YRS VACCINE 2021-03-23 00:00:00 Completed [facility] SARS-COV-2 COVID-19 MODERNA 12+ YRS VACCINE 2021-02-23 00:00:00 Completed [facility] Hep A/ Hep B Combo 2018-08-06 00:00:00 Completed Kita Seybold - External Hep A/ Hep B Combo 2018-08-06 00:00:00 Completed Kita Seybold - External Influenza Virus Vaccine, High Dose, Age 65 And Up 2018-07-06 00:00:00 Completed Kita Seybold - External Hep A/ Hep B Combo 2018-07-06 00:00:00 Completed Kita Seybold - External Influenza Virus Vaccine, High Dose, Age 65 And Up 2018-07-06 00:00:00 Completed Kita Seybold - External Hep A/ Hep B Combo 2018-07-06 00:00:00 Completed Kita Seybold - External Tdap- (Boostrix, Adacel) 2017-09-08 00:00:00 Completed Kita Seybold - External Tdap- (Boostrix, Adacel) 2017-09-08 00:00:00 Completed Kita Seybold - External Influenza Virus Vaccine, High Dose, Age 65 And Up 2017-08-02 00:00:00 Completed Kita Seybold - External Pneumococcal Vaccine, Conjugate 13 2017-08-02 00:00:00 Completed Kita Seybold - External Influenza Virus Vaccine, High Dose, Age 65 And Up 2017-08-02 00:00:00 Completed Kita Seybold - External Pneumococcal Vaccine, Conjugate 13 2017-08-02 00:00:00 Completed Kita Seybold - External Influenza Virus Vaccine, High Dose, Age 65 And Up 2016-08-15 00:00:00 Completed Kita Seybold - External Shingles SQ (Zostavax) 2016-08-15 00:00:00 Completed Kita Seybold - External Influenza Virus Vaccine, High Dose, Age 65 And Up 2016-08-15 00:00:00 Completed Kita Seybold - External Shingles SQ (Zostavax) 2016-08-15 00:00:00 Completed Kita Seybold - External influenza, injectable 2015-10-25 00:00:00 Completed influenza, injectable 2015-10-25 00:00:00 Completed influenza, injectable 2015-10-25 00:00:00 Completed influenza, injectable 2015-10-25 00:00:00 Completed influenza, injectable 2015-10-25 00:00:00 Completed influenza, injectable 2015-10-25 00:00:00 Completed Influenza Virus Vaccine, No Preserv, age 6 months and up 2015-10-25 00:00[facility], No Preserv, age 6 months and up 2015-10-25 00:00:00 Completed [facility] - External Influenza Virus Vaccine, No Preserv, age 6 months and up 2015-10-25 00:00:00 [facility]- (Boostrix, Adacel) 2006-05-19 00:00:00 [facility]- (Boostrix, Adacel) 2006-05-19 00:00:00 Completed [facility] - External Tdap- (Boostrix, Adacel) 2006-05-19 00:00:00 Completed [facility] - External Td 2006-05-19 00:00:00 Completed [facility] Tdap- (Boostrix, Adacel) Unknown [facility] Influenza Virus Vaccine, No Preserv, age 6 months and up Unknown [facility] Cov[facility]-19 Vaccine Moderna (Spikevax), Mrna-lnp, Laurent Protein, Pf Unknown [facility] Influenza Virus Vaccine, High Dose, Age 65 And Up Unknown Completed [facility] External Pneumococcal Vaccine, Polysaccharide Unknown Completed Kita Mederos d - External Pneumococcal Vaccine, Conjugate 13 Unknown [facility] Shingles SQ (Zostavax) Unknown Completed Kita Montes External Shingles IM (Shingrix) [facility] Unknown Completed Jeremiah Montes - External Influenza Virus Vaccine, Quadrivalent, High Dose, Age 65 And Up Unknown Completed Kita aguilerabold - External Pneumococcal Vaccine, Conjugate 20 Unknown Completed Kita Seybold - External Tdap- (Boostrix, Adacel) Unknown Completed Kita Seybold - External Influenza Virus Vaccine, No Preserv, age 6 months and up Unknown Completed Kita S eybold - External Covid-19 Vaccine Moderna (Spikevax), Mrna-lnp, Laurent Protein, Pf Unknown Completed Kita Seybold - External Influenza Virus Vaccine, High Dose, Age 65 And Up Unknown Completed Kita Seybold - External Pneumococcal Vaccine, Polysaccharide Unknown Completed Kita Seybol d - External Pneumococcal Vaccine, Conjugate 13 Unknown Completed Kita Seybold - External Shingles SQ (Zostavax) Unknown Completed Kita Seybold - External Shingles IM (Shingrix) Unknown Completed Kita Seybold - External Hep A/ Hep B Combo Unknown Completed Jeremiah elsey Seybold - External Influenza Virus Vaccine, Quadrivalent, High Dose, Age 65 And Up Unknown Completed Kita S eybold - External Pneumococcal Vaccine, Conjugate 20 Unknown Completed Kita Seybold - External Tdap- (Boostrix, Adacel) Unknown Completed Kita ybold - External Influenza Virus Vaccine, No Preserv, age 6 months and up Unknown Completed Kita S eybold - External Covid-19 Vaccine Moderna (Spikevax), Mrna-lnp, Laurent Protein, Pf Unknown Completed Kita ybold - External Influenza Virus Vaccine, High Dose, Age 65 And Up Unknown Completed Kita Seybold - External Pneumococcal Vaccine, Polysaccharide Unknown Completed Kita Seybol d - External Pneumococcal Vaccine, Conjugate 13 Unknown Completed Kita Seybold - External Shingles SQ (Zostavax) Unknown Completed Kita Seybold - External Shingles IM (Shingrix) Unknown Completed Kita Seybold - External Hep A/ Hep B Combo Unknown Completed K elsey Seybold - External Influenza Virus Vaccine, Quadrivalent, High Dose, Age 65 And Up Unknown Completed Kita S eybold - External Pneumococcal Vaccine, Conjugate 20 Unknown Completed Kita Seybold - External Tdap- (Boostrix, Adacel) Unknown Completed Kita Seybold - External Influenza Virus Vaccine, No Preserv, age 6 months and up Unknown Completed Kita S eybold - External Covid-19 Vaccine Moderna (Spikevax), Mrna-lnp, Laurent Protein, Pf Unknown Completed Kita Seybold - External Influenza Virus Vaccine, High Dose, Age 65 And Up Unknown Completed Kita Mederosold - External Pneumococcal Vaccine, Polysaccharide Unknown Completed Kita Mederosol d - External Pneumococcal Vaccine, Conjugate 13 Unknown Completed Kita Mederosold - External Shingles SQ (Zostavax) Unknown Completed Kita Mederosold - External Shingles IM (Shingrix) Unknown Completed Kita Velezybold - External Hep A/ Hep B Combo Unknown Completed Jeremiah Mederosold - External Influenza Virus Vaccine, Quadrivalent, High Dose, Age 65 And Up Unknown Completed Kita Danielle eybold - External Pneumococcal Vaccine, Conjugate 20 Unknown Completed Kita Montes - External Tdap- (Boostrix, Adacel) Unknown Completed Kita Montes - External Influenza Virus Vaccine, No Preserv, age 6 months and up Unknown Completed Kita aguilerabo - External Covid-19 Vaccine Moderna (Spikevax), Mrna-lnp, Laurent Protein, Pf Unknown Completed Kita Mederosold - External Influenza Virus Vaccine, High Dose, Age 65 And Up Unknown Completed Kita Mederosold - External Pneumococcal Vaccine, Polysaccharide Unknown Completed Kita Mederosol d - External Pneumococcal Vaccine, Conjugate 13 Unknown Completed Kita Montes - External Shingles SQ (Zostavax) Unknown Completed Kita Montes - External Shingles IM (Shingrix) Unknown Completed Kita Montes - External Hep A/ Hep B Combo Unknown Completed Jeremiah Mederosold - External Influenza Virus Vaccine, Quadrivalent, High Dose, Age 65 And Up Unknown Completed Kita aguilerabold - External Pneumococcal Vaccine, Conjugate 20 Unknown Completed Kita Montes - External Vital Signs Vital Name Observation Time Observation Value Comments S jn Systolic blood pressure 2024-10-29 20:53:00 113 mm[Hg] Kita Poon ld - External Diastolic blood pressure 2024-10-29 20:53:00 69 mm[Hg] Kita Poon ld - External Heart rate 2024-10-29 20:53:00 66 /min Sujit Montes - External Body temperature 2024-10-29 20:53:00 37.28 Nanda Kita Montes - External Respiratory rate 2024-10-29 20:53:00 16 /min Kita Montes - External Body height 2024-10-29 20:53:00 157.5 cm Courtney ey Seybold - External Body weight 2024-10-29 20:53:00 62.143 kg Courtney ey Seybold - External BMI 2024-10-29 20:53:00 25.06 kg/m2 Courtney ey Seybold - External Oxygen saturation in Arterial blood by Pulse oximetry 2024-10-29 20:53:00 100 /min Kita Seybo ld - External Systolic blood pressure 2024-08-11 20:28:00 135 mm[Hg] Kita Seybo ld - External Diastolic blood pressure 2024-08-11 20:28:00 70 mm[Hg] Kita Seybo ld - External Heart rate 2024-08-11 20:28:00 81 /min Kelse y Seybold - External Body temperature 2024-08-11 20:28:00 36.83 Nanda Kita Seybold - External Respiratory rate 2024-08-11 20:28:00 18 /min Kita Seybold - External Body height 2024-08-11 20:28:00 157.5 cm Courtney ey Seybold - External Body weight 2024-08-11 20:28:00 59.875 kg Courtney ey Seybold - External BMI 2024-08-11 20:28:00 24.14 kg/m2 Courtney ey Seybold - External Systolic blood pressure 2024-06-17 16:28:00 139 mm[Hg] Kita Seybo ld - External Diastolic blood pressure 2024-06-17 16:28:00 67 mm[Hg] Kita Seybo ld - External Heart rate 2024-06-17 16:28:00 78 /min Kelse y Seybold - External Body temperature 2024-06-17 16:28:00 37.22 Nanda Kita Seybold - External Respiratory rate 2024-06-17 16:28:00 16 /min Kita Seybold - External Body height 2024-06-17 16:28:00 157.5 cm Courtney ey Seybold - External Body weight 2024-06-17 16:28:00 60.782 kg Courtney ey Seybold - External BMI 2024-06-17 16:28:00 24.51 kg/m2 Courtney ey Seybold - External Oxygen saturation in Arterial blood by Pulse oximetry 2024-06-17 16:28:00 100 /min Kita Seybo ld - External Systolic blood pressure 2024-02-18 20:29:00 140 mm[Hg] Kita Seybo ld - External Diastolic blood pressure 2024-02-18 20:29:00 70 mm[Hg] Kita Seybo ld - External Heart rate 2024-02-18 20:05:00 59 /min Kelse y Seybold - External Body temperature 2024-02-18 20:05:00 36.72 Nanda Kita Seybold - External Respiratory rate 2024-02-18 20:05:00 15 /min Kita Seybold - External Body height 2024-02-18 20:05:00 157.5 cm Courtney ey Seybold - External Body weight 2024-02-18 20:05:00 57.153 kg Courtney ey Seybold - External BMI 2024-02-18 20:05:00 23.05 kg/m2 Courtney ey Seybold - External Oxygen saturation in Arterial blood by Pulse oximetry 2024-02-18 20:05:00 98 /min Kita Seybo ld - External Systolic blood pressure 2023-06-21 19:12:00 117 mm[Hg] Kita Seybo ld - External Diastolic blood pressure 2023-06-21 19:12:00 59 mm[Hg] Kita Seybo ld - External Heart rate 2023-06-21 19:12:00 54 /min Joseluisse y Seybold - External Body temperature 2023-06-21 19:12:00 37.06 Nanda Kita Seybold - External Respiratory rate 2023-06-21 19:12:00 19 /min Kita Seybold - External Body height 2023-06-21 19:12:00 157.5 cm Courtney ey Seybold - External Body weight 2023-06-21 19:12:00 62.596 kg Courtney ey Seybold - External BMI 2023-06-21 19:12:00 25.24 kg/m2 Courteny ey Seybold - External Oxygen saturation in Arterial blood by Pulse oximetry 2023-06-21 19:12:00 97 /min Kita Seybo ld - External Systolic blood pressure 2023-03-21 19:22:00 134 mm[Hg] Kita Seybo ld - External Diastolic blood pressure 2023-03-21 19:22:00 69 mm[Hg] Kita Velezybo ld - External Heart rate 2023-03-21 19:22:00 57 /min Kelse y Seybold - External Body temperature 2023-03-21 19:22:00 36.61 Nanda Kita Seybold - External Respiratory rate 2023-03-21 19:22:00 14 /min Kita Seybold - External Body height 2023-03-21 19:22:00 157.5 cm Courtney ey Seybold - External Body weight 2023-03-21 19:22:00 62.687 kg Courtney ey Seybold - External BMI 2023-03-21 19:22:00 25.28 kg/m2 Courtney ey Seybold - External Oxygen saturation in Arterial blood by Pulse oximetry 2023-03-21 19:22:00 97 /min Kita Velezybo ld - External Systolic blood pressure 2023-02-21 18:55:00 140 mm[Hg] Kita Seybo ld - External Diastolic blood pressure 2023-02-21 18:55:00 83 mm[Hg] Kita Velezybo ld - External Heart rate 2023-02-21 18:55:00 66 /min Joseluisse y Seybold - External Body temperature 2023-02-21 18:55:00 36.89 Nanda Kita Velezybold - External Respiratory rate 2023-02-21 18:55:00 14 /min Kita Seybold - External Body height 2023-02-21 18:55:00 157.5 cm Courtney ey Seybold - External Body weight 2023-02-21 18:55:00 63.504 kg Courtney ey Seybold - External BMI 2023-02-21 18:55:00 25.61 kg/m2 Courtney ey Seybold - External Oxygen saturation in Arterial blood by Pulse oximetry 2023-02-21 18:55:00 99 /min Kita Velezybo ld - External Systolic blood pressure 2022-08-22 16:07:00 166 mm[Hg] [facility] Diastolic blood pressure 2022-08-22 16:07:00 73 mm[Hg] [facility] Heart rate 2022-08-22 16:07:00 68 /min [facility] Body temperature 2022-08-22 16:07:00 36.44 Nanda [facility] Respiratory rate 2022-08-22 16:07:00 20 /min [facility] Body weight 2022-08-22 16:07:00 58.968 kg [facility] BMI 2022-08-22 16:07:00 23.03 kg/m2 [facility] Oxygen saturation in Arterial blood by Pulse oximetry 2022-08-22 16:07:00 99 /min [facility] BP Systolic 2022-09-20 12:03:00 170 mm[Hg] BP [...] Procedures Procedure Date / Time Performed Performing Clinicia n Source XR CHEST 1 VW 2022-08-22 17:17:00 Sandra Sanchez [facility] XR PELVIS <3 VW 2022-08-22 17:17:00 Sandra Sanchez [facility] CONSENT/REFUSAL FOR DIAGNOSIS AND TREATMENT 2022-08-22 16:05:16 Doctor Unassigned, [place] [facility] [id number] [employer] Nail Plate Partial/complete Simple 1 2022-04-15 00:00:00 Plan of Care Planned Activity Planned Date Details Comments Source Goal Plan of Care Note [code = 33810-1] Goal Plan of Care Note [code = 96704-3] Goal Plan of Care Note [code = 78087-1] Goal Plan of Care Note [code = 36237-1] Goal Plan of Care Note [code = 05714-9] Goal Plan of Care Note [code = 07731-3] Goal Plan of Care Note [code = 32297-0] Goal Plan of Care Note [code = 35705-6] Goal Plan of Care Note [code = 82236-5] Goal Plan of Care Note [code = 90206-9] Goal Plan of Care Note [code = 19223-9] Goal Plan of Care Note [code = 27055-6] Goal Plan of Care Note [code = 73400-7] Goal Plan of Care Note [code = 29930-7] Goal Plan of Care Note [code = 17245-0] Goal Plan of Care Note [code = 02123-6] Goal Plan of Care Note [code = 85312-1] Goal Plan of Care Note [code = 17523-8] Goal Plan of Care Note [code = 60751-6] Goal Plan of Care Note [code = 71844-3] Goal Plan of Care Note [code = 49702-8] Goal Plan of Care Note [code = 95276-3] Goal Plan of Care Note [code = 14029-5] Goal Plan of Care Note [code = 10503-3] Goal Plan of Care Note [code = 54435-0] Goal Plan of Care Note [code = 65956-9] Goal Plan of Care Note [code = 02750-9] Goal Plan of Care Note [code = 56371-2] Goal Plan of Care Note [code = 64565-7] Goal Plan of Care Note [code = 79689-5] Goal Plan of Care Note [code = 33527-0] Goal Plan of Care Note [code = 71621-8] Goal Plan of Care Note [code = 61557-4] Goal Plan of Care Note [code = 20399-9] Goal Plan of Care Note [code = 33791-3] Goal Plan of Care Note [code = 89284-4] Goal Plan of Care Note [code = 09876-4] Goal Plan of Care Note [code = 16907-8] Goal Plan of Care Note [code = 23728-8] Goal Plan of Care Note [code = 51523-3] Goal Plan of Care Note [code = 58119-2] Goal Plan of Care Note [code = 69047-7] Goal Plan of Care Note [code = 52950-9] Goal Plan of Care Note [code = 97182-4] Goal Plan of Care Note [code = 84680-9] Goal Plan of Care Note [code = 29689-2] Goal Plan of Care Note [code = 21267-6] Goal Plan of Care Note [code = 80031-2] Goal Plan of Care Note [code = 74492-3] Goal Plan of Care Note [code = 10653-7] Goal Plan of Care Note [code = 42170-4] Goal Plan of Care Note [code = 42878-5] Goal Plan of Care Note [code = 34885-9] Goal Plan of Care Note [code = 82177-8] Goal Plan of Care Note [code = 59397-0] Goal Plan of Care Note [code = 65372-4] Goal Plan of Care Note [code = 95792-0] Goal Plan of Care Note [code = 38999-5] Goal Plan of Care Note [code = 49123-7] Goal Plan of Care Note [code = 50418-3] Goal Plan of Care Note [code = 86595-4] Goal Plan of Care Note [code = 18126-5] Goal Plan of Care Note [code = 24661-9] Goal Plan of Care Note [code = 78592-8] Goal Plan of Care Note [code = 89304-3] Goal Plan of Care Note [code = 01707-5] Goal Plan of Care Note [code = 67022-4] Goal Plan of Care Note [code = 41200-9] Goal Plan of Care Note [code = 87735-4] Goal Plan of Care Note [code = 98481-4] Goal Plan of Care Note [code = 49918-8] Goal Plan of Care Note [code = 90828-4] Goal Plan of Care Note [code = 16541-9] Goal Plan of Care Note [code = 93130-0] Goal Plan of Care Note [code = 99792-8] Goal Plan of Care Note [code = 11403-3] Goal Plan of Care Note [code = 64560-6] Goal Plan of Care Note [code = 92671-4] Goal Plan of Care Note [code = 25528-6] Goal Plan of Care Note [code = 19643-2] Goal Plan of Care Note [code = 46376-9] Goal Plan of Care Note [code = 72910-6] Goal Plan of Care Note [code = 64853-1] Goal Plan of Care Note [code = 18172-2] Goal Plan of Care Note [code = 08690-8] Goal Plan of Care Note [code = 66766-9] Goal Plan of Care Note [code = 85170-8] Goal Plan of Care Note [code = 59476-5] Goal Plan of Care Note [code = 83463-0] Goal Plan of Care Note [code = 11104-8] Goal Plan of Care Note [code = 31050-0] Goal Plan of Care Note [code = 79815-6] Goal Plan of Care Note [code = 40549-1] Goal Plan of Care Note [code = 67568-2] Goal Plan of Care Note [code = 81099-7] Goal Plan of Care Note [code = 29499-4] Goal Plan of Care Note [code = 10717-8] Goal Plan of Care Note [code = 54189-6] Goal Plan of Care Note [code = 95106-8] Goal Plan of Care Note [code = 79771-5] Goal Plan of Care Note [code = 79335-4] Goal Plan of Care Note [code = 73201-0] Goal Plan of Care Note [code = 42025-9] Goal Plan of Care Note [code = 48991-7] Goal Plan of Care Note [code = 43563-2] Goal Plan of Care Note [code = 83128-2] Goal Plan of Care Note [code = 34461-7] Goal Plan of Care Note [code = 55279-8] Goal Plan of Care Note [code = 62658-2] Goal Plan of Care Note [code = 67565-7] Goal Plan of Care Note [code = 28397-6] Goal Plan of Care Note [code = 15421-3] Goal Plan of Care Note [code = 36071-5] Goal Plan of Care Note [code = 70825-4] Goal Plan of Care Note [code = 29230-8] Goal Plan of Care Note [code = 19793-0] Goal Plan of Care Note [code = 74925-7] Goal Plan of Care Note [code = 11483-9] Goal Plan of Care Note [code = 76411-9] Goal Plan of Care Note [code = 28747-6] Goal Plan of Care Note [code = 17074-9] Goal Plan of Care Note [code = 41180-5] Goal Plan of Care Note [code = 52338-8] Goal Plan of Care Note [code = 93705-1] Goal Plan of Care Note [code = 96377-9] Goal Plan of Care Note [code = 75708-3] Goal Plan of Care Note [code = 79316-5] Goal Plan of Care Note [code = 47191-6] Goal Plan of Care Note [code = 34651-3] Goal Plan of Care Note [code = 80339-1] Goal Plan of Care Note [code = 89084-3] Goal Plan of Care Note [code = 65454-9] Goal Plan of Care Note [code = 98887-8] Goal Plan of Care Note [code = 10100-0] Goal Plan of Care Note [code = 94775-8] Goal Plan of Care Note [code = 78826-5] Goal Plan of Care Note [code = 03948-7] Goal Plan of Care Note [code = 76253-2] Goal Plan of Care Note [code = 19116-3] Goal Plan of Care Note [code = 04335-8] Goal Plan of Care Note [code = 48680-0] Goal Plan of Care Note [code = 83734-7] Goal Plan of Care Note [code = 89305-6] Goal Plan of Care Note [code = 52388-3] Goal Plan of Care Note [code = 52552-7] Goal Plan of Care Note [code = 76960-2] Goal Plan of Care Note [code = 86685-4] Goal Plan of Care Note [code = 42504-6] Goal Plan of Care Note [code = 69444-7] Goal Plan of Care Note [code = 78767-0] Goal Plan of Care Note [code = 04913-5] Goal Plan of Care Note [code = 93405-1] Goal Plan of Care Note [code = 54276-5] Goal Plan of Care Note [code = 31632-5] Goal Plan of Care Note [code = 56177-1] Goal Plan of Care Note [code = 94561-9] Goal Plan of Care Note [code = 33350-3] Goal Plan of Care Note [code = 53160-2] Goal Plan of Care Note [code = 85888-3] Goal Plan of Care Note [code = 03965-5] Goal Plan of Care Note [code = 97147-2] Goal Plan of Care Note [code = 62258-2] Goal Plan of Care Note [code = 97750-7] Goal Plan of Care Note [code = 45937-6] Goal Plan of Care Note [code = 57591-4] Goal Plan of Care Note [code = 28950-1] Goal Plan of Care Note [code = 76097-4] Goal Plan of Care Note [code = 13642-1] Goal Plan of Care Note [code = 94940-5] Goal Plan of Care Note [code = 55939-5] Goal Plan of Care Note [code = 74644-1] Goal Plan of Care Note [code = 24923-7] Goal Plan of Care Note [code = 58428-4] Goal Plan of Care Note [code = 58689-0] Goal Plan of Care Note [code = 03339-9] Goal Plan of Care Note [code = 63543-2] Goal Plan of Care Note [code = 11390-2] Goal Plan of Care Note [code = 41429-0] Goal Plan of Care Note [code = 71352-1] Goal Plan of Care Note [code = 91728-2] Goal Plan of Care Note [code = 77184-7] Goal Plan of Care Note [code = 60193-4] Goal Plan of Care Note [code = 82811-3] Goal Plan of Care Note [code = 65014-8] Goal Plan of Care Note [code = 79556-3] Goal Plan of Care Note [code = 61356-4] Goal Plan of Care Note [code = 00903-0] Goal Plan of Care Note [code = 02181-5] Goal Plan of Care Note [code = 39554-3] Goal Plan of Care Note [code = 80511-7] Goal Plan of Care Note [code = 80023-9] Goal Plan of Care Note [code = 48599-1] Goal Plan of Care Note [code = 31405-2] Goal Plan of Care Note [code = 64382-0] Goal Plan of Care Note [code = 94794-8] Goal Plan of Care Note [code = 06932-4] Goal Plan of Care Note [code = 82284-0] Goal Plan of Care Note [code = 64558-9] Goal Plan of Care Note [code = 99698-1] Goal Plan of Care Note [code = 59279-3] Goal Plan of Care Note [code = 16407-6] Goal Plan of Care Note [code = 93957-3] Goal Plan of Care Note [code = 96609-7] Goal Plan of Care Note [code = 38380-1] Goal Plan of Care Note [code = 07806-9] Goal Plan of Care Note [code = 55514-4] Goal Plan of Care Note [code = 51103-0] Goal Plan of Care Note [code = 89906-1] Goal Plan of Care Note [code = 75652-6] Goal Plan of Care Note [code = 56311-5] Goal Plan of Care Note [code = 18369-2] Goal Plan of Care Note [code = 49561-4] Goal Plan of Care Note [code = 78077-3] Goal Plan of Care Note [code = 92439-4] Goal Plan of Care Note [code = 10117-0] Goal Plan of Care Note [code = 01448-7] Goal Plan of Care Note [code = 69900-3] Goal Plan of Care Note [code = 17182-3] Goal Plan of Care Note [code = 90144-4] Goal Plan of Care Note [code = 55408-3] Goal Plan of Care Note [code = 30958-6] Goal Plan of Care Note [code = 54896-8] Goal Plan of Care Note [code = 46599-0] Goal Plan of Care Note [code = 49643-1] Goal Plan of Care Note [code = 39017-0] Goal Plan of Care Note [code = 89517-2] Goal Plan of Care Note [code = 38255-8] Encounters Start Date/Time End Date/Time Encounter Type Admission Type Attending [facility] Care Facility Care Department Encounter ID Source 2022-02-21 10:51:39 Outpatient [facility] [id number] [facility] 2024-11-05 10:15:00 2024-11-05 10:15:00 Outpatient CHELSEY CHAHAL [id number] [facility] 2024-10-29 15:00:00 2024-10-29 15:00:00 Outpatient CARLO GOLDSMITH [id number] [facility] 2024-08-28 00:00:00 2024-08-28 00:00:00 Outpatient CHELSEY CHAHAL [id number] [facility] 2024-08-19 15:00:00 2024-08-19 15:00:00 Outpatient PREZAS, CHELSEY BURTON KITA [id number] [facility] 2024-08-11 15:30:00 2024-08-11 15:30:00 Outpatient PREZAS, [facility]Y [facility]URTON [facility] [id number] [facility]:00:00 2024-07-29 00:00:00 Outpatient PREZAS, CHELSEY BURTON KITA [id number] [facility] 2024-07-16 11:30:00 2024-07-16 11:30:00 Outpatient PREZAS, CHELSEY KITA BURTON [id number] [facility] 2024-06-25 13:00:00 2024-06-25 13:00:00 Outpatient DORSEY-SENA A, REAGAN [facility] [id number] [facility] 2024-06-24 08:30:00 2024-06-24 08:30:00 Outpatient KENNETH, TERESSA KITA KITA [id number] [facility] 2024-06-18 00:00:00 2024-06-18 00:00:00 Outpatient PREZAS, CHELSEY KITA BURTON [id number] [facility] 2024-06-17 13:00:00 2024-06-17 13:00:00 Outpatient LABJuliana KITA BURTON [id number] [facility] 2024-06-17 11:45:00 2024-06-17 11:45:00 Outpatient PREZAS, CHELSEY KITA BURTON [id number] [facility] 2024-06-13 17:56:00 2024-06-13 19:20:00 Emergency EM Venancio Dumont [facility] [id number] [facility] 2024-06-13 00:00:00 2024-06-13 00:00:00 Outpatient PREZAS, CHELSEY KITA BUR[facility] [id number] [facility]24-[facility]-06 00:00:00 2024-05-06 00:00:00 Outpatient PREZAS, CHELSEY KITA BURTON [id number] [facility] 2024-04-18 13:20:00 2024-04-18 13:20:00 Outpatient KITA KITA [id number] [facility] 2024-03-31 10:50:00 2024-03-31 10:50:00 Outpatient LAB90 KITA KITA [id number] [facility] 2024-03-18 14:20:00 2024-03-18 14:20:00 Outpatient KITCHETAN KITA KITA [id number] [facility] 2024-03-14 00:00:00 2024-03-14 00:00:00 Outpatient LUMA CONDON KITA BURTON [id number] [facility] 2024-03-03 00:00:00 2024-03-03 00:00:00 Outpatient PREZAS, CHELSEY KITA BURTON [id number] [facility] 2024-02-28 10:55:00 2024-02-28 10:55:00 [facility] LAB90 [id number] [facility]:00:00 2024-02-20 00:00:00 Outpatient PREZAS, CHELSEY KITA BURTON [id number] [facility] 2024-02-19 09:05:00 2024-02-19 09:05:00 Outpatient LAB90 KITA KITA [id number] [facility] 2024-02-18 15:45:00 2024-02-18 15:45:00 Outpatient PREZAS, CHELSEY KITA BURTON [id number] [facility] 2023-09-04 00:00:00 2023-09-04 00:00:00 Outpatient PREZAS, CHELSEY KITA BURTON [id number] [facility] 2023-08-31 00:00:00 2023-08-31 00:00:00 Outpatient PREZAS, CHELSEY KITA BURTON [id number] [facility] 2023-07-05 00:00:00 2023-07-05 00:00:00 Outpatient PREZAS, CHELSEY KIAT BURTON [id number] [facility] 2023-06-21 14:00:00 2023-06-21 14:00:00 Outpatient PREZAS, CHELSEY BURTON KITA [id number] [facility] 2023-06-04 00:00:00 2023-06-04 00:00:00 Outpatient PREZAS, CHELSEY BURTON KITA [id number] [facility] 2023-05-21 00:00:00 2023-05-21 00:00:00 Outpatient PREZAS, CHELSEY BURTON KITA [id number] [facility] 2023-04-27 09:00:00 2023-04-27 09:00:00 Outpatient ADILENEMAX KITA [id number] [facility] 2023-04-27 08:30:00 2023-04-27 08:30:00 Outpatient KENNETHTERESSA KITA [id number] [facility] 2023-04-23 00:00:00 2023-04-23 00:00:00 Outpatient PREZAS, CHELSEY BURTON KITA [id number] [facility] 00:00:00 2023-03-23 00:00:00 Outpatient PREZAS, CHELSEY BURTON KITA [id number] [facility] 2023-03-21 15:45:00 2023-03-21 15:45:00 Outpatient LAB90 KITA KITA [id number] [facility] 2023-03-21 14:45:00 2023-03-21 14:45:00 Outpatient PREZAS, CHELSEY BURTNO KITA [id number] [facility] 2023-03-15 00:00:00 2023-03-15 00:00:00 Outpatient PREZAS, CHELSEY BURTON KITA [id number] [facility] 2023-02-23 00:00:00 2023-02-23 00:00:00 Outpatient PREZAS, CHELSEY BURTON KITA [id number] [facility] 2023-02-22 08:35:00 2023-02-22 08:35:00 Outpatient LAB90 KITA KITA [id number] [facility] 2023-02-21 14:15:00 2023-02-21 14:15:00 Outpatient CHELSEY CHAHAL [id number] [facility] 2022-10-19 13:51:15 2022-10-19 13:51:15 Outpatient SFA SFA 1201 Evgeny Christopher 2022-09-20 11:45:57 2022-09-20 11:45:57 Outpatient SFA SFA 1102 Evgeny Christopher 2022-09-20 00:00:00 2022-09-20 00:00:00 Outpatient Visit [id number] 2022-08-22 11:08:00 2022-08-22 13:26:00 Emergency [facility] ERT [id number] [facility] 2022-08-22 11:08:00 2022-08-22 13:26:00 Emergency Sandra Sanchez [facility] [id number] [facility] 2022-08-16 00:00:00 2022-08-16 00:00:00 Outpatient Visit [id number] 2022-08-14 00:00:00 2022-08-14 00:00:00 Outpatient Visit [id number] -[id number] 2022-08-10 00:00:00 2022-08-10 00:00:00 Outpatient Visit [id number] 2022-07-17 00:00:00 2022-07-17 00:00:00 Outpatient Visit [id number] 2022-07-04 00:00:00 2022-07-04 00:00:00 Outpatient Visit [id number] Results Test Description Test Time Test Comments Results Result Co mments Source [id number] 18:51:00* Test Item Value Reference Range Interpretation Comme [facility] LIPASE (test code = LIP) 95 U/L 16-77 H New Reference Ranges of 16-77 U/L please reviewrevised from 73-393 U/L on 09/04/2023 TROP-I HIGH [id number] 18:51:00* Test Item Value Reference Range Interpretation Comme [facility] TROP-I HIGH SENSITIVITY (test code = TROPIHS) 4 ng/L < 51 - The use of serial sampling and testing protocol is a recommended practice.- An elevated troponin level alone is often not sufficient for diagnosis of myocardial infarction.Results of this assay method may be falsely depressed orelevated if patient is taking high doses of Biotin. TSH, THIRD [id number] 06:54:22* Test Item Value Reference Range Interpretation Comme [facility] TSH, THIRD GENERATION (test code = 2821) 1.670 UIU/ML 0.400-4.100 CBC W/AUTO DIFF WITH [id number] 06:13:08* Test Item Value Reference Range Interpretation Comme nts WBC (test code = 1001) 3.2 K/UL 3.5-11.0 L RBC (test code = 1002) 4.38 M/UL 3.80-5.40 HEMOGLOBIN (test code = 1003) 12.6 G/DL 11.5-15.5 HEMATOCRIT (test code = 1004) 37.9 % 34.0-45.0 MCV (test code = 1005) 86.5 fL 80.0-99.0 MCH (test code = 1006) 28.8 PG 25.0-33.0 MCHC (test code = 1007) 33.2 G/DL 31.0-36.0 RDW (test code = 1038) 13.5 % 11.5-15.0 NEUTROPHILS (test code = 1008) 53.2 % LYMPHOCYTES (test code = 1010) 35.8 % MONOCYTES (test code = 1011) 7.6 % EOSINOPHILS (test code = 1012) 2.5 % BASOPHILS (test code = 1013) 0.6 % IMMATURE GRANULOCYTES (test code = 1036) 0.3 % NUCLEATED RBCS (test code = 1065) 0.0 /100 WBC'S See_Comment [Automated [employer]] The system which generated this result transmitted reference range: 0.0. The reference range was not used to interpret this result as normal/abnormal. PLATELET COUNT (test code = 1015) 173 K/UL 130-400 ABSOLUTE NEUTROPHILS (test code = 1066) 1.68 K/UL 1.50-7.50 ABSOLUTE LYMPHOCYTES (test code = 1067) 1.13 K/UL 1.00-4.00 ABSOLUTE MONOCYTES (test code = 1068) 0.24 K/UL 0.20-1.00 ABSOLUTE EOSINOPHILS (test code = 1040) 0.08 K/UL 0.00-0.50 ABSOLUTE BASOPHILS (test code = 1069) 0.02 K/UL 0.00-0.20 ABS IMMATURE GRANULOCYTES (test code = 1020) 0.01 K/UL 0.00-0.10 ABS NUCLEATED RBCS (test code = 03849) 0.00 K/UL 0.00-0.11 HEMOGLOBIN [id number] 05:56:01* Test Item Value Reference Range Interpretation Comme nts HEMOGLOBIN A1c (test code = 49078) 5.7 % 4.2-5.6 H COMPREHENSIVE METABOLIC [id number] 03:02:06* Test Item Value Reference Range Interpretation Comme nts GLUCOSE (test code = 2217) 94 MG/DL 70-99 BUN (test code = 2208) 17 MG/DL 8-23 CREATININE (test code = 2213) 0.73 MG/DL 0.60-1.30 eGFR (2020 CKD-EPI) (test code = 59036) 84 ML/MIN/1.73 >60 CALC BUN/CREAT (test code = 2234) 23 RATIO 6-28 SODIUM (test code = 2230) 142 MEQ/L 133-146 POTASSIUM (test code = 2227) 4.5 MEQ/L 3.5-5.4 CHLORIDE (test code = 2214) 105 MEQ/L 95-107 CARBON DIOXIDE (test code = 2205) 28 MEQ/L 19-31 CALCIUM (test code = 2208) 9.2 MG/DL 8.5-10.5 PROTEIN, TOTAL (test code = 2228) 7.3 G/DL 6.1-8.3 ALBUMIN (test code = 2200) 4.6 G/DL 3.5-5.2 CALC GLOBULIN (test code = 2239) 2.7 G/DL 1.9-3.7 CALC A/G RATIO (test code = 2233) 1.7 RATIO 1.0-2.6 BILIRUBIN, TOTAL (test code = 2206) 0.5 MG/DL See_Comment [Automated me ssage] The system which generated this result transmitted reference range: <=1.2. The reference range was not used to interpret this result as normal/abnormal. ALKALINE PHOSPHATASE (test code = 2203) 84 U/L 40-142 AST (test code = 2217) 27 U/L 9-40 ALT (test code = 2218) 19 U/L 5-40 UNLESS OTHERWISE INDICATED, ALL TESTING PERFORMED [facility] [address] [place] [address] [employer] CAD TECH: BEN FARFAN M.D. CLIA NUMBER [id number] [facility] [place]. [id number] 00:00:00* Test Item Value Reference Range Interpretation Comme nts TSH, THIRD GENERATION (test code = 2821) 1.670 UIU/ML [id number] 00:00:00* Test Item Value Reference Range Interpretation Comme nts TSH, THIRD GENERATION (test code = 2821) 1.670 UIU/ML HEMOGLOBIN [id number] 00:00:00* Test Item Value Reference Range Interpretation Comme nts HEMOGLOBIN A1c (test code = 37131) 5.7 % CBC W/AUTO [id number] 00:00:00* Test Item Value Reference Range Interpretation Comme nts WBC (test code = 1001) 3.2 K/UL [...] = 1013) 0.6 % IMMATURE GRANULOCYTES (test code = 1036) 0.3 % NUCLEATED RBCS (test code = 1065) 0.0 /100WBC'S PLATELET COUNT (test code = 1015) 173 K/UL ABSOLUTE NEUTROPHILS (test c ode = 1066) 1.68 K/UL ABSOLUTE LYMPHOCYTES (test c ode = 1067) 1.13 K/UL ABSOLUTE MONOCYTES (test cod e = 1068) 0.24 K/UL ABSOLUTE EOSINOPHILS (test c ode = 1040) 0.08 K/UL ABSOLUTE BASOPHILS (test cod e = 1069) 0.02 K/UL ABS IMMATURE GRANULOCYTES (t est code = 1020) 0.01 K/UL ABS NUCLEATED RBCS (test cod e = 32731) 0.00 K/UL COMPREHENSIVE METABOLIC [id number] 00:00:00* Test Item Value Reference Range Interpretation Comme nts GLUCOSE (test code = 2217) 94 MG/DL BUN (test code = 2208) 17 MG/DL CREATININE (test code = 2214) 0.73 MG/DL eGFR (2020 CKD-EPI) (test co de = 26491) 84 ML/MIN/1.73 CALC BUN/CREAT (test code = 2235) 23 RATIO SODIUM (test code = 2231) 142 MEQ/L POTASSIUM (test code = 2228) 4.5 MEQ/L CHLORIDE (test code = 2215) 105 MEQ/L CARBON DIOXIDE (test code = 2206) 28 MEQ/L CALCIUM (test code = 2209) 9.2 MG/DL PROTEIN, TOTAL (test code = 2229) 7.3 G/DL ALBUMIN (test code = 2201) 4.6 G/DL CALC GLOBULIN (test code = 2240) 2.7 G/DL CALC A/G RATIO (test code = 2234) 1.7 RATIO BILIRUBIN, TOTAL (test code = 2207) 0.5 MG/DL ALKALINE PHOSPHATASE (test code = 2204) 84 U/L AST (test code = 2218) 27 U/L ALT (test code = 2219) 19 U/L HEMOGLOBIN [id number] 00:00:00* Test Item Value Reference Range Interpretation Comme nts HEMOGLOBIN A1c (test code = 19722) 5.7 % [id number] 00:00:00* Test Item Value Reference Range Interpretation Comme nts TSH, THIRD GENERATION (test code = 2821) 1.670 UIU/ML HEMOGLOBIN [id number] 00:00:00* Test Item Value Reference Range Interpretation Comme nts HEMOGLOBIN A1c (test code = 85645) 5.7 % CBC W/AUTO [id number] 00:00:00* Test Item Value Reference Range Interpretation Comme nts WBC (test code = 1001) 3.2 K/UL [...] = 1013) 0.6 % IMMATURE GRANULOCYTES (test code = 1036) 0.3 % NUCLEATED RBCS (test code = 1065) 0.0 /100WBC'S PLATELET COUNT (test code = 1015) 173 K/UL ABSOLUTE NEUTROPHILS (test c ode = 1066) 1.68 K/UL ABSOLUTE LYMPHOCYTES (test c ode = 1067) 1.13 K/UL ABSOLUTE MONOCYTES (test cod e = 1068) 0.24 K/UL ABSOLUTE EOSINOPHILS (test c ode = 1040) 0.08 K/UL ABSOLUTE BASOPHILS (test cod e = 1069) 0.02 K/UL ABS IMMATURE GRANULOCYTES (t est code = 1020) 0.01 K/UL ABS NUCLEATED RBCS (test cod e = 71364) 0.00 K/UL COMPREHENSIVE METABOLIC [id number] 00:00:00* Test Item Value Reference Range Interpretation Comme nts GLUCOSE (test code = 2217) 94 MG/DL BUN (test code = 2208) 17 MG/DL CREATININE (test code = 2214) 0.73 MG/DL eGFR (2020 CKD-EPI) (test co de = 22514) 84 ML/MIN/1.73 CALC BUN/CREAT (test code = 2235) 23 RATIO SODIUM (test code = 2231) 142 MEQ/L POTASSIUM (test code = 2228) 4.5 MEQ/L CHLORIDE (test code = 2215) 105 MEQ/L CARBON DIOXIDE (test code = 2206) 28 MEQ/L CALCIUM (test code = 2209) 9.2 MG/DL PROTEIN, TOTAL (test code = 2229) 7.3 G/DL ALBUMIN (test code = 2201) 4.6 G/DL CALC GLOBULIN (test code = 2240) 2.7 G/DL CALC A/G RATIO (test code = 2234) 1.7 RATIO BILIRUBIN, TOTAL (test code = 2207) 0.5 MG/DL ALKALINE PHOSPHATASE (test code = 2204) 84 U/L AST (test code = 2218) 27 U/L ALT (test code = 2219) 19 U/L CBC W/AUTO [id number] 00:00:00* Test Item Value Reference Range Interpretation Comme nts WBC (test code = 1001) 3.2 K/UL [...] = 1013) 0.6 % IMMATURE GRANULOCYTES (test code = 1036) 0.3 % NUCLEATED RBCS (test code = 1065) 0.0 /100WBC'S PLATELET COUNT (test code = 1015) 173 K/UL ABSOLUTE NEUTROPHILS (test c ode = 1066) 1.68 K/UL ABSOLUTE LYMPHOCYTES (test c ode = 1067) 1.13 K/UL ABSOLUTE MONOCYTES (test cod e = 1068) 0.24 K/UL ABSOLUTE EOSINOPHILS (test c ode = 1040) 0.08 K/UL ABSOLUTE BASOPHILS (test cod e = 1069) 0.02 K/UL ABS IMMATURE GRANULOCYTES (t est code = 1020) 0.01 K/UL ABS NUCLEATED RBCS (test cod e = 95142) 0.00 K/UL COMPREHENSIVE METABOLIC [id number] 00:00:00* Test Item Value Reference Range Interpretation Comme nts GLUCOSE (test code = 2217) 94 MG/DL BUN (test code = 2208) 17 MG/DL CREATININE (test code = 2214) 0.73 MG/DL eGFR (2020 CKD-EPI) (test co de = 86761) 84 ML/MIN/1.73 CALC BUN/CREAT (test code = 2235) 23 RATIO SODIUM (test code = 2231) 142 MEQ/L POTASSIUM (test code = 2228) 4.5 MEQ/L CHLORIDE (test code = 2215) 105 MEQ/L CARBON DIOXIDE (test code = 2206) 28 MEQ/L CALCIUM (test code = 2209) 9.2 MG/DL PROTEIN, TOTAL (test code = 2229) 7.3 G/DL ALBUMIN (test code = 2201) 4.6 G/DL CALC GLOBULIN (test code = 2240) 2.7 G/DL CALC A/G RATIO (test code = 2234) 1.7 RATIO BILIRUBIN, TOTAL (test code = 2207) 0.5 MG/DL ALKALINE PHOSPHATASE (test code = 2204) 84 U/L AST (test code = 2218) 27 U/L ALT (test code = 2219) 19 U/L [id number] 00:00:00* Test Item Value Reference Range Interpretation Comme nts TSH, THIRD GENERATION (test code = 2821) 1.670 UIU/ML HEMOGLOBIN [id number] 00:00:00* Test Item Value Reference Range Interpretation Comme nts HEMOGLOBIN A1c (test code = 48455) 5.7 % CBC W/AUTO [id number] 00:00:00* Test Item Value Reference Range Interpretation Comme nts WBC (test code = 1001) 3.2 K/UL [...] = 1013) 0.6 % IMMATURE GRANULOCYTES (test code = 1036) 0.3 % NUCLEATED RBCS (test code = 1065) 0.0 /100WBC'S PLATELET COUNT (test code = 1015) 173 K/UL ABSOLUTE NEUTROPHILS (test c ode = 1066) 1.68 K/UL ABSOLUTE LYMPHOCYTES (test c ode = 1067) 1.13 K/UL ABSOLUTE MONOCYTES (test cod e = 1068) 0.24 K/UL ABSOLUTE EOSINOPHILS (test c ode = 1040) 0.08 K/UL ABSOLUTE BASOPHILS (test cod e = 1069) 0.02 K/UL ABS IMMATURE GRANULOCYTES (t est code = 1020) 0.01 K/UL ABS NUCLEATED RBCS (test cod e = 45119) 0.00 K/UL COMPREHENSIVE METABOLIC [id number] 00:00:00* Test Item Value Reference Range Interpretation Comme nts GLUCOSE (test code = 2217) 94 MG/DL BUN (test code = 2208) 17 MG/DL CREATININE (test code = 2214) 0.73 MG/DL eGFR (2020 CKD-EPI) (test co de = 95260) 84 ML/MIN/1.73 CALC BUN/CREAT (test code = 2235) 23 RATIO SODIUM (test code = 2231) 142 MEQ/L POTASSIUM (test code = 2228) 4.5 MEQ/L CHLORIDE (test code = 2215) 105 MEQ/L CARBON DIOXIDE (test code = 2206) 28 MEQ/L CALCIUM (test code = 2209) 9.2 MG/DL PROTEIN, TOTAL (test code = 2229) 7.3 G/DL ALBUMIN (test code = 2201) 4.6 G/DL CALC GLOBULIN (test code = 2240) 2.7 G/DL CALC A/G RATIO (test code = 2234) 1.7 RATIO BILIRUBIN, TOTAL (test code = 2207) 0.5 MG/DL ALKALINE PHOSPHATASE (test code = 2204) 84 U/L AST (test code = 2218) 27 U/L ALT (test code = 2219) 19 U/L [id number] 00:00:00* Test Item Value Reference Range Interpretation Comme nts TSH, THIRD GENERATION (test code = 2821) 1.670 UIU/ML HEMOGLOBIN [id number] 00:00:00* Test Item Value Reference Range Interpretation Comme nts HEMOGLOBIN A1c (test code = 02328) 5.7 % CBC W/AUTO [id number] 00:00:00* Test Item Value Reference Range Interpretation Comme nts WBC (test code = 1001) 3.2 K/UL [...] = 1013) 0.6 % IMMATURE GRANULOCYTES (test code = 1036) 0.3 % NUCLEATED RBCS (test code = 1065) 0.0 /100WBC'S PLATELET COUNT (test code = 1015) 173 K/UL ABSOLUTE NEUTROPHILS (test c ode = 1066) 1.68 K/UL ABSOLUTE LYMPHOCYTES (test c ode = 1067) 1.13 K/UL ABSOLUTE MONOCYTES (test cod e = 1068) 0.24 K/UL ABSOLUTE EOSINOPHILS (test c ode = 1040) 0.08 K/UL ABSOLUTE BASOPHILS (test cod e = 1069) 0.02 K/UL ABS IMMATURE GRANULOCYTES (t est code = 1020) 0.01 K/UL ABS NUCLEATED RBCS (test cod e = 49220) 0.00 K/UL COMPREHENSIVE METABOLIC [id number] 00:00:00* Test Item Value Reference Range Interpretation Comme nts GLUCOSE (test code = 2217) 94 MG/DL BUN (test code = 2208) 17 MG/DL CREATININE (test code = 2214) 0.73 MG/DL eGFR (2020 CKD-EPI) (test co de = 31714) 84 ML/MIN/1.73 CALC BUN/CREAT (test code = 2235) 23 RATIO SODIUM (test code = 2231) 142 MEQ/L POTASSIUM (test code = 2228) 4.5 MEQ/L CHLORIDE (test code = 2215) 105 MEQ/L CARBON DIOXIDE (test code = 2206) 28 MEQ/L CALCIUM (test code = 2209) 9.2 MG/DL PROTEIN, TOTAL (test code = 2229) 7.3 G/DL ALBUMIN (test code = 2201) 4.6 G/DL CALC GLOBULIN (test code = 2240) 2.7 G/DL CALC A/G RATIO (test code = 2234) 1.7 RATIO BILIRUBIN, TOTAL (test code = 2207) 0.5 MG/DL ALKALINE PHOSPHATASE (test code = 2204) 84 U/L AST (test code = 2218) 27 U/L ALT (test code = 2219) 19 U/L [id number] 00:00:00* Test Item Value Reference Range Interpretation Comme [facility] TSH, THIRD GENERATION (test code = 2821) 1.670 UIU/ML HEMOGLOBIN [id number] 00:00:00* Test Item Value Reference Range Interpretation Comme [facility] HEMOGLOBIN A1c (test code = 45542) 5.7 % CBC W/AUTO [id number] 00:00:00* Test Item Value Reference Range Interpretation Comme nts WBC (test code = 1001) 3.2 K/UL [...] = 1013) 0.6 % IMMATURE GRANULOCYTES (test code = 1036) 0.3 % NUCLEATED RBCS (test code = 1065) 0.0 /100WBC'S PLATELET COUNT (test code = 1015) 173 K/UL ABSOLUTE NEUTROPHILS (test c ode = 1066) 1.68 K/UL ABSOLUTE LYMPHOCYTES (test c ode = 1067) 1.13 K/UL ABSOLUTE MONOCYTES (test cod e = 1068) 0.24 K/UL ABSOLUTE EOSINOPHILS (test c ode = 1040) 0.08 K/UL ABSOLUTE BASOPHILS (test cod e = 1069) 0.02 K/UL ABS IMMATURE GRANULOCYTES (t est code = 1020) 0.01 K/UL ABS NUCLEATED RBCS (test cod e = 38867) 0.00 K/UL COMPREHENSIVE METABOLIC [id number] 00:00:00* Test Item Value Reference Range Interpretation Comme nts GLUCOSE (test code = 2217) 94 MG/DL BUN (test code = 2208) 17 MG/DL CREATININE (test code = 2214) 0.73 MG/DL eGFR (2020 CKD-EPI) (test co de = 79513) 84 ML/MIN/1.73 CALC BUN/CREAT (test code = 2235) 23 RATIO SODIUM (test code = 2231) 142 MEQ/L POTASSIUM (test code = 2228) 4.5 MEQ/L CHLORIDE (test code = 2215) 105 MEQ/L CARBON DIOXIDE (test code = 2206) 28 MEQ/L CALCIUM (test code = 2209) 9.2 MG/DL PROTEIN, TOTAL (test code = 222) 7.3 G/DL ALBUMIN (test code = 2201) 4.6 G/DL CALC GLOBULIN (test code = 2240) 2.7 G/DL CALC A/G RATIO (test code = 2234) 1.7 RATIO BILIRUBIN, TOTAL (test code = 7) 0.5 MG/DL ALKALINE PHOSPHATASE (test code = 2203) 84 U/L AST (test code = 221) 27 U/L ALT (test code = 221) 19 U/L TSH, THIRD [id number] 06:51:27* Test Item Value Reference Range Interpretation Comme nts TSH, THIRD GENERATION (test code = 2821) 1.930 UIU/ML 0.400-4.100 UNLESS OTHERWISE INDICATED, ALL TESTING PERFORMED ATCLINICAL PATHOLOGY [facility] [address] [place] [id number] [employer]IVIL CAD TECH: BEN FARFAN M.D. CLIA NUMBER [id number] [facility] [place] [place]. [id number] COMPREHENSIVE METABOLIC [id number] 04:35:19* Test Item Value Reference Range Interpretation Comme nts GLUCOSE (test code = 7) 93 MG/DL 70-99 BUN (test code = 2207) 17 MG/DL 8-23 CREATININE (test code = 2214) 0.67 MG/DL 0.60-1.30 eGFR (2020 CKD-EPI) (test code = 42575) 89 ML/MIN/1.73 >60 CALC BUN/CREAT (test code = 2235) 25 RATIO 6-28 SODIUM (test code = 223) 141 MEQ/L 133-146 POTASSIUM (test code = 2228) 4.2 MEQ/L 3.5-5.4 CHLORIDE (test code = 2215) 104 MEQ/L 95-107 CARBON DIOXIDE (test code = 2206) 25 MEQ/L 19-31 CALCIUM (test code = 220) 9.2 MG/DL 8.5-10.5 PROTEIN, TOTAL (test code = 222) 7.5 G/DL 6.1-8.3 ALBUMIN (test code = 2201) 4.6 G/DL 3.5-5.2 CALC GLOBULIN (test code = 2240) 2.9 G/DL 1.9-3.7 CALC A/G RATIO (test code = 2234) 1.6 RATIO 1.0-2.6 BILIRUBIN, TOTAL (test code = 2207) 0.5 MG/DL See_Comment [Automated me ssage] The system which generated this result transmitted reference range: <=1.2. The reference range was not used to interpret this result as normal/abnormal. ALKALINE PHOSPHATASE (test code = 2204) 84 U/L 40-142 AST (test code = 2218) 22 U/L 9-40 ALT (test code = 2219) 13 U/L 5-40 COMPREHENSIVE METABOLIC [id number] 00:00:00* Test Item Value Reference Range Interpretation Comme nts GLUCOSE (test code = 2217) 93 MG/DL BUN (test code = 2208) 17 MG/DL CREATININE (test code = 2214) 0.67 MG/DL eGFR (2020 CKD-EPI) (test co de = 97859) 89 ML/MIN/1.73 CALC BUN/CREAT (test code = 2235) 25 RATIO SODIUM (test code = 2231) 141 MEQ/L POTASSIUM (test code = 2228) 4.2 MEQ/L CHLORIDE (test code = 2215) 104 MEQ/L CARBON DIOXIDE (test code = 2206) 25 MEQ/L CALCIUM (test code = 2209) 9.2 MG/DL PROTEIN, TOTAL (test code = 2229) 7.5 G/DL ALBUMIN (test code = 2201) 4.6 G/DL CALC GLOBULIN (test code = 2240) 2.9 G/DL CALC A/G RATIO (test code = 2234) 1.6 RATIO BILIRUBIN, TOTAL (test code = 2207) 0.5 MG/DL ALKALINE PHOSPHATASE (test code = 2204) 84 U/L AST (test code = 2218) 22 U/L ALT (test code = 2219) 13 U/L [id number] 00:00:00* Test Item Value Reference Range Interpretation Comme nts TSH, THIRD GENERATION (test code = 2821) 1.930 UIU/ML COMPREHENSIVE METABOLIC [id number] 00:00:00* Test Item Value Reference Range Interpretation Comme nts GLUCOSE (test code = 2217) 93 MG/DL BUN (test code = 2208) 17 MG/DL CREATININE (test code = 2214) 0.67 MG/DL eGFR (2020 CKD-EPI) (test co de = 46545) 89 ML/MIN/1.73 CALC BUN/CREAT (test code = 2235) 25 RATIO SODIUM (test code = 2231) 141 MEQ/L POTASSIUM (test code = 2228) 4.2 MEQ/L CHLORIDE (test code = 2215) 104 MEQ/L CARBON DIOXIDE (test code = 2206) 25 MEQ/L CALCIUM (test code = 2209) 9.2 MG/DL PROTEIN, TOTAL (test code = 2229) 7.5 G/DL ALBUMIN (test code = 2201) 4.6 G/DL CALC GLOBULIN (test code = 2240) 2.9 G/DL CALC A/G RATIO (test code = 2234) 1.6 RATIO BILIRUBIN, TOTAL (test code = 2207) 0.5 MG/DL ALKALINE PHOSPHATASE (test code = 2204) 84 U/L AST (test code = 2218) 22 U/L ALT (test code = 2219) 13 U/L [id number] 00:00:00* Test Item Value Reference Range Interpretation Comme nts TSH, THIRD GENERATION (test code = 2821) 1.930 UIU/ML COMPREHENSIVE METABOLIC [id number] 00:00:00* Test Item Value Reference Range Interpretation Comme nts GLUCOSE (test code = 2217) 93 MG/DL BUN (test code = 2208) 17 MG/DL CREATININE (test code = 2214) 0.67 MG/DL eGFR (2020 CKD-EPI) (test co de = 26615) 89 ML/MIN/1.73 CALC BUN/CREAT (test code = 2235) 25 RATIO SODIUM (test code = 2231) 141 MEQ/L POTASSIUM (test code = 2228) 4.2 MEQ/L CHLORIDE (test code = 2215) 104 MEQ/L CARBON DIOXIDE (test code = 2206) 25 MEQ/L CALCIUM (test code = 2209) 9.2 MG/DL PROTEIN, TOTAL (test code = 2229) 7.5 G/DL ALBUMIN (test code = 2201) 4.6 G/DL CALC GLOBULIN (test code = 2240) 2.9 G/DL CALC A/G RATIO (test code = 2234) 1.6 RATIO BILIRUBIN, TOTAL (test code = 2207) 0.5 MG/DL ALKALINE PHOSPHATASE (test code = 2204) 84 U/L AST (test code = 2218) 22 U/L ALT (test code = 2219) 13 U/L [id number] 00:00:00* Test Item Value Reference Range Interpretation Comme nts TSH, THIRD GENERATION (test code = 2821) 1.930 UIU/ML COMPREHENSIVE METABOLIC [id number] 00:00:00* Test Item Value Reference Range Interpretation Comme nts GLUCOSE (test code = 2217) 93 MG/DL BUN (test code = 2208) 17 MG/DL CREATININE (test code = 2214) 0.67 MG/DL eGFR (2020 CKD-EPI) (test co de = 59977) 89 ML/MIN/1.73 CALC BUN/CREAT (test code = 2235) 25 RATIO SODIUM (test code = 2231) 141 MEQ/L POTASSIUM (test code = 2228) 4.2 MEQ/L CHLORIDE (test code = 2215) 104 MEQ/L CARBON DIOXIDE (test code = 2206) 25 MEQ/L CALCIUM (test code = 2209) 9.2 MG/DL PROTEIN, TOTAL (test code = 2229) 7.5 G/DL ALBUMIN (test code = 2201) 4.6 G/DL CALC GLOBULIN (test code = 2240) 2.9 G/DL CALC A/G RATIO (test code = 2234) 1.6 RATIO BILIRUBIN, TOTAL (test code = 2207) 0.5 MG/DL ALKALINE PHOSPHATASE (test code = 2204) 84 U/L AST (test code = 2218) 22 U/L ALT (test code = 2219) 13 U/L [id number] 00:00:00* Test Item Value Reference Range Interpretation Comme nts TSH, THIRD GENERATION (test code = 2821) 1.930 UIU/ML COMPREHENSIVE METABOLIC [id number] 00:00:00* Test Item Value Reference Range Interpretation Comme nts GLUCOSE (test code = 2217) 93 MG/DL BUN (test code = 2208) 17 MG/DL CREATININE (test code = 2214) 0.67 MG/DL eGFR (2020 CKD-EPI) (test co de = 80107) 89 ML/MIN/1.73 CALC BUN/CREAT (test code = 2235) 25 RATIO SODIUM (test code = 2231) 141 MEQ/L POTASSIUM (test code = 2228) 4.2 MEQ/L CHLORIDE (test code = 2215) 104 MEQ/L CARBON DIOXIDE (test code = 2206) 25 MEQ/L CALCIUM (test code = 2209) 9.2 MG/DL PROTEIN, TOTAL (test code = 2229) 7.5 G/DL ALBUMIN (test code = 2201) 4.6 G/DL CALC GLOBULIN (test code = 2240) 2.9 G/DL CALC A/G RATIO (test code = 2234) 1.6 RATIO BILIRUBIN, TOTAL (test code = 2207) 0.5 MG/DL ALKALINE PHOSPHATASE (test code = 2204) 84 U/L AST (test code = 2218) 22 U/L ALT (test code = 2219) 13 U/L [id number] 00:00:00* Test Item Value Reference Range Interpretation Comme nts TSH, THIRD GENERATION (test code = 2821) 1.930 UIU/ML COMPREHENSIVE METABOLIC [id number] 00:00:00* Test Item Value Reference Range Interpretation Comme nts GLUCOSE (test code = 2217) 93 MG/DL BUN (test code = 2208) 17 MG/DL CREATININE (test code = 2214) 0.67 MG/DL eGFR (2020 CKD-EPI) (test co de = 57527) 89 ML/MIN/1.73 CALC BUN/CREAT (test code = 2235) 25 RATIO SODIUM (test code = 2231) 141 MEQ/L POTASSIUM (test code = 2228) 4.2 MEQ/L CHLORIDE (test code = 2215) 104 MEQ/L CARBON DIOXIDE (test code = 2206) 25 MEQ/L CALCIUM (test code = 2209) 9.2 MG/DL PROTEIN, TOTAL (test code = 2229) 7.5 G/DL ALBUMIN (test code = 2201) 4.6 G/DL CALC GLOBULIN (test code = 2240) 2.9 G/DL CALC A/G RATIO (test code = 2234) 1.6 RATIO BILIRUBIN, TOTAL (test code = 2207) 0.5 MG/DL ALKALINE PHOSPHATASE (test code = 2204) 84 U/L AST (test code = 2218) 22 U/L ALT (test code = 2219) 13 U/L [id number] 00:00:00* Test Item Value Reference Range Interpretation Comme nts TSH, THIRD GENERATION (test code = 2821) 1.930 UIU/ML LIPID [id number] 00:00:00* Test Item Value Reference Range Interpretation Comme nts CHOLESTEROL (test code = 2210) 178 MG/DL TRIGLYCERIDES (test code = 2232) 81 MG/DL HDL CHOLESTEROL (test code = 2220) 65 MG/DL CALC LDL CHOL (test code = 2237) 96 MG/DL RISK RATIO LDL/HDL (test cod e = 2238) 1.48 RATIO LIPID [id number] 00:00:00* Test Item Value Reference Range Interpretation Comme nts CHOLESTEROL (test code = 2210) 178 MG/DL TRIGLYCERIDES (test code = 2232) 81 MG/DL HDL CHOLESTEROL (test code = 2220) 65 MG/DL CALC LDL CHOL (test code = 2237) 96 MG/DL RISK RATIO LDL/HDL (test cod e = 2238) 1.48 RATIO LIPID [id number] 00:00:00* Test Item Value Reference Range Interpretation Comme nts CHOLESTEROL (test code = 2210) 178 MG/DL TRIGLYCERIDES (test code = 2232) 81 MG/DL HDL CHOLESTEROL (test code = 2220) 65 MG/DL CALC LDL CHOL (test code = 2237) 96 MG/DL RISK RATIO LDL/HDL (test cod e = 2238) 1.48 RATIO LIPID [id number] 00:00:00* Test Item Value Reference Range Interpretation Comme nts CHOLESTEROL (test code = 2210) 178 MG/DL TRIGLYCERIDES (test code = 2232) 81 MG/DL HDL CHOLESTEROL (test code = 2220) 65 MG/DL CALC LDL CHOL (test code = 2237) 96 MG/DL RISK RATIO LDL/HDL (test cod e = 2238) 1.48 RATIO LIPID [id number] 00:00:00* Test Item Value Reference Range Interpretation Comme nts CHOLESTEROL (test code = 2210) 178 MG/DL TRIGLYCERIDES (test code = 2232) 81 MG/DL HDL CHOLESTEROL (test code = 2220) 65 MG/DL CALC LDL CHOL (test code = 2237) 96 MG/DL RISK RATIO LDL/HDL (test cod e = 2238) 1.48 RATIO LIPID [id number] 00:00:00* Test Item Value Reference Range Interpretation Comme nts CHOLESTEROL (test code = 2210) 178 MG/DL TRIGLYCERIDES (test code = 2232) 81 MG/DL HDL CHOLESTEROL (test code = 2220) 65 MG/DL CALC LDL CHOL (test code = 2237) 96 MG/DL RISK RATIO LDL/HDL (test cod e = 2238) 1.48 RATIO HEMOGLOBIN [id number] 00:00:00* Test Item Value Reference Range Interpretation Comme nts HEMOGLOBIN A1c (test code = 16441) 5.6 % HEMOGLOBIN [id number] 00:00:00* Test Item Value Reference Range Interpretation Comme nts HEMOGLOBIN A1c (test code = 32063) 5.6 % [id number] 00:00:00* Test Item Value Reference Range Interpretation Comme nts TSH, THIRD GENERATION (test code = 2821) 1.460 UIU/ML LIPID [id number] 00:00:00* Test Item Value Reference Range Interpretation Comme nts CHOLESTEROL (test code = 2210) 160 MG/DL TRIGLYCERIDES (test code = 2232) 49 MG/DL HDL CHOLESTEROL (test code = 2220) 65 MG/DL CALC LDL CHOL (test code = 2237) 81 MG/DL RISK RATIO LDL/HDL (test cod e = 2238) 1.25 RATIO CBC W/AUTO [id number] 00:00:00* Test Item Value Reference Range Interpretation Comme nts WBC (test code = 1001) 2.5 K/UL [...] code = 1015) 168 K/UL COMPREHENSIVE METABOLIC [id number] 00:00:00* Test Item Value Reference Range Interpretation Comme nts GLUCOSE (test code = 2217) 93 MG/DL BUN (test code = 2208) 18 MG/DL CREATININE (test code = 2214) 0.75 MG/DL eGFR AMER. (test cod e = 67690) 89 ML/MIN/1.73 eGFR NON- AMER. (test code = 51482) 77 ML/MIN/1.73 CALC BUN/CREAT (test code = 2235) 24 RATIO SODIUM (test code = 2231) 144 MEQ/L POTASSIUM (test code = 2228) 4.4 MEQ/L CHLORIDE (test code = 2215) 105 MEQ/L CARBON DIOXIDE (test code = 2206) 29 MEQ/L CALCIUM (test code = 2209) 9.7 MG/DL PROTEIN, TOTAL (test code = 2229) 7.3 G/DL ALBUMIN (test code = 2201) 4.3 G/DL CALC GLOBULIN (test code = 2240) 3.0 G/DL CALC A/G RATIO (test code = 2234) 1.4 RATIO BILIRUBIN, TOTAL (test code = 2207) 0.7 MG/DL ALKALINE PHOSPHATASE (test code = 2204) 70 U/L AST (test code = 2218) 19 U/L ALT (test code = 2219) 14 U/L HEMOGLOBIN [id number] 00:00:00* Test Item Value Reference Range Interpretation Comme [facility] HEMOGLOBIN A1c (test code = 00270) 5.6 % [id number] 00:00:00* Test Item Value Reference Range Interpretation Comme nts TSH, THIRD GENERATION (test code = 2821) 1.460 UIU/ML [id number] 00:00:00* Test Item Value Reference Range Interpretation Comme nts TSH, THIRD GENERATION (test code = 2821) 1.460 UIU/ML LIPID [id number] 00:00:00* Test Item Value Reference Range Interpretation Comme nts CHOLESTEROL (test code = 2210) 160 MG/DL TRIGLYCERIDES (test code = 2232) 49 MG/DL HDL CHOLESTEROL (test code = 2220) 65 MG/DL CALC LDL CHOL (test code = 2237) 81 MG/DL RISK RATIO LDL/HDL (test cod e = 2238) 1.25 RATIO CBC W/AUTO [id number] 00:00:00* Test Item Value Reference Range Interpretation Comme nts WBC (test code = 1001) 2.5 K/UL [...] code = 1015) 168 K/UL COMPREHENSIVE METABOLIC [id number] 00:00:00* Test Item Value Reference Range Interpretation Comme nts GLUCOSE (test code = 2217) 93 MG/DL BUN (test code = 2208) 18 MG/DL CREATININE (test code = 2214) 0.75 MG/DL eGFR AMER. (test cod e = 35401) 89 ML/MIN/1.73 eGFR NON- AMER. (test code = 80809) 77 ML/MIN/1.73 CALC BUN/CREAT (test code = 2235) 24 RATIO SODIUM (test code = 2231) 144 MEQ/L POTASSIUM (test code = 2228) 4.4 MEQ/L CHLORIDE (test code = 2215) 105 MEQ/L CARBON DIOXIDE (test code = 2206) 29 MEQ/L CALCIUM (test code = 2209) 9.7 MG/DL PROTEIN, TOTAL (test code = 2229) 7.3 G/DL ALBUMIN (test code = 2201) 4.3 G/DL CALC GLOBULIN (test code = 2240) 3.0 G/DL CALC A/G RATIO (test code = 2234) 1.4 RATIO BILIRUBIN, TOTAL (test code = 2207) 0.7 MG/DL ALKALINE PHOSPHATASE (test code = 2204) 70 U/L AST (test code = 2218) 19 U/L ALT (test code = 2219) 14 U/L LIPID [id number] 00:00:00* Test Item Value Reference Range Interpretation Comme nts CHOLESTEROL (test code = 2210) 160 MG/DL TRIGLYCERIDES (test code = 2232) 49 MG/DL HDL CHOLESTEROL (test code = 2220) 65 MG/DL CALC LDL CHOL (test code = 2237) 81 MG/DL RISK RATIO LDL/HDL (test cod e = 2238) 1.25 RATIO CBC W/AUTO [id number] 00:00:00* Test Item Value Reference Range Interpretation Comme nts WBC (test code = 1001) 2.5 K/UL [...] code = 1015) 168 K/UL COMPREHENSIVE METABOLIC [id number] 00:00:00* Test Item Value Reference Range Interpretation Comme nts GLUCOSE (test code = 2217) 93 MG/DL BUN (test code = 2208) 18 MG/DL CREATININE (test code = 2214) 0.75 MG/DL eGFR AMER. (test cod e = 89409) 89 ML/MIN/1.73 eGFR NON- AMER. (test code = 50056) 77 ML/MIN/1.73 CALC BUN/CREAT (test code = 2235) 24 RATIO SODIUM (test code = 2231) 144 MEQ/L POTASSIUM (test code = 2228) 4.4 MEQ/L CHLORIDE (test code = 2215) 105 MEQ/L CARBON DIOXIDE (test code = 2206) 29 MEQ/L CALCIUM (test code = 2209) 9.7 MG/DL PROTEIN, TOTAL (test code = 2229) 7.3 G/DL ALBUMIN (test code = 2201) 4.3 G/DL CALC GLOBULIN (test code = 2240) 3.0 G/DL CALC A/G RATIO (test code = 2234) 1.4 RATIO BILIRUBIN, TOTAL (test code = 2207) 0.7 MG/DL ALKALINE PHOSPHATASE (test code = 2204) 70 U/L AST (test code = 2218) 19 U/L ALT (test code = 2219) 14 U/L HEMOGLOBIN [id number] 00:00:00* Test Item Value Reference Range Interpretation Comme nts HEMOGLOBIN A1c (test code = 26768) 5.6 % [id number] 00:00:00* Test Item Value Reference Range Interpretation Comme nts TSH, THIRD GENERATION (test code = 2821) 1.460 UIU/ML LIPID [id number] 00:00:00* Test Item Value Reference Range Interpretation Comme nts CHOLESTEROL (test code = 2210) 160 MG/DL TRIGLYCERIDES (test code = 2232) 49 MG/DL HDL CHOLESTEROL (test code = 2220) 65 MG/DL CALC LDL CHOL (test code = 2237) 81 MG/DL RISK RATIO LDL/HDL (test cod e = 2238) 1.25 RATIO CBC W/AUTO [id number] 00:00:00* Test Item Value Reference Range Interpretation Comme nts WBC (test code = 1001) 2.5 K/UL [...] code = 1015) 168 K/UL COMPREHENSIVE METABOLIC [id number] 00:00:00* Test Item Value Reference Range Interpretation Comme nts GLUCOSE (test code = 2217) 93 MG/DL BUN (test code = 2208) 18 MG/DL CREATININE (test code = 2214) 0.75 MG/DL eGFR AMER. (test cod e = 72816) 89 ML/MIN/1.73 eGFR NON- AMER. (test code = 41367) 77 ML/MIN/1.73 CALC BUN/CREAT (test code = 2235) 24 RATIO SODIUM (test code = 2231) 144 MEQ/L POTASSIUM (test code = 2228) 4.4 MEQ/L CHLORIDE (test code = 2215) 105 MEQ/L CARBON DIOXIDE (test code = 2206) 29 MEQ/L CALCIUM (test code = 2209) 9.7 MG/DL PROTEIN, TOTAL (test code = 222) 7.3 G/DL ALBUMIN (test code = 2201) 4.3 G/DL CALC GLOBULIN (test code = 2240) 3.0 G/DL CALC A/G RATIO (test code = 2234) 1.4 RATIO BILIRUBIN, TOTAL (test code = 2207) 0.7 MG/DL ALKALINE PHOSPHATASE (test code = 2204) 70 U/L AST (test code = 2218) 19 U/L ALT (test code = 2219) 14 U/L HEMOGLOBIN [id number] 00:00:00* Test Item Value Reference Range Interpretation Comme [facility] HEMOGLOBIN A1c (test code = 66651) 5.6 % [id number] 00:00:00* Test Item Value Reference Range Interpretation Comme [facility] TSH, THIRD GENERATION (test code = 2821) 1.460 UIU/ML LIPID [id number] 00:00:00* Test Item Value Reference Range Interpretation Comme nts CHOLESTEROL (test code = 2210) 160 MG/DL TRIGLYCERIDES (test code = 2232) 49 MG/DL HDL CHOLESTEROL (test code = 2220) 65 MG/DL CALC LDL CHOL (test code = 2237) 81 MG/DL RISK RATIO LDL/HDL (test cod e = 223) 1.25 RATIO CBC W/AUTO [id number] 00:00:00* Test Item Value Reference Range Interpretation Comme nts WBC (test code = 1001) 2.5 K/UL [...] code = 1015) 168 K/UL COMPREHENSIVE METABOLIC [id number] 00:00:00* Test Item Value Reference Range Interpretation Comme nts GLUCOSE (test code = 2217) 93 MG/DL BUN (test code = 2208) 18 MG/DL CREATININE (test code = 2214) 0.75 MG/DL eGFR AMER. (test cod e = 54505) 89 ML/MIN/1.73 eGFR NON- AMER. (test code = 96951) 77 ML/MIN/1.73 CALC BUN/CREAT (test code = 2235) 24 RATIO SODIUM (test code = 2231) 144 MEQ/L POTASSIUM (test code = 2228) 4.4 MEQ/L CHLORIDE (test code = 2215) 105 MEQ/L CARBON DIOXIDE (test code = 2206) 29 MEQ/L CALCIUM (test code = 2209) 9.7 MG/DL PROTEIN, TOTAL (test code = 2229) 7.3 G/DL ALBUMIN (test code = 2201) 4.3 G/DL CALC GLOBULIN (test code = 2240) 3.0 G/DL CALC A/G RATIO (test code = 2234) 1.4 RATIO BILIRUBIN, TOTAL (test code = 2207) 0.7 MG/DL ALKALINE PHOSPHATASE (test code = 2204) 70 U/L AST (test code = 2218) 19 U/L ALT (test code = 2219) 14 U/L HEMOGLOBIN [id number] 00:00:00* Test Item Value Reference Range Interpretation Comme nts HEMOGLOBIN A1c (test code = 31957) 5.6 % [id number] 00:00:00* Test Item Value Reference Range Interpretation Comme nts TSH, THIRD GENERATION (test code = 2821) 1.460 UIU/ML LIPID [id number] 00:00:00* Test Item Value Reference Range Interpretation Comme nts CHOLESTEROL (test code = 2210) 160 MG/DL TRIGLYCERIDES (test code = 2232) 49 MG/DL HDL CHOLESTEROL (test code = 2220) 65 MG/DL CALC LDL CHOL (test code = 2237) 81 MG/DL RISK RATIO LDL/HDL (test cod e = 2238) 1.25 RATIO CBC W/AUTO [id number] 00:00:00* Test Item Value Reference Range Interpretation Comme nts WBC (test code = 1001) 2.5 K/UL [...] code = 1015) 168 K/UL COMPREHENSIVE METABOLIC [id number] 00:00:00* Test Item Value Reference Range Interpretation Comme nts GLUCOSE (test code = 2217) 93 MG/DL BUN (test code = 2208) 18 MG/DL CREATININE (test code = 2214) 0.75 MG/DL eGFR AMER. (test cod e = 74427) 89 ML/MIN/1.73 eGFR NON- AMER. (test code = 11133) 77 ML/MIN/1.73 CALC BUN/CREAT (test code = 2235) 24 RATIO SODIUM (test code = 2231) 144 MEQ/L POTASSIUM (test code = 2228) 4.4 MEQ/L CHLORIDE (test code = 2215) 105 MEQ/L CARBON DIOXIDE (test code = 2206) 29 MEQ/L CALCIUM (test code = 2209) 9.7 MG/DL PROTEIN, TOTAL (test code = 2229) 7.3 G/DL ALBUMIN (test code = 2201) 4.3 G/DL CALC GLOBULIN (test code = 2240) 3.0 G/DL CALC A/G RATIO (test code = 2234) 1.4 RATIO BILIRUBIN, TOTAL (test code = 2207) 0.7 MG/DL ALKALINE PHOSPHATASE (test code = 2204) 70 U/L AST (test code = 2218) 19 U/L ALT (test code = 2219) 14 U/L SCR MAMM BILATERAL NICHOLAS CAD [id number] 16:13:38 Name: Dorothy DOB: 1945 Sex: F - SCR MAMM BILATERAL NICHOLAS CAD DIGITALBILATERAL DIGITAL SCREENING MAMMOGRAM 3D/2D WITH CAD: 02/11/2021LINICAL: Asymptomatic. Digital breast tomosynthesis was performed in addition to routine CC and MLO views. Current mammographic images were evaluated by [employer] CAD (computed aided detection) software. Comparison is made to exams dated 05/08/2019 mammogram - [facility], 04/19/2018 mammogram, and 04/02/2017 mammogram - [facility]. The tissue of both breasts is predominantly fatty. There are benign vascular calcifications in both breasts. No suspicious mass, architectural distortion, malignant type calcification, or lymph node abnormality detected. Breast architecture is stable compared to prior exams.IMPRESSION: BENIGNThere is no mammographic evidence of malignancy. Resume annual screening mammography in one year. Hanna wyman/penrad:02/16/2021 16:13:38 Broadband Technician: Carla Arce MM, [facility]: BIRADS 1-2 Normal Mammogram BI-RADS: 2 [id number] (COVID-19) by RT-PCR (HIGH RISK)2020-12-16 00:00:00* Test Item Value Reference Range Interpretation Comme nts SARS-CoV-2 INTERPRETATION (t est code = 91545) NEGATIVE SOURCE (test code = 48245) NOT SPECIFIED SARS-CoV-2 (COVID-19) by RT-PCR (HIGH RISK)2020-12-16 00:00:00* Test Item Value Reference Range Interpretation Comme nts SARS-CoV-2 INTERPRETATION (t est code = 59426) NEGATIVE SOURCE (test code = 40784) NOT SPECIFIED SARS-CoV-2 (COVID-19) by RT-PCR (HIGH RISK)2020-12-16 00:00:00* Test Item Value Reference Range Interpretation Comme nts SARS-CoV-2 INTERPRETATION (t est code = 19538) NEGATIVE SOURCE (test code = 75113) NOT SPECIFIED SARS-CoV-2 (COVID-19) by RT-PCR (HIGH RISK)2020-12-16 00:00:00* Test Item Value Reference Range Interpretation Comme nts SARS-CoV-2 INTERPRETATION (t est code = 13864) NEGATIVE SOURCE (test code = 41969) NOT SPECIFIED SARS-CoV-2 (COVID-19) by RT-PCR (HIGH RISK)2020-12-16 00:00:00* Test Item Value Reference Range Interpretation Comme nts SARS-CoV-2 INTERPRETATION (t est code = 89175) NEGATIVE SOURCE (test code = 66319) NOT SPECIFIED SARS-CoV-2 (COVID-19) by RT-PCR (HIGH RISK)2020-12-16 00:00:00* Test Item Value Reference Range Interpretation Comme nts SARS-CoV-2 INTERPRETATION (t est code = 35673) NEGATIVE SOURCE (test code = 80849) NOT SPECIFIED [id number] 00:00:00* Test Item Value Reference Range Interpretation Comme nts TSH, THIRD GENERATION (test code = 2821) 2.350 UIU/ML [id number] 00:00:00* Test Item Value Reference Range Interpretation Comme nts TSH, THIRD GENERATION (test code = 2821) 2.350 UIU/ML [id number] 00:00:00* Test Item Value Reference Range Interpretation Comme nts TSH, THIRD GENERATION (test code = 2821) 2.350 UIU/ML [id number] 00:00:00* Test Item Value Reference Range Interpretation Comme nts TSH, THIRD GENERATION (test code = 2821) 2.350 UIU/ML [id number] 00:00:00* Test Item Value Reference Range Interpretation Comme nts TSH, THIRD GENERATION (test code = 2821) 2.350 UIU/ML [id number] 00:00:00* Test Item Value Reference Range Interpretation Comme nts TSH, THIRD GENERATION (test code = 2821) 2.350 UIU/ML CBC W/AUTO [id number] 00:00:00* Test Item Value Reference Range Interpretation Comme nts WBC (test code = 1001) 2.9 K/UL [...] code = 1015) 156 K/UL CBC W/AUTO [id number] 00:00:00* Test Item Value Reference Range Interpretation Comme nts WBC (test code = 1001) 2.9 K/UL [...] (test code = 1015) 156 K/UL HEMOGLOBIN [id number] 00:00:00* Test Item Value Reference Range Interpretation Comme nts HEMOGLOBIN A1c (test code = 03603) 5.8 % COMPREHENSIVE METABOLIC [id number] 00:00:00* Test Item Value Reference Range Interpretation Comme nts GLUCOSE (test code = 2217) 92 MG/DL BUN (test code = 2208) 15 MG/DL CREATININE (test code = 2214) 0.66 MG/DL eGFR AMER. (test cod e = 05062) 99 ML/MIN/1.73 eGFR NON- AMER. (test code = 83775) 85 ML/MIN/1.73 CALC BUN/CREAT (test code = 2235) 23 RATIO SODIUM (test code = 2231) 144 MEQ/L POTASSIUM (test code = 2228) 4.2 MEQ/L CHLORIDE (test code = 2215) 105 MEQ/L CARBON DIOXIDE (test code = 2206) 27 MEQ/L CALCIUM (test code = 2209) 9.3 MG/DL PROTEIN, TOTAL (test code = 2229) 7.0 G/DL ALBUMIN (test code = 2201) 4.3 G/DL CALC GLOBULIN (test code = 2240) 2.7 G/DL CALC A/G RATIO (test code = 2234) 1.6 RATIO BILIRUBIN, TOTAL (test code = 2207) 0.4 MG/DL ALKALINE PHOSPHATASE (test code = 2204) 71 U/L AST (test code = 2218) 17 U/L ALT (test code = 2219) 12 U/L CBC W/AUTO [id number] 00:00:00* Test Item Value Reference Range Interpretation Comme nts WBC (test code = 1001) 2.9 K/UL [...] (test code = 1015) 156 K/UL HEMOGLOBIN [id number] 00:00:00* Test Item Value Reference Range Interpretation Comme nts HEMOGLOBIN A1c (test code = 94676) 5.8 % HEMOGLOBIN [id number] 00:00:00* Test Item Value Reference Range Interpretation Comme nts HEMOGLOBIN A1c (test code = 22084) 5.8 % COMPREHENSIVE METABOLIC [id number] 00:00:00* Test Item Value Reference Range Interpretation Comme nts GLUCOSE (test code = 2217) 92 MG/DL BUN (test code = 8) 15 MG/DL CREATININE (test code = 2214) 0.66 MG/DL eGFR AMER. (test cod e = 64809) 99 ML/MIN/1.73 eGFR NON- AMER. (test code = 54978) 85 ML/MIN/1.73 CALC BUN/CREAT (test code = 2235) 23 RATIO SODIUM (test code = 2231) 144 MEQ/L POTASSIUM (test code = 2228) 4.2 MEQ/L CHLORIDE (test code = 2215) 105 MEQ/L CARBON DIOXIDE (test code = 2206) 27 MEQ/L CALCIUM (test code = 2209) 9.3 MG/DL PROTEIN, TOTAL (test code = 2229) 7.0 G/DL ALBUMIN (test code = 2201) 4.3 G/DL CALC GLOBULIN (test code = 2240) 2.7 G/DL CALC A/G RATIO (test code = 2234) 1.6 RATIO BILIRUBIN, TOTAL (test code = 2207) 0.4 MG/DL ALKALINE PHOSPHATASE (test code = 2204) 71 U/L AST (test code = 2218) 17 U/L ALT (test code = 2219) 12 U/L COMPREHENSIVE METABOLIC [id number] 00:00:00* Test Item Value Reference Range Interpretation Comme nts GLUCOSE (test code = 2217) 92 MG/DL BUN (test code = 2208) 15 MG/DL CREATININE (test code = 2214) 0.66 MG/DL eGFR AMER. (test cod e = 81827) 99 ML/MIN/1.73 eGFR NON- AMER. (test code = 63168) 85 ML/MIN/1.73 CALC BUN/CREAT (test code = 2235) 23 RATIO SODIUM (test code = 2231) 144 MEQ/L POTASSIUM (test code = 2228) 4.2 MEQ/L CHLORIDE (test code = 2215) 105 MEQ/L CARBON DIOXIDE (test code = 2206) 27 MEQ/L CALCIUM (test code = 2209) 9.3 MG/DL PROTEIN, TOTAL (test code = 2229) 7.0 G/DL ALBUMIN (test code = 2201) 4.3 G/DL CALC GLOBULIN (test code = 2240) 2.7 G/DL CALC A/G RATIO (test code = 2234) 1.6 RATIO BILIRUBIN, TOTAL (test code = 2207) 0.4 MG/DL ALKALINE PHOSPHATASE (test code = 2204) 71 U/L AST (test code = 2218) 17 U/L ALT (test code = 2219) 12 U/L CBC W/AUTO [id number] 00:00:00* Test Item Value Reference Range Interpretation Comme nts WBC (test code = 1001) 2.9 K/UL [...] (test code = 1015) 156 K/UL HEMOGLOBIN [id number] 00:00:00* Test Item Value Reference Range Interpretation Comme nts HEMOGLOBIN A1c (test code = 30172) 5.8 % COMPREHENSIVE METABOLIC [id number] 00:00:00* Test Item Value Reference Range Interpretation Comme nts GLUCOSE (test code = 2217) 92 MG/DL BUN (test code = 2208) 15 MG/DL CREATININE (test code = 2214) 0.66 MG/DL eGFR AMER. (test cod e = 54553) 99 ML/MIN/1.73 eGFR NON- AMER. (test code = 23265) 85 ML/MIN/1.73 CALC BUN/CREAT (test code = 2235) 23 RATIO SODIUM (test code = 2231) 144 MEQ/L POTASSIUM (test code = 2228) 4.2 MEQ/L CHLORIDE (test code = 2215) 105 MEQ/L CARBON DIOXIDE (test code = 2206) 27 MEQ/L CALCIUM (test code = 2209) 9.3 MG/DL PROTEIN, TOTAL (test code = 2229) 7.0 G/DL ALBUMIN (test code = 2201) 4.3 G/DL CALC GLOBULIN (test code = 2240) 2.7 G/DL CALC A/G RATIO (test code = 2234) 1.6 RATIO BILIRUBIN, TOTAL (test code = 2207) 0.4 MG/DL ALKALINE PHOSPHATASE (test code = 2204) 71 U/L AST (test code = 2218) 17 U/L ALT (test code = 2219) 12 U/L CBC W/AUTO [id number] 00:00:00* Test Item Value Reference Range Interpretation Comme nts WBC (test code = 1001) 2.9 K/UL [...] (test code = 1015) 156 K/UL HEMOGLOBIN [id number] 00:00:00* Test Item Value Reference Range Interpretation Comme nts HEMOGLOBIN A1c (test code = 11228) 5.8 % COMPREHENSIVE METABOLIC [id number] 00:00:00* Test Item Value Reference Range Interpretation Comme nts GLUCOSE (test code = 2217) 92 MG/DL BUN (test code = 2208) 15 MG/DL CREATININE (test code = 2214) 0.66 MG/DL eGFR AMER. (test cod e = 71601) 99 ML/MIN/1.73 eGFR NON- AMER. (test code = 83910) 85 ML/MIN/1.73 CALC BUN/CREAT (test code = 2235) 23 RATIO SODIUM (test code = 2231) 144 MEQ/L POTASSIUM (test code = 2228) 4.2 MEQ/L CHLORIDE (test code = 2215) 105 MEQ/L CARBON DIOXIDE (test code = 2206) 27 MEQ/L CALCIUM (test code = 2209) 9.3 MG/DL PROTEIN, TOTAL (test code = 2229) 7.0 G/DL ALBUMIN (test code = 2201) 4.3 G/DL CALC GLOBULIN (test code = 2240) 2.7 G/DL CALC A/G RATIO (test code = 2234) 1.6 RATIO BILIRUBIN, TOTAL (test code = 2207) 0.4 MG/DL ALKALINE PHOSPHATASE (test code = 2204) 71 U/L AST (test code = 2218) 17 U/L ALT (test code = 2219) 12 U/L CBC W/AUTO [id number] 00:00:00* Test Item Value Reference Range Interpretation Comme nts WBC (test code = 1001) 2.9 K/UL [...] (test code = 1015) 156 K/UL HEMOGLOBIN [id number] 00:00:00* Test Item Value Reference Range Interpretation Comme nts HEMOGLOBIN A1c (test code = 08748) 5.8 % COMPREHENSIVE METABOLIC [id number] 00:00:00* Test Item Value Reference Range Interpretation Comme nts GLUCOSE (test code = 2217) 92 MG/DL BUN (test code = 2208) 15 MG/DL CREATININE (test code = 2214) 0.66 MG/DL eGFR AMER. (test cod e = 92540) 99 ML/MIN/1.73 eGFR NON- AMER. (test code = 75382) 85 ML/MIN/1.73 CALC BUN/CREAT (test code = 2235) 23 RATIO SODIUM (test code = 2231) 144 MEQ/L POTASSIUM (test code = 2228) 4.2 MEQ/L CHLORIDE (test code = 2215) 105 MEQ/L CARBON DIOXIDE (test code = 2206) 27 MEQ/L CALCIUM (test code = 2209) 9.3 MG/DL PROTEIN, TOTAL (test code = 2229) 7.0 G/DL ALBUMIN (test code = 2201) 4.3 G/DL CALC GLOBULIN (test code = 2240) 2.7 G/DL CALC A/G RATIO (test code = 2234) 1.6 RATIO BILIRUBIN, TOTAL (test code = 2207) 0.4 MG/DL ALKALINE PHOSPHATASE (test code = 2204) 71 U/L AST (test code = 2218) 17 U/L ALT (test code = 2219) 12 U/L COMPREHENSIVE METABOLIC [id number] 00:00:00* Test Item Value Reference Range Interpretation Comme nts GLUCOSE (test code = 2217) 98 MG/DL BUN (test code = 2208) 12 MG/DL CREATININE (test code = 2214) 0.63 MG/DL eGFR AMER. (test cod e = 31873) 100 ML/MIN/1.73 eGFR NON- AMER. (test code = 19733) 87 ML/MIN/1.73 CALC BUN/CREAT (test code = 2235) 19 RATIO SODIUM (test code = 2231) 140 MEQ/L POTASSIUM (test code = 2228) 4.5 MEQ/L CHLORIDE (test code = 2215) 103 MEQ/L CARBON DIOXIDE (test code = 2206) 29 MEQ/L CALCIUM (test code = 2209) 9.6 MG/DL PROTEIN, TOTAL (test code = 2229) 7.5 G/DL ALBUMIN (test code = 2201) 4.4 G/DL CALC GLOBULIN (test code = 2240) 3.1 G/DL CALC A/G RATIO (test code = 2234) 1.4 RATIO BILIRUBIN, TOTAL (test code = 2207) 0.6 MG/DL ALKALINE PHOSPHATASE (test code = 2204) 78 U/L AST (test code = 2218) 16 U/L ALT (test code = 2219) 12 U/L LIPID [id number] 00:00:00* Test Item Value Reference Range Interpretation Comme nts CHOLESTEROL (test code = 2210) 156 MG/DL TRIGLYCERIDES (test code = 2232) 70 MG/DL HDL CHOLESTEROL (test code = 2220) 61 MG/DL CALC LDL CHOL (test code = 2237) 80 MG/DL RISK RATIO LDL/HDL (test cod e = 223) 1.31 RATIO HEMOGLOBIN [id number] 00:00:00* Test Item Value Reference Range Interpretation Comme nts HEMOGLOBIN A1c (test code = 32665) 5.9 % [id number] 00:00:00* Test Item Value Reference Range Interpretation Comme nts TSH, THIRD GENERATION (test code = 2821) 2.420 UIU/ML COMPREHENSIVE METABOLIC [id number] 00:00:00* Test Item Value Reference Range Interpretation Comme nts GLUCOSE (test code = 2217) 98 MG/DL BUN (test code = 8) 12 MG/DL CREATININE (test code = 2214) 0.63 MG/DL eGFR AMER. (test cod e = 14000) 100 ML/MIN/1.73 eGFR NON- AMER. (test code = 17917) 87 ML/MIN/1.73 CALC BUN/CREAT (test code = 2235) 19 RATIO SODIUM (test code = 2231) 140 MEQ/L POTASSIUM (test code = 2228) 4.5 MEQ/L CHLORIDE (test code = 2215) 103 MEQ/L CARBON DIOXIDE (test code = 6) 29 MEQ/L CALCIUM (test code = 2209) 9.6 MG/DL PROTEIN, TOTAL (test code = 2229) 7.5 G/DL ALBUMIN (test code = 2201) 4.4 G/DL CALC GLOBULIN (test code = 2240) 3.1 G/DL CALC A/G RATIO (test code = 2234) 1.4 RATIO BILIRUBIN, TOTAL (test code = 2207) 0.6 MG/DL ALKALINE PHOSPHATASE (test code = 2204) 78 U/L AST (test code = 2218) 16 U/L ALT (test code = 2219) 12 U/L COMPREHENSIVE METABOLIC [id number] 00:00:00* Test Item Value Reference Range Interpretation Comme nts GLUCOSE (test code = 2217) 98 MG/DL BUN (test code = 2208) 12 MG/DL CREATININE (test code = 2214) 0.63 MG/DL eGFR AMER. (test cod e = 25912) 100 ML/MIN/1.73 eGFR NON- AMER. (test code = 36718) 87 ML/MIN/1.73 CALC BUN/CREAT (test code = 2235) 19 RATIO SODIUM (test code = 2231) 140 MEQ/L POTASSIUM (test code = 2228) 4.5 MEQ/L CHLORIDE (test code = 2215) 103 MEQ/L CARBON DIOXIDE (test code = 2206) 29 MEQ/L CALCIUM (test code = 2209) 9.6 MG/DL PROTEIN, TOTAL (test code = 2229) 7.5 G/DL ALBUMIN (test code = 2201) 4.4 G/DL CALC GLOBULIN (test code = 2240) 3.1 G/DL CALC A/G RATIO (test code = 2234) 1.4 RATIO BILIRUBIN, TOTAL (test code = 2207) 0.6 MG/DL ALKALINE PHOSPHATASE (test code = 2204) 78 U/L AST (test code = 2218) 16 U/L ALT (test code = 2219) 12 U/L LIPID [id number] 00:00:00* Test Item Value Reference Range Interpretation Comme nts CHOLESTEROL (test code = 2210) 156 MG/DL TRIGLYCERIDES (test code = 2232) 70 MG/DL HDL CHOLESTEROL (test code = 2220) 61 MG/DL CALC LDL CHOL (test code = 2237) 80 MG/DL RISK RATIO LDL/HDL (test cod e = 2238) 1.31 RATIO HEMOGLOBIN [id number] 00:00:00* Test Item Value Reference Range Interpretation Comme nts HEMOGLOBIN A1c (test code = 05537) 5.9 % [id number] 00:00:00* Test Item Value Reference Range Interpretation Comme nts TSH, THIRD GENERATION (test code = 2821) 2.420 UIU/ML LIPID [id number] 00:00:00* Test Item Value Reference Range Interpretation Comme nts CHOLESTEROL (test code = 2210) 156 MG/DL TRIGLYCERIDES (test code = 2232) 70 MG/DL HDL CHOLESTEROL (test code = 2220) 61 MG/DL CALC LDL CHOL (test code = 2237) 80 MG/DL RISK RATIO LDL/HDL (test cod e = 2238) 1.31 RATIO HEMOGLOBIN [id number] 00:00:00* Test Item Value Reference Range Interpretation Comme nts HEMOGLOBIN A1c (test code = 31708) 5.9 % [id number] 00:00:00* Test Item Value Reference Range Interpretation Comme nts TSH, THIRD GENERATION (test code = 2821) 2.420 UIU/ML COMPREHENSIVE METABOLIC [id number] 00:00:00* Test Item Value Reference Range Interpretation Comme nts GLUCOSE (test code = 2217) 98 MG/DL BUN (test code = 2208) 12 MG/DL CREATININE (test code = 2214) 0.63 MG/DL eGFR AMER. (test cod e = 92558) 100 ML/MIN/1.73 eGFR NON- AMER. (test code = 01677) 87 ML/MIN/1.73 CALC BUN/CREAT (test code = 2235) 19 RATIO SODIUM (test code = 2231) 140 MEQ/L POTASSIUM (test code = 2228) 4.5 MEQ/L CHLORIDE (test code = 2215) 103 MEQ/L CARBON DIOXIDE (test code = 2206) 29 MEQ/L CALCIUM (test code = 2209) 9.6 MG/DL PROTEIN, TOTAL (test code = 2229) 7.5 G/DL ALBUMIN (test code = 2201) 4.4 G/DL CALC GLOBULIN (test code = 2240) 3.1 G/DL CALC A/G RATIO (test code = 2234) 1.4 RATIO BILIRUBIN, TOTAL (test code = 2207) 0.6 MG/DL ALKALINE PHOSPHATASE (test code = 2204) 78 U/L AST (test code = 2218) 16 U/L ALT (test code = 2219) 12 U/L LIPID [id number] 00:00:00* Test Item Value Reference Range Interpretation Comme nts CHOLESTEROL (test code = 2210) 156 MG/DL TRIGLYCERIDES (test code = 2232) 70 MG/DL HDL CHOLESTEROL (test code = 2220) 61 MG/DL CALC LDL CHOL (test code = 2237) 80 MG/DL RISK RATIO LDL/HDL (test cod e = 2238) 1.31 RATIO HEMOGLOBIN [id number] 00:00:00* Test Item Value Reference Range Interpretation Comme nts HEMOGLOBIN A1c (test code = 09040) 5.9 % [id number] 00:00:00* Test Item Value Reference Range Interpretation Comme nts TSH, THIRD GENERATION (test code = 2821) 2.420 UIU/ML COMPREHENSIVE METABOLIC [id number] 00:00:00* Test Item Value Reference Range Interpretation Comme nts GLUCOSE (test code = 2217) 98 MG/DL BUN (test code = 2208) 12 MG/DL CREATININE (test code = 2214) 0.63 MG/DL eGFR AMER. (test cod e = 96643) 100 ML/MIN/1.73 eGFR NON- AMER. (test code = 64772) 87 ML/MIN/1.73 CALC BUN/CREAT (test code = 2235) 19 RATIO SODIUM (test code = 2231) 140 MEQ/L POTASSIUM (test code = 2228) 4.5 MEQ/L CHLORIDE (test code = 2215) 103 MEQ/L CARBON DIOXIDE (test code = 2206) 29 MEQ/L CALCIUM (test code = 2209) 9.6 MG/DL PROTEIN, TOTAL (test code = 2229) 7.5 G/DL ALBUMIN (test code = 2201) 4.4 G/DL CALC GLOBULIN (test code = 2240) 3.1 G/DL CALC A/G RATIO (test code = 2234) 1.4 RATIO BILIRUBIN, TOTAL (test code = 2207) 0.6 MG/DL ALKALINE PHOSPHATASE (test code = 2204) 78 U/L AST (test code = 2218) 16 U/L ALT (test code = 2219) 12 U/L LIPID [id number] 00:00:00* Test Item Value Reference Range Interpretation Comme nts CHOLESTEROL (test code = 2210) 156 MG/DL TRIGLYCERIDES (test code = 2232) 70 MG/DL HDL CHOLESTEROL (test code = 2220) 61 MG/DL CALC LDL CHOL (test code = 2237) 80 MG/DL RISK RATIO LDL/HDL (test cod e = 2238) 1.31 RATIO HEMOGLOBIN [id number] 00:00:00* Test Item Value Reference Range Interpretation Comme nts HEMOGLOBIN A1c (test code = 48933) 5.9 % [id number] 00:00:00* Test Item Value Reference Range Interpretation Comme nts TSH, THIRD GENERATION (test code = 2821) 2.420 UIU/ML COMPREHENSIVE METABOLIC [id number] 00:00:00* Test Item Value Reference Range Interpretation Comme nts GLUCOSE (test code = 2217) 98 MG/DL BUN (test code = 2208) 12 MG/DL CREATININE (test code = 2214) 0.63 MG/DL eGFR AMER. (test cod e = 44829) 100 ML/MIN/1.73 eGFR NON- AMER. (test code = 36324) 87 ML/MIN/1.73 CALC BUN/CREAT (test code = 2235) 19 RATIO SODIUM (test code = 2231) 140 MEQ/L POTASSIUM (test code = 2228) 4.5 MEQ/L CHLORIDE (test code = 2215) 103 MEQ/L CARBON DIOXIDE (test code = 2206) 29 MEQ/L CALCIUM (test code = 2209) 9.6 MG/DL PROTEIN, TOTAL (test code = 2229) 7.5 G/DL ALBUMIN (test code = 2201) 4.4 G/DL CALC GLOBULIN (test code = 2240) 3.1 G/DL CALC A/G RATIO (test code = 2234) 1.4 RATIO BILIRUBIN, TOTAL (test code = 2207) 0.6 MG/DL ALKALINE PHOSPHATASE (test code = 2204) 78 U/L AST (test code = 2218) 16 U/L ALT (test code = 2219) 12 U/L LIPID [id number] 00:00:00* Test Item Value Reference Range Interpretation Comme nts CHOLESTEROL (test code = 2210) 156 MG/DL TRIGLYCERIDES (test code = 2232) 70 MG/DL HDL CHOLESTEROL (test code = 2220) 61 MG/DL CALC LDL CHOL (test code = 2237) 80 MG/DL RISK RATIO LDL/HDL (test cod e = 2238) 1.31 RATIO HEMOGLOBIN [id number] 00:00:00* Test Item Value Reference Range Interpretation Comme nts HEMOGLOBIN A1c (test code = 51231) 5.9 % [id number] 00:00:00* Test Item Value Reference Range Interpretation Comme nts TSH, THIRD GENERATION (test code = 2821) 2.420 UIU/ML CBC W/AUTO [id number] 00:00:00* Test Item Value Reference Range Interpretation Comme nts WBC (test code = 1001) 3.9 K/UL [...] code = 1015) 167 K/UL CBC W/AUTO [id number] 00:00:00* Test Item Value Reference Range Interpretation Comme nts WBC (test code = 1001) 3.9 K/UL [...] (test code = 1015) 167 K/UL HEMOGLOBIN [id number] 00:00:00* Test Item Value Reference Range Interpretation Comme nts HEMOGLOBIN A1c (test code = 61297) 6.1 % [id number] 00:00:00* Test Item Value Reference Range Interpretation Comme nts TSH, THIRD GENERATION (test code = 2821) 2.000 UIU/ML COMPREHENSIVE METABOLIC [id number] 00:00:00* Test Item Value Reference Range Interpretation Comme nts GLUCOSE (test code = 2217) 103 MG/DL BUN (test code = 2208) 14 MG/DL CREATININE (test code = 2214) 0.71 MG/DL eGFR AMER. (test cod e = 95487) 96 ML/MIN/1.73 eGFR NON- AMER. (test code = 41961) 83 ML/MIN/1.73 CALC BUN/CREAT (test code = 2235) 20 RATIO SODIUM (test code = 2231) 142 MEQ/L POTASSIUM (test code = 2228) 4.3 MEQ/L CHLORIDE (test code = 2215) 101 MEQ/L CARBON DIOXIDE (test code = 2206) 27 MEQ/L CALCIUM (test code = 2209) 9.2 MG/DL PROTEIN, TOTAL (test code = 2229) 7.5 G/DL ALBUMIN (test code = 2201) 4.5 G/DL CALC GLOBULIN (test code = 2240) 3.0 G/DL CALC A/G RATIO (test code = 2234) 1.5 RATIO BILIRUBIN, TOTAL (test code = 2207) 0.4 MG/DL ALKALINE PHOSPHATASE (test code = 2204) 86 U/L AST (test code = 2218) 20 U/L ALT (test code = 2219) 12 U/L LIPID [id number] 00:00:00* Test Item Value Reference Range Interpretation Comme nts CHOLESTEROL (test code = 2210) 174 MG/DL TRIGLYCERIDES (test code = 2232) 160 MG/DL HDL CHOLESTEROL (test code = 2220) 48 MG/DL CALC LDL CHOL (test code = 2237) 100 MG/DL RISK RATIO LDL/HDL (test cod e = 2238) 2.08 RATIO CBC W/AUTO [id number] 00:00:00* Test Item Value Reference Range Interpretation Comme nts WBC (test code = 1001) 3.9 K/UL [...] (test code = 1015) 167 K/UL HEMOGLOBIN [id number] 00:00:00* Test Item Value Reference Range Interpretation Comme nts HEMOGLOBIN A1c (test code = 00460) 6.1 % HEMOGLOBIN [id number] 00:00:00* Test Item Value Reference Range Interpretation Comme nts HEMOGLOBIN A1c (test code = 13792) 6.1 % [id number] 00:00:00* Test Item Value Reference Range Interpretation Comme nts TSH, THIRD GENERATION (test code = 2821) 2.000 UIU/ML COMPREHENSIVE METABOLIC [id number] 00:00:00* Test Item Value Reference Range Interpretation Comme nts GLUCOSE (test code = 2217) 103 MG/DL BUN (test code = 2208) 14 MG/DL CREATININE (test code = 2214) 0.71 MG/DL eGFR AMER. (test cod e = 79018) 96 ML/MIN/1.73 eGFR NON- AMER. (test code = 09922) 83 ML/MIN/1.73 CALC BUN/CREAT (test code = 2235) 20 RATIO SODIUM (test code = 2231) 142 MEQ/L POTASSIUM (test code = 2228) 4.3 MEQ/L CHLORIDE (test code = 2215) 101 MEQ/L CARBON DIOXIDE (test code = 2206) 27 MEQ/L CALCIUM (test code = 2209) 9.2 MG/DL PROTEIN, TOTAL (test code = 2229) 7.5 G/DL ALBUMIN (test code = 2201) 4.5 G/DL CALC GLOBULIN (test code = 2240) 3.0 G/DL CALC A/G RATIO (test code = 2234) 1.5 RATIO BILIRUBIN, TOTAL (test code = 2207) 0.4 MG/DL ALKALINE PHOSPHATASE (test code = 2204) 86 U/L AST (test code = 2218) 20 U/L ALT (test code = 2219) 12 U/L LIPID [id number] 00:00:00* Test Item Value Reference Range Interpretation Comme nts CHOLESTEROL (test code = 2210) 174 MG/DL TRIGLYCERIDES (test code = 2232) 160 MG/DL HDL CHOLESTEROL (test code = 2220) 48 MG/DL CALC LDL CHOL (test code = 2237) 100 MG/DL RISK RATIO LDL/HDL (test cod e = 2238) 2.08 RATIO [id number] 00:00:00* Test Item Value Reference Range Interpretation Comme nts TSH, THIRD GENERATION (test code = 2821) 2.000 UIU/ML COMPREHENSIVE METABOLIC [id number] 00:00:00* Test Item Value Reference Range Interpretation Comme nts GLUCOSE (test code = 2217) 103 MG/DL BUN (test code = 2208) 14 MG/DL CREATININE (test code = 2214) 0.71 MG/DL eGFR AMER. (test cod e = 62245) 96 ML/MIN/1.73 eGFR NON- AMER. (test code = 82465) 83 ML/MIN/1.73 CALC BUN/CREAT (test code = 2235) 20 RATIO SODIUM (test code = 2231) 142 MEQ/L POTASSIUM (test code = 2228) 4.3 MEQ/L CHLORIDE (test code = 2215) 101 MEQ/L CARBON DIOXIDE (test code = 2206) 27 MEQ/L CALCIUM (test code = 2209) 9.2 MG/DL PROTEIN, TOTAL (test code = 2229) 7.5 G/DL ALBUMIN (test code = 2201) 4.5 G/DL CALC GLOBULIN (test code = 2240) 3.0 G/DL CALC A/G RATIO (test code = 2234) 1.5 RATIO BILIRUBIN, TOTAL (test code = 2207) 0.4 MG/DL ALKALINE PHOSPHATASE (test code = 2204) 86 U/L AST (test code = 2218) 20 U/L ALT (test code = 2219) 12 U/L LIPID [id number] 00:00:00* Test Item Value Reference Range Interpretation Comme nts CHOLESTEROL (test code = 2210) 174 MG/DL TRIGLYCERIDES (test code = 2232) 160 MG/DL HDL CHOLESTEROL (test code = 2220) 48 MG/DL CALC LDL CHOL (test code = 2237) 100 MG/DL RISK RATIO LDL/HDL (test cod e = 2238) 2.08 RATIO CBC W/AUTO [id number] 00:00:00* Test Item Value Reference Range Interpretation Comme nts WBC (test code = 1001) 3.9 K/UL [...] (test code = 1015) 167 K/UL HEMOGLOBIN [id number] 00:00:00* Test Item Value Reference Range Interpretation Comme nts HEMOGLOBIN A1c (test code = 83752) 6.1 % [id number] 00:00:00* Test Item Value Reference Range Interpretation Comme nts TSH, THIRD GENERATION (test code = 2821) 2.000 UIU/ML COMPREHENSIVE METABOLIC [id number] 00:00:00* Test Item Value Reference Range Interpretation Comme nts GLUCOSE (test code = 2217) 103 MG/DL BUN (test code = 2208) 14 MG/DL CREATININE (test code = 2214) 0.71 MG/DL eGFR AMER. (test cod e = 43593) 96 ML/MIN/1.73 eGFR NON- AMER. (test code = 75570) 83 ML/MIN/1.73 CALC BUN/CREAT (test code = 2235) 20 RATIO SODIUM (test code = 2231) 142 MEQ/L POTASSIUM (test code = 2228) 4.3 MEQ/L CHLORIDE (test code = 2215) 101 MEQ/L CARBON DIOXIDE (test code = 2206) 27 MEQ/L CALCIUM (test code = 2209) 9.2 MG/DL PROTEIN, TOTAL (test code = 2229) 7.5 G/DL ALBUMIN (test code = 2201) 4.5 G/DL CALC GLOBULIN (test code = 2240) 3.0 G/DL CALC A/G RATIO (test code = 2234) 1.5 RATIO BILIRUBIN, TOTAL (test code = 2207) 0.4 MG/DL ALKALINE PHOSPHATASE (test code = 2204) 86 U/L AST (test code = 2218) 20 U/L ALT (test code = 2219) 12 U/L LIPID [id number] 00:00:00* Test Item Value Reference Range Interpretation Comme nts CHOLESTEROL (test code = 2210) 174 MG/DL TRIGLYCERIDES (test code = 2232) 160 MG/DL HDL CHOLESTEROL (test code = 2220) 48 MG/DL CALC LDL CHOL (test code = 2237) 100 MG/DL RISK RATIO LDL/HDL (test cod e = 2238) 2.08 RATIO CBC W/AUTO [id number] 00:00:00* Test Item Value Reference Range Interpretation Comme nts WBC (test code = 1001) 3.9 K/UL [...] (test code = 1015) 167 K/UL HEMOGLOBIN [id number] 00:00:00* Test Item Value Reference Range Interpretation Comme nts HEMOGLOBIN A1c (test code = 96195) 6.1 % [id number] 00:00:00* Test Item Value Reference Range Interpretation Comme nts TSH, THIRD GENERATION (test code = 2821) 2.000 UIU/ML COMPREHENSIVE METABOLIC [id number] 00:00:00* Test Item Value Reference Range Interpretation Comme nts GLUCOSE (test code = 2217) 103 MG/DL BUN (test code = 2208) 14 MG/DL CREATININE (test code = 2214) 0.71 MG/DL eGFR AMER. (test cod e = 04355) 96 ML/MIN/1.73 eGFR NON- AMER. (test code = 92138) 83 ML/MIN/1.73 CALC BUN/CREAT (test code = 2235) 20 RATIO SODIUM (test code = 2231) 142 MEQ/L POTASSIUM (test code = 2228) 4.3 MEQ/L CHLORIDE (test code = 2215) 101 MEQ/L CARBON DIOXIDE (test code = 2206) 27 MEQ/L CALCIUM (test code = 2209) 9.2 MG/DL PROTEIN, TOTAL (test code = 2229) 7.5 G/DL ALBUMIN (test code = 2201) 4.5 G/DL CALC GLOBULIN (test code = 2240) 3.0 G/DL CALC A/G RATIO (test code = 2234) 1.5 RATIO BILIRUBIN, TOTAL (test code = 2207) 0.4 MG/DL ALKALINE PHOSPHATASE (test code = 2204) 86 U/L AST (test code = 2218) 20 U/L ALT (test code = 2219) 12 U/L LIPID [id number] 00:00:00* Test Item Value Reference Range Interpretation Comme nts CHOLESTEROL (test code = 2210) 174 MG/DL TRIGLYCERIDES (test code = 2232) 160 MG/DL HDL CHOLESTEROL (test code = 2220) 48 MG/DL CALC LDL CHOL (test code = 2237) 100 MG/DL RISK RATIO LDL/HDL (test cod e = 2238) 2.08 RATIO CBC W/AUTO [id number] 00:00:00* Test Item Value Reference Range Interpretation Comme nts WBC (test code = 1001) 3.9 K/UL [...] (test code = 1015) 167 K/UL HEMOGLOBIN [id number] 00:00:00* Test Item Value Reference Range Interpretation Comme [facility] HEMOGLOBIN A1c (test code = 00299) 6.1 % [id number] 00:00:00* Test Item Value Reference Range Interpretation Comme nts TSH, THIRD GENERATION (test code = 2821) 2.000 UIU/ML COMPREHENSIVE METABOLIC [id number] 00:00:00* Test Item Value Reference Range Interpretation Comme nts GLUCOSE (test code = 2217) 103 MG/DL BUN (test code = 2208) 14 MG/DL CREATININE (test code = 2214) 0.71 MG/DL eGFR AMER. (test cod e = 73171) 96 ML/MIN/1.73 eGFR NON- AMER. (test code = 48194) 83 ML/MIN/1.73 CALC BUN/CREAT (test code = 2235) 20 RATIO SODIUM (test code = 2231) 142 MEQ/L POTASSIUM (test code = 2228) 4.3 MEQ/L CHLORIDE (test code = 2215) 101 MEQ/L CARBON DIOXIDE (test code = 2206) 27 MEQ/L CALCIUM (test code = 2209) 9.2 MG/DL PROTEIN, TOTAL (test code = 2229) 7.5 G/DL ALBUMIN (test code = 2201) 4.5 G/DL CALC GLOBULIN (test code = 2240) 3.0 G/DL CALC A/G RATIO (test code = 2234) 1.5 RATIO BILIRUBIN, TOTAL (test code = 2207) 0.4 MG/DL ALKALINE PHOSPHATASE (test code = 2204) 86 U/L AST (test code = 2218) 20 U/L ALT (test code = 2219) 12 U/L LIPID [id number] 00:00:00* Test Item Value Reference Range Interpretation Comme nts CHOLESTEROL (test code = 2210) 174 MG/DL TRIGLYCERIDES (test code = 2232) 160 MG/DL HDL CHOLESTEROL (test code = 2220) 48 MG/DL CALC LDL CHOL (test code = 2237) 100 MG/DL RISK RATIO LDL/HDL (test cod e = 2238) 2.08 RATIO COMPREHENSIVE METABOLIC [id number] 00:00:00* Test Item Value Reference Range Interpretation Comme nts GLUCOSE (test code = 2217) 102 MG/DL BUN (test code = 2208) 19 MG/DL CREATININE (test code = 2214) 0.69 MG/DL eGFR AMER. (test cod e = 36872) 98 ML/MIN/1.73 eGFR NON- AMER. (test code = 72508) 85 ML/MIN/1.73 CALC BUN/CREAT (test code = 2235) 28 RATIO SODIUM (test code = 2231) 144 MEQ/L POTASSIUM (test code = 2228) 4.5 MEQ/L CHLORIDE (test code = 2215) 104 MEQ/L CARBON DIOXIDE (test code = 2206) 28 MEQ/L CALCIUM (test code = 2209) 9.1 MG/DL PROTEIN, TOTAL (test code = 2229) 7.5 G/DL ALBUMIN (test code = 2201) 4.5 G/DL CALC GLOBULIN (test code = 2240) 3.0 G/DL CALC A/G RATIO (test code = 2234) 1.5 RATIO BILIRUBIN, TOTAL (test code = 2207) 0.4 MG/DL ALKALINE PHOSPHATASE (test code = 2204) 86 U/L AST (test code = 2218) 20 U/L ALT (test code = 2219) 14 U/L LIPID [id number] 00:00:00* Test Item Value Reference Range Interpretation Comme nts CHOLESTEROL (test code = 2210) 183 MG/DL TRIGLYCERIDES (test code = 2232) 96 MG/DL HDL CHOLESTEROL (test code = 2220) 50 MG/DL CALC LDL CHOL (test code = 2237) 114 MG/DL RISK RATIO LDL/HDL (test cod e = 2238) 2.28 RATIO CBC W/AUTO [id number] 00:00:00* Test Item Value Reference Range Interpretation Comme nts WBC (test code = 1001) 3.0 K/UL [...] code = 1015) 167 K/UL COMPREHENSIVE METABOLIC [id number] 00:00:00* Test Item Value Reference Range Interpretation Comme nts GLUCOSE (test code = 2217) 102 MG/DL BUN (test code = 2208) 19 MG/DL CREATININE (test code = 2214) 0.69 MG/DL eGFR AMER. (test cod e = 83159) 98 ML/MIN/1.73 eGFR NON- AMER. (test code = 33268) 85 ML/MIN/1.73 CALC BUN/CREAT (test code = 2235) 28 RATIO SODIUM (test code = 2231) 144 MEQ/L POTASSIUM (test code = 2228) 4.5 MEQ/L CHLORIDE (test code = 2215) 104 MEQ/L CARBON DIOXIDE (test code = 2206) 28 MEQ/L CALCIUM (test code = 2209) 9.1 MG/DL PROTEIN, TOTAL (test code = 2229) 7.5 G/DL ALBUMIN (test code = 2201) 4.5 G/DL CALC GLOBULIN (test code = 2240) 3.0 G/DL CALC A/G RATIO (test code = 2234) 1.5 RATIO BILIRUBIN, TOTAL (test code = 2207) 0.4 MG/DL ALKALINE PHOSPHATASE (test code = 2204) 86 U/L AST (test code = 2218) 20 U/L ALT (test code = 2219) 14 U/L HEMOGLOBIN [id number] 00:00:00* Test Item Value Reference Range Interpretation Comme nts HEMOGLOBIN A1c (test code = 99754) 5.9 % [id number] 00:00:00* Test Item Value Reference Range Interpretation Comme nts TSH, THIRD GENERATION (test code = 2821) 2.680 UIU/ML COMPREHENSIVE METABOLIC [id number] 00:00:00* Test Item Value Reference Range Interpretation Comme nts GLUCOSE (test code = 2217) 102 MG/DL BUN (test code = 2208) 19 MG/DL CREATININE (test code = 2214) 0.69 MG/DL eGFR AMER. (test cod e = 55117) 98 ML/MIN/1.73 eGFR NON- AMER. (test code = 25994) 85 ML/MIN/1.73 CALC BUN/CREAT (test code = 2235) 28 RATIO SODIUM (test code = 2231) 144 MEQ/L POTASSIUM (test code = 2228) 4.5 MEQ/L CHLORIDE (test code = 2215) 104 MEQ/L CARBON DIOXIDE (test code = 2206) 28 MEQ/L CALCIUM (test code = 2209) 9.1 MG/DL PROTEIN, TOTAL (test code = 2229) 7.5 G/DL ALBUMIN (test code = 2201) 4.5 G/DL CALC GLOBULIN (test code = 2240) 3.0 G/DL CALC A/G RATIO (test code = 2234) 1.5 RATIO BILIRUBIN, TOTAL (test code = 2207) 0.4 MG/DL ALKALINE PHOSPHATASE (test code = 2204) 86 U/L AST (test code = 2218) 20 U/L ALT (test code = 2219) 14 U/L LIPID [id number] 00:00:00* Test Item Value Reference Range Interpretation Comme nts CHOLESTEROL (test code = 2210) 183 MG/DL TRIGLYCERIDES (test code = 2232) 96 MG/DL HDL CHOLESTEROL (test code = 2220) 50 MG/DL CALC LDL CHOL (test code = 2237) 114 MG/DL RISK RATIO LDL/HDL (test cod e = 2238) 2.28 RATIO CBC W/AUTO [id number] 00:00:00* Test Item Value Reference Range Interpretation Comme nts WBC (test code = 1001) 3.0 K/UL [...] (test code = 1015) 167 K/UL LIPID [id number] 00:00:00* Test Item Value Reference Range Interpretation Comme nts CHOLESTEROL (test code = 2210) 183 MG/DL TRIGLYCERIDES (test code = 2232) 96 MG/DL HDL CHOLESTEROL (test code = 2220) 50 MG/DL CALC LDL CHOL (test code = 2237) 114 MG/DL RISK RATIO LDL/HDL (test cod e = 2238) 2.28 RATIO HEMOGLOBIN [id number] 00:00:00* Test Item Value Reference Range Interpretation Comme nts HEMOGLOBIN A1c (test code = 52356) 5.9 % [id number] 00:00:00* Test Item Value Reference Range Interpretation Comme nts TSH, THIRD GENERATION (test code = 2821) 2.680 UIU/ML CBC W/AUTO [id number] 00:00:00* Test Item Value Reference Range Interpretation Comme nts WBC (test code = 1001) 3.0 K/UL [...] (test code = 1015) 167 K/UL HEMOGLOBIN [id number] 00:00:00* Test Item Value Reference Range Interpretation Comme nts HEMOGLOBIN A1c (test code = 35408) 5.9 % [id number] 00:00:00* Test Item Value Reference Range Interpretation Comme nts TSH, THIRD GENERATION (test code = 2821) 2.680 UIU/ML COMPREHENSIVE METABOLIC [id number] 00:00:00* Test Item Value Reference Range Interpretation Comme nts GLUCOSE (test code = 2217) 102 MG/DL BUN (test code = 2208) 19 MG/DL CREATININE (test code = 2214) 0.69 MG/DL eGFR AMER. (test cod e = 48372) 98 ML/MIN/1.73 eGFR NON- AMER. (test code = 00692) 85 ML/MIN/1.73 CALC BUN/CREAT (test code = 2235) 28 RATIO SODIUM (test code = 2231) 144 MEQ/L POTASSIUM (test code = 2228) 4.5 MEQ/L CHLORIDE (test code = 2215) 104 MEQ/L CARBON DIOXIDE (test code = 2206) 28 MEQ/L CALCIUM (test code = 2209) 9.1 MG/DL PROTEIN, TOTAL (test code = 2229) 7.5 G/DL ALBUMIN (test code = 2201) 4.5 G/DL CALC GLOBULIN (test code = 2240) 3.0 G/DL CALC A/G RATIO (test code = 2234) 1.5 RATIO BILIRUBIN, TOTAL (test code = 2207) 0.4 MG/DL ALKALINE PHOSPHATASE (test code = 2204) 86 U/L AST (test code = 2218) 20 U/L ALT (test code = 2219) 14 U/L LIPID [id number] 00:00:00* Test Item Value Reference Range Interpretation Comme nts CHOLESTEROL (test code = 2210) 183 MG/DL TRIGLYCERIDES (test code = 2232) 96 MG/DL HDL CHOLESTEROL (test code = 2220) 50 MG/DL CALC LDL CHOL (test code = 2237) 114 MG/DL RISK RATIO LDL/HDL (test cod e = 2238) 2.28 RATIO CBC W/AUTO [id number] 00:00:00* Test Item Value Reference Range Interpretation Comme nts WBC (test code = 1001) 3.0 K/UL [...] (test code = 1015) 167 K/UL HEMOGLOBIN [id number] 00:00:00* Test Item Value Reference Range Interpretation Comme nts HEMOGLOBIN A1c (test code = 59752) 5.9 % [id number] 00:00:00* Test Item Value Reference Range Interpretation Comme nts TSH, THIRD GENERATION (test code = 2821) 2.680 UIU/ML COMPREHENSIVE METABOLIC [id number] 00:00:00* Test Item Value Reference Range Interpretation Comme nts GLUCOSE (test code = 2217) 102 MG/DL BUN (test code = 2208) 19 MG/DL CREATININE (test code = 2214) 0.69 MG/DL eGFR AMER. (test cod e = 77977) 98 ML/MIN/1.73 eGFR NON- AMER. (test code = 99492) 85 ML/MIN/1.73 CALC BUN/CREAT (test code = 2235) 28 RATIO SODIUM (test code = 2231) 144 MEQ/L POTASSIUM (test code = 2228) 4.5 MEQ/L CHLORIDE (test code = 2215) 104 MEQ/L CARBON DIOXIDE (test code = 2206) 28 MEQ/L CALCIUM (test code = 2209) 9.1 MG/DL PROTEIN, TOTAL (test code = 2229) 7.5 G/DL ALBUMIN (test code = 2201) 4.5 G/DL CALC GLOBULIN (test code = 2240) 3.0 G/DL CALC A/G RATIO (test code = 2234) 1.5 RATIO BILIRUBIN, TOTAL (test code = 2207) 0.4 MG/DL ALKALINE PHOSPHATASE (test code = 2204) 86 U/L AST (test code = 2218) 20 U/L ALT (test code = 2219) 14 U/L LIPID [id number] 00:00:00* Test Item Value Reference Range Interpretation Comme nts CHOLESTEROL (test code = 2210) 183 MG/DL TRIGLYCERIDES (test code = 2232) 96 MG/DL HDL CHOLESTEROL (test code = 2220) 50 MG/DL CALC LDL CHOL (test code = 2237) 114 MG/DL RISK RATIO LDL/HDL (test cod e = 2238) 2.28 RATIO CBC W/AUTO [id number] 00:00:00* Test Item Value Reference Range Interpretation Comme nts WBC (test code = 1001) 3.0 K/UL [...] (test code = 1015) 167 K/UL HEMOGLOBIN [id number] 00:00:00* Test Item Value Reference Range Interpretation Comme nts HEMOGLOBIN A1c (test code = 30877) 5.9 % [id number] 00:00:00* Test Item Value Reference Range Interpretation Comme nts TSH, THIRD GENERATION (test code = 2821) 2.680 UIU/ML COMPREHENSIVE METABOLIC [id number] 00:00:00* Test Item Value Reference Range Interpretation Comme nts GLUCOSE (test code = 2217) 102 MG/DL BUN (test code = 2208) 19 MG/DL CREATININE (test code = 2214) 0.69 MG/DL eGFR AMER. (test cod e = 49024) 98 ML/MIN/1.73 eGFR NON- AMER. (test code = 52327) 85 ML/MIN/1.73 CALC BUN/CREAT (test code = 2235) 28 RATIO SODIUM (test code = 2231) 144 MEQ/L POTASSIUM (test code = 2228) 4.5 MEQ/L CHLORIDE (test code = 2215) 104 MEQ/L CARBON DIOXIDE (test code = 2206) 28 MEQ/L CALCIUM (test code = 2209) 9.1 MG/DL PROTEIN, TOTAL (test code = 2229) 7.5 G/DL ALBUMIN (test code = 2201) 4.5 G/DL CALC GLOBULIN (test code = 2240) 3.0 G/DL CALC A/G RATIO (test code = 2234) 1.5 RATIO BILIRUBIN, TOTAL (test code = 2207) 0.4 MG/DL ALKALINE PHOSPHATASE (test code = 2204) 86 U/L AST (test code = 2218) 20 U/L ALT (test code = 2219) 14 U/L LIPID [id number] 00:00:00* Test Item Value Reference Range Interpretation Comme nts CHOLESTEROL (test code = 2210) 183 MG/DL TRIGLYCERIDES (test code = 2232) 96 MG/DL HDL CHOLESTEROL (test code = 2220) 50 MG/DL CALC LDL CHOL (test code = 2237) 114 MG/DL RISK RATIO LDL/HDL (test cod e = 2237) 2.28 RATIO CBC W/AUTO [id number] 00:00:00* Test Item Value Reference Range Interpretation Comme nts WBC (test code = 1001) 3.0 K/UL [...] (test code = 1015) 167 K/UL HEMOGLOBIN [id number] 00:00:00* Test Item Value Reference Range Interpretation Comme nts HEMOGLOBIN A1c (test code = 43305) 5.9 % [id number] 00:00:00* Test Item Value Reference Range Interpretation Comme nts TSH, THIRD GENERATION (test code = 2821) 2.680 UIU/ML SCR MAMM BILATERAL NICHOLAS CAD [id number] 10:15:57- SCR MAMM BILATERAL NICHOLAS CAD DIGITALBILATERAL DIGITAL SCREENING MAMMOGRAM 3D/2D WITH CAD: 05/08/2019 CLINICAL: Asymptomatic. Digital breast tomosynthesis was performed in addition to routine CC and MLO views. Current mammographic images were evaluated by either a [employer] M-Vu or a [employer] ImageChecker CAD (computer aided detection system). Comparison is made to exam dated 07/08/2009 mammogram - [facility]. The tissue of both breasts [...] 10:15:57 Attending Technologist: Marcella Maria MM, [facility] Technologist: Jackie Tsang MM, [facility]ent: BIRADS 1-2 Normal Mammogram BI-RADS: 2 BenignSCR MAMM BILATERAL NICHOLAS CAD [id number] 10:15:57AMENDMENT: 05/27/2019 Alvin Carter M.D. Prior mammograms obtained and reviewed. No significant interv al change.Amended BI-RADS: 2 Benign letter sent: Normal Comparison Completed
--- NOTE | 2024-11-04 11:12 | RAD REPORT ---
EXAM: CT brain without contrast HISTORY: DIZZINESS COMPARISON: 05/28/2017 TECHNIQUE: Multiple contiguous axial images were obtained and a CT of the brain without contrast. Sag ittal and coronal reformats were performed. One or more of the following dose reduction techniques were used: Automated exposure control, adjust ment of the mA and/or kV according to patient size, and/or iterative reconstruction. FINDINGS: No evidence of hydrocephalus, intracranial hemorrhage, or extra-axial fluid collection. The brain is normal in morphology. No evidence of midline shift or areas of brain edema. The calvarium is intact. The visualized paranasal sinuses and mastoid air cells are essentially clear . IMPRESSION: No evidence of acute intracranial abnormality.
--- NOTE | 2024-11-04 11:26 | RAD REPORT ---
EXAMINATION: ONE VIEW CHEST XR CLINICAL INDICATION: COUGH TECHNIQUE: Frontal chest projection is submitted. Examination is limited by patient positioning and t echnique. COMPARISON: 04/27/2023 FINDINGS: The lungs are well inflated and clear. The heart is upper limit of normal in size. No displaced fract ures identified. IMPRESSION: No acute intrathoracic abnormalities.
[2024-11-04] MEDS ORDERED: MECLIZINE HCL 12.5 MG TAB ONE (11:50)
[2024-11-04] MEDS ORDERED: NA CHLORIDE 0.9% 500 ML ONE (11:50)
[2024-11-04 11:54] LABS: Absolute Lymphocytes (CBC) 0.7 K/uL (0.7-4.9); Absolute Monocytes 0.1 K/uL (0.1-1.3); Absolute Neutrophil 1.8 K/uL (1.8-8.0); Basophils % 0.6 % (0-1.3); Eosinophils % 0.8 % (0-4.4); Hematocrit 39.5 % (36.0-45.0); Hemoglobin 12.9 g/dL (12.0-15.0); Lymphocytes % 26.4 % (15.3-44.8); MCH 29.2 pg (27.0-35.0); MCHC 32.7 g/dL (32.0-36.0); MCV 89.3 fL (80-100); MPV 8.6 fL (7.6-11.3); Neutrophils % 67.2 % (41.7-73.7); Platelets 157 thou/uL (152-406); RBC Red Blood Cell Count 4.42 M/uL (3.86-4.86); Red Cell Distribution Width 13.5 % (12.1-15.2)
[2024-11-04 12:07] LABS: Anion Gap 6.8 mEq/L (5.0-15.0); Potassium 3.8 mEq/L (3.5-5.1)
--- NOTE | 2024-11-04 14:14 | ER ---
Nurse's Notes [facility] Name: Eliane Flores Age: 79 yrs Sex: Female : 1945 Arrival Date: 11/04/2024 Time: 10:27 Bed 18 Private MD: Diagnosis: Dizziness and giddiness;Vertigo Presentation: 11/04 10:43 Chief complaint: Patient states: I have felt dizzy for 8 days. Last Sunday the 6 doctor gave me some medications for ear infections, but it has not gotten any better. Today I feel nauseous. Coronavirus screen: Client denies travel out of the [place] in the last 14 days. Ebola Screen: Patient negative for fever greater than or equal to 101.5 degrees Fahrenheit, and additional compatible Ebola Virus Disease symptoms Patient denies exposure to infectious person. Patient denies travel to an Ebola-affected area in the 21 days before illness onset. No symptoms or risks identified at this time. Initial Sepsis Screen: Does the patient meet any 2 criteria? No. Patient's initial sepsis screen is negative. Does the patient have a suspected source of infection? No. Patient's initial sepsis screen is negative. Risk Assessment: Do you want to hurt yourself or someone else? Patient reports no desire to harm self or others. Onset of symptoms was October 27, 2024. 10:43 Method Of Arrival: Wheelchair tm6 10:43 Acuity: CRISTINA 3 tm6 Triage Assessment: 10:46 General: Appears in no apparent distress. Behavior is calm, cooperative. Pain: Denies tm6 pain. EENT: No signs and/or symptoms were reported regarding the EENT system. Neuro: Level of Consciousness is awake, alert, obeys commands, Oriented to person, place, time, situation, Reports dizziness, since x8 days. Cardiovascular: Patient's skin is warm and dry. Respiratory: Airway is patent Respiratory effort is even, unlabored, Respiratory pattern is regular, symmetrical. GI: Abdomen is flat, non-distended, Reports nausea. : No signs and/or symptoms were reported regarding the genitourinary system. Derm: No signs and/or symptoms reported regarding the dermatologic system. Musculoskeletal: No signs and/or symptoms reported regarding the musculoskeletal system. Historical: - Allergies: 10:46 PENICILLINS; tm6 - PMHx: 10:46 BRADYCARDIA; Hypertension; Hypothyroidism; problem with heart-unknown; tm6 - Immunization history:: Flu vaccine status is unknown. - Infectious Disease History:: Denies. - Social history:: Smoking status: Patient denies any tobacco usage or history of. - Family history:: not pertinent. - Hospitalizations: : No recent hospitalization is reported. Screenin:45 Abuse screen: Denies threats or abuse. Nutritional screening: No deficits noted. ap3 Tuberculosis screening: No symptoms or risk factors identified. 14:32 [facility] ED Fall Risk Assessment (Adult) History of falling in the last 3 months, ap3 including since admission Yes- single mechanical fall (1 pt) Confusion or Disorientation No (0 pts) Intoxicated or Sedated No (0 pts) Impaired Gait No (0 pts) Mobility Assist Device Used No (0 pt) Altered Elimination Score/Fall Risk Level 0 - 2 = Low Risk Oriented to surroundings, Maintained a safe environment, Educated pt \T\ family on fall prevention, incl call for assistance when getting out of bed, Assessed \T\ reinforced patient's understanding of fall precautions, Hourly rounding (assess needs \T\ fall precautionary measures) done, Used ambulatory aids as needed (educated on \T\ assisted with), Used gait belt as appropriate. Assessment: 11:45 General: Appears in no apparent distress. Behavior is calm, cooperative, appropriate ap3 for age. Neuro: Level of Consciousness is awake, alert, obeys commands, Oriented to person, place, time, situation, Appropriate for age Reports dizziness. Cardiovascular: Patient's skin is warm and dry. Respiratory: Airway is patent Respiratory effort is even, unlabored, Respiratory pattern is regular, symmetrical. Vital Signs: 10:43 BP 198 / 79; Pulse 53; Pulse Ox 100% on R/A; MAP 112 mmHg; tm6 12:00 BP 194 / 73; Pulse 54; Resp 17; Pulse Ox 100% on R/A; ap3 12:01 Temp 97.8; ap3 12:15 BP 190 / 78; Pulse 56; Pulse Ox 100% ; ap3 12:44 BP 177 / 67; Pulse 56; Pulse Ox 98% on R/A; ap3 ED Course: 10:32 Patient arrived in ED. ra3 10:37 Luan Farias MD is Attending Physician. rn 10:46 Triage completed. tm6 10:46 Arm band placed on right wrist. tm6 10:49 Allergy band placed. tm6 11:07 CT Head Brain wo Cont In Process Unspecified. EDMS 11:12 XRAY Chest (1 view) In Process Unspecified. EDMS 11:34 Roxana Duron, RN is Primary Nurse. ap3 11:44 Inserted saline lock: 20 gauge in right antecubital area, using aseptic technique. ap3 Blood collected. Flushed with 10 mL NS. 11:44 Basic Metabolic Panel Sent. ap3 11:44 CBC with Diff Sent. ap3 14:33 Provided Education on: discharge instructions. ap3 14:33 No provider procedures requiring assistance completed. IV discontinued, intact, ap3 bleeding controlled, No redness/swelling at site. Pressure dressing applied. Administered Medications: 11:55 Drug: NS 0.9% IV 500 ml 500 ml IV at 1 bolus once; to be given as a bolus over 30 ap3 minutes Volume: 500 ml; Route: IV; Rate: 1 bolus; Site: right antecubital; 12:30 Follow up: IV Status: Completed infusion ap3 11:55 Drug: Meclizine PO 50 mg PO once Route: PO; ap3 14:34 Follow up: Response: No adverse reaction ap3 Medication: 14:33 VIS not applicable for this client. ap3 Outcome: 14:14 Discharge ordered by . rn 14:33 Condition: good ap3 14:33 Discharge instructions given to patient, family, Instructed on discharge instructions, ap3 follow up and referral plans. medication usage, Demonstrated understanding of instructions, follow-up care, medications, Prescriptions given X 1, 14:53 Patient left the ED. ap3 19:11 Discharged to home with family, ap3 Signatures: Dispatcher [employer] EDMS Luan Farias MD MD rn Prokisch, Amanda RN RN ap3 Radha Munson RN RN tm6 Simona Michelle ra3 Corrections: (The following items were deleted from the chart) 12:01 12:00 BP 194 / 73; Pulse 54bpm; Pulse Ox 100% RA; Temp 17F; ap3 ap3
--- NOTE | 2024-11-04 14:14 | EDPHYS ---
Physician Documentation [facility] Name: Eliane Flores Age: 79 yrs Sex: Female : 1945 Arrival Date: 11/04/2024 Time: 10:27 Bed 18 Private MD: ED Physician Luan Farias HPI: 11/04 11:48 This 79 yrs old Female presents to ER via Wheelchair with complaints of rn Dizziness. 11:48 The patient presents with dizziness. rn 11:49 Onset: The symptoms/episode began/occurred 1 week(s) ago. Modifying factors: The rn symptoms are alleviated by holding head still, lying down, the symptoms are aggravated by movement of head. Severity of symptoms: At their worst the symptoms were moderate in the emergency department the symptoms have improved. The patient has not experienced similar symptoms in the past. Patient reports seen by her physician a week ago, prescribed antibiotics and cough medication for upper respiratory infection and ear infection. Reports has been feeling dizzy and lightheaded. Worse with head movement and associated with nausea. Patient states took family members medication for vertigo with improvement of symptoms and feels much better now. Denies chest pain or abdominal pain. No neck stiffness.. Historical: - Allergies: 10:46 PENICILLINS; tm6 - PMHx: 10:46 BRADYCARDIA; Hypertension; Hypothyroidism; problem with heart-unknown; tm6 - Immunization history:: Flu vaccine status is unknown. - Infectious Disease History:: Denies. - Social history:: Smoking status: Patient denies any tobacco usage or history of. - Family history:: not pertinent. - Hospitalizations: : No recent hospitalization is reported. ROS: 11:49 Constitutional: Negative for fever, chills, and weight loss, Neck: Negative for injury, rn pain, and swelling, Cardiovascular: Negative for chest pain, palpitations, and edema, Respiratory: Negative for shortness of breath, cough, wheezing, and pleuritic chest pain, Abdomen/GI: Positive for nausea Back: Negative for injury and pain, MS/Extremity: Negative for injury and deformity, Skin: Negative for injury, rash, and discoloration, Neuro: Positive for dizziness Exam: 11:49 Constitutional: This is a well developed, well nourished patient who is awake, alert, rn and in no acute distress. Head/Face: Normocephalic, atraumatic. Eyes: Pupils equal round and reactive to light, extra-ocular motions intact. Lids and lashes normal. Conjunctiva and sclera are non-icteric and not injected. Cornea within normal limits. Periorbital areas with no swelling, redness, or edema. Cardiovascular: Bradycardic, regular Respiratory: Speaking full sentences, unlabored Abdomen/GI: Soft, nontender MS/ Extremity: Pulses equal, no cyanosis. Neurovascular intact. Full, normal range of motion. Equal circumference. Neuro: Awake and alert, GCS 15, oriented to person, place, time, and situation. Cranial nerves II-XII grossly intact. Motor strength 5/5 in all extremities. Sensory grossly intact. Cerebellar exam normal. Vital Signs: 10:43 BP 198 / 79; Pulse 53; Pulse Ox 100% on R/A; MAP 112 mmHg; tm6 12:00 BP 194 / 73; Pulse 54; Resp 17; Pulse Ox 100% on R/A; ap3 12:01 Temp 97.8; ap3 12:15 BP 190 / 78; Pulse 56; Pulse Ox 100% ; ap3 12:44 BP 177 / 67; Pulse 56; Pulse Ox 98% on R/A; ap3 MDM: 10:37 Medical Screening Exam initiated rn 14:13 Differential diagnosis: cardiac arrhythmia, CVA, generalized weakness, hypovolemia, rn idiopathic dizziness, TIA, vertigo. Data reviewed: vital signs, nurses notes, lab test result(s), EKG, radiologic studies, CT scan, plain films, and as a result, I will discharge patient. Counseling: I had a detailed discussion with the patient and/or guardian regarding the historical points, exam findings, and any diagnostic results supporting the discharge/admit diagnosis, lab results, radiology results, the need for outpatient follow up, to return to the emergency department if symptoms worsen or persist or if there are any questions or concerns that arise at home. Special discussion: I discussed with the patient/guardian in detail that at this point there is no indication for admission to the hospital. It is understood, however, that if the symptoms persist or worsen the patient needs to return immediately for re-evaluation. ED course: Patient reports feels much better after meclizine and fluids. Back to normal. No dizziness or vertigo with change in head position. Will discharge home with return precautions and meclizine as needed.. 11/04 10:54 Order name: CBC with Diff; Complete Time: 12:32 rn 11/04 10:54 Order name: Basic Metabolic Panel; Complete Time: 12:32 rn 11/04 10:54 Order name: CT Head Brain wo Cont; Complete Time: 11:34 rn 11/04 10:56 Order name: XRAY Chest (1 view); Complete Time: 11:34 rn 11/04 10:54 Order name: IV Start; Complete Time: 11:44 rn Administered Medications: 11:55 Drug: NS 0.9% IV 500 ml 500 ml IV at 1 bolus once; to be given as a bolus over 30 ap3 minutes Volume: 500 ml; Route: IV; Rate: 1 bolus; Site: right antecubital; 12:30 Follow up: IV Status: Completed infusion ap3 11:55 Drug: Meclizine PO 50 mg PO once Route: PO; ap3 14:34 Follow up: Response: No adverse reaction ap3 Disposition Summary: 11/04/24 14:14 Discharge Ordered Notes: Location: Home rn Problem: new rn Symptoms: have improved rn Condition: Stable rn Diagnosis - Dizziness and giddiness rn - Vertigo rn Followup: rn - With: Private Physician - When: As needed - Reason: Recheck today's complaints, Re-evaluation by your physician Discharge Instructions: - Discharge Summary Sheet rn - Dizziness rn - Vertigo rn Forms: - Medication Reconciliation Form rn - Antibiotic patternmaker pressure cast - Prescription Opioid Use rn - Patient Portal Instructions rn - Leadership Thank You Letter rn Prescriptions: - Meclizine 25 mg Oral Tablet - take 1 tablet ORAL route every 8 hours As needed; 30 tablet; Refills: 0, rn Product Selection Permitted Signatures: Dispatcher [employer] EDMS Luan Farias MD MD rn Prokisch, Amanda RN RN ap3 Radha Munson RN RN tm6 Corrections: (The following items were deleted from the chart) 10:54 10:54 CBC+H.LAB.BRZ ordered. EDMS EDMS 10:54 10:54 BASIC METABOLIC PANEL+C.LAB.BRZ ordered. EDMS EDMS 10:54 10:54 Urinalysis+U.LAB.BRZ ordered. EDMS EDMS
[2024-11-04 15:18] VITALS: TEMP 97.8
[2024-11-04 15:20] VITALS: BP 177/67; O2SAT 98
== END 2024-11-04 14:53 | disposition home or self-care (01) ==
LOC: ER 10:27
DX: R42 Dizziness and giddiness (principal); R11.0 Nausea; I10 Essential (primary) hypertension
CPT/HCPCS: 85025; 80048; 36415; 70450; 71045; 96360; 99284; J8597; J7040